=== PATIENT | male | born 1945 | race Caucasian/White ===

== ENCOUNTER 2017-10-10 15:59 | Emergency (ER) | payer SELFPAY ==
--- NOTE | 2017-10-10 19:04 | RAD ---
Indication: Chest injury. CT of the chest performed without IV contrast. Coronal and sagittal reconstructed images were obtained. Inferior thyroid lobes are unremarkable. There are calcified lymph nodes noted in the prevascular space, AP window, left hilum and right hilum as above the subcarinal space. The heart demonstrates no pericardial effusion. The possibility of sarcoid should BE considered. These calcifications were present previously. The lung silva demonstrate density in the left apex. This is likely due to conglomerate mass that is perihilar in location. This has progressed since previous examination. Scattered nodular densities are noted throughout. There is groundglass appearance noted in the right middle lobe. Bilateral axillary lymph nodes are noted. This may represent sarcoid. IMPRESSION: Calcified granulomas a lymph nodes in the mediastinum and hilum bilaterally. Left upper lobe perihilar mass is noted with areas of nodularity along the bronchovascular bundles. Findings are suspicious for sarcoid. Bilateral axillary lymphadenopathy is noted. Findings are consistent with sarcoidosis.
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
[2017-10-10 19:41] VITALS: BP 174/95
== END 2017-10-10 19:41 | disposition home or self-care (01) ==
LOC: ED 15:59
DX: S61.512A Laceration without foreign body of left wrist, initial encounter (principal); S61.511A Laceration without foreign body of right wrist, initial encounter; I10 Essential (primary) hypertension; V47.5XXA Car driver injured in collision with fixed or stationary object in traffic accident, initial encounter; Y92.9 Unspecified place or not applicable; C80.1 Malignant (primary) neoplasm, unspecified
CPT/HCPCS: 71250; 99282

== ENCOUNTER 2018-10-21 19:37 | Inpatient (IN) | payer OTHER ==
[2018-10-21] MEDS ORDERED: NS 0.9% 1000 ML* 1,000 ML IV ONE (20:03)
--- NOTE | 2018-10-21 20:03 | ED ---
Complex/Multi-Sys Presentation - History Of Current Complaint Chief Complaint: EDAltMentalStatus Time Seen by Provider: 10/21/18 19:45 - Allergies/Home Medications Allergies/Adverse Reactions: Allergies Allergy/AdvReac Type Severity Reaction Status Date / Time No Known Allergies Allergy Verified 10/17/18 09:18 PMH/Surg Hx/FS Hx/Imm Hx Endocrine/Hematology History: Reports: Other Endocrine/Hematological Disorders - Sarcoidosis, since resolved, according to Pt Denies: Hx Diabetes, Hx Thyroid Disease - nodes, under care of Rik Cardiovascular History: Reports: Hx Hypertension Denies: Hx Pacemaker/ICD Respiratory History: Reports: Hx Asthma - childhood only, Hx Sleep Apnea - CPAP , Other Respiratory Problems/Disorders - secondary to Sarcoidosis, since improved History: Denies: Hx Renal Disease Musculoskeletal History: Reports: Hx Arthritis, Other Musculoskeletal History - LEFT WRIST FX Denies: Hx Osteoporosis Sensory History: Reports: Hx Contacts or Glasses Denies: Hx Hearing Aid Opthamlomology History: Reports: Hx Contacts or Glasses Neurological History: Reports: Other Neuro Impairments/Disorders - spinal ostemyelitis Psychiatric History: Reports: Hx Anxiety - since ~2 years ago with health problems, mild, Hx Depression - since ~2 years ago with health problems, mild Denies: Hx Panic Disorder - Cancer History Cancer Type, 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 NOSE BLEED HAD TO CAUTERIZE. TONSILS-CATARACTS BILATERAL Hx Anesthesia Reactions: No Infectious Disease History: No Infectious Disease History: Denies: Traveled Outside the [place] in Last 30 Days - Social History Alcohol Use: None Hx Substance Use: Yes Substance Use Type: Reports: None Substance Use Comment - Amount & Last Used: this morning, oil Hx Tobacco Use: No Smoking Status (MU): Never Smoked Tobacco Physical Exam Vital Signs On Initial Exam: Initial Vitals Temp Pulse Resp BP Pulse Ox 99.6 F 100 18 134/83 97 10/21/18 19:44 10/21/18 19:44 18 19:44 10/21/18 19:44 10/21/18 19:44 Diagnostics - Vital Signs Vital Signs Temp Pulse Resp BP Pulse Ox 10/21/18 19:44 99.6 F 100 18 134/83 97 - Laboratory Lab Statement: Any lab studies that have been ordered have been reviewed, and results considered in the medical decision making process. Discharge - Discharge Plan Referrals: Helen Styles MD [Primary Care Provider] - - Attestation Statements Document Initiated by Scribe: Yes Documenting Scribe: Sofia Stout Provider For Whom Scribe is Documenting (Include Credential): Dr. Brandan Robertson MD Scribe Attestation: Sofia Canseco , scribed for Dr. Brandan Robertson MD on 10/21/18 at 2003.
--- NOTE | 2018-10-21 20:06 | ED ---
Altered Mental Status - HPI Summary HPI Summary: The pt is a 73 y/o male accompanied by his daughter c/o increasing confusion and forgetfulness. He did not show up at home at around 16:30 hrs. His then contacted their daughter at 18:00 hrs. The pt was found asleep asleep on the lounge at work for about 6 hours (13:00 hrs -19:00 hrs). His daughter is concerned that the pt did not eat his lunch today. The pt denies weakness, numbness and abd pain. He states that he got a cortisol shot 4 days ago for chronic stenosis.The pt lives with his . Home Medications Medication Instructions Recorded Confirmed Type Acetaminophen [Acetaminophen Extra 1,000 mg PO BID PRN 07/06/16 10/17/18 History Stren] Cholecalciferol (Vitamin D3) 2,000 unit PO DAILY 07/06/16 10/17/18 History [Vitamin D] Ibuprofen [Ibuprofen 200 MG] 400 - 600 mg PO TID WITH MEALS PRN 07/06/16 History MDD 1600 mg Multivitamins/Minerals TAB* 1 tab PO DAILY 07/06/16 10/17/18 History [Theragran/minerals TAB*] Omeprazole CAP* [Prilosec CAP* 20 20 mg PO DAILY 07/06/16 10/17/18 History MG] predniSONE TAB* [Deltasone TAB*] 5 mg PO QPM 07/06/16 10/17/18 History predniSONE TAB* [Deltasone TAB*] 10 mg PO QAM 07/06/16 10/17/18 History Losartan Potassium [Cozaar] 50 mg PO DAILY 10/09/18 10/17/18 History Tamsulosin CAP* [Flomax CAP*] 0.8 mg PO BEDTIME 10/09/18 10/17/18 History Tolnaftate [Antifungal Cream] 14.18 gm TP 10/09/18 History hydroCHLOROthiazide 12.5 mg PO DAILY 10/09/18 10/17/18 History [Hydrochlorothiazide] oxyCODONE TAB* [Roxycodone TAB 5 5 mg PO Q8H PRN MDD 1-1.5 tabs 10/09/18 History mg*] Neomycin/Polymyxin B/Dexametha 1 drop OP TID 10/17/18 10/17/18 History [Maxitrol] - History Of Current Complaint Chief Complaint: EDAltMentalStatus Stated Complaint: GENERAL ILLNESS Time Seen by Provider: 10/21/18 19:45 Hx Obtained From: Patient, Family/Intermediate Manager - Daughter Onset/Duration: Resolved Timing: Lasting Hours Character: Confusion Aggravating Factor(s): Nothing Alleviating Factor(s): Nothing Associated Signs And Symptoms: Negative: Weakness - Allergies/Home Medications Allergies/Adverse Reactions: Allergies Allergy/AdvReac Type Severity Reaction Status Date / Time No Known Allergies Allergy Verified 10/17/18 09:18 PMH/Surg Hx/FS Hx/Imm Hx Previously Healthy: No Endocrine/Hematology History: Reports: Other Endocrine/Hematological Disorders - Sarcoidosis, since resolved, according to Pt Denies: Hx Diabetes, Hx Thyroid Disease - nodes, under care of J[facility] Cardiovascular History: Reports: Hx Hypertension Denies: Hx Pacemaker/ICD Respiratory History: Reports: Hx Asthma - childhood only, Hx Sleep Apnea - CPAP , Other Respiratory Problems/Disorders - secondary to Sarcoidosis, since improved History: Denies: Hx Renal Disease Musculoskeletal History: Reports: Hx Arthritis, Other Musculoskeletal History - LEFT WRIST FX Denies: Hx Osteoporosis Sensory History: Reports: Hx Contacts or Glasses Denies: Hx Hearing Aid Opthamlomology History: Reports: Hx Contacts or Glasses Neurological History: Reports: Other Neuro Impairments/Disorders - spinal ostemyelitis Psychiatric History: Reports: Hx Anxiety - since ~2 years ago with health problems, mild, Hx Depression - since ~2 years ago with health problems, mild Denies: Hx Panic Disorder - Cancer History Cancer Type, 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 Cauterizatin of nose bleed. Tonsillectomy. Bilateral cataract removal Hx Anesthesia Reactions: No Infectious Disease History: No Infectious Disease History: Denies: Traveled Outside the [place] in Last 30 Days - Family History Known Family History: Positive: Cardiac Disease, Hypertension, Other - [place], Alzheimers- mother - Social History Occupation: Employed Full-time Lives: With Family Alcohol Use: None Hx Substance Use: Yes Substance Use Type: Reports: None Substance Use Comment - Amount & Last Used: this morning, oil Hx Tobacco Use: No Smoking Status (MU): Never Smoked Tobacco Review of Systems Constitutional: Other - Confusion, forgetfulness, drowsiness Negative: Abdominal Pain Negative: Weakness, Numbness All Other Systems Reviewed And Are Negative: Yes Physical Exam - Summary Physical Exam Summary: Appearance: Well appearing, no pain distress Skin: warm, dry, reflects adequate perfusion Head/face: normal Eyes: EOMI, CHARITY ENT: normal Neck: supple, non-tender Respiratory: CTA, breath sounds present Cardiovascular: RRR, pulses symmetrical Abdomen: non-tender, soft Musculoskeletal: normal, strength/ROM intact Neuro: normal, sensory motor intact, A&Ox3 GCS:15 , NIH Stroke scale =15 Triage Information Reviewed: Yes Vital Signs On Initial Exam: Initial Vitals Temp Pulse Resp BP Pulse Ox 99.6 F 100 18 134/83 97 10/21/18 19:44 10/21/18 19:44 10/21/18 19:44 10/21/18 19:44 10/21/18 19:44 Vital Signs Reviewed: Yes Diagnostics - Vital Signs Vital Signs Temp Pulse Resp BP Pulse Ox 10/21/18 19:44 99.6 F 100 18 134/83 97 - Laboratory Result Diagrams: 10/22/18 06:40 10/22/18 06:40 Lab Statement: Any lab studies that have been ordered have been reviewed, and results considered in the medical decision making process. - Radiology CXR Radiology Interpretation Completed By: ED Physician - IMPRESSION: No acute disease - CT Brain CT CT Interpretation Completed By: Radiologist Summary of CT Findings: IMPRESSION: No acute intracranial abnormality. The ED physician reviewed this radiology report. - EKG 20:34 Cardiac Rate: Tachycardia - 100 bpm EKG Rhythm: Sinus Tachycardia National Institutes Of Health - NIH Scale Level of Consciousness: Alert/Keenly Responsive Ask Patient the Month and His/Her Age: Both Correct Ask Pt to Open/Close Eyes and Leak Inspector/Release Non-Paretic Hand: Both Correctly Best Gaze (Only Horizontal Eye Movement): Normal Visual Field Testing: No Visual Loss Facial Paresis-Pt to Smile & Close Eyes or Grimace Symmetry: Normal/Symmetrical Motor Function - Right Arm: No Drift-Holds 10 Seconds Motor Function - Left Arm: No Drift-Holds 10 Seconds Motor Function - Right Leg: No Drift-Holds 10 Seconds Motor Function - Left Leg: No Drift-Holds 10 Seconds Limb Ataxia-Must be out of Proportion to Weakness Present: Absent Sensory (Use Pinprick to Test Arms/Legs/Trunk/Face): Normal Best Language (Describe Picture, Name Items): No Aphasia Dysarthria (Read Several Words): Normal Extinction and Inattention: No Abnormality Total Score: 0 Re-Evaluation - Re-Evaluation First Eval Re-Evaluation Time: 21:27 Comment: I discussed the results and discharge plan with the pt and his daughter. Altered Mental Statu Course/Dx - Course Course Of Treatment: A 73 year-old M presents to the ED with a CC of increasing confusion and forgetfulness. He denies weakness, numbness and abd pain. A physical exam is unremarkable. A CXR is unremarkable. An EKG reveals sinus tachycardia. Labs reveal elevated troponin at 0.05. A brain CT is unremarkable. In the ED course, pt was given N.s 0.9% 1000 ml IV which improved the symptoms. I discussed the care of the pt with Dr. Mesa who agreed to admit the pt. Patient will be discharged with a final Dx of TIA/TGA. Pt is agreeable with this plan. Allergies noted. - Diagnoses Differential Diagnosis/HQI/PQRI: CVA, Intracranial Bleed, Metabolic Disorder, Sepsis, TIA Provider Diagnoses: TIA (transient ischemic attack), TGA (transient global amnesia) - Provider Notifications Discussed Care Of Patient With: Kathryn Mesa - Hospitalist Time Discussed With Above Provider: 21:00 Instructed by Provider To: Admit As Inpatient - Critical Care Time Critical Care Time: 30-74 min Discharge - Sign-Out/Discharge Documenting (check all that apply): Patient Departure - Admit - Discharge Plan Condition: Stable Disposition: ADMITTED TO [facility] - Billing Disposition and Condition Condition: STABLE Disposition: Admitted to [facility] - Attestation Statements Document Initiated by Neelaibe: Yes Documenting Scribe: Sofia Stout Provider For Whom Julito is Documenting (Include Credential): Dr. Brandan Robertson MD Scribe Attestation: Sofia Canseco scribed for Dr. Brandan Robertson MD on 10/22/18 at 1152. Scribe Documentation Reviewed: Yes Provider Attestation: The documentation as recorded by the Sofia lópez accurately reflects the service I personally performed and the decisions made by me, Dr. Brandan Robertson MD Status of Scribe Document: Viewed
[2018-10-21 20:27] LABS: Hematocrit 38 % (42-52); Mean Corpuscular HGB Conc 34 g/dl (31-36); Mean Corpuscular Hemoglobin 34 pg (27-31); Mean Corpuscular Volume 100 fL (80-94); Red Cell Distribution Width 17 % (10.5-15); White Blood Count 8.1 10^3/ul (3.5-10.8)
[2018-10-21 20:31] LABS: INR 1.06 (0.77-1.02)
[2018-10-21 20:43] LABS: Albumin 3.5 g/dL (3.2-5.2); Albumin/Globulin Ratio 1.3 (1-3); Calcium 8.8 mg/dL (8.6-10.3); EGFR Non-African American 75.5 (>60); Globulin 2.6 g/dL (2-4); Potassium 3.5 mmol/L (3.5-5.0); Total Bilirubin 1.1 mg/dL (0.2-1.0); Total Protein 6.1 g/dL (6.4-8.9)
[2018-10-21 20:45] LABS: ABS Basophils 0.1 10^3/ul (0-0.2); ABS Eosinophils 0 10^3/ul (0-0.6); ABS Lymphocytes 0.1 10^3/ul (1.0-4.8); ABS Monocytes 0.3 10^3/ul (0-0.8); ABS Neutrophils 7.6 10^3/ul (1.5-7.7); Mean Platelet Volume 6.8 fL (7.4-10.4); Platelet Count 85 10^3/ul (150-450)
[2018-10-21 20:47] LABS: Immature Granulocytes 24 % (0-9); Lymphocytes % 1 %; Metamyelocytes % 1 % (0-2); Monocytes % 1 %; Myelocytes % 2 % (0-1); Neutrophil % 74 %
[2018-10-21 20:48] LABS: ABS Neutrophils 7.94 10^3/ul (1.5-7.7)
[2018-10-21 22:15] LABS: C Reactive Protein 78.92 mg/L (<8.01)
[2018-10-21] MEDS ORDERED: NS 0.9% 1000 ML* 2,000 ML IV ONE (22:38)
[2018-10-21] MEDS ORDERED: NS 0.9% 1000 ML* 1,000 ML IV SCH (22:45)
[2018-10-21 22:52] LABS: Erythrocyte Sed Rate 41 mm/Hr (0-40)
[2018-10-21] MEDS ORDERED: Vancomycin(*) 1,250 MG IV x ONCE IVPB ONE ×2 (23:00)
[2018-10-21] MEDS ORDERED: Vancomycin(*) 1,000 MG in NS 0.9% 250 ML* 250 ML IVPB SCH (23:00)
[2018-10-21] MEDS ORDERED: Vancomycin per Pharmacy* NOTE FOLLOW UP SCH (23:00)
[2018-10-21 23:50] LABS: Urine Appearance Clear; Urine Bacteria Absent (Absent); Urine Bilirubin Negative (Negative); Urine Blood Negative (Negative); Urine Color Yellow; Urine Glucose 3+(>=500 mg/dL) (Negative); Urine Ketones Negative (Negative); Urine Nitrite Negative (Negative); Urine Protein 1+(30 mg/dL) (Negative); Urine Red Blood Cell 2+(6-10/hpf) (Absent); Urine Specific Gravity 1.025 (1.010-1.030); Urine Urobilinogen Negative (Negative); Urine White Blood Cell 1+(6-10/hpf) (Absent)
[2018-10-22] MEDS: Acetaminophen TAB* 325 MG PO PRN ×2 (01:26→11:43)
[2018-10-22] MEDS: Cefepime 2 GM in Dextrose(*) 2 GM/50 ML BAG IV SCH ×2 (02:29→13:15)
[2018-10-22] MEDS ORDERED: Iohexol 300* (CONTRAST) 10 ML SDV IV ONE (04:41)
[2018-10-22] MEDS: Heparin VIAL(*) 5000 UNITS/ML VIAL (FIVE THOUSAND) SUBCUT SCH ×3 (06:01→20:44)
[2018-10-22 06:57] LABS: ABS Basophils 0.1 10^3/ul (0-0.2); ABS Eosinophils 0 10^3/ul (0-0.6); ABS Lymphocytes 0.1 10^3/ul (1.0-4.8); ABS Monocytes 0.3 10^3/ul (0-0.8); ABS Neutrophils 5.9 10^3/ul (1.5-7.7); ABS Nucleated RBC 0 10^3/ul; Eosinophil % 0.5 %; Hematocrit 34 % (42-52); Hemoglobin 11.9 g/dl (14.0-18.0); INR 1.16 (0.77-1.02); Lymphocyte % 1.2 %; Mean Corpuscular HGB Conc 35 g/dl (31-36); Mean Corpuscular Hemoglobin 35 pg (27-31); Mean Corpuscular Volume 100 fL (80-94); Mean Platelet Volume 7.1 fL (7.4-10.4); Nucleated Red Blood Cells % 0.2; Platelet Count 72 10^3/ul (150-450); Red Blood Count 3.45 10^6/ul (4.00-5.40); Red Cell Distribution Width 17 % (10.5-15); White Blood Count 6.3 10^3/ul (3.5-10.8)
--- NOTE | 2018-10-22 07:03 | HP ---
CC: Dr. Austin; Dr. Glaser; Dr. Silverman; Dr. Styles.* HISTORY AND PHYSICAL: DATE OF ADMISSION: 10/21/18 PRIMARY CARE PROVIDER: Dr. Styles. ATTENDING PHYSICIAN WHILE IN THE HOSPITAL: Erin Pierre MD * (report dictated by Cam Moody NP) CHIEF COMPLAINT: Altered mental status. HISTORY OF PRESENT ILLNESS: Mr. Kemp is a 73-year-old male patient who has a history of referred pain from L4-L5 to mostly his bilateral thighs, worse on the right than the left. He has a history of diskitis, history of squamous cell CA, history of kidney stones, AYUSH. He is prediabetic. He has a history of anxiety, depression, sarcoidosis, BPH, and history of hypertension. He is coming in to our ER today. He states that he has been following with Dr. Silverman , Dr. Glaser and Dr. Austin. He has been still having a significant amount of referred pain. The patient was seen by Dr. Silverman on Saturday and underwent an epidural injection for the pain. Dr. Silverman touched base with Dr. Glaser and Dr. Austin according to his notes. He underwent the epidural over the weekend. He saw his primary on Saturday. The patient had his oxycodone increased from 5 mg to 10 mg, which he took last night. He is coming in today because he was at work today and at around lunch time at 1300 he sat and he fell asleep and when he came to, it was dark out and it was 6 o'clock at night and he felt that it was 6 o'clock in the morning and he was very confused. His staff at [employer] and his coworkers were concerned and sent him immediately into the hospital. He is denying any incontinence of urine or stool. No pain in his back. He does state that he is feeling fatigued and weakened. He denies any chest pain. He denied any shortness of breath. He denies having any cough. No rhinorrhea or sore throat. He denied having any vomiting or diarrhea. No abdominal discomfort. He does not know if he has been in and around any any sick contacts recently. When he presented, there was concern for the altered mental status and we were asked to evaluate initially for this, but on evaluation of the labs, I did note that he has bandemia of unclear etiology and also had an elevated troponin as well. Because of these findings, we were asked to evaluate for admission. Apparently, he did have a fever in the EMS, but I do not have the record of this. PAST MEDICAL HISTORY: Significant for: 1. Hypertension. 2. Sarcoidosis. 3. BPH. 4. History of nephrolithiasis. 5. B12 deficiency. 6. Squamous cell CA of the skin. 7. AYUSH. 8. Sciatica. 9. Prediabetes. 10. L4-5 diskitis in the past. 11. Anxiety. 12. Depression. PAST SURGICAL HISTORY: 1. He has had tonsillectomy. 2. He has had cauterization of his nose due to epistaxis. 3. Cataract extraction. MEDICATIONS: Home meds according to his recall, we need to clarify these with the PCP tomorrow include: 1. Cozaar 100 mg p.o. daily. 2. Hydrochlorothiazide 25 mg daily. 3. Antifungal cream 1 application topically daily to his feet. 4. Flomax 0.4 mg p.o. b.i.d. 5. Prilosec 20 mg daily. 6. Neomycin, polymyxin B, and dexamethasone 1 drop ophthalmic t.i.d. 7. Multivitamin 1 tablet daily. 8. Ibuprofen 400 mg t.i.d. with meals as needed. 9. Vitamin D3 2000 units p.o. daily. 10. Tylenol 1000 mg p.o. b.i.d. as needed. 11. Prednisone 5 mg at bedtime, 10 mg in the morning. 12. Oxycodone 10 mg at bedtime as needed. ALLERGIES TO MEDICATIONS: Include no known drug allergies. FAMILY HISTORY: His mother had history of dementia. His father from complications due to a fall. SOCIAL HISTORY: He does not smoke. He does not drink. Surrogate decision maker is his . 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 REVIEW OF SYSTEMS: Again, documented fever in the EMS, but I do not have a record of this, according to the patient. He denied having any significant weight change. There was no double vision. There was no ear discharge. He denied having any rhinorrhea. There was no sore throat. No thyroid enlargement. He denies having any chest pain. There was no orthopnea. There was no nocturnal dyspnea. He denied having any abdominal pain. There was no nausea, no vomiting. There was no dysuria. There was no frequency. No seizure. There was a question of loss of consciousness. No pruritus and no skin ulcerations. Review of 14 systems completed, all others negative. PHYSICAL EXAMINATION GENERAL: At this time, Mr. Kemp is a 73-year-old male patient. He is sitting in the ED stretcher. He does not appear to be in any acute distress. Appears to be older than stated age. VITAL SIGNS: Blood pressure 134/83 with a pulse of 100, respirations 18, O2 sat 97%, temperature 99.6, blood pressure at one point down here was at 170s, it is now 155. HEENT: Head: Atraumatic and normocephalic. Eyes: EOMs are intact. Sclerae were anicteric and not pale. Throat: Oral mucosa appears to be dry. No oropharyngeal erythema. NECK: Supple. LUNGS: He did have some crackles noted on his right base. He had equal diaphragmatic expansion. HEART: Sounds S1, S2. He had a regular rate and rhythm. No murmurs, rubs, or gallops. ABDOMEN: Soft. It was flat. It was nontender. Bowel sounds were present. EXTREMITIES: Pulses are 2+ throughout. He is moving all 4 extremities with 5/ 5 strength. NEUROLOGICAL: He is awake. He is alert. He is oriented x3. Now, his speech is clear. His tongue is midline. Rttnxp-[id number] intact bilaterally. Heel-to- calderon intact bilaterally. He had no gross focal deficits. SKIN: Intact. He does have several lesions to his upper extremities that do appear to be moles. Otherwise, his skin is intact. LABORATORY DATA/DIAGNOSTIC STUDIES: His labs today are revealing a WBC of 8.1 , RBC of 3.80, hemoglobin of 13.0, hematocrit of 38, platelet count of 85, his bands were 21%. INR 1.06. His sodium is 141, potassium is 3.5, chloride of 105 , bicarb 30, BUN 32, creatinine of 0.97, glucose 189. Lactic 1.4. Calcium 8.8. Total bili 1.1, AST 25, ALT 40, alk phos 101. Troponin 0.05. Albumin of 3.5. He did have multiple imaging here in the ED starting out with a brain CT, impression showed no acute intracranial abnormality. He had an EKG obtained today, which I do not have a previous for comparison, but the EKG today shows sinus tachycardia with a rate of 100 with LVH, no ST elevation, he did have flattening T waves in V6 along with II, III, and aVF. I do not have a previous for comparison. He had an echo though recently that showed normal LVF and EF that was preserved at 50% to 55%. He had a chest x-ray obtained today, which when I reviewed it, I do not appreciate any acute infiltrates or pleural effusions. He had an MRI back in July of this year of the lumbar spine, which again noted as a pattern of end- plate erosion and enhancement of the L4- 5 vertebral bodies with persistent epidural and paravertebral enhancement. The enhancement pattern is similar to his 2017, though somewhat improved along the inferior end-plate of L5. The degree of edema on the STIR images has decreased. Please note that the image findings suggestive of osteomyelitis persist after clinical resolution, degenerative disk disease and arthritis. There is moderate narrowing of the central canal at L2-3, L3-4, and L4-5. Old medical records were reviewed. ASSESSMENT AND PLAN: Mr. Kemp is a 73-year-old male patient coming into the ED today with complaints of an episode of confusion. On evaluation, he was found to have a bandemia and elevated troponin of unclear etiology. We were asked to evaluate for admission. He will be admitted under inpatient status for : 1. Altered mental status. Again, etiology is unclear. It could be polypharmacy; however, I am concerned of underlying infection, which may have contributed. I do not have a clear source yet, but the patient is immunocompromised and does have bands of 21,000. He does not have findings of back pain. I palpated his spine, it was not tender. He was able to walk around the corner of his bed, but when he did this, his heart rate went to 150 and he was notably short of breath. I am concerned for may be a respiratory source. I do think we deserve to get a CTA as he may have had a syncopal episode today. PE is on the differential, but it is low. I am worried about possible pneumonia. So, we will get the CT of the chest. We will put him on vanco, cefepime. I have placed a consult in the computer for Dr. Austin. We will need to touch base with him in the morning. His blood pressure is okay now. I am going to give him a 2 L bolus of fluids because of the fact that he did become tachy when he stood up at this point. I will check orthostatic blood pressures. We will panculture him and we will continue to follow. We will send off the cultures and urine as well and we will continue to monitor. 2. Hypertension. In the setting of acute illness, I have held the hydrochlorothiazide and the Cozaar. I have ordered p.r.n. hydralazine. 3. Sarcoidosis. We are getting a CTA of the chest. We will continue his steroids. 4. History of benign prostatic hypertrophy. Continue Flomax. I am going to get a bladder scan and try to get a UA as well. 5. History of squamous cell cancer. Follow with his PCP. 6. Obstructive sleep apnea. I have ordered a CPAP. 7. History of sciatica. Continue his pain meds, but I have reduced the dose to 5 mg at bedtime. We will continue Tylenol as needed. 8. History of L4-5 diskitis. Certainly, this could be a source now with the bandemia; however, I am holding off an MRI unless he starts developing any symptoms and I would like to touch base with Dr. Austin to see if he thinks this is warranted for repeating. He will be on vanco and cefepime. 9. Anxiety and depression. Continue with supportive care and meds as prescribed. 10. DVT prophylaxis: Continue heparin subcu. 11. Code status: He is a full code. 12. Fluids, electrolytes, and nutrition: I have ordered a regular diet. TIME SPENT: On admission was 60 minutes, greater than half the time was spent face- to-face with the patient obtaining my history and physical, other half time was spent going over the plan of care with the patient and implementing plan of care. I did discuss the plan of care with my attending, Dr. Pierre, she is in agreement. CAM MOODY, MARCY [id number]/[facility] #: [id number] [facility] CENTERSunni
[2018-10-22] MEDS: Omeprazole CAP* 20 MG PO SCH (08:06)
[2018-10-22] MEDS: Neomycin/Polymy/Dex OPTH.SUSP* MAXITROL 0.1% 5 ML BOTH EYES SCH ×3 (08:06→20:43)
[2018-10-22] MEDS: predniSONE TAB* 10 MG PO SCH (08:06)
[2018-10-22] MEDS: Tamsulosin CAP* 0.4 MG PO SCH ×2 (08:06→20:43)
[2018-10-22 08:29] LABS: Albumin 3.1 g/dL (3.2-5.2); Calcium 8.2 mg/dL (8.6-10.3); Potassium 3.2 mmol/L (3.5-5.0)
[2018-10-22 08:35] LABS: Albumin/Globulin Ratio 1.3 (1-3); BUN/Creatinine Ratio 34.1 (8-20); C Reactive Protein 139.15 mg/L (<8.01); EGFR Non-African American 91.6 (>60); Globulin 2.3 g/dL (2-4); Total Protein 5.4 g/dL (6.4-8.9)
[2018-10-22 09:10] LABS: Urine Appearance Clear; Urine Bacteria 1+ (Absent); Urine Bilirubin Negative (Negative); Urine Blood 2+ (Negative); Urine Color Yellow; Urine Glucose 1+(50 mg/dL) (Negative); Urine Ketones Negative (Negative); Urine Nitrite Negative (Negative); Urine Protein Negative (Negative); Urine Red Blood Cell 2+(6-10/hpf) (Absent); Urine Specific Gravity 1.041 (1.010-1.030); Urine Urobilinogen Negative (Negative); Urine White Blood Cell Trace(0-5/hpf) (Absent)
[2018-10-22] MEDS ORDERED: Vancomycin(*) 1,250 MG in NS 0.9% 250 ML* 250 ML IVPB SCH (11:00)
--- NOTE | 2018-10-22 11:20 | CONS ---
CONSULTATION REPORT: DATE OF CONSULT: 10/22/18 REQUESTING PHYSICIAN: Dr. Garza. CONSULTING SERVICE: Infectious Disease. REASON FOR CONSULTATION: Encephalopathy. IMPRESSION: 1. Encephalopathy that developed while he was at work yesterday along with fever, acute hypoxemic respiratory failure which is resolved, small left upper lobe infiltrate that spares the apex, no particular respiratory symptoms. He has recently had bilateral conjunctival suffusion for which he has been receiving corticosteroid drops. This could all be part of an allergic reaction versus viral infection including adenovirus causing a conjunctivitis and a pneumonia. He could have a systemic bacterial infection which is as of yet detected as the blood and urine cultures are pending. He has no other focal signs or symptoms. 2. Chronic bilateral sciatica and spine imaging showing osteodiskitis diagnosed in 2016. 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 He did have a long course of treatment for that organism. 3. Chronic thrombocytopenia and chronic lymphocytic leukemia. 4. Sarcoidosis. RECOMMENDATIONS: Continue broad-spectrum antibiotics while we await the blood and urine specimens. He has made considerable improvement today, which makes me wonder if most of his syndrome could be due to something like dehydration in the setting of a systemic process, i.e., viral infection or allergic reaction. Alternatively, it could be postictal, so an evaluation for seizure may be reasonable. HISTORY OF PRESENT ILLNESS: This is a 73-year-old man with recent bilateral conjunctival suffusion being treated with topical corticosteroid and antibiotic by Ophthalmology. He had had an epidural corticosteroid injection last week with some improvement in his chronic sciatica. Yesterday, he was at work doing his usual and then was found by colleagues minimally responsive. They contacted EMS. He was brought here yesterday afternoon. He was tachycardic, hypertensive, saturating mid 90s with supplemental oxygen and he was placed on a higher dose of oxygen overnight, FIO2 of 20%, he was febrile overnight. Today , he is more alert which is an improvement compared to last evening when he was evaluated. Today, he can give the details of his recent medical history and reports symptoms today which include essentially none other than the eye abnormalities. An influenza PCR was negative. White count was normal, procalcitonin was elevated, creatinine normal, troponin slightly elevated. Urinalysis showed protein and white cells. INR was normal. CT of the chest showed some calcified lymph nodes. He has a small infiltrate in the superior aspect of left upper lung on CT, it does spare the apex. He does not know any recent cough or dyspnea. PAST MEDICAL HISTORY: 1. Sarcoidosis. 2. Undefined lumbar spine inflammatory process. The differential at the time of diagnosis in 2016 included sarcoidosis, atypical bacterial infection, and a biopsy done at [place] showed lymphocytic infiltrate consistent with CLL. The culture grew a nontuberculous mycobacteria for which he had years' worth of therapy without any change in his bilateral thigh symptoms. 3. Benign prostatic hypertrophy. 4. Hypertension. 5. Nephrolithiasis. 6. B12 deficiency. 7. Squamous cell cancer of the skin. 8. Obstructive sleep apnea. 9. Anxiety. 10. Depression. 11. Status post tonsillectomy. 12. Epistaxis. 13. Cataract repair. MEDICATIONS: 1. Tylenol. 2. Cefepime 2 g every 12 hours. 3. Heparin subcutaneous injection. 4. Prednisone 5 mg a day and 10 mg at night. 5. Tamsulosin. 6. Vancomycin 1250 mg every 12 hours. ALLERGIES: No known drug allergies. FAMILY HISTORY: No recurrent infections. Mother had dementia. Father from fall. SOCIAL HISTORY: Lives in [place]. 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 No sick contacts. No pets. REVIEW OF SYSTEMS: A 14-point review is all negative except as noted above in the history of present illness. PHYSICAL EXAM: Vital Signs: Temperature 37, heart rate 117, respiratory rate 20, blood pressure 178/96, oxygen saturation 95% on room air. In general, he is awake, not in distress. Neurologic: He is oriented x3. Follows all commands. Answers questions appropriately. Can give a detailed medical history. HEENT: There is bilateral conjunctival suffusion. Oropharynx without lesions. Neck is supple without mass. Lymph nodes: There is no cervical, supraclavicular, inguinal, axillary, or epitrochlear lymphadenopathy. Heart is regular and tachycardic without murmurs. Lungs: Clear to auscultation bilaterally. Abdomen: Soft, nontender, nondistended. There are bowel sounds present. Skin: There is no rash or splinter hemorrhage. Musculoskeletal: There is no spine tenderness to palpation. LABORATORY DATA: White blood cell count 6, hemoglobin 11, platelets 72,000. MCV 100, creatinine is 0.9. Please see impression and recommendations outlined above which I have discussed with Dr. Garza. Thank you for asking me to see Mr. Kemp in consultation. [id number]/[facility] #: [id number] EMILIANO
--- NOTE | 2018-10-22 11:45 | ECHO ---
Patient: KARI STARKS Rec#: [id number] : 1945 Date: 10/22/2018 Age: 73y Height: 173 cm / 68.1 in Weight: 77 kg / 169.7 lbs Sex: M BSA: 1.91 Room#: [facility] Admit Date#: 10/21/2018 Type: Inpatient Referring: Cam Moody NP Reading: Jewell Booth MD Team Member: Marylou Calloway RDCS,RDMS CC: Helen Styles MD Transthoracic Echocardiogram Indication: SOB BP: 178/96 HR: 98 Rhythm: NSR Findings History: HTN, sarcoidosis, AYUSH Technical Comments: The study quality is fair. Left Ventricle: The left ventricular chamber size is normal. Mild to moderate concentric left ventricular hypertrophy is observed. There is normal left ventricular systolic function. The estimated ejection fraction is 60-65%. There is an E to A reversal in the mitral valve flow pattern suggestive of diastolic dysfunction. Left Atrium: The left atrial chamber size is normal. Right Ventricle: The right ventricle wall thickness is mildly increased. The right ventricular global systolic function is mildly reduced. Right Atrium: The right atrium is slightly dilated. Aortic Valve: The aortic valve is trileaflet. The aortic valve leaflets are mildly thickened. There is no evidence of aortic regurgitation. There is no evidence of aortic stenosis. Mitral Valve: There is mitral annular calcification. The mitral valve leaflets are mildly thickened. There is no evidence of mitral regurgitation. There is no evidence of mitral stenosis. Tricuspid Valve: The tricuspid valve leaflets are normal. There is no evidence of tricuspid valve regurgitation. Unable to estimate the right ventricular systolic pressure. Pulmonic Valve: The pulmonic valve appears normal. There is a trace pulmonic regurgitation. Pericardium: There is no significant pericardial effusion. Aorta: The aortic root appears normal. There is no dilatation of the aortic arch. Pulmonary Artery: The main pulmonary artery appears normal. Venous: The inferior vena cava is dilated. There is an approximate 50% respiratory change in the inferior vena cava dimension. Conclusions Mild to moderate concentric left ventricular hypertrophy is observed. There is normal left ventricular systolic function. The estimated ejection fraction is 60-65%. The right ventricle wall thickness is mildly increased. The right ventricular global systolic function is mildly reduced. The aortic valve is trileaflet and the leaflets are mildly thickened. Unable to estimate PA pressure. Compared with prior echo of 09/24/18 RV hypokinesis is new. Measurements Name Value Normal Range RVIDd (AP) 2D 2.9 cm (0.9 - 2.6) RVDdMajor (2D) 3.4 cm (2.2 - 4.4) RAd ISD 4CH 4.3 cm (3.4 - 4.9) RA (A4C)W 5.1 cm (2.9 - 4.6) IVSd (2D) 1.4 cm (0.6 - 1) LVPWd (2D) 1.7 cm (0.6 - 1) LVIDd (2D) 4.2 cm (3.6 - 5.4) LVIDs (2D) 3.5 cm - LV FS (2D) 15 % (25 - 45) Aortic Annulus 2.3 cm (1.4 - 2.6) Ao root diameter (2D) 3.2 cm (2.1 - 3.5) Ascending Ao 3.3 cm (2.1 - 3.4) Aortic arch 2.9 cm (1.8 - 3.4) LA dimension (AP) 2D 3.8 cm (2.3 - 3.8) LAd ISD 4CH 4.5 cm (2.9 - 5.3) LA ISD 4CH W 3.5 cm (2.5 - 4.5) Name Value Normal Range LA ESV BP (A/L) index 23 ml/m2 - Name Value Normal Range MV E-wave Vmax 0.6 m/sec - MV deceleration time 103 msec - MV A-wave Vmax 1.1 m/sec - MV E:A ratio 0.6 ratio - P. vein S-wave Vmax 0.6 m/sec - P. vein D-wave Vmax 0.4 m/sec - P. vein S:D Vmax ratio 1.3 ratio - P. vein A-wave duration 90 msec - LV septal e' Vmax 0.08 m/sec - LV lateral e' Vmax 0.06 m/sec - LV E:e' septal ratio 8 ratio - LV E:e' lateral ratio 10 ratio - Name Value Normal Range AV Vmax 1.2 m/sec - AV VTI 19 cm - AV peak gradient 6 mmHg - AV mean gradient 3 mmHg - LVOT Vmax 1 m/sec - LVOT VTI 16 cm - LVOT peak gradient 4 mmHg - LVOT mean gradient 2 mmHg - ALONDRA Vmax 0.5 m/sec - Name Value Normal Range MV Vmax 1.1 m/sec - MV VTI 21 cm - MV peak gradient 5 mmHg - MV mean gradient 2 mmHg - MV PHT 59 msec - MVA (PHT) 3.7 cm2 - Name Value Normal Range RAP 8 mmHg - IVC diameter 2.2 cm - Name Value Normal Range PV Vmax 0.7 m/sec - PV peak gradient 2 mmHg -
--- NOTE | 2018-10-22 15:03 | PN ---
Subjective Date of Service: 10/22/18 Interval History: HOSPITALIST PROGRESS NOTE Patient seen and examined at bedside. Care reviewed and d/w Rachel Stratton RN. He feels better today. Requesting Acetaminophen for back pain. Tolerating diet well, denies N/V/D. Family History: Unchanged from Admission Social History: Unchanged from Admission Past Medical History: Unchanged from Admission Objective Active Medications: Acetaminophen (Tylenol Tab*) 650 mg PO Q4H PRN PRN Reason: FEVER Last Admin: 10/22/18 11:43 Dose: 650 mg Heparin Sodium (Porcine) (Heparin Vial(*)) 5,000 units SUBCUT Q8HR [facility] Last Admin: 10/22/18 13:15 Dose: 5,000 units Hydralazine HCl (Apresoline Iv*) 5 mg IV SLOW PU Q6H PRN PRN Reason: BLOOD PRESSURE Cefepime HCl (Maxipime 2 Gm In Dextrose Duplex (*)) 2 gm in 50 mls @ 100 mls/ hr IV Q12H [facility] Last Admin: 10/22/18 13:15 Dose: 100 mls/hr Sodium Chloride (Ns 0.9% 1000 Ml*) 1,000 mls @ 100 mls/hr IV PER RATE [facility] Last Admin: 10/22/18 02:29 Dose: 100 mls/hr Vancomycin HCl 1,250 mg/ (Sodium Chloride) 250 mls @ 166.667 mls/hr IVPB Q12H [facility] Last Admin: 10/22/18 11:18 Dose: 166.667 mls/hr Neomycin/Polymyxin/Dexamethasone (Maxitrol Opth Susp 0.1%*) 1 drop BOTH EYES TID [facility] Last Admin: 10/22/18 13:16 Dose: 1 drop Omeprazole (Prilosec Cap*) 20 mg PO DAILY@0730 [facility] Last Admin: 10/22/18 08:06 Dose: 20 mg Oxycodone HCl (Roxycodone Tab*) 5 mg PO BEDTIME PRN PRN Reason: PAIN Pharmacy Consult (Vancomycin Per Pharmacy*) 1 note FOLLOW UP .VANC PER PHARMACY [facility] Pharmacy Profile Note (Vancomycin Trough Check) 1 note FOLLOW UP .ENTER TIME ONE Stop: 10/23/18 10:31 Prednisone (Deltasone Tab*) 5 mg PO QPM [facility] Prednisone (Deltasone Tab*) 10 mg PO QAM [facility] Last Admin: 10/22/18 08:06 Dose: 10 mg Tamsulosin HCl (Flomax Cap*) 0.4 mg PO BID [facility] Last Admin: 10/22/18 08:06 Dose: 0.4 mg Vital Signs - 8 hr 10/22/18 10/22/18 10/22/18 07:13 08:00 11:10 Temperature 99.3 F 98.7 F Pulse Rate 98 98 Respiratory 24 18 24 Rate Blood Pressure 144/61 117/71 (mmHg) O2 Sat by Pulse 98 95 Oximetry Oxygen Devices in Use Now: None Appearance: Pleasant elderly gentleman sitting up in a recliner in [facility]. Eyes: No Scleral Icterus, - - Bilateral chemosis, no erythema or purulent discharge Ears/Nose/Mouth/Throat: Mucous Membranes Moist Neck: Trachea Midline Respiratory: Symmetrical Chest Expansion and Respiratory Effort, Clear to Auscultation Cardiovascular: NL Sounds; No Murmurs; No JVD, RRR Abdominal: NL Sounds; No Tenderness; No Distention - obese Extremities: No Edema Neurological: Alert and Oriented x 3, NL Muscle Strength and Tone Result Diagrams: 10/22/18 06:40 10/22/18 06:40 Microbiology and Other Data: Microbiology 10/21/18 23:03 Aerobic Blood Culture - Preliminary Blood Venous Blood MRSA/MSSA (PCR) - Final Mrsa Negative S.aureus Positive 10/22/18 01:15 Influenza Types A,B Antigen - Final Nasopharyngeal Specimen received for Influenza A/B Molecular testing Assess/Plan/Problems-Billing Assessment: Mr Kemp is a 73yo M with PMH of sarcoidosis, 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 - Patient Problems (1) Sepsis Comment: - Patient met sepsis criteria on admission with fever, tachycardia, tachypnea, bandemia, toxic encephalopathy. - qSOFA was 2 (encephalopathy and RR 24). - Source is unclear at this time. - ID input appreciated - suspected a viral infection considering his chemosis and respiratory symptoms, possible adenovirus, but patient has a h/o an inflammatory process of his lumbar spine in 2016 with differential diagnosis including sarcoidosis vs atypical bacterial infection. Biopsy done at [place] showed lymphocytic infiltrate consistent with CLL. 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 - One blood culture bottle is growing MSSA - d/w ID - recommended d/c Vanco, continue Cefepime, and check echocardiogram. - Flip is immunossupressed with sarcoidosis on steroids and recent epidural steroid injection. Back pain is controlled. - ID does not recommend MRI spine for now, but will continue to monitor and he may need one this admission. (2) Encephalopathy Comment: - Could be toxic encephalopathy in the setting of sepsis, but mental state appears to have returned to baseline. Dr Valdez knows patient from outpatient setting and thinks his encephalopathy is resolved now. - CT brain showed no acute intracranial abnormality. - His episode of altered consciousness could represent post ictal state - check EEG and Neurology consult requested with Dr Johansen. - Could also be secondary to oxycodone use. (3) Pneumonia Comment: - CTA chest showed no evidence of pulmonary embolic disease. Previously noted pulmonary nodule located in the superior segment of the left lower lung has resolved. Complex infiltrate located in the superior aspect of the left upper lung. - This could represent infection - viral vs bacterial - continue Cefepime. - Respiratory status is improved and he's now on RA. - Check Legionella and pneumococcal Ags. (4) Decubitus ulcer Comment: - Present on admission. - Seen by wound care team, found to have Left hip, stage 2 pressure ulcer - Inner open area 0.5 cm x 0.5 cm x 0.1 cm. Outer area of erythema, blanchable - 2 cm x 2.5 cm. Continue pressure relief measures. (5) HTN (hypertension) Comment: - BP low normal - antihypertensives on hold for now. (6) Sarcoidosis Comment: - Continue steroids. (7) BPH (benign prostatic hyperplasia) Comment: - Continue Tamsulosin. (8) DVT prophylaxis Comment: - SQ heparin. (9) Full code status Status and Disposition: Inpatient.
[2018-10-22] MEDS: predniSONE TAB* 5 MG PO SCH (16:36)
--- NOTE | 2018-10-22 17:04 | CONS ---
CC: Dr. Glaser; Dr. Silverman; Dr. Styles * NEUROLOGY CONSULTATION: DATE OF CONSULT: 10/22/18 LOCATION: He is an inpatient in room 450. REFERRING PROVIDER: Cam Moody NP CHIEF COMPLAINT: Episode of lethargy and mental status changes. 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 It was about 1 o'clock and the next thing he knew it was dark and it was about 7 or 6:30 in the evening. He thought it might be 6:30 in the morning. Apparently, there were other people present and they convinced him to present to the emergency room. In the emergency room, he was found to have a fever and abnormal lab tests and was admitted. He reports that he recalls going to the lounge to have some lunch and that he felt asleep and the next thing he knew it was at night. He admits he was confused when he woke up. He feels that his mentation is back to normal today. There is no history of faints or seizures. He has a history of chronic back pain and takes oxycodone typically 5 mg at bedtime. The day prior to admission it was increased to 10 mg at night. I asked if he took any during the day yesterday and he says "I don't know." He has been treated for conjunctivitis with drops apparently for a week or less. He was seen by Dr. Austin who thinks he probably has a viral infection, but currently he is being treated with broad-spectrum antibiotics while cultures are pending. His chest x- ray was normal, but a CT angiogram and CT of the chest did show infiltrates in the left upper lung. He denies headache. He says his biggest problem is bilateral leg pain. He denies feeling short of breath or any chest pain. PAST MEDICAL HISTORY: Notable for prolonged antibiotic treatment for presumptive diskitis. There was only an atypical mycobacterium. In reading Dr. Austin's consultation note, it is felt that it was probably a contaminant. He has a history of pulmonary sarcoidosis, for which he was on prednisone for many years. It is felt to have burnt out. When the prednisone was tapered off, his back pain worsened, so he went back on it. He is not sure if it is helping his back pain at this point, however. He has a history of kidney stones, vitamin B12 deficiency, squamous cell carcinoma of the lung, obstructive sleep apnea. MEDICATIONS: At home consist of: 1. Cozaar 100 mg p.o. daily. 2. Hydrochlorothiazide 25 mg p.o. daily. 3. Flomax 0.4 mg p.o. b.i.d. 4. Antibiotic eye drops. 5. Prednisone 5 mg q.h.s. and 10 mg q.a.m. 6. Oxycodone 10 mg p.o. q.h.s. ALLERGIES: He does not have any drug allergies. 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 Lives with his . REVIEW OF SYSTEMS: He has difficulty getting around because of his leg pain. He has lots of bruising on his skin. He denies any itching. He denies headache or neck pain. No recent falls. No history of stroke or seizures. Other than his eyes being irritated, he denies change in his vision. PHYSICAL EXAM: He is obese and looks chronically ill. Most recent temperature 98.7, it was 99.3 earlier today. Blood pressure 117/70, heart rate in the 90s and regular. Respiratory rate is 24 and oxygen saturation is 95% on supplemental oxygen. Lungs reveal crackles in the right mid lung field. Heart is in a regular rhythm without murmurs. There are no cervical bruits. Neck is supple. He has multiple ecchymoses on his skin. He has multiple seborrheic keratoses on his skin. Neurological Exam: Pupils are small and about 2.5 mm, reacting to light to 2 mm. I had a poor look at his fundus, but I could see a sharp disc on the left. Eye movements are full without nystagmus. Visual sivla are full to confrontation. Facial musculature is symmetric. Facial sensation to light touch is symmetric. Palate reveals some petechiae. Palate rises symmetrically and tongue protrudes in the midline. There is no dysarthria. He is a bit hard of hearing. Motor exam reveals weakness of the right deltoid. He denies pain in that area. He has mild hip flexor weakness bilaterally and grade 4 right ankle dorsiflexor weakness. There is no tremor or asterixis. Sensory exam to light touch is normal in the limbs. He is areflexic. He is lethargic appearing, but able to maintain a conversation. He is able to recall 3/3 items after several minutes, spell the word world backwards, and is fully oriented to person, place, and time. DIAGNOSTIC STUDIES/LAB DATA: Includes a CT scan of the brain interpreted by the radiologist as showing chronic ischemic changes only. I reviewed the images and there is some subcortical hypodensities suggestive of possible chronic ischemic changes, but no other abnormalities noted. Other laboratory data notable for white blood cell count of 8.1 on presentation with 21% bands. Hemoglobin a bit low at 13 and MCV elevated at 100. Platelet count low at 85,000 yesterday, 72,000 today. Sedimentation rate is elevated at 41. Chemistry profile notable for elevated BUN at 32 yesterday, 28 today. Glucose was 189 yesterday, 237 today. Troponin was elevated at 0.05 yesterday, 0.07 this morning. CRP elevated at 139 today. Procalcitonin elevated at 3.1. Urinalysis notable for 3+ glucose, 2+ red blood cells, and 1+ white blood cells. Leukocyte esterase is negative and bacteria absent. IMPRESSION AND PLAN: Impression is that of an episode of hypersomnolence with confusional awakening. He has a history of obstructive sleep apnea and he may have gotten hypoxic during sleep. He cannot tell me for certain whether he took oxycodone yesterday and if he did take 10 mg sometime earlier yesterday that could have certainly caused his hypersomnolence and could have resulted in oxygen desaturation during sleep. Currently, he seems to be mentally back to normal and is just very tired. He has evidence of an infection, which may be pulmonary. Dr. Austin is following him. I looked at his EEG a little while ago and it looks to be a normal sleep and awake EEG. I do not have any further recommendations. I will sign off, but please contact us if further input is desired. [id number]/[facility] #: [id number] EMILIANO
--- NOTE | 2018-10-22 20:10 | EEG ---
ELECTROENCEPHALOGRAPHY: DATE OF STUDY: 10/22/18 - ROOM #450 REFERRING PROVIDER: Dr. Garza. LOCATION: He is an inpatient in room 450. CLINICAL PROBLEM: Episode of prolonged lethargy the day before this recording. The patient presented to the emergency room and was found to have a fever and a left shift as well as a pulmonary infiltrate. MEDICATIONS: Include, oxycodone, Prilosec, vancomycin, prednisone, Maxitrol, Maxipime. REPORT: This 16-channel EEG is remarkable for background rhythms at the onset of the tracing consistent with stage 2 sleep. Specifically, bilateral parasagittal sleep spindles are noted and some central and bitemporal slowing is noted. Activation procedures are not attempted. The patient wakes later in the tracing with a well-formed alpha rhythm in the occipital derivations at about 9 cycles per second. There are no clinical events. There are no focal, lateralized, or epileptiform abnormalities. CLINICAL IMPRESSION: Normal asleep and awake EEG. [id number]/[facility] #: [id number] [facility]
[2018-10-22] MEDS: Potassium Chlor TAB* 20 MEQ TAB.ER PO SCH (20:43)
[2018-10-23] MEDS: Cefepime 2 GM in Dextrose(*) 2 GM/50 ML BAG IV SCH (00:06)
[2018-10-23] MEDS: hydrALAZINE IV* 20 MG/ML VIAL IV SLOW PU PRN (00:15)
[2018-10-23] MEDS: Heparin VIAL(*) 5000 UNITS/ML VIAL (FIVE THOUSAND) SUBCUT SCH ×3 (05:51→21:00)
[2018-10-23 07:05] LABS: Hematocrit 33 % (42-52); Hemoglobin 11.4 g/dl (14.0-18.0); Mean Corpuscular HGB Conc 34 g/dl (31-36); Mean Corpuscular Hemoglobin 34 pg (27-31); Mean Corpuscular Volume 99 fL (80-94); Mean Platelet Volume 7.4 fL (7.4-10.4); Platelet Count 70 10^3/ul (150-450); Red Blood Count 3.34 10^6/ul (4.00-5.40); Red Cell Distribution Width 17 % (10.5-15); White Blood Count 6.4 10^3/ul (3.5-10.8)
[2018-10-23 07:23] LABS: BUN/Creatinine Ratio 33.8 (8-20); C Reactive Protein 148.12 mg/L (<8.01); Calcium 8.7 mg/dL (8.6-10.3); EGFR Non-African American 98.5 (>60)
[2018-10-23 07:33] LABS: Potassium 3.5 mmol/L (3.5-5.0)
[2018-10-23] MEDS: Omeprazole CAP* 20 MG PO SCH (07:43)
[2018-10-23] MEDS: predniSONE TAB* 10 MG PO SCH (07:43)
[2018-10-23] MEDS: Tamsulosin CAP* 0.4 MG PO SCH ×2 (07:43→21:00)
[2018-10-23] MEDS: Multivitamins/Minerals TAB PO SCH (07:43)
[2018-10-23] MEDS: Neomycin/Polymy/Dex OPTH.SUSP* MAXITROL 0.1% 5 ML BOTH EYES SCH ×3 (07:44→21:00)
[2018-10-23] MEDS: Acetaminophen TAB* 325 MG PO PRN (07:44)
[2018-10-23] MEDS: Potassium Chlor TAB* 20 MEQ TAB.ER PO SCH ×2 (07:44→21:00)
[2018-10-23] MEDS: Cholecalciferol TAB* 1000 UNITS PO SCH (07:44)
[2018-10-23 08:04] LABS: Immature Granulocytes 11 % (0-9); Lymphocytes % 4 %; Monocytes % 4 %; Myelocytes % 2 % (0-1); Neutrophil % 77 %; Variant Lymph % 1 % (0-6)
[2018-10-23 08:06] LABS: ABS Neutrophils 5.6 10^3/ul (1.5-7.7)
[2018-10-23 08:07] LABS: ABS Eosinophils 0.19 10^3/ul (0-0.6)
--- NOTE | 2018-10-23 09:18 | PN ---
Progress Note - Progress Note Date of Service: 10/23/18 SOAP: Subjective: CC: encephalopathy HPI: 73 year old man with change in mental status due to infection, improving. No cough or chest pain, no back pain, has usual bilateral upper leg pain. No fever, rash, or diarrhea. No other joints bothering him. Objective: Vital Signs Temp 37.7 C 10/23/18 07:36 Pulse 89 10/23/18 07:36 Resp 20 10/23/18 08:00 BP 158/89 10/23/18 07:36 Pulse Ox 98 10/23/18 07:36 Intake & Output 10/22/18 10/23/18 10/23/18 18:59 06:59 18:59 Intake Total 1187 130 Output Total 290 450 Balance 897 -320 Intake: IV Fluids 135 30 ABX - CEFEPIME 30 NS (0.9%) 135 IVPB 822 100 ABX - CEFEPIME 115 100 ABX - VANCOMYCIN 297 NS (0.9%) 410 Oral 230 0 Output: Urine 290 450 Other: # Bowel Movements 1 2 Estimated Stool Amount Small Small Gen:awake, no distress HEENT: no thrush Heart:RRR no murmur Lungs:CTA BL Abd:+BS NTND soft Skin: left elbow patch of erythema MSK: No spine tenderness or joint synovitis Neuro: alert, Ox3, moves all extremities; strength 5/5 quad/TA/gastroc Laboratory Results - last 24 hr 10/21/18 10/22/18 10/23/18 20:13 15:46 06:26 WBC RBC Hgb Hct MCV MCH MCHC RDW Plt Count MPV Neut % (Auto) Lymph % (Auto) Jay % (Auto) Eos % (Auto) Baso % (Auto) Absolute Neuts (auto) Absolute Lymphs (auto) Absolute Monos (auto) Absolute Eos (auto) Absolute Basos (auto) Absolute Nucleated RBC Immature Gran % Neutrophils % Band Neutrophils % Lymphocytes % Reactive Lymphs % Monocytes % Eosinophils % Basophils % Myelocytes % Nucleated RBC % Abs Neuts (Manual) Abs Lymphs (Manual) Abs Monocytes (Manual) Absolute Eos (Manual) Dohle Bodies Normal RBC Morphology Hem Pathologist Commnt Sodium 144 Potassium 3.5 Chloride 110 Carbon Dioxide 29 Anion Gap 5 BUN 26 H Creatinine 0.77 Est GFR ( Amer) 119.2 Est GFR (Non-Af Amer) 98.5 BUN/Creatinine Ratio 33.8 H Glucose 180 H Calcium 8.7 Troponin I 0.06 H* C-Reactive Protein 148.12 H 10/23/18 06:26 WBC 6.4 RBC 3.34 L Hgb 11.4 L Hct 33 L MCV 99 H MCH 34 H MCHC 34 RDW 17 H Plt Count 70 L MPV 7.4 Neut % (Auto) Not Reportable Lymph % (Auto) Not Reportable Jay % (Auto) Not Reportable Eos % (Auto) Not Reportable Baso % (Auto) Not Reportable Absolute Neuts (auto) Not Reportable Absolute Lymphs (auto) Not Reportable Absolute Monos (auto) Not Reportable Absolute Eos (auto) Not Reportable Absolute Basos (auto) Not Reportable Absolute Nucleated RBC Not Reportable Immature Gran % 11 H Neutrophils % 77 Band Neutrophils % 9 H Lymphocytes % 4 Reactive Lymphs % 1 Monocytes % 4 Eosinophils % 3 Basophils % 0 Myelocytes % 2 H Nucleated RBC % Not Reportable Abs Neuts (Manual) 5.6 Abs Lymphs (Manual) 0.26 L Abs Monocytes (Manual) 0.26 Absolute Eos (Manual) 0.19 Dohle Bodies Present Normal RBC Morphology Not Reportable Hem Pathologist Commnt Sodium Potassium Chloride Carbon Dioxide Anion Gap BUN Creatinine Est GFR ( Amer) Est GFR (Non-Af Amer) BUN/Creatinine Ratio Glucose Calcium Troponin I C-Reactive Protein Microbiology 10/21/18 23:34 Urine Culture - Final Urine No Growth (<1,000 CFU/mL) 10/22/18 06:40 Aerobic Blood Culture - Preliminary Blood Venous Anaerobic Blood Culture - Preliminary Blood MRSA/MSSA (PCR) - Final Mrsa Negative S.aureus Positive 10/21/18 23:03 Aerobic Blood Culture - Preliminary Blood Venous Anaerobic Blood Culture - Preliminary Blood MRSA/MSSA (PCR) - Final Mrsa Negative S.aureus Positive TTE: aortic valve leaflets thickened, no vegetation Assessment: 1. septic encephalopathy, improving 2. MSSA bacteremia; diff dx includes infective endocarditis, less likely spine infection as he has no spine tenderness or back pain 3. chronic sciatica and spinal inflammatory process 4. sarcoidosis on chronic corticosteroids Plan: 1. change abx to ancef 2 gm IV Q8hrs and recheck BC 10/24 (ordered) 2. NINFA. If negative, MRI T/L spine with contrast. I am away for the next week , call with questions.
[2018-10-23 09:29] LABS: Erythrocyte Sed Rate 78 mm/Hr (0-40)
[2018-10-23] MEDS: Losartan TAB* 25 MG PO SCH (09:52)
[2018-10-23] MEDS ORDERED: Vancomycin Trough Check NOTE FOLLOW UP ONE (10:30)
[2018-10-23] MEDS: ceFAZolin 2 GM PREMIX in ORs 2 GM/50 ML BAG IVPB SCH ×2 (10:36→17:13)
--- NOTE | 2018-10-23 16:21 | PN ---
Subjective Date of Service: 10/23/18 Interval History: Pt seen and examined. Meds and labs reviewed. CC: N/A ROS: Denied KERN/dizziness, F/C, N/V, CP, SOB, increased cough, sputum production , abd pain, diarrhea, constipation, dysuria, myalgias, arthralgias, throat pain , and new skin lesions. The rest of the 14 point ROS are unremarkable. PHYSICAL EXAM: GEN APPEARANCE: Awake, not in acute distress HEENT: NC/AT, PERRLA, moist oral mucosa, (-) throat erythema NECK: Soft, supple, (-) cervical LAD, (-)JVD HEART: S1S2 WNL, RRR, No MRG CHEST: CTA, BL, GAE, No W/R/R ABD: Soft, ND/NT, NABS 4x Q EXT: No C/C/(+)BLLE 1+ edema SKIN: Warm to touch PSYCH: No active psychosis, hallucinations, depression, SI/HI Family History: Unchanged from Admission Social History: Unchanged from Admission Past Medical History: Unchanged from Admission Objective Active Medications: Acetaminophen (Tylenol Tab*) 650 mg PO Q4H PRN PRN Reason: FEVER Last Admin: 10/23/18 07:44 Dose: 650 mg Cholecalciferol (Vitamin D Tab*) 2,000 units PO DAILY [facility] Last Admin: 10/23/18 07:44 Dose: 2,000 units Heparin Sodium (Porcine) (Heparin Vial(*)) 5,000 units SUBCUT Q8HR [facility] Last Admin: 10/23/18 14:14 Dose: 5,000 units Hydralazine HCl (Apresoline Iv*) 5 mg IV SLOW PU Q6H PRN PRN Reason: BLOOD PRESSURE Last Admin: 10/23/18 00:15 Dose: 5 mg Cefazolin Sodium/Dextrose (Kefzol 2 Gm Premix In Ors(*)) 2 gm in 50 mls @ 100 mls/hr IVPB Q8H [facility] Last Admin: 10/23/18 10:36 Dose: 100 mls/hr Losartan Potassium (Cozaar Tab*) 100 mg PO DAILY [facility] Last Admin: 10/23/18 09:52 Dose: 100 mg Multivitamins/Minerals (Theragran/Minerals Tab*) 1 tab PO DAILY [facility] Last Admin: 10/23/18 07:43 Dose: 1 tab Neomycin/Polymyxin/Dexamethasone (Maxitrol Opth Susp 0.1%*) 1 drop BOTH EYES TID [facility] Last Admin: 10/23/18 14:14 Dose: 1 drop Omeprazole (Prilosec Cap*) 20 mg PO DAILY@0730 [facility] Last Admin: 10/23/18 07:43 Dose: 20 mg Oxycodone HCl (Roxycodone Tab*) 5 mg PO BEDTIME PRN PRN Reason: PAIN Potassium Chloride (Klor Con Er Tab*) 40 meq PO BID [facility] Last Admin: 10/23/18 07:44 Dose: 40 meq Prednisone (Deltasone Tab*) 5 mg PO QPM [facility] Last Admin: 10/22/18 16:36 Dose: 5 mg Prednisone (Deltasone Tab*) 10 mg PO QAM [facility] Last Admin: 10/23/18 07:43 Dose: 10 mg Tamsulosin HCl (Flomax Cap*) 0.4 mg PO BID [facility] Last Admin: 10/23/18 07:43 Dose: 0.4 mg Vital Signs - 8 hr 10/23/18 10/23/18 11:05 15:21 Temperature 98.1 F 98.2 F Pulse Rate 95 91 Respiratory 16 16 Rate Blood Pressure 152/86 142/77 (mmHg) O2 Sat by Pulse 97 98 Oximetry Oxygen Devices in Use Now: None Result Diagrams: 10/23/18 06:26 10/23/18 06:26 Microbiology and Other Data: Microbiology 10/21/18 23:03 Aerobic Blood Culture - Preliminary Blood Venous Blood MRSA/MSSA (PCR) - Final Mrsa Negative S.aureus Positive 10/22/18 01:15 Influenza Types A,B Antigen - Final Nasopharyngeal Specimen received for Influenza A/B Molecular testing Assess/Plan/Problems-Billing Assessment: Mr Kemp is a 73yo M with PMH of sarcoidosis, 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 - Patient Problems (1) Sepsis Current Visit: Yes Status: Acute Comment: -MSSA bacteremia -Unclear cause/focus but possibly BE given no tenderness nor signs of inflammation of spined/w Dr. Valdez -For NINFA in AM -Continue Cefazolin - Patient met sepsis criteria on admission with fever, tachycardia, tachypnea, bandemia, toxic encephalopathy. - qSOFA was 2 (encephalopathy and RR 24). - Source is unclear at this time. - Flip is immunossupressed with sarcoidosis on steroids and recent epidural steroid injection. Back pain is controlled. - ID does not recommend MRI spine for now, but will continue to monitor and he may need one this admission. (2) Encephalopathy Current Visit: Yes Status: Acute Code(s): G93.40 - ENCEPHALOPATHY, UNSPECIFIED SNOMED Code(s): 45344208 Comment: - Likely due to toxic encephalopathy in the setting of sepsis, but mental state appears to have returned to baseline. Dr Valdez knows patient from outpatient setting and thinks his encephalopathy is resolved now. - CT brain showed no acute intracranial abnormality. - His episode of altered consciousness could represent post ictal state - check EEG and Neurology consult requested with Dr Johansen. - Could also be secondary to oxycodone use. (3) Pneumonia Current Visit: Yes Status: Acute Code(s): J18.9 - PNEUMONIA, UNSPECIFIED ORGANISM SNOMED Code(s): 715720785 Comment: - CTA chest showed no evidence of pulmonary embolic disease. Previously noted pulmonary nodule located in the superior segment of the left lower lung has resolved. Complex infiltrate located in the superior aspect of the left upper lung. - Continue Cefazolin -On review of CTA of chest, I do agree it is very mild PNA at best vs. atelectasis and unlikely source of sepsis, although cannot completely R/O - Respiratory status is improved and he's now on RA. - Legionella and pneumococcal Ags (-) (4) Decubitus ulcer Current Visit: Yes Status: Acute Code(s): L89.90 - PRESSURE ULCER OF UNSPECIFIED SITE, UNSPECIFIED STAGE SNOMED Code(s): 995984189 Comment: - Present on admission. - Seen by wound care team, found to have Left hip, stage 2 pressure ulcer - Inner open area 0.5 cm x 0.5 cm x 0.1 cm. Outer area of erythema, blanchable - 2 cm x 2.5 cm. Continue pressure relief measures. (5) HTN (hypertension) Current Visit: Yes Status: Acute Code(s): I10 - ESSENTIAL (PRIMARY) HYPERTENSION SNOMED Code(s): 18258423 Comment: -Uncontrolled -Re-started Losartan -Continue watchful waiting (6) Sarcoidosis Current Visit: Yes Status: Acute Code(s): D86.9 - SARCOIDOSIS, UNSPECIFIED SNOMED Code(s): 64179533 Comment: - Continue steroids. (7) BPH (benign prostatic hyperplasia) Current Visit: Yes Status: Acute Code(s): N40.0 - BENIGN PROSTATIC HYPERPLASIA WITHOUT LOWER URINRY TRACT SYMP SNOMED Code(s): 170223366 Comment: - Continue Tamsulosin. (8) DVT prophylaxis Current Visit: Yes Status: Acute Code(s): ASZ2748 - SNOMED Code(s): 957723567 Comment: - SQ heparin. Status and Disposition: -As above -For PT eval
[2018-10-23] MEDS: predniSONE TAB* 5 MG PO SCH (17:13)
[2018-10-24] MEDS: hydrALAZINE IV* 20 MG/ML VIAL IV SLOW PU PRN ×2 (00:06→08:15)
[2018-10-24] MEDS: ceFAZolin 2 GM PREMIX in ORs 2 GM/50 ML BAG IVPB SCH ×3 (01:52→18:01)
[2018-10-24] MEDS: Heparin VIAL(*) 5000 UNITS/ML VIAL (FIVE THOUSAND) SUBCUT SCH ×3 (06:08→21:25)
[2018-10-24 06:41] LABS: Hematocrit 34 % (42-52); Hemoglobin 11.7 g/dl (14.0-18.0); Mean Corpuscular HGB Conc 34 g/dl (31-36); Mean Corpuscular Hemoglobin 34 pg (27-31); Mean Corpuscular Volume 100 fL (80-94); Mean Platelet Volume 7.5 fL (7.4-10.4); Platelet Count 78 10^3/ul (150-450); Red Blood Count 3.43 10^6/ul (4.00-5.40); Red Cell Distribution Width 17 % (10.5-15); White Blood Count 6.2 10^3/ul (3.5-10.8)
[2018-10-24 07:25] LABS: ABS Basophils 0 10^3/ul (0-0.2); ABS Eosinophils 0 10^3/ul (0-0.6); ABS Neutrophils 5.3 10^3/ul (1.5-7.7); Immature Granulocytes 5 % (0-9); Lymphocytes % 10 %; Monocytes % 0 %; Myelocytes % 4 % (0-1); Neutrophil % 85 %
[2018-10-24] MEDS: Neomycin/Polymy/Dex OPTH.SUSP* MAXITROL 0.1% 5 ML BOTH EYES SCH ×3 (08:18→21:25)
[2018-10-24] MEDS ORDERED: fentaNYL* 50 MCG/ML 2 ML VIAL (100 MCG VIAL) ONE (09:10)
[2018-10-24] MEDS ORDERED: Naloxone* 0.4 MG/ML 1 ML VIAL ONE (09:10)
[2018-10-24] MEDS ORDERED: Midazolam* 1 MG/ML 10 ML VIAL (10 MG) ONE (09:10)
[2018-10-24] MEDS ORDERED: Lidocaine 2% VISCOUS* 15 ML UDC ONE (09:11)
[2018-10-24] MEDS ORDERED: Flumazenil* 0.1 MG/ML 5 ML MDV ONE (09:12)
[2018-10-24] MEDS ORDERED: Metoprolol Tartrate IV* 1 MG/ML 5 ML VIAL ONE ×2 (09:56→10:03)
[2018-10-24] MEDS: oxyCODONE TAB* 5 MG TAB PO PRN (12:12)
[2018-10-24] MEDS: Losartan TAB* 25 MG PO SCH (12:13)
[2018-10-24] MEDS: Potassium Chlor TAB* 20 MEQ TAB.ER PO SCH ×2 (12:16→21:24)
[2018-10-24] MEDS: Cholecalciferol TAB* 1000 UNITS PO SCH (12:17)
[2018-10-24] MEDS: Multivitamins/Minerals TAB PO SCH (12:18)
[2018-10-24] MEDS: Omeprazole CAP* 20 MG PO SCH (12:18)
[2018-10-24] MEDS: predniSONE TAB* 10 MG PO SCH (12:19)
--- NOTE | 2018-10-24 12:22 | PN ---
Subjective Date of Service: 10/24/18 Interval History: Pt is feeling ok. He feels groggy, he just got back from his NINFA. He denies any pain. No SOB. He is anxious to get home as soon as possible. Objective Active Medications: Acetaminophen (Tylenol Tab*) 650 mg PO Q4H PRN PRN Reason: FEVER Last Admin: 10/23/18 07:44 Dose: 650 mg Cholecalciferol (Vitamin D Tab*) 2,000 units PO DAILY [facility] Last Admin: 10/23/18 07:44 Dose: 2,000 units Heparin Sodium (Porcine) (Heparin Vial(*)) 5,000 units SUBCUT Q8HR [facility] Last Admin: 10/24/18 06:08 Dose: 5,000 units Hydralazine HCl (Apresoline Iv*) 5 mg IV SLOW PU Q6H PRN PRN Reason: BLOOD PRESSURE Last Admin: 10/24/18 08:15 Dose: 5 mg Cefazolin Sodium/Dextrose (Kefzol 2 Gm Premix In Ors(*)) 2 gm in 50 mls @ 100 mls/hr IVPB Q8H [facility] Last Admin: 10/24/18 01:52 Dose: 100 mls/hr Losartan Potassium (Cozaar Tab*) 100 mg PO DAILY [facility] Last Admin: 10/23/18 09:52 Dose: 100 mg Multivitamins/Minerals (Theragran/Minerals Tab*) 1 tab PO DAILY [facility] Last Admin: 10/23/18 07:43 Dose: 1 tab Neomycin/Polymyxin/Dexamethasone (Maxitrol Opth Susp 0.1%*) 1 drop BOTH EYES TID [facility] Last Admin: 10/24/18 08:18 Dose: 1 drop Omeprazole (Prilosec Cap*) 20 mg PO DAILY@0730 [facility] Last Admin: 10/23/18 07:43 Dose: 20 mg Oxycodone HCl (Roxycodone Tab*) 5 mg PO BEDTIME PRN PRN Reason: PAIN Potassium Chloride (Klor Con Er Tab*) 40 meq PO BID [facility] Last Admin: 10/23/18 21:00 Dose: 40 meq Prednisone (Deltasone Tab*) 5 mg PO QPM [facility] Last Admin: 10/23/18 17:13 Dose: 5 mg Prednisone (Deltasone Tab*) 10 mg PO QAM [facility] Last Admin: 10/23/18 07:43 Dose: 10 mg Tamsulosin HCl (Flomax Cap*) 0.4 mg PO BID [facility] Last Admin: 10/23/18 21:00 Dose: 0.4 mg Vital Signs - 8 hr 10/24/18 10/24/18 10/24/18 06:10 07:27 07:45 Temperature 97.2 F Pulse Rate 85 79 Respiratory 20 18 Rate Blood Pressure 179/84 182/95 (mmHg) O2 Sat by Pulse 98 Oximetry 10/24/18 10/24/18 11:24 11:27 Temperature 98.7 F 98.7 F Pulse Rate 82 82 Respiratory 18 18 Rate Blood Pressure 138/84 138/84 (mmHg) O2 Sat by Pulse 97 97 Oximetry Oxygen Devices in Use Now: None Appearance: Elderly male sitting up in bed, NAD Eyes: No Scleral Icterus Ears/Nose/Mouth/Throat: Mucous Membranes Moist Respiratory: Symmetrical Chest Expansion and Respiratory Effort, Clear to Auscultation - diminished throughout Cardiovascular: NL Sounds; No Murmurs; No JVD, RRR, No Edema Abdominal: NL Sounds; No Tenderness; No Distention Extremities: No Clubbing, Cyanosis Skin: No Nodules or Sclerosis, - - slight erythema to R calf Neurological: Alert and Oriented x 3 Result Diagrams: 10/24/18 06:31 10/23/18 06:26 Microbiology and Other Data: Microbiology 10/21/18 23:03 Aerobic Blood Culture - Preliminary Blood Venous Blood MRSA/MSSA (PCR) - Final Mrsa Negative S.aureus Positive 10/22/18 01:15 Influenza Types A,B Antigen - Final Nasopharyngeal Specimen received for Influenza A/B Molecular testing Assess/Plan/Problems-Billing Mr Kemp is a 73yo M with PMHx of sarcoidosis, 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 - Patient Problems (1) MSSA bacteremia Current Visit: Yes Status: Acute Code(s): R78.81 - BACTEREMIA SNOMED Code( s): 639031238 Comment: Pt has so far, 4 of 4 bottles positive for MSSA. Dr. Austin has consulted and recommended NINFA (done but report pending). If NINFA negative will get MRI T/L spine with contrast to r/o osteo/diskitis-unlikely as pt without any back pain. Continue cefazolin for now. Duration of treatment will depend on if deep seeded infection identified. (2) Sepsis Current Visit: Yes Status: Acute Comment: Present on admission secondary to MSSA bacteremia. Sepsis has resolved. (3) Encephalopathy Current Visit: Yes Status: Acute Code(s): G93.40 - ENCEPHALOPATHY, UNSPECIFIED SNOMED Code(s): 73018163 Comment: Likely septic encephalopathy on admission. Pts mental status back to baseline. (4) BPH (benign prostatic hyperplasia) Current Visit: Yes Status: Acute Code(s): N40.0 - BENIGN PROSTATIC HYPERPLASIA WITHOUT LOWER URINRY TRACT SYMP SNOMED Code(s): 953415126 Comment: Continue tamsulosin. (5) Decubitus ulcer Current Visit: Yes Status: Acute Code(s): L89.90 - PRESSURE ULCER OF UNSPECIFIED SITE, UNSPECIFIED STAGE SNOMED Code(s): 392699320 Comment: Present on admission. Continue pressure relieving measures. (6) HTN (hypertension) Current Visit: Yes Status: Acute Code(s): I10 - ESSENTIAL (PRIMARY) HYPERTENSION SNOMED Code(s): 77847514 Comment: BP markedly elevated this AM. Monitor on losartan today. If it remains elevated will need to initiate another antihypertensive medication. (7) Sarcoidosis Current Visit: Yes Status: Acute Code(s): D86.9 - SARCOIDOSIS, UNSPECIFIED SNOMED Code(s): 79791104 Comment: Continue home dose of prednisone. I suspect he may be adrenally insufficent given his prolonged use of prednisone. (8) DVT prophylaxis Current Visit: Yes Status: Acute Code(s): KNE7084 - SNOMED Code(s): 277824838 Comment: SQ heparin. (9) Full code status Current Visit: Yes Status: Acute Code(s): Z78.9 - OTHER SPECIFIED HEALTH STATUS SNOMED Code(s): 123557569 Status and Disposition: .
[2018-10-24] MEDS: Tamsulosin CAP* 0.4 MG PO SCH ×2 (12:25→21:24)
--- NOTE | 2018-10-24 13:08 | TEE ---
Patient: KARI STARKS [facility] Rec#: [id number] : 1945 Date: 10/24/2018 Age: 73y Height: 178 cm / 70.1 in Weight: 95.7 kg / 210.9 lbs Sex: M BSA: 2.14 Room#: [facility] Admit Date#: 10/21/2018 Type: Inpatient Referring: Kelton López Performing: Javier French MD Reading: Javier French MD Design Painter: Octavia Hendrix RDCS Nurse: Jori Sarmiento CC: Helen Styles MD Transesophageal Echocardiogram Indication: Bacteremia BP: 162/100 HR: 99 Rhythm: NSR with PACs Findings History: + Blood cultures for Staph Aureus, HTN, AYUSH, sarcoidosis. Technical Comments: The study quality is good. Left Ventricle: The left ventricular chamber size is normal. There is normal left ventricular systolic function. The estimated ejection fraction is 55-60%. Abnormal left ventricular diastolic function is observed. There is an E to A reversal in the mitral valve flow pattern suggestive of diastolic dysfunction. Left Atrium: The left atrial chamber size is normal. No thrombus is visualized within the left atrium. There is no thrombus visualized in the left atrial appendage. Right Ventricle: The right ventricle wall thickness is mildly increased. The right ventricular cavity size is normal. The right ventricular global systolic function is low normal. Right Atrium: The right atrium is slightly dilated. Interatrial septum appears intact without evidence of shunting. The bubble study is negative. A patent foramen ovale is not demonstrated with color Doppler and agitated contrast. Aortic Valve: The aortic valve is trileaflet. The aortic valve leaflets are mildly thickened. There is a trace of aortic regurgitation. There is no evidence of aortic stenosis. There is no aortic vegetation present. Mitral Valve: The mitral valve leaflets are mildly thickened. There is a trace of mitral regurgitation.multiple trace jets noted. There is no evidence of mitral stenosis. No vegetation is observed on the mitral valve. Tricuspid Valve: The tricuspid valve leaflets are normal. There is mild tricuspid regurgitation. Unable to estimate the right ventricular systolic pressure. There is no tricuspid stenosis. No vegetation is observed on the tricuspid valve. Pulmonic Valve: The pulmonic valve structure is not well visualized. There is a trace pulmonic regurgitation. There is no pulmonic stenosis. Pericardium: There is no significant pericardial effusion. Aorta: There is no dilatation of the ascending aorta. The aortic root is normal in size. There is plaque visualized in the transverse aorta.There is mild non-mobile atherosclerotic plaque in the transverse and descending thoracic aorta. There is plaque visualized in the descending aorta. Pulmonary Artery: The main pulmonary artery appears normal. Venous: The bicaval view was obtained and appears normal. The pulmonary veins appear normal in size. 1 of 4 visualized. The flow pattern of the pulmonary veins appear normal. NINFA Procedures: All standard views were attempted within the limitations of patient tolerance and safety. History and physical as well as labs were reviewed. The patient was in a fasting state. Risks and benefits of the procedure, including alternatives, were discussed and written informed consent was obtained. The patient and/or their health care small business representative expressed understanding of the procedure, risks and benefits. Baseline and continuous monitoring of blood pressure, heart rate, pulse oximetry and heart rhythm was performed throughout the procedure. The appropriate time-out procedure was performed as per [facility] protocol. The patient was placed in the left lateral decubitus position. The patient received IV Midazolam with a total dose of 4 mg. The patient received IV Fentanyl with a total dose of 25 mcg. The patient received IV Metoprolol with a total dose of 5 mg. An oral bite block was inserted for protection of oral dentition. The multiplane transesophageal echocardiogram probe was inserted through the posterior oropharynx and advanced into the esophagus without difficulty. Multiple 2D images were obtained of the heart and its related structures. Color flow Doppler was used for evaluation. Spectral Doppler was also used. The atrial septum was interrogated with color flow Doppler. At the conclusion of the procedure the probe was removed with continuous suction without complications. The patient tolerated the procedure with no apparent complications. Contrast: Normal saline was used as contrast for the bubble study. Image 50. Intravenous contrast was used to help determine presence of intracardiac shunting. Conclusions There is normal left ventricular systolic function. The estimated ejection fraction is 55-60%. Abnormal left ventricular diastolic function is observed. The right ventricular global systolic function is low normal. A patent foramen ovale is not demonstrated with color Doppler and agitated contrast. The aortic valve leaflets are mildly thickened. There is a trace of aortic regurgitation. There is a trace of mitral regurgitation. There is mild tricuspid regurgitation. There is mild plaque visualized in the transverse aorta. There is mild non-mobile atherosclerotic plaque in the transverse and descending thoracic aorta. There is plaque visualized in the descending aorta. No obvious vegetations.
[2018-10-24] MEDS ORDERED: Gadoteridol* (CONTRAST) 279.3 MG/ML 10 ML IV ONE (17:07)
[2018-10-24] MEDS: predniSONE TAB* 5 MG PO SCH (18:00)
[2018-10-25] MEDS: ceFAZolin 2 GM PREMIX in ORs 2 GM/50 ML BAG IVPB SCH ×3 (01:54→17:45)
[2018-10-25] MEDS: hydrALAZINE IV* 20 MG/ML VIAL IV SLOW PU PRN (03:56)
[2018-10-25] MEDS: Heparin VIAL(*) 5000 UNITS/ML VIAL (FIVE THOUSAND) SUBCUT SCH ×3 (05:16→21:19)
[2018-10-25 06:17] LABS: Hematocrit 36 % (42-52); Hemoglobin 11.9 g/dl (14.0-18.0); Mean Corpuscular HGB Conc 33 g/dl (31-36); Mean Corpuscular Hemoglobin 34 pg (27-31); Mean Corpuscular Volume 101 fL (80-94); Red Blood Count 3.52 10^6/ul (4.00-5.40); Red Cell Distribution Width 17 % (10.5-15); White Blood Count 6.3 10^3/ul (3.5-10.8)
[2018-10-25 06:23] LABS: Calcium 8.6 mg/dL (8.6-10.3); Potassium 4.4 mmol/L (3.5-5.0)
[2018-10-25 06:28] LABS: BUN/Creatinine Ratio 36.2 (8-20); C Reactive Protein 19.25 mg/L (<8.01); EGFR Non-African American 111.8 (>60)
[2018-10-25 06:33] LABS: ABS Basophils 0 10^3/ul (0-0.2); ABS Eosinophils 0 10^3/ul (0-0.6); ABS Lymphocytes 0.5 10^3/ul (1.0-4.8); ABS Monocytes 0.4 10^3/ul (0-0.8); ABS Neutrophils 5.4 10^3/ul (1.5-7.7); ABS Nucleated RBC 0 10^3/ul; Eosinophil % 0.5 %; Lymphocyte % 7.5 %; Mean Platelet Volume 8.2 fL (7.4-10.4); Nucleated Red Blood Cells % 0.3; Platelet Count 71 10^3/ul (150-450)
[2018-10-25] MEDS: Neomycin/Polymy/Dex OPTH.SUSP* MAXITROL 0.1% 5 ML BOTH EYES SCH ×3 (10:42→21:19)
[2018-10-25] MEDS: Potassium Chlor TAB* 20 MEQ TAB.ER PO SCH ×2 (10:46→21:18)
[2018-10-25] MEDS: Multivitamins/Minerals TAB PO SCH (10:46)
[2018-10-25] MEDS: Cholecalciferol TAB* 1000 UNITS PO SCH (10:46)
[2018-10-25] MEDS: Losartan TAB* 25 MG PO SCH (10:49)
[2018-10-25] MEDS: Omeprazole CAP* 20 MG PO SCH (10:50)
[2018-10-25] MEDS: predniSONE TAB* 10 MG PO SCH (10:50)
[2018-10-25] MEDS: Tamsulosin CAP* 0.4 MG PO SCH ×2 (10:50→21:19)
--- NOTE | 2018-10-25 14:19 | PN ---
Subjective Date of Service: 10/25/18 Interval History: Pt is feeling well. He is interested in finding out the results of his tests from yesterday. He denies any pain at this time. He has not walked much today. Family History: Unchanged from Admission Social History: Unchanged from Admission Past Medical History: Unchanged from Admission Objective Active Medications: Acetaminophen (Tylenol Tab*) 650 mg PO Q4H PRN PRN Reason: FEVER Last Admin: 10/23/18 07:44 Dose: 650 mg Cholecalciferol (Vitamin D Tab*) 2,000 units PO DAILY [facility] Last Admin: 10/25/18 10:46 Dose: 2,000 units Heparin Sodium (Porcine) (Heparin Vial(*)) 5,000 units SUBCUT Q8HR [facility] Last Admin: 10/25/18 14:10 Dose: 5,000 units Hydralazine HCl (Apresoline Iv*) 5 mg IV SLOW PU Q6H PRN PRN Reason: BLOOD PRESSURE Last Admin: 10/25/18 03:56 Dose: 5 mg Cefazolin Sodium/Dextrose (Kefzol 2 Gm Premix In Ors(*)) 2 gm in 50 mls @ 100 mls/hr IVPB Q8H [facility] [place] Last Admin: 10/25/18 10:42 Dose: 100 mls/hr Losartan Potassium (Cozaar Tab*) 100 mg PO DAILY [facility] Last Admin: 10/25/18 10:49 Dose: 100 mg Multivitamins/Minerals (Theragran/Minerals Tab*) 1 tab PO DAILY [facility] [place] Last Admin: 10/25/18 10:46 Dose: 1 tab Neomycin/Polymyxin/Dexamethasone (Maxitrol Opth Susp 0.1%*) 1 drop BOTH EYES TID [facility] Last Admin: 10/25/18 14:11 Dose: 1 drop Omeprazole (Prilosec Cap*) 20 mg PO DAILY@0730 [facility] Last Admin: 10/25/18 10:50 Dose: 20 mg Oxycodone HCl (Roxycodone Tab*) 5 mg PO BEDTIME PRN PRN Reason: PAIN Last Admin: 10/24/18 12:12 Dose: 5 mg Potassium Chloride (Klor Con Er Tab*) 40 meq PO BID [facility] Last Admin: 10/25/18 10:46 Dose: 40 meq Prednisone (Deltasone Tab*) 5 mg PO QPM [facility] Last Admin: 10/24/18 18:00 Dose: 5 mg Prednisone (Deltasone Tab*) 10 mg PO QAM [facility] Last Admin: 10/25/18 10:50 Dose: 10 mg Tamsulosin HCl (Flomax Cap*) 0.4 mg PO BID [facility] Last Admin: 10/25/18 10:50 Dose: 0.4 mg Vital Signs - 8 hr 10/25/18 10/25/18 10/25/18 08:00 08:50 11:55 Temperature 97.6 F 97.9 F Pulse Rate 71 88 Respiratory 16 24 20 Rate Blood Pressure 163/77 155/82 (mmHg) O2 Sat by Pulse 99 99 Oximetry Oxygen Devices in Use Now: None Appearance: Elderly male sitting in a chair, NAD Eyes: No Scleral Icterus Ears/Nose/Mouth/Throat: Mucous Membranes Moist Respiratory: Symmetrical Chest Expansion and Respiratory Effort, Clear to Auscultation Cardiovascular: NL Sounds; No Murmurs; No JVD, RRR, - - 2-3+ B/L LE Abdominal: NL Sounds; No Tenderness; No Distention Extremities: No Clubbing, Cyanosis Skin: No Nodules or Sclerosis Neurological: Alert and Oriented x 3 Result Diagrams: 10/25/18 05:50 10/25/18 05:50 Microbiology and Other Data: Microbiology 10/21/18 23:03 Aerobic Blood Culture - Preliminary Blood Venous Blood MRSA/MSSA (PCR) - Final Mrsa Negative S.aureus Positive 10/22/18 01:15 Influenza Types A,B Antigen - Final Nasopharyngeal Specimen received for Influenza A/B Molecular testing Assess/Plan/Problems-Billing Mr Kemp is a 73yo M with PMHx of sarcoidosis, 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 - Patient Problems (1) MSSA bacteremia Current Visit: Yes Status: Acute Code(s): R78.81 - BACTEREMIA SNOMED Code( s): 373728091 Comment: Blood cultures from 10/24 are negative so far. Plan IV Abx through the weekend and discuss the ultimate treatment plan with Dr. Austin on 10/27. Likely 2 weeks IV Abx as pt without clear evidence of diskitis despite lumbar spine MRI showing L4/5 destruction (this was present in 07/2018 and if related to MSSA I would have expected the patient to have been sicker sooner). (2) Sepsis Current Visit: Yes Status: Acute Comment: Present on admission secondary to MSSA bacteremia. Sepsis has resolved. (3) Encephalopathy Current Visit: Yes Status: Acute Code(s): G93.40 - ENCEPHALOPATHY, UNSPECIFIED SNOMED Code(s): 21762694 Comment: Likely septic encephalopathy on admission. Pts mental status back to baseline. (4) BPH (benign prostatic hyperplasia) Current Visit: Yes Status: Acute Code(s): N40.0 - BENIGN PROSTATIC HYPERPLASIA WITHOUT LOWER URINRY TRACT SYMP SNOMED Code(s): 809598915 Comment: Continue tamsulosin. (5) Decubitus ulcer Current Visit: Yes Status: Acute Code(s): L89.90 - PRESSURE ULCER OF UNSPECIFIED SITE, UNSPECIFIED STAGE SNOMED Code(s): 983533886 Comment: Present on admission. Continue pressure relieving measures. (6) HTN (hypertension) Current Visit: Yes Status: Acute Code(s): I10 - ESSENTIAL (PRIMARY) HYPERTENSION SNOMED Code(s): 93980668 Comment: BP remains elevated today. Will restart HCTZ. (7) Sarcoidosis Current Visit: Yes Status: Acute Code(s): D86.9 - SARCOIDOSIS, UNSPECIFIED SNOMED Code(s): 74940807 Comment: Continue home dose of prednisone. I suspect he may be adrenally insufficent given his prolonged use of prednisone. (8) DVT prophylaxis Current Visit: Yes Status: Acute Code(s): ZEK1363 - SNOMED Code(s): 000509596 Comment: SQ heparin. (9) Full code status Current Visit: Yes Status: Acute Code(s): Z78.9 - OTHER SPECIFIED HEALTH STATUS SNOMED Code(s): 900593749 Status and Disposition: .
[2018-10-25] MEDS ORDERED: amLODIPine TAB* 5 MG PO SCH (15:00)
[2018-10-25] MEDS: Hydrochlorothiazide TAB* 25 MG PO SCH (15:31)
[2018-10-25] MEDS: predniSONE TAB* 5 MG PO SCH (17:45)
[2018-10-26] MEDS: ceFAZolin 2 GM PREMIX in ORs 2 GM/50 ML BAG IVPB SCH ×3 (01:49→18:01)
[2018-10-26] MEDS: Heparin VIAL(*) 5000 UNITS/ML VIAL (FIVE THOUSAND) SUBCUT SCH ×3 (05:37→20:27)
[2018-10-26] MEDS: Losartan TAB* 25 MG PO SCH ×2 (05:39→08:58)
[2018-10-26] MEDS: Potassium Chlor TAB* 20 MEQ TAB.ER PO SCH ×2 (08:54→20:26)
[2018-10-26] MEDS: Omeprazole CAP* 20 MG PO SCH (08:56)
[2018-10-26] MEDS: Multivitamins/Minerals TAB PO SCH (08:56)
[2018-10-26] MEDS: oxyCODONE TAB* 5 MG TAB PO PRN (08:56)
[2018-10-26] MEDS: predniSONE TAB* 10 MG PO SCH (08:56)
[2018-10-26] MEDS: Cholecalciferol TAB* 1000 UNITS PO SCH (08:57)
[2018-10-26] MEDS: Hydrochlorothiazide TAB* 25 MG PO SCH (08:57)
[2018-10-26] MEDS: Tamsulosin CAP* 0.4 MG PO SCH ×2 (08:57→20:25)
[2018-10-26] MEDS: Neomycin/Polymy/Dex OPTH.SUSP* MAXITROL 0.1% 5 ML BOTH EYES SCH ×3 (09:01→20:23)
--- NOTE | 2018-10-26 10:06 | PN ---
Subjective Date of Service: 10/26/18 Interval History: Pt is feeling ok today but is frustrated that his BP went up again overnight. He has no pain. No SOB or other complaints. He is still anxious to get a plan in place to leave however we discussed that 1 of 4 bottles from 10/24 is now growing MSSA and that he can not leave tomorrow. Family History: Unchanged from Admission Social History: Unchanged from Admission Past Medical History: Unchanged from Admission Objective Active Medications: Acetaminophen (Tylenol Tab*) 650 mg PO Q4H PRN PRN Reason: FEVER Last Admin: 10/23/18 07:44 Dose: 650 mg Cholecalciferol (Vitamin D Tab*) 2,000 units PO DAILY [facility] Last Admin: 10/26/18 08:57 Dose: 2,000 units Heparin Sodium (Porcine) (Heparin Vial(*)) 5,000 units SUBCUT Q8HR [facility] Last Admin: 10/26/18 05:37 Dose: 5,000 units Hydralazine HCl (Apresoline Iv*) 5 mg IV SLOW PU Q6H PRN PRN Reason: BLOOD PRESSURE Last Admin: 10/25/18 03:56 Dose: 5 mg Hydrochlorothiazide (Hydrodiuril Tab*) 25 mg PO DAILY [facility] Last Admin: 10/26/18 08:57 Dose: 25 mg Cefazolin Sodium/Dextrose (Kefzol 2 Gm Premix In Ors(*)) 2 gm in 50 mls @ 100 mls/hr IVPB Q8H [facility] Last Admin: 10/26/18 01:49 Dose: 100 mls/hr Losartan Potassium (Cozaar Tab*) 100 mg PO DAILY [facility] Last Admin: 10/26/18 08:58 Dose: Not Given Multivitamins/Minerals (Theragran/Minerals Tab*) 1 tab PO DAILY [facility] Last Admin: 10/26/18 08:56 Dose: 1 tab Neomycin/Polymyxin/Dexamethasone (Maxitrol Opth Susp 0.1%*) 1 drop BOTH EYES TID [facility] Last Admin: 10/26/18 09:01 Dose: 1 drop Omeprazole (Prilosec Cap*) 20 mg PO DAILY@0730 [facility] Last Admin: 10/26/18 08:56 Dose: 20 mg Oxycodone HCl (Roxycodone Tab*) 5 mg PO BEDTIME PRN PRN Reason: PAIN Last Admin: 10/26/18 08:56 Dose: 5 mg Potassium Chloride (Klor Con Er Tab*) 40 meq PO BID [facility] Last Admin: 10/26/18 08:54 Dose: 40 meq Prednisone (Deltasone Tab*) 5 mg PO QPM [facility] Last Admin: 10/25/18 17:45 Dose: 5 mg Prednisone (Deltasone Tab*) 10 mg PO QAM [facility] Last Admin: 10/26/18 08:56 Dose: 10 mg Tamsulosin HCl (Flomax Cap*) 0.4 mg PO BID [facility] Last Admin: 10/26/18 08:57 Dose: 0.4 mg Vital Signs - 8 hr 10/26/18 10/26/18 10/26/18 02:38 04:56 04:59 Temperature 98.0 F Pulse Rate 71 Respiratory 16 Rate Blood Pressure 182/90 162/111 (mmHg) O2 Sat by Pulse 98 99 Oximetry 10/26/18 10/26/18 10/26/18 06:16 08:00 08:20 Temperature 98.2 F Pulse Rate 75 88 Respiratory 16 20 Rate Blood Pressure 175/87 139/88 (mmHg) O2 Sat by Pulse 98 Oximetry 10/26/18 08:56 Temperature Pulse Rate Respiratory 16 Rate Blood Pressure (mmHg) O2 Sat by Pulse Oximetry Oxygen Devices in Use Now: None, CPAP Appearance: Elderly male lying in bed, NAD Eyes: No Scleral Icterus Ears/Nose/Mouth/Throat: Mucous Membranes Moist Respiratory: Symmetrical Chest Expansion and Respiratory Effort, Clear to Auscultation Cardiovascular: NL Sounds; No Murmurs; No JVD, RRR, - - 2-3+ LE edema Abdominal: NL Sounds; No Tenderness; No Distention Extremities: No Clubbing, Cyanosis Skin: No Nodules or Sclerosis, - - slight erythema noted to the L foot but not warm or tender to touch Neurological: Alert and Oriented x 3 Result Diagrams: 10/25/18 05:50 10/25/18 05:50 Microbiology and Other Data: Microbiology 10/21/18 23:03 Aerobic Blood Culture - Preliminary Blood Venous Blood MRSA/MSSA (PCR) - Final Mrsa Negative S.aureus Positive 10/22/18 01:15 Influenza Types A,B Antigen - Final Nasopharyngeal Specimen received for Influenza A/B Molecular testing Assess/Plan/Problems-Billing Mr Kemp is a 73yo M with PMHx of sarcoidosis, 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 - Patient Problems (1) MSSA bacteremia Current Visit: Yes Status: Acute Code(s): R78.81 - BACTEREMIA SNOMED Code( s): 039170591 Comment: The patient now has a positive culture from 10/24. ? if the findings in the lumbar spine are secondary to active diskitis. Will need to discuss with Dr. Austin tomorrow. He can not leave yet as we need to have a clear set of blood cultures. Continue cefazolin. Follow up blood cultures to be drawn today. (2) Sepsis Current Visit: Yes Status: Acute Comment: Present on admission secondary to MSSA bacteremia. Sepsis has resolved. (3) Encephalopathy Current Visit: Yes Status: Acute Code(s): G93.40 - ENCEPHALOPATHY, UNSPECIFIED SNOMED Code(s): 70329950 Comment: Likely septic encephalopathy on admission. Pts mental status back to baseline. (4) HTN (hypertension) Current Visit: Yes Status: Acute Code(s): I10 - ESSENTIAL (PRIMARY) HYPERTENSION SNOMED Code(s): 40765876 Comment: BP remains quite elevated today despite adding back HCTZ. Will add amlodipine at bedtime as the patient's BP does tend to increase overnight. Will need to monitor for worsened LE edema. (5) BPH (benign prostatic hyperplasia) Current Visit: Yes Status: Acute Code(s): N40.0 - BENIGN PROSTATIC HYPERPLASIA WITHOUT LOWER URINRY TRACT SYMP SNOMED Code(s): 989756568 Comment: Continue tamsulosin. (6) Decubitus ulcer Current Visit: Yes Status: Acute Code(s): L89.90 - PRESSURE ULCER OF UNSPECIFIED SITE, UNSPECIFIED STAGE SNOMED Code(s): 616869456 Comment: Present on admission. Continue pressure relieving measures. (7) Sarcoidosis Current Visit: Yes Status: Acute Code(s): D86.9 - SARCOIDOSIS, UNSPECIFIED SNOMED Code(s): 60271471 Comment: Continue home dose of prednisone. I suspect he may be adrenally insufficent given his prolonged use of prednisone. He will need a very slow taper off prednisone attempted as an outpatient. (8) DVT prophylaxis Current Visit: Yes Status: Acute Code(s): CPJ0609 - SNOMED Code(s): 401055520 Comment: SQ heparin. (9) Full code status Current Visit: Yes Status: Acute Code(s): Z78.9 - OTHER SPECIFIED HEALTH STATUS SNOMED Code(s): 849214795 Status and Disposition: .
[2018-10-26] MEDS: predniSONE TAB* 5 MG PO SCH (17:58)
[2018-10-26] MEDS: amLODIPine TAB* 5 MG PO SCH (20:24)
[2018-10-27] MEDS: ceFAZolin 2 GM PREMIX in ORs 2 GM/50 ML BAG IVPB SCH ×3 (01:38→17:31)
[2018-10-27] MEDS: Heparin VIAL(*) 5000 UNITS/ML VIAL (FIVE THOUSAND) SUBCUT SCH ×3 (05:17→21:11)
[2018-10-27] MEDS: Neomycin/Polymy/Dex OPTH.SUSP* MAXITROL 0.1% 5 ML BOTH EYES SCH ×3 (08:28→21:13)
[2018-10-27] MEDS: Cholecalciferol TAB* 1000 UNITS PO SCH (08:29)
[2018-10-27] MEDS: predniSONE TAB* 10 MG PO SCH (08:29)
[2018-10-27] MEDS: Multivitamins/Minerals TAB PO SCH (08:29)
[2018-10-27] MEDS: Tamsulosin CAP* 0.4 MG PO SCH ×2 (08:29→21:12)
[2018-10-27] MEDS: Losartan TAB* 25 MG PO SCH (08:29)
[2018-10-27] MEDS: Omeprazole CAP* 20 MG PO SCH (08:29)
[2018-10-27] MEDS: Potassium Chlor TAB* 20 MEQ TAB.ER PO SCH ×2 (08:29→21:11)
[2018-10-27] MEDS: Hydrochlorothiazide TAB* 25 MG PO SCH (08:30)
[2018-10-27] MEDS: oxyCODONE TAB* 5 MG TAB PO PRN ×2 (09:31→19:33)
--- NOTE | 2018-10-27 14:18 | PN ---
Subjective Date of Service: 10/27/18 Interval History: Pt is feeling ok. He denies any pain. No SOB. He is anxious to be able to go home as soon as possible. Family History: Unchanged from Admission Social History: Unchanged from Admission Past Medical History: Unchanged from Admission Objective Active Medications: Acetaminophen (Tylenol Tab*) 650 mg PO Q4H PRN PRN Reason: FEVER Last Admin: 10/23/18 07:44 Dose: 650 mg Amlodipine Besylate (Norvasc Tab*) 5 mg PO BEDTIME [facility]IJA Last Admin: 10/26/18 20:24 Dose: 5 mg Cholecalciferol (Vitamin D Tab*) 2,000 units PO DAILY [facility] Last Admin: 10/27/18 08:29 Dose: 2,000 units Heparin Sodium (Porcine) (Heparin Vial(*)) 5,000 units SUBCUT Q8HR DAIJA Last Admin: 10/27/18 13:58 Dose: 5,000 units Hydralazine HCl (Apresoline Iv*) 5 mg IV SLOW PU Q6H PRN PRN Reason: BLOOD PRESSURE Last Admin: 10/25/18 03:56 Dose: 5 mg Hydrochlorothiazide (Hydrodiuril Tab*) 25 mg PO DAILY [facility] Last Admin: 10/27/18 08:30 Dose: 25 mg Cefazolin Sodium/Dextrose (Kefzol 2 Gm Premix In Ors(*)) 2 gm in 50 mls @ 100 mls/hr IVPB Q8H [facility] Last Admin: 10/27/18 09:32 Dose: 100 mls/hr Losartan Potassium (Cozaar Tab*) 100 mg PO DAILY [facility] Last Admin: 10/27/18 08:29 Dose: 100 mg Multivitamins/Minerals (Theragran/Minerals Tab*) 1 tab PO DAILY [facility] Last Admin: 10/27/18 08:29 Dose: 1 tab Neomycin/Polymyxin/Dexamethasone (Maxitrol Opth Susp 0.1%*) 1 drop BOTH EYES TID [facility] Last Admin: 10/27/18 13:58 Dose: 1 drop Omeprazole (Prilosec Cap*) 20 mg PO DAILY@0730 [facility] Last Admin: 10/27/18 08:29 Dose: 20 mg Oxycodone HCl (Roxycodone Tab*) 5 mg PO BEDTIME PRN PRN Reason: PAIN Last Admin: 10/27/18 09:31 Dose: 5 mg Potassium Chloride (Klor Con Er Tab*) 40 meq PO BID [facility] Last Admin: 10/27/18 08:29 Dose: 40 meq Prednisone (Deltasone Tab*) 5 mg PO QPM [facility] Last Admin: 10/26/18 17:58 Dose: 5 mg Prednisone (Deltasone Tab*) 10 mg PO QAM [facility] Last Admin: 10/27/18 08:29 Dose: 10 mg Tamsulosin HCl (Flomax Cap*) 0.4 mg PO BID [facility] Last Admin: 10/27/18 08:29 Dose: 0.4 mg Vital Signs - 8 hr 10/27/18 10/27/18 10/27/18 07:45 07:50 08:00 Temperature 97.7 F Pulse Rate 79 Respiratory 16 18 Rate Blood Pressure 181/93 168/82 (mmHg) O2 Sat by Pulse 97 Oximetry 10/27/18 10/27/18 10/27/18 09:31 11:13 11:59 Temperature 97.9 F Pulse Rate 92 Respiratory 18 18 16 Rate Blood Pressure 137/77 (mmHg) O2 Sat by Pulse 97 Oximetry Oxygen Devices in Use Now: None Appearance: Elderly male sitting up in a chair, reading, NAD Eyes: No Scleral Icterus Ears/Nose/Mouth/Throat: Mucous Membranes Moist Respiratory: Symmetrical Chest Expansion and Respiratory Effort, Clear to Auscultation Cardiovascular: NL Sounds; No Murmurs; No JVD, RRR, - - 2+LE edema Abdominal: NL Sounds; No Tenderness; No Distention Extremities: No Clubbing, Cyanosis Skin: No Nodules or Sclerosis Neurological: Alert and Oriented x 3 Result Diagrams: 10/25/18 05:50 10/25/18 05:50 Microbiology and Other Data: Microbiology 10/21/18 23:03 Aerobic Blood Culture - Preliminary Blood Venous Blood MRSA/MSSA (PCR) - Final Mrsa Negative S.aureus Positive 10/22/18 01:15 Influenza Types A,B Antigen - Final Nasopharyngeal Specimen received for Influenza A/B Molecular testing Assess/Plan/Problems-Billing Mr Kemp is a 73yo M with PMHx of sarcoidosis, 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 - Patient Problems (1) MSSA bacteremia Current Visit: Yes Status: Acute Code(s): R78.81 - BACTEREMIA SNOMED Code( s): 434060456 Comment: The patient now has a positive culture from 10/24. ? if the findings in the lumbar spine are secondary to active diskitis. Blood culture from 10/26 [facility]. Continue cefazolin. Ultimate question is how long he will need to be treated for (2weeks vs 6-8weeks). (2) Sepsis Current Visit: Yes Status: Acute Comment: Present on admission secondary to MSSA bacteremia. Sepsis has resolved. (3) Encephalopathy Current Visit: Yes Status: Acute Code(s): G93.40 - ENCEPHALOPATHY, UNSPECIFIED SNOMED Code(s): 21178123 Comment: Likely septic encephalopathy on admission. Pts mental status back to baseline. (4) HTN (hypertension) Current Visit: Yes Status: Acute Code(s): I10 - ESSENTIAL (PRIMARY) HYPERTENSION SNOMED Code(s): 77379495 Comment: BP is generally better with addition of amlodipine 5mg at bedtime. Continue to monitor. (5) BPH (benign prostatic hyperplasia) Current Visit: Yes Status: Acute Code(s): N40.0 - BENIGN PROSTATIC HYPERPLASIA WITHOUT LOWER URINRY TRACT SYMP SNOMED Code(s): 824326003 Comment: Continue tamsulosin. (6) Decubitus ulcer Current Visit: Yes Status: Acute Code(s): L89.90 - PRESSURE ULCER OF UNSPECIFIED SITE, UNSPECIFIED STAGE SNOMED Code(s): 164493659 Comment: Present on admission. Continue pressure relieving measures. (7) Sarcoidosis Current Visit: Yes Status: Acute Code(s): D86.9 - SARCOIDOSIS, UNSPECIFIED SNOMED Code(s): 58349485 Comment: Continue home dose of prednisone. I suspect he may be adrenally insufficent given his prolonged use of prednisone. He will need a very slow taper off prednisone attempted as an outpatient. (8) DVT prophylaxis Current Visit: Yes Status: Acute Code(s): QLH5614 - SNOMED Code(s): 399960625 Comment: SQ heparin. (9) Full code status Current Visit: Yes Status: Acute Code(s): Z78.9 - OTHER SPECIFIED HEALTH STATUS SNOMED Code(s): 675855377 Status and Disposition: .
[2018-10-27] MEDS: predniSONE TAB* 5 MG PO SCH (17:31)
[2018-10-27] MEDS: amLODIPine TAB* 5 MG PO SCH (21:12)
[2018-10-28] MEDS: ceFAZolin 2 GM PREMIX in ORs 2 GM/50 ML BAG IVPB SCH ×3 (02:01→18:05)
[2018-10-28] MEDS: Heparin VIAL(*) 5000 UNITS/ML VIAL (FIVE THOUSAND) SUBCUT SCH ×3 (05:16→21:44)
[2018-10-28] MEDS: Tamsulosin CAP* 0.4 MG PO SCH ×2 (08:02→20:20)
[2018-10-28] MEDS: Cholecalciferol TAB* 1000 UNITS PO SCH (08:02)
[2018-10-28] MEDS: Neomycin/Polymy/Dex OPTH.SUSP* MAXITROL 0.1% 5 ML BOTH EYES SCH (08:02)
[2018-10-28] MEDS: predniSONE TAB* 10 MG PO SCH (08:02)
[2018-10-28] MEDS: Potassium Chlor TAB* 20 MEQ TAB.ER PO SCH (08:03)
[2018-10-28] MEDS: Losartan TAB* 25 MG PO SCH (08:03)
[2018-10-28] MEDS: Hydrochlorothiazide TAB* 25 MG PO SCH (08:03)
[2018-10-28] MEDS: Omeprazole CAP* 20 MG PO SCH (08:04)
[2018-10-28] MEDS: Multivitamins/Minerals TAB PO SCH (08:04)
[2018-10-28] MEDS: hydrALAZINE IV* 20 MG/ML VIAL IV SLOW PU PRN (11:45)
--- NOTE | 2018-10-28 12:00 | PN ---
Subjective Date of Service: 10/28/18 Interval History: BG elevated to 300, note of prediabetes in 2016 Bcx from 10/26 (1 set) is no growth for 48 hours. was taking 8 Extra strength Ibuprofen a day to help manage the pain. 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 Denies ever having lower back pain. 3/10 pain in thighs at rest now. wants to go home tomorrow. Started on HCTZ a few weeks he says to address lower extremity edema. Family History: Unchanged from Admission Social History: Unchanged from Admission Past Medical History: Unchanged from Admission Objective Active Medications: Acetaminophen (Tylenol Tab*) 650 mg PO Q4H PRN PRN Reason: FEVER Last Admin: 10/23/18 07:44 Dose: 650 mg Amlodipine Besylate (Norvasc Tab*) 5 mg PO BEDTIME [facility] Last Admin: 10/27/18 21:12 Dose: 5 mg Cholecalciferol (Vitamin D Tab*) 2,000 units PO DAILY [facility] Last Admin: 10/28/18 08:02 Dose: 2,000 units Heparin Sodium (Porcine) (Heparin Vial(*)) 5,000 units SUBCUT Q8HR [facility] Last Admin: 10/28/18 05:16 Dose: 5,000 units Hydralazine HCl (Apresoline Iv*) 5 mg IV SLOW PU Q6H PRN PRN Reason: BLOOD PRESSURE Last Admin: 10/25/18 03:56 Dose: 5 mg Hydrochlorothiazide (Hydrodiuril Tab*) 25 mg PO DAILY [facility] Last Admin: 10/28/18 08:03 Dose: 25 mg Cefazolin Sodium/Dextrose (Kefzol 2 Gm Premix In Ors(*)) 2 gm in 50 mls @ 100 mls/hr IVPB Q8H [facility] Last Admin: 10/28/18 09:44 Dose: 100 mls/hr Losartan Potassium (Cozaar Tab*) 100 mg PO DAILY [facility] Last Admin: 10/28/18 08:03 Dose: 100 mg Multivitamins/Minerals (Theragran/Minerals Tab*) 1 tab PO DAILY [facility] Last Admin: 10/28/18 08:04 Dose: 1 tab Omeprazole (Prilosec Cap*) 20 mg PO DAILY@0730 [facility] Last Admin: 10/28/18 08:04 Dose: 20 mg Oxycodone HCl (Roxycodone Tab*) 5 mg PO BEDTIME PRN PRN Reason: PAIN Potassium Chloride (Klor Con Er Tab*) 40 meq PO BID [facility] Last Admin: 10/28/18 08:03 Dose: 40 meq Prednisone (Deltasone Tab*) 5 mg PO QPM [facility] Last Admin: 10/27/18 17:31 Dose: 5 mg Prednisone (Deltasone Tab*) 10 mg PO QAM [facility] Last Admin: 10/28/18 08:02 Dose: 10 mg Tamsulosin HCl (Flomax Cap*) 0.4 mg PO BID [facility] Last Admin: 10/28/18 08:02 Dose: 0.4 mg Vital Signs - 8 hr 10/28/18 10/28/18 10/28/18 06:47 07:50 11:38 Temperature 97.9 F 97.9 F Pulse Rate 77 87 Respiratory 16 18 18 Rate Blood Pressure 166/77 183/98 (mmHg) O2 Sat by Pulse 97 100 Oximetry Oxygen Devices in Use Now: None Appearance: NAD Eyes: No Scleral Icterus Ears/Nose/Mouth/Throat: Clear Oropharnyx Neck: NL Appearance and Movements; NL JVP Respiratory: - - decreased BS at b/l bases. No rhonchi or wheezing. Cardiovascular: NL Sounds; No Murmurs; No JVD Abdominal: NL Sounds; No Tenderness; No Distention, No Hepatosplenomegaly Extremities: - - 2+ edema in b/l lower extremities (calf, ankle, feet) Skin: - - stuck on lesions looking like seborrheic keratosis on right confucianism and near right ear. Neurological: Alert and Oriented x 3, NL Sensation, NL Muscle Strength and Tone Nutrition: Taking PO's Result Diagrams: 10/25/18 05:50 10/25/18 05:50 Additional Lab and Data: Laboratory Results - last 24 hr 10/25/18 10/28/18 10/28/18 05:50 07:34 11:03 POC Glucose (mg/dL) 306 H 258 H Hemoglobin A1c 7.2 H Microbiology and Other Data: Microbiology 10/26/18 11:01 Blood Venous Aerobic Blood Culture - Preliminary No Growth Day 2 10/26/18 11:01 Blood Venous Anaerobic Blood Culture - Preliminary No Growth Day 2 10/24/18 06:31 Blood Venous Aerobic Blood Culture - Preliminary No Growth Day 4 10/24/18 06:31 Blood Venous Anaerobic Blood Culture - Preliminary No Growth Day 4 10/24/18 06:31 Blood Venous Aerobic Blood Culture - Final Staphylococcus Aureus 10/24/18 06:31 Blood Venous Anaerobic Blood Culture - Preliminary No Growth Day 4 10/24/18 06:31 Blood Venous Blood MRSA/MSSA (PCR) - Final Mrsa Negative S.aureus Positive 10/22/18 06:40 Blood Venous Aerobic Blood Culture - Final Staphylococcus Aureus 10/22/18 06:40 Blood Venous Anaerobic Blood Culture - Final Staphylococcus Aureus 10/22/18 06:40 Blood Venous Blood MRSA/MSSA (PCR) - Final Mrsa Negative S.aureus Positive 10/21/18 23:03 Blood Venous Aerobic Blood Culture - Final Staphylococcus Aureus 10/21/18 23:03 Blood Venous Anaerobic Blood Culture - Final Staphylococcus Aureus 10/21/18 23:03 Blood Venous Blood MRSA/MSSA (PCR) - Final Mrsa Negative S.aureus Positive 10/23/18 10:55 Urine Legionella Urinary Antigen - Final Negative S. pneumo Antigen 10/23/18 10:55 Urine Streptococcus pneumoniae Ag Screen - Final Negative Legionella Antigen 10/21/18 23:34 Urine Urine Culture - Final No Growth (<1,000 CFU/mL) 10/22/18 01:15 Nasopharyngeal Influenza Types A,B Antigen - Final Specimen received for Influenza A/B Molecular testing Assess/Plan/Problems-Billing Mr Kemp is a 73yo M with PMHx of presumtive sarcoidosis(some mild mediastinal lymphadenopathy, never biopsed, many years on methotrexate and prednisone), lumbar spine inflammatory process first noticed Jul 2016 (s/p FNA w/ "mold" and reportedlyy atypical mycobacteria) s/p tx with , BPH, HTN, nephrolithiasis, B12 deficiency, CLL, skin squamous cell carcinoma, AYUSH, anxiety and depression, who presented to ED with altered mental status, (later spiked fever here) and was ultimately found to be septic secondary to MSSA bacteremia. NINFA no vegetations. - Patient Problems (1) MSSA bacteremia Current Visit: Yes Status: Acute Code(s): R78.81 - BACTEREMIA SNOMED Code( s): 123477791 Comment: The patient now has a positive culture from 10/24. ? if the findings in the lumbar spine are secondary to active diskitis. Blood culture from 10/26 NG x 2day. Continue cefazolin. Ultimate question is how long he will need to be treated for (2weeks vs 6-8weeks). I communicated with Dr. Austin and he suggested 6weeks with continuous infusion. This is Day 6 of cefazolin and Day 8 of antibiotics. (2) Hyperglycemia Current Visit: Yes Status: Acute Code(s): R73.9 - HYPERGLYCEMIA, UNSPECIFIED SNOMED Code(s): 40321012 Comment: BG 300 today. Note of prediabetes history in 2016 H&P. No A1C in our system. Will add on. add POC glucose finger sticks qachs. Add lispro SSI. change to carbohydrate consistent diet. long standing prednisone use. (3) BPH (benign prostatic hyperplasia) Current Visit: Yes Status: Acute Code(s): N40.0 - BENIGN PROSTATIC HYPERPLASIA WITHOUT LOWER URINRY TRACT SYMP SNOMED Code(s): 506461967 Comment: Continue tamsulosin. (4) DVT prophylaxis Current Visit: Yes Status: Acute Code(s): EUC5723 - SNOMED Code(s): 213032718 Comment: SQ heparin. (5) Decubitus ulcer Current Visit: Yes Status: Acute Code(s): L89.90 - PRESSURE ULCER OF UNSPECIFIED SITE, UNSPECIFIED STAGE SNOMED Code(s): 189204551 Comment: Present on admission. Continue pressure relieving measures. (6) Encephalopathy Current Visit: Yes Status: Acute Code(s): G93.40 - ENCEPHALOPATHY, UNSPECIFIED SNOMED Code(s): 93876838 Comment: Likely septic encephalopathy on admission. Pts mental status back to baseline. (7) Full code status Current Visit: Yes Status: Acute Code(s): Z78.9 - OTHER SPECIFIED HEALTH STATUS SNOMED Code(s): 192451438 (8) HTN (hypertension) Current Visit: Yes Status: Acute Code(s): I10 - ESSENTIAL (PRIMARY) HYPERTENSION SNOMED Code(s): 79701072 Comment: BP not controlled 180s. Increasing amlodipine from 5mg to 10mg and adding lasix 20mg once for suspected volume overload. Continue to monitor. (9) Pneumonia Current Visit: Yes Status: Acute Code(s): J18.9 - PNEUMONIA, UNSPECIFIED ORGANISM SNOMED Code(s): 148915604 Comment: - CTA chest showed no evidence of pulmonary embolic disease. Previously noted pulmonary nodule located in the superior segment of the left lower lung has resolved. Complex infiltrate located in the superior aspect of the left upper lung. - s/p Cefazolin - Respiratory status is improved and he's now on RA. - Legionella and pneumococcal Ags (-) (10) Sarcoidosis Current Visit: Yes Status: Acute Code(s): D86.9 - SARCOIDOSIS, UNSPECIFIED SNOMED Code(s): 16130742 Comment: Continue home dose of prednisone. I suspect he may be adrenally insufficent given his prolonged use of prednisone. He will need a very slow taper off prednisone attempted as an outpatient. (11) Sepsis Current Visit: Yes Status: Acute Comment: Present on admission secondary to MSSA bacteremia. Sepsis has resolved. (12) Diastolic CHF Current Visit: Yes Status: Acute Code(s): I50.30 - UNSPECIFIED DIASTOLIC ( CONGESTIVE) HEART FAILURE SNOMED Code(s): 157039723 Comment: add BNP add daily weights strict io lasix 20mg once continue HCTZ 25mg Status and Disposition: medicine inpatient.
[2018-10-28] MEDS ORDERED: Furosemide TAB* 20 MG PO ONE (12:58)
[2018-10-28] MEDS ORDERED: Dextrose 50% Syringe 50 ML* 25 GM/50 ML SYRINGE IV PUSH PRN (16:50)
[2018-10-28] MEDS: Insulin LISPRO* 1 UNITS UNIT SUBCUT SCH ×2 (17:32→20:19)
[2018-10-28] MEDS: metFORMIN* 500 MG TAB PO SCH (17:32)
[2018-10-28] MEDS: predniSONE TAB* 5 MG PO SCH (18:04)
[2018-10-28] MEDS ORDERED: oxyCODONE TAB* 5 MG TAB PO PRN (19:00)
[2018-10-28] MEDS ORDERED: amLODIPine TAB* 5 MG PO SCH (21:00)
[2018-10-29] MEDS: hydrALAZINE IV* 20 MG/ML VIAL IV SLOW PU PRN (00:23)
[2018-10-29] MEDS: ceFAZolin 2 GM PREMIX in ORs 2 GM/50 ML BAG IVPB SCH ×3 (01:56→16:53)
[2018-10-29] MEDS: Heparin VIAL(*) 5000 UNITS/ML VIAL (FIVE THOUSAND) SUBCUT SCH ×2 (06:40→13:24)
[2018-10-29 06:59] LABS: Hematocrit 35 % (42-52); Hemoglobin 11.7 g/dl (14.0-18.0); Mean Corpuscular HGB Conc 34 g/dl (31-36); Mean Corpuscular Hemoglobin 34 pg (27-31); Mean Corpuscular Volume 99 fL (80-94); Mean Platelet Volume 7.5 fL (7.4-10.4); Platelet Count 130 10^3/ul (150-450); Red Cell Distribution Width 17 % (10.5-15); White Blood Count 8.9 10^3/ul (3.5-10.8)
[2018-10-29 07:18] LABS: BUN/Creatinine Ratio 41.1 (8-20); CRP High Sensitivity 2.24 mg/L (<2.00); Calcium 9.8 mg/dL (8.6-10.3); EGFR Non-African American 82.3 (>60); Potassium 4.4 mmol/L (3.5-5.0)
[2018-10-29 07:31] LABS: Immature Granulocytes 14 % (0-9); Lymphocytes % 7 %; Metamyelocytes % 2 % (0-2); Monocytes % 3 %; Myelocytes % 8 % (0-1); Neutrophil % 76 %
[2018-10-29] MEDS: Multivitamins/Minerals TAB PO SCH (08:25)
[2018-10-29] MEDS: Losartan TAB* 25 MG PO SCH (08:25)
[2018-10-29] MEDS: Hydrochlorothiazide TAB* 25 MG PO SCH (08:26)
[2018-10-29] MEDS: Insulin LISPRO* 1 UNITS UNIT SUBCUT SCH ×3 (08:26→16:53)
[2018-10-29] MEDS: predniSONE TAB* 10 MG PO SCH (08:26)
[2018-10-29] MEDS: metFORMIN* 500 MG TAB PO SCH ×2 (08:26→16:53)
[2018-10-29] MEDS: Tamsulosin CAP* 0.4 MG PO SCH (08:26)
[2018-10-29] MEDS: Cholecalciferol TAB* 1000 UNITS PO SCH (08:26)
[2018-10-29] MEDS: Omeprazole CAP* 20 MG PO SCH (08:26)
[2018-10-29 15:52] VITALS: BP 141/83
[2018-10-29] MEDS: predniSONE TAB* 5 MG PO SCH (16:53)
--- NOTE | 2018-10-30 05:47 | DS ---
DISCHARGE SUMMARY: DATE OF ADMISSION: 10/21/18 DISCHARGE OF DISCHARGE: 10/29/18 ADMITTING PROVIDER: Cam Moody NP PRIMARY CARE PROVIDER: Dr. Helen Styles. OUTPATIENT INFECTIOUS DISEASE DOCTOR: Dr. Alejandro Austin. OUTPATIENT BRIM FLEXER: Dr. Silverman. OUTPATIENT NEUROSURGEON: Dr. Glaser. ATTENDING PHYSICIAN ON DAY OF DISCHARGE: Kavin Esteban MD CHIEF COMPLAINT: Altered mental status. PRINCIPAL DIAGNOSES: 1. Methicillin susceptible Staphylococcus aureus bacteremia, thought likely secondary to L4-L5 diskitis. 2. Sepsis. 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 He had, the week prior to admission, got an epidural steroid injection from Dr. Silverman for his lower extremity pain syndrome (anterior thigh pain, worse at night, that referred from the L4-L5 region). Please see H and P of Cam Moody for full details. On day of admission, he fell asleep around lunchtime, woke up 5 hours later with confusion , and was referred for further medical attention by his co-workers at [employer]. He attested to weakness and fatigue with an initial bandemia and fever with EMS , which again was documented later in the night of hospital day #1 in-house. He was then referred to hospitalist service for admission and treated for sepsis of unknown origin, initially with broad-spectrum antibiotics which included vancomycin and cefepime. His blood cultures ultimately grew 4/4 bottles of MSSA on both 10/21/18 and 10/22/18 and 1/4 bottles on 10/24/18. He was seen in consultation with Dr. Alejandro Austin of Infectious Disease and he was transitioned to cefazolin 2 g q.8. He had a transesophageal echocardiogram which did not show evidence of vegetation and his lumbar spine MRI was repeated on 10/24/18 which demonstrated impression of: 1. Similar to the previous MRI of the lumbar spine dated 09/15/18, there is a destruction of L4-L5 intravertebral disk space with enhancement on the post- contrast images. There was enhancement of the paravertebral soft tissue extending around the lower margin of L4-L5 vertebra. Overall, the distribution of enhancement has increased slightly since 07/16/18 raising suspicion for active diskitis, although as mentioned on the previous MRI report, imaging appearance of osteomyelitis/diskitis can persist after clinical resolution. 2. Degenerative disk disease. As described above, similar in appearance to the most recent MRI of the lumbar spine. He was noted to be hypertensive and additional blood pressure medications were added throughout the course of his hospital stay, mainly amlodipine 10 mg p.o. at bedtime. He has been on 15 mg of prednisone chronically and likely has level of adrenal insufficiency. His blood sugars were found to be quite elevated in the 300s and hemoglobin A1c was checked, returned as 7.2. He was started on metformin 500 mg twice a day with a plan to increase as an outpatient and close followup with Dr. Styles. His initial CRP was 78, had peaked at 148 on 10/23/18, and had fallen to 19.2 on 10/25/18. The high- sensitivity CRP was 2.2 on 10/29/18. He had repeat blood cultures on 10/26/18, there have been no growth for 72 hours so far. So, a PICC line was placed and final antibiotic recommendations from Dr. Alejandro Austin was 6 weeks total of continuous 6 g per 24 hours of cefazolin. He should follow up with Dr. Alejandro Austin within the next 2 weeks. He defervesced and was considered stable for discharge. DISCHARGE MEDICATIONS: Include: 1. Tylenol 1000 mg p.o. b.i.d. 2. Amlodipine 10 mg p.o. at bedtime (new). 3. Cholecalciferol 2000 units p.o. daily. 4. Hydrochlorothiazide 25 mg p.o. daily. 5. Ibuprofen 200 mg p.o. q.6 hours p.r.n. (reduced dose from admission level). 6. Losartan 100 mg p.o. daily. 7. Metformin 500 mg p.o. b.i.d. (new). 8. Multivitamin tab 1 tab p.o. daily. 9. Omeprazole 20 mg p.o. daily. 10. Oxycodone 10 mg p.o. bedtime p.r.n. 11. Prednisone 10 mg p.o. q.a.m. and 5 mg p.o. q.p.m. 12. Tamsulosin 0.4 mg p.o. b.i.d. 13. Tolnaftate antifungal cream daily. FOLLOWUP: Please follow up with Dr. Alejandro Austin within 2 weeks, Dr. Helen Styles within 7 days, and continued outpatient followup with Dr. Glaser. He has scheduled followup with Dr. Silverman, although I would be doubtful about additional epidural injection would be pursued in the near term. 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 DISCHARGE DIET: Carbohydrate consistent, heart healthy. TIME SPENT ON DISCHARGE: 40 minutes. [id number]/CPS #: [id number] MTDD
== END 2018-10-29 17:45 | disposition home or self-care (01) | DRG 871 ==
LOC: ED 19:37 → MEDTELE 22:35
PROVIDERS: ADMIT Pediatrics; ATTEND Internal Medicine
PROC: 5A09457 Assistance with Respiratory Ventilation, 24-96 Consecutive Hours, Continuous Positive Airway Pressure (ICD-10-PCS; 2018-10-21)
PROC: B24BZZ4 Ultrasonography of Heart with Aorta, Transesophageal (ICD-10-PCS; principal; 2018-10-24 08:45)
PROC: 02HV33Z Insertion of Infusion Device into Superior Vena Cava, Percutaneous Approach (ICD-10-PCS; 2018-10-29)
DX: A41.01 Sepsis due to Methicillin susceptible Staphylococcus aureus (principal); G93.41 Metabolic encephalopathy; J96.01 Acute respiratory failure with hypoxia; C91.10 Chronic lymphocytic leukemia of B-cell type not having achieved remission; I50.30 Unspecified diastolic (congestive) heart failure; I24.8 Other forms of acute ischemic heart disease; L89.222 Pressure ulcer of left hip, stage 2; I11.0 Hypertensive heart disease with heart failure; D69.6 Thrombocytopenia, unspecified; M46.46 Discitis, unspecified, lumbar region; G47.33 Obstructive sleep apnea (adult) (pediatric); F41.9 Anxiety disorder, unspecified; F32.9 Major depressive disorder, single episode, unspecified; D86.0 Sarcoidosis of lung; N40.0 Benign prostatic hyperplasia without lower urinary tract symptoms; E53.8 Deficiency of other specified B group vitamins; R74.8 Abnormal levels of other serum enzymes; Z79.1 Long term (current) use of non-steroidal anti-inflammatories (NSAID); Z79.891 Long term (current) use of opiate analgesic; Z79.52 Long term (current) use of systemic steroids; Z79.899 Other long term (current) drug therapy; Z85.828 Personal history of other malignant neoplasm of skin; Z87.442 Personal history of urinary calculi
CPT/HCPCS: 36415; 70450; 71045; 71275; 72157; 72158; 80048; 80053; 81003; 81015; 82550; 83036; 83605; 83880; 84145; 84484; 85025; 85060; 85610; 85652; 86140; 86141; 87040; 87077; 87086; 87150; 87186; 87205; 87899; 93005; 93306; 93312; 93325; 94660; 95819; 99156; 99284; A9270-GY; A9579; C1751; G8978-GP-CI; G8979-GP-CI; G8980-GP-CI; J0360; J0690; J0692; J1644; J2250; J2310; J3010; J3370; J3490; J7512; Q9967

== ENCOUNTER 2018-10-30 11:49 | Observation (INO) | payer OTHER ==
--- NOTE | 2018-10-30 12:02 | ED ---
Neurological HPI - History of Current Complaint Chief Complaint: EDWeakness Stated Complaint: FEELS WEAK Time Seen by Provider: 10/30/18 11:53 Pain Intensity: 0 - Additional Pertinent History Primary Care Physician: CALEB - Allergy/Home Medications Allergies/Adverse Reactions: Allergies Allergy/AdvReac Type Severity Reaction Status Date / Time No Known Allergies Allergy Verified 10/30/18 11:54 PMH/Surg Hx/FS Hx/Imm Hx Endocrine/Hematology History: Reports: Other Endocrine/Hematological Disorders - Sarcoidosis, since resolved, according to Pt Denies: Hx Diabetes, Hx Thyroid Disease - nodes, under care of [facility] Cardiovascular History: Reports: Hx Hypertension Denies: Hx Pacemaker/ICD Respiratory History: Reports: Hx Asthma - childhood only, Hx Sleep Apnea - CPAP , Other Respiratory Problems/Disorders - secondary to Sarcoidosis, since improved History: Denies: Hx Renal Disease Musculoskeletal History: Reports: Hx Arthritis, Other Musculoskeletal History - LEFT WRIST FX Denies: Hx Osteoporosis Sensory History: Reports: Hx Contacts or Glasses Denies: Hx Cataracts, Hx Hearing Aid Opthamlomology History: Reports: Hx Contacts or Glasses Denies: Hx Cataracts Neurological History: Reports: Other Neuro Impairments/Disorders - spinal ostemyelitis Psychiatric History: Reports: Hx Anxiety - since ~2 years ago with health problems, mild, Hx Depression - since ~2 years ago with health problems, mild Denies: Hx Panic Disorder - Cancer History Cancer Type, 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 Cauterizatin of nose bleed. Tonsillectomy. Bilateral cataract removal Hx Anesthesia Reactions: No Infectious Disease History: No Infectious Disease History: Denies: Traveled Outside the [place] in Last 30 Days - Family History Known Family History: Positive: Cardiac Disease, Hypertension, Other - [place], Alzheimers- mother - Social History Alcohol Use: None Hx Substance Use: Yes Substance Use Type: Reports: None Substance Use Comment - Amount & Last Used: this morning, oil Hx Tobacco Use: No Smoking Status (MU): Never Smoked Tobacco Physical Exam Vital Signs On Initial Exam: Initial Vitals Temp Pulse Resp BP Pulse Ox 98 F 104 18 163/108 99 10/30/18 11:51 10/30/18 11:51 10/30/18 11:51 10/30/18 11:51 10/30/18 11:51 Diagnostics - Vital Signs Vital Signs Temp Pulse Resp BP Pulse Ox 10/30/18 11:51 98 F 104 18 163/108 99 - Laboratory Lab Statement: Any lab studies that have been ordered have been reviewed, and results considered in the medical decision making process. Discharge - Discharge Plan Referrals: Helen Styles MD [Primary Care Provider] - - Attestation Statements Document Initiated by Scribe: Yes
[2018-10-30] MEDS ORDERED: ceFAZolin 2 GM in NS PREMIX(*) 2 GM/100 ML BAG IVPB ONE (12:17)
[2018-10-30] MEDS: NS 0.9% 1000 ML*IV.FLUID IV ONE ×3 (12:27→14:01)
--- NOTE | 2018-10-30 12:29 | ED ---
Lower Extremity - History of Current Complaint Chief Complaint: EDWeakness Stated Complaint: FEELS WEAK Time Seen by Provider: 10/30/18 11:53 Pain Intensity: 0 - Allergies/Home Medications Allergies/Adverse Reactions: Allergies Allergy/AdvReac Type Severity Reaction Status Date / Time No Known Allergies Allergy Verified 10/30/18 11:54 PMH/Surg Hx/FS Hx/Imm Hx Endocrine/Hematology History: Reports: Other Endocrine/Hematological Disorders - Sarcoidosis, since resolved, according to Pt Denies: Hx Diabetes, Hx Thyroid Disease - nodes, under care of [facility] Cardiovascular History: Reports: Hx Hypertension Denies: Hx Pacemaker/ICD Respiratory History: Reports: Hx Asthma - childhood only, Hx Sleep Apnea - CPAP , Other Respiratory Problems/Disorders - secondary to Sarcoidosis, since improved History: Denies: Hx Renal Disease Musculoskeletal History: Reports: Hx Arthritis, Other Musculoskeletal History - LEFT WRIST FX Denies: Hx Osteoporosis Sensory History: Reports: Hx Contacts or Glasses Denies: Hx Cataracts, Hx Hearing Aid Opthamlomology History: Reports: Hx Contacts or Glasses Denies: Hx Cataracts Neurological History: Reports: Other Neuro Impairments/Disorders - spinal ostemyelitis Psychiatric History: Reports: Hx Anxiety - since ~2 years ago with health problems, mild, Hx Depression - since ~2 years ago with health problems, mild Denies: Hx Panic Disorder - Cancer History Cancer Type, 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 Cauterizatin of nose bleed. Tonsillectomy. Bilateral cataract removal Hx Anesthesia Reactions: No Infectious Disease History: No Infectious Disease History: Denies: Traveled Outside the [place] in Last 30 Days - Family History Known Family History: Positive: Cardiac Disease, Hypertension, Other - [place], Alzheimers- mother - Social History Alcohol Use: None Hx Substance Use: Yes Substance Use Type: Reports: None Substance Use Comment - Amount & Last Used: this morning, oil Hx Tobacco Use: No Smoking Status (MU): Never Smoked Tobacco Physical Exam Vital Signs On Initial Exam: Initial Vitals Temp Pulse Resp BP Pulse Ox 98 F 104 18 163/108 99 10/30/18 11:51 10/30/18 11:51 10/30/18 11:51 10/30/18 11:51 10/30/18 11:51 Diagnostics - Vital Signs Vital Signs Temp Pulse Resp BP Pulse Ox 10/30/18 11:51 98 F 104 18 163/108 99 - Laboratory Result Diagrams: 10/30/18 12:10 Lab Statement: Any lab studies that have been ordered have been reviewed, and results considered in the medical decision making process. Discharge - Discharge Plan Referrals: Helen Styles MD [Primary Care Provider] - - Attestation Statements Document Initiated by Scribe: Yes
[2018-10-30 12:30] LABS: Hematocrit 32 % (42-52); Mean Corpuscular HGB Conc 34 g/dl (31-36); Mean Corpuscular Hemoglobin 34 pg (27-31); Mean Corpuscular Volume 99 fL (80-94); Mean Platelet Volume 7.5 fL (7.4-10.4); Platelet Count 124 10^3/ul (150-450); Red Blood Count 3.25 10^6/ul (4.00-5.40); Red Cell Distribution Width 16 % (10.5-15); White Blood Count 10.3 10^3/ul (3.5-10.8)
[2018-10-30] MEDS ORDERED: Losartan TAB* 25 MG PO ONE (12:31)
[2018-10-30] MEDS ORDERED: Hydrochlorothiazide TAB* 25 MG PO ONE (12:31)
[2018-10-30] MEDS ORDERED: predniSONE TAB* 10 MG PO ONE (12:32)
--- NOTE | 2018-10-30 12:36 | ED ---
Neurological HPI - HPI Summary HPI Summary: A 73 y/o male brought in by ambulance presents to the ED c/o inability to ambulate due to increased pain between knees and hip. Additionally c/o increased weakness. In the ED room, the patient has a pulse of 97 BPM, O2 saturation of 97%, and blood pressure of 163/108. According to the patient, he was released yesterday (10/29/2018) at 1700 so he could get to [facility] before they closed to obtain his medications. He stated that he expected to gradually feel better, but he didn't which was alarming to him. He stated that yesterday (10/29/2018), he went to bed around 2130 and usually gets up to go to the bathroom a few times during the night. He stated that he could not walk to the bathroom last night so instead, he slide on his buttock to make his way to the bathroom and used his arms to propel himself up to the toilet. These symptoms were not present at the hospital yesterday. He usually has pain walking at night, but he can ambulate with the pain, but last night he realized it was different as he couldn't ambulate. So, his became alarmed about the patient's symptoms so she called the ambulance earlier. He noted that he was able to walk with his walker this morning and usually uses a walker to ambulate. He didn't have a walker at night. He stated that the pain is located between both knees and his hip. He came back to [facility] today because of his worsening and increased pain between both knees and hip as the pain made it impossible to walk around the house. He was in so much pain last night that he couldn't walk (didn't have walker). Patient denies any head trauma, fall, LOC, neck pain, back pain, fever, trouble/slurred speech, trouble finding words, chest pain, SOB, headache, dizziness, abdominal pain, nausea, and vomiting, but does have a sore throat. He also has chronic edema. He stated that he did have his flu-shot. 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 Patient is still on antibiotics at home. Patient did not have his morning medications yet. He stated that he has opens wounds "all over the place" because he has been taking so much Prednisone for his spine infection. Patient had his first spinal injections 2 weeks ago (2017) by Dr. Johnny Sivlerman. Patient's daughter is coming, not sure about . No known allergies. By review of [facility] from [place] summary pt is supposed to be on continuous cefazolin. Pt states that he has not had this today. Pt denies urinary and bowel incontinence. Home Medications Medication Instructions Recorded Confirmed Type Acetaminophen [Acetaminophen Extra 1,000 mg PO BID PRN 07/06/16 10/30/18 History Stren] Cholecalciferol (Vitamin D3) 2,000 unit PO DAILY 07/06/16 10/30/18 History [Vitamin D3] Multivitamins/Minerals TAB* 1 tab PO DAILY 07/06/16 10/30/18 History [Theragran/minerals TAB*] Omeprazole CAP* [Prilosec CAP* 20 20 mg PO DAILY 07/06/16 10/30/18 History MG] predniSONE TAB* [Deltasone 10 MG 10 mg PO QAM 07/06/16 10/30/18 History TAB*] predniSONE TAB* [Deltasone TAB*] 5 mg PO QPM 07/06/16 10/30/18 History Losartan Potassium [Cozaar] 100 mg PO DAILY 10/09/18 10/30/18 History Tamsulosin CAP* [Flomax CAP*] 0.4 mg PO BID 10/09/18 10/30/18 History Tolnaftate [Antifungal Cream] 14.18 gm TP DAILY 10/09/18 10/30/18 History hydroCHLOROthiazide 25 mg PO DAILY 10/09/18 10/30/18 History [Hydrochlorothiazide] oxyCODONE TAB* [Roxycodone TAB 5 10 mg PO BEDTIME PRN MDD 1-1.5 tabs 10/09/18 History mg*] Heparin FLUSH PICC/ML/CVC(*) 1 - 3 ml FLUSH 0600,1800 #10 10/29/18 10/30/18 Rx syringe Ibuprofen 200 mg PO Q6H PRN #30 capsule 10/29/18 10/30/18 Rx amLODIPine TAB* [Norvasc 5 mg TAB*] 10 mg PO BEDTIME #30 tab 10/29/18 10/30/18 Rx metFORMIN* [Glucophage 500 MG TAB 500 mg PO 0800,1700 #60 tab 10/29/18 10/30/18 Rx *] - History of Current Complaint Chief Complaint: EDWeakness Stated Complaint: FEELS WEAK Time Seen by Provider: 10/30/18 11:53 Hx Obtained From: Patient, Medical Records - [facility] summary from 10/19/18 Onset/Duration: Sudden Onset, Started hours ago, Still Present Timing: Constant Onset Severity: Severe Current Severity: Moderate Number of Seizures: 0 Neurological Deficit Location: RLE - weakness, LLE - weakness Pain Intensity: 0 Pain Scale Used: 0-10 Numeric Character: Weak, Motor Weakness - bilateral legs Syncope Timin Number of Episodes: 0 Aggravating: Nothing Alleviating: Nothing Associated Signs and Symptoms: Positive: Weakness, Pain - PAIN BETWEEN KNEES TO HIP. Negative: Headache, Loss of Consciousness, Dizziness, Nausea/Vomiting, Fever, Chest Pain, Shortness of Breath TPA Considered: No Related Hx: Recent Illness - MSSA sepsis - Additional Pertinent History Primary Care Physician: CALEB - Allergy/Home Medications Allergies/Adverse Reactions: Allergies Allergy/AdvReac Type Severity Reaction Status Date / Time No Known Allergies Allergy Verified 10/30/18 11:54 PMH/Surg Hx/FS Hx/Imm Hx Previously Healthy: No Endocrine/Hematology History: Reports: Hx Thyroid Disease - nodes Denies: Hx Diabetes Cardiovascular History: Reports: Hx Hypertension Denies: Hx Pacemaker/ICD Respiratory History: Reports: Hx Asthma - childhood only, Hx Sleep Apnea - CPAP , Other Respiratory Problems/Disorders - Sarcoidosis History: Reports: Hx Benign Prostatic Hyperplasia Denies: Hx Renal Disease Musculoskeletal History: Reports: Hx Arthritis, Hx Back Problems - 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, s/p 3 drug treatment;sepsis 10/21/18,, Other Musculoskeletal History - LEFT WRIST FX;concern for osteomyelitis/diskitis 10/21 - w/MSSA sepsis Denies: Hx Osteoporosis Sensory History: Reports: Hx Contacts or Glasses Denies: Hx Cataracts, Hx Hearing Aid Opthamlomology History: Reports: Hx Contacts or Glasses Denies: Hx Cataracts Neurological History: Reports: Other Neuro Impairments/Disorders - L4/L5 ostemyelitis/diskitis Psychiatric History: Reports: Hx Anxiety, Hx Depression Denies: Hx Panic Disorder - Cancer History Cancer Type, 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 Cauterization of nose bleed. Tonsillectomy. Bilateral cataract removal Hx Anesthesia Reactions: No - Immunization History Date of Influenza Vaccine: PER PATIENT, HE HAS HAD HIS FLU-SHOT RECENTLY. 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 Negative: Fever Positive: Sore Throat Negative: Chest Pain Negative: Shortness Of Breath Negative: Abdominal Pain, Vomiting, Nausea Positive: see HPI, other - nocturia Positive: Edema - POSITIVE: CHRONIC EDEMA, Other - POSITIVE: PAIN BETWEEN KNEES AND HIPS; NEGATIVE: NECK PAIN, BACK PAIN Positive: Bruising, Other - multiple open lesions including right heel, abrasions Neurological: Other - NEGATIVE: LOC, TROUBLE FINDING WORDS, DIZZINESS Positive: Weakness - bilateral . Negative: Headache, Slurred Speech Psychological: Normal All Other Systems Reviewed And Are Negative: Yes Physical Exam - Summary Physical Exam Summary: Appearance: chronically ill-appearing, obese, moderate pain distress bilateral legs Skin: multiple moles, open wound on right heel, redness and edema of bilateral extremities, multiple bruises of different ages, multiple superficial abrasions. Head: Normal Head/Face inspection, atraumatic Eyes: Conjunctiva clear, right chemosis, PERRL, EOMI, no nystagmus ENT: Normal inspection Neck: Supple, no nodes, no JVD Respiratory: Lungs clear, normal breath sounds, no respiratory distress Cardio: RRR, No murmur, pulses normal, brisk capillary refill Abdomen: Soft, nontender Bowel sounds: Present Musculoskeletal: 4/5 Strength bilateral legs/ROM intact, no calf tenderness, 2+ bilateral edema, no spinal tenderness or redness at site of injection apparent on low lumbar, no swelling lumbar area, PICC line right upper arm with no bleeding or drainage or surrounding redness, PICC line used for one set of blood cultures and labs Psychological: Normal Neuro: A&O x3, CN II-XII intact, motor function 4/5,bilateral legs, otherwise intact, sensation intact, normal finger to nose, speech fluent, facial symmetry Triage Information Reviewed: Yes Vital Signs On Initial Exam: Initial Vitals Temp Pulse Resp BP Pulse Ox 98 F 104 18 163/108 99 10/30/18 11:51 10/30/18 11:51 10/30/18 11:51 10/30/18 11:51 10/30/18 11:51 Vital Signs Reviewed: Yes Diagnostics - Vital Signs Vital Signs Temp Pulse Resp BP Pulse Ox 10/30/18 12:25 100 10/30/18 11:51 98 F 104 18 163/108 99 - Laboratory Lab Results: Lab Results 10/30/18 Range/Units 12:10 WBC 10.3 (3.5-10.8) 10^3/ul RBC 3.25 L (4.00-5.40) 10^6/ul Hgb 11.0 L (14.0-18.0) g/dl Hct 32 L (42-52) % MCV 99 H (80-94) fL MCH 34 H (27-31) pg MCHC 34 (31-36) g/dl RDW 16 H (10.5-15) % Plt Count 124 L (150-450) 10^3/ul MPV 7.5 (7.4-10.4) fL Neut % (Auto) Pending Lymph % (Auto) Pending [place] % (Auto) Pending Eos % (Auto) Pending Baso % (Auto) Pending Absolute Neuts (auto) Pending Absolute Lymphs (auto) Pending Absolute Monos (auto) Pending Absolute Eos (auto) Pending Absolute Basos (auto) Pending Absolute Nucleated RBC Pending Nucleated RBC % Pending ESR Pending Result Diagrams: 10/30/18 12:10 10/30/18 12:10 Lab Statement: Any lab studies that have been ordered have been reviewed, and results considered in the medical decision making process. - Radiology CXR Radiology Interpretation Completed By: Radiologist Summary of Radiographic Findings: LOW LUNG VOLUMES, NO EVIDENCE FOR ACUTE FINDING. ED PHYSICIAN REVIEWED THIS RADIOLOGY REPORT. - EKG 1211 Cardiac Rate: NL - 91 BPM EKG Rhythm: Sinus Rhythm - [address] Segment: Non-Specific Ectopy: PVCs - 1 PVC UNIFOCAL EKG Comparison: No Significant Change - COMPARED WITH 10/21/2018, NO CHANGE Summary of EKG Findings: nl SRUTHI CT, nl QTc, nl axis, no acute changes - Additional Comments Diagnostic Additional Comments: LUMBAR MRI: 1. Motion artifact is problematic on several of the sequences. 2. L4-L5 changes remain consistent with discitis and osteomyelitis. There has not been appreciable progression. Unchanged enhancement surrounding the thecal sac at this level and surrounding the right posterior facets. This remains suspicious for extension of infection. No new abscess is seen. 3. Associated retroperitoneal lymphadenopathy again noted with enlarged lymph node or mass again present in the right lower quadrant measuring 4 x 3.6 cm. An underlying malignancy is not excluded here. 4. Subacute mild compression fracture superior endplate of L2 redemonstrated. No new fracture. 5. No appreciable change in severe multilevel degenerative change with no new disc herniation. ED PHYSICIAN REVIEWED THIS RADIOLOGY REPORT. NIH Scale - NIH Scale Level of Consciousness: Alert/Keenly Responsive Ask Patient the Month and His/Her Age: Both Correct Ask Pt to Open/Close Eyes and Slot Tag Inserter/Release Non-Paretic Hand: Both Correctly Best Gaze (Only Horizontal Eye Movement): Normal Visual Field Testing: No Visual Loss Facial Paresis-Pt to Smile & Close Eyes or Grimace Symmetry: Normal/Symmetrical Motor Function - Right Arm: No Drift-Holds 10 Seconds Motor Function - Left Arm: No Drift-Holds 10 Seconds Motor Function - Right Leg: Drifts LT 10 seconds Motor Function - Left Leg: Drifts LT 10 seconds Limb Ataxia-Must be out of Proportion to Weakness Present: Absent Sensory (Use Pinprick to Test Arms/Legs/Trunk/Face): Normal Best Language (Describe Picture, Name Items): No Aphasia Dysarthria (Read Several Words): Normal Extinction and Inattention: No Abnormality Total Score: 2 Re-Evaluation - Re-Evaluation First Eval Re-Evaluation Time: 13:03 Change: Unchanged Comment: Aware of lactate 2.2 and trop 0.05, MRI ordered. Agrees to admission Course/Dx - Course Course Of Treatment: A 73 y/o male brought in by ambulance presents to the ED c/ o inability to ambulate due to increased pain between knees and hip. Additionally c/o increased weakness. In the ED room, the patient has a pulse of 97 BPM, O2 saturation of 97%, and blood pressure of 163/108. He stated that he could not walk to the bathroom last night so instead, he slide on his buttock to make his way to the bathroom and used his arms to propel himself up to the toilet. He stated that the pain is located between both knees and his hip. He came back to [facility] today because of his worsening and increased pain between both knees and hip as the pain made it impossible to walk around the house. He was in so much pain last night that he couldn't walk (didn't have walker). Patient denies any head trauma, fall, LOC, neck pain, back pain, fever, trouble/ slurred speech, trouble finding words, chest pain, SOB, headache, dizziness, abdominal pain, nausea, and vomiting, but does have a sore throat. He also has chronic edema. Pt medications reviewed this visit. Physical examination findings significant for patient is chronically ill-appearing, obese, in pain distress, multiple moles and abrasions, open wound on right heel, redness and edema of bilateral extremities, multiple bruises of different ages, multiple superficial abrasions. Eyes are conjunctiva clear, right chemosis, PERRL, EOMI, no nystagmus. Additionally, no spinal tenderness or redness, site of injection apparent on low lumbar, no swelling. A CXR revealed low lung volumes, no evidence for acute finding. An EKG revealed NSR of 91 BPM, non-specific ST, 1 PVC unifocal, nl SRUTHI CT, nl QTc, nl axis, no acute changes. No significant change compared with the EKG done on 10/21/2018. A Lumbar MRI revealed 1. Motion artifact is problematic on several of the sequences. 2. L4-L5 changes remain consistent with discitis and osteomyelitis. There has not been appreciable progression. Unchanged enhancement surrounding the thecal sac at this level and surrounding the right posterior facets. This remains suspicious for extension of infection. No new abscess is seen. 3. Associated retroperitoneal lymphadenopathy again noted with enlarged lymph node or mass again present in the right lower quadrant measuring 4 x 3.6 cm. An underlying malignancy is not excluded here. 4. Subacute mild compression fracture superior endplate of L2 redemonstrated. No new fracture. 5. No appreciable change in severe multilevel degenerative change with no new disc herniation. Hematology, Coagulation, Chemistry, urinalysis, and Serology screens were done. No significant laboratory abnormalities were found except for a Troponin of 0.05. In the ED course, the patient received sepsis fluids initially and cefazolin 2gm IV and his losartan and HCTZ as his am meds for HTN were not taken at home. Patient care was discussed with hospitalist, Dr. Kavin Esteban, who accepts patient for admission. Patient will be admitted with a diagnosis of history of sepsis and inability to ambulate. Patient is agreeable with this plan. - Differential Dx Differential Diagnoses Neuro: Positive: Cerebrovascular Accident, Contusion, Medication Reaction, Metabolic Abnormality, Other - sepsis, epidural abscess, osteomyelitis/diskitis - Diagnoses Provider Diagnoses: Unable to ambulate, Hx of sepsis, Hypertension, poor control, Hx of discitis, Retroperitoneal lymphadenopathy - Physician Notifications Discussed Care Of Patient With: Kavin Esteban Time Discussed With Above Provider: 12:35 Instructed by Provider To: Other - ACCEPTS PATIENT FOR ADMISSION. - Critical Care Time Critical Care Time: 30-74 min - 30 mins Discharge - Sign-Out/Discharge Documenting (check all that apply): Patient Departure - ADMIT, Sign-Out Patient - ESTEBAN Signing out patient TO: Kavin Esteban Receiving patient FROM: Shawna Ramirez - Discharge Plan Condition: Stable Disposition: ADMITTED TO [facility] - Billing Disposition and Condition Condition: STABLE Disposition: Admitted to [facility] - Attestation Statements Document Initiated by Julito: Yes Documenting Scribe: Fortunato Waite Provider For Whom Julito is Documenting (Include Credential): Shawna Ramirez MD Scribe Attestation: Fortunato Canseco scribed for Shawna Ramirez MD on 10/31/18 at 0423. Scribe Documentation Reviewed: Yes Provider Attestation: The documentation as recorded by the Fortunato lópez accurately reflects the service I personally performed and the decisions made by me, Shawna Ramirez MD Status of Scribe Document: Viewed
[2018-10-30 12:38] LABS: Activated Partial Thrombo Time 38.6 seconds (26.0-36.3); INR 0.91 (0.77-1.02)
[2018-10-30 12:49] LABS: Albumin 3.1 g/dL (3.2-5.2); Albumin/Globulin Ratio 1.2 (1-3); BUN/Creatinine Ratio 49.4 (8-20); C Reactive Protein 3.78 mg/L (<8.01); Calcium 9.3 mg/dL (8.6-10.3); EGFR Non-African American 92.9 (>60); Globulin 2.5 g/dL (2-4); Potassium 3.9 mmol/L (3.5-5.0); Total Bilirubin 0.6 mg/dL (0.2-1.0); Total Protein 5.6 g/dL (6.4-8.9)
[2018-10-30] MEDS ORDERED: ceFAZolin 2 GM PREMIX in ORs 2 GM/50 ML BAG IVPB ONE (13:00)
[2018-10-30 13:11] LABS: Urine Appearance Cloudy; Urine Bacteria Absent (Absent); Urine Bilirubin Negative (Negative); Urine Blood 3+ (Negative); Urine Color Yellow; Urine Glucose 1+(50 mg/dL) (Negative); Urine Ketones Negative (Negative); Urine Nitrite Negative (Negative); Urine Protein 2+(100 mg/dL) (Negative); Urine Red Blood Cell 2+(6-10/hpf) (Absent); Urine Specific Gravity 1.019 (1.010-1.030); Urine Urobilinogen Negative (Negative); Urine White Blood Cell Trace(0-5/hpf) (Absent)
[2018-10-30 13:15] LABS: ABS Basophils 0 10^3/ul (0-0.2); ABS Eosinophils 0 10^3/ul (0-0.6); ABS Lymphocytes 0.4 10^3/ul (1.0-4.8); ABS Monocytes 0.5 10^3/ul (0-0.8); ABS Neutrophils 9.3 10^3/ul (1.5-7.7); ABS Nucleated RBC 0 10^3/ul; Eosinophil % 0.3 %; Nucleated Red Blood Cells % 0.1
[2018-10-30 13:21] LABS: Erythrocyte Sed Rate 67 mm/Hr (0-40)
[2018-10-30] MEDS ORDERED: Furosemide IV* 10 MG/ML VIAL (40 MG) IV ONE (13:52)
[2018-10-30] MEDS ORDERED: Dextrose 50% Syringe 50 ML* 25 GM/50 ML SYRINGE IV PUSH PRN (14:08)
--- NOTE | 2018-10-30 16:25 | HP ---
HISTORY AND PHYSICAL: DATE OF ADMISSION: 10/30/18 ADMITTING PROVIDER: Kavin Esteban MD PRIMARY CARE PROVIDER: Helen Styles MD OUTPATIENT INFECTIOUS DISEASE DOCTOR: Dr. Alejandro Austin. NEUROSURGEON: Dr. Glaser. METHODOLOGIST: Dr. Silverman. CHIEF COMPLAINT: Generalized weakness with inability to ambulate and uncontrolled acute on chronic lower extremity pain in the setting of recent MSSA bacteremia admission and suspected L4-L5 diskitis and sepsis. 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 He was just discharged yesterday after a stay between 10/21/18 and 10/29/18 for sepsis secondary to MSSA bacteremia, presumed source L4-L5 diskitis, had been scheduled to get continuous cefazolin 2 g every 24- hour infusions. He left the setup the evening of discharge. It sounds like they did not show up and instead showed up the next day in the morning. He, per daughter Yoli at bedside, seemed fairly weak upon discharge and left the hospital around 5:30 p.m. after swinging by pharmacy to get outpatient medications which included new metformin and amlodipine. He attested that he had difficulty getting out of bed and had to use the restroom multiple times over the night. Eventually, he slid out of the bed and walked to the bathroom and managed to pull himself up to the toilet and then walked back to the bed, but eventually after multiple times, he is frankly a somewhat unclear historian about this matter, his found him on the floor, unable to get up without assistance. Eventually, transfusion services would arrive the next day. They were concerned that there was some blood underneath the bandage of the PICC line and given his story, they referred him to the emergency room for further evaluation. He states he is very fatigued. Denies any chest pain or fever. He does attest to some chills and baseline tremors. Workup is otherwise significant for downtrending troponins of 0.05 and 0.06 on last test, lactic acidosis of 2.2, some borderline tachycardia, afebrile, no leukocytosis, and resolved CRP 3.78, down from 19 and peak of 148 last admission. BNP was 74. He was referred for inability to ambulate and likely need for higher level of care. Dr. Ramirez has ordered an MRI of his lumbar spine to rule out any worsening of diskitis or any potential epidural abscess. PAST MEDICAL HISTORY: 1. Hypertension. 2. Presumed sarcoidosis (never biopsied, but with many years of steroids and now likely adrenal insufficiency, and also methotrexate). 3. BPH. 4. Nephrolithiasis. 5. B12 deficiency. 6. Squamous cell carcinoma. 7. AYUSH. 8. Recent-onset diabetes. 9. Sciatica. 10. L4-L5 diskitis 2011, culture positive for Mycobacterium xenopi, status post 9 months of rifampin, clarithromycin, and ethambutol. 11. Anxiety. 12. Depression. PAST SURGICAL HISTORY: Tonsillectomy, cauterization of nose due to epistaxis, cataract extraction. MEDICATIONS: Include: 1. Tylenol 1000 mg p.o. b.i.d. 2. Amlodipine 10 mg p.o. at bedtime. 3. Cholecalciferol 2000 units p.o. daily. 4. Hydrochlorothiazide 25 mg p.o. daily. 5. Ibuprofen 200 mg q.6 hours p.r.n., reduced from prior 400 mg t.i.d. 6. Losartan 100 mg daily. 7. Metformin 500 mg p.o. b.i.d. 8. Multivitamin 1 tab p.o. daily. 9. Omeprazole 20 mg p.o. daily. 10. Oxycodone 10 mg p.o. at bedtime. 11. Prednisone 10 mg p.o. q.a.m. and 5 mg p.o. q.p.m. 12. Tamsulosin 0.4 mg p.o. b.i.d. 13. Tolnaftate antifungal cream daily. ALLERGIES: No known drug allergies. 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 Does not smoke or drink. Medical surrogate is his , June Kemp. REVIEW OF SYSTEMS: A complete 14-point review of systems is negative except as per HPI. He denies any chest pain, shortness of breath, wheezing, cough, headaches, burning with urination, flank pain, lower back pain. PHYSICAL EXAMINATION GENERAL APPEARANCE: No acute distress. The patient is tired appearing, however. VITAL SIGNS: Temperature 98, pulse rate 104, respiratory rate 18, sat 99% on room air, blood pressure 163/108. HEENT: Normocephalic, atraumatic. Pupils are equal, round, and reactive to light. Extraocular motions intact. Stuck-on skin lesions on his right hinduism and anterior to ear. NECK: No cervical lymphadenopathy. LUNGS: Clear to auscultation bilaterally with no wheezing, rales, or rhonchi. CARDIOVASCULAR: Regular rate and rhythm. No murmurs, rubs, or gallops. ABDOMEN: Soft, nontender, slightly distended. No rebound. No guarding. No Casillas sign. EXTREMITIES: Warm, well perfused. 2+ edema bilaterally in feet and shins. NEURO: Moving all extremities. Has a hard time sitting up in bed, but is able to have his feet at least 2+/5 bilaterally. Cranial nerves grossly intact. DIAGNOSTIC STUDIES/LAB DATA: White count 10.3, hemoglobin 11.0, hematocrit 32 , platelets 124. INR 0.91. Sodium 140, potassium 3.9, chloride 107, carbon dioxide 27, BUN 40, creatinine 0.81, glucose 179, lactic acid 2.2. Total bili 0.68, AST 58, ALT 31, alk phos 107. Total creatine kinase 702. Troponin 0.05, down from 0.06 a few days ago. CRP 3.78, also down. BNP 74. Albumin 3.1. Urinalysis: 2+ protein, 3+ blood, 2+ rbc's, 1+ glucose. Influenza A and B negative. Imaging: Chest x-ray demonstrates low lung volumes. No evidence for acute finding. EKG demonstrates normal sinus rhythm, [address] elevations or depressions or T- wave inversions. ASSESSMENT AND PLAN: Milton Kemp is a 73-year-old male with complex history, medical patient with suspected recent methicillin-sensitive Staphylococcus aureus bacteremia secondary to L4-L5 sepsis. During the last admission, we did get a NINFA showing no vegetations. CRP, but comes in with inability to ambulate after trying to get up multiple times overnight to use the restroom, was unable to get up off the floor. He did work with Physical Therapy prior to discharge, I believe on 10/24/18 if memory serves, who recommended that he was at baseline with no acute skilled needs. This may have changed over the intervening days and will need to be reevaluated. With this level of debility, he will need [facility] facility placement and rehabilitation, but we will see what they say. We will continue the cefazolin 2 g q.8 hours for his methicillin-sensitive Staphylococcus aureus bacteremia and diskitis. I think his mobility is also likely hampered by his lower extremity edema, which is chronic. He had negative BNP both here and last admission, currently 74. He had some diastolic dysfunction on his echo. He has got a sepsis level bolus in the ED 2.7 L. I am going to try to reverse some of that with 40 of IV Lasix now and 40 p.o. daily. I am going to hold his amlodipine if that worsened his edema. He has only gotten a few doses of that. Switch him to Coreg 3.125 mg p.o. b.i.d. Hold his hydrochlorothiazide for now in the setting of loop diuretic. We will follow up his blood cultures. Feed him with carbohydrate consistent diet. Hold his metformin for now in case that is causing some weakness. Cover him with sliding scale insulin. Continue his losartan 100 daily. Continue his ibuprofen 200 mg p.o. q.6 hours p.r.n. and oxycodone 10 mg p.o. at bedtime for pain, his tamsulosin 0.4 mg p.o. b.i.d. for benign prostatic hyperplasia. His medical surrogate is his June Kemp. He is a full code. [id number]/[facility] #: [id number] [facility]
[2018-10-30] MEDS ORDERED: Gadoteridol* (CONTRAST) 279.3 MG/ML 10 ML IV ONE (17:12)
[2018-10-30] MEDS: predniSONE TAB* 5 MG PO SCH (18:25)
[2018-10-30] MEDS: Insulin LISPRO* 1 UNITS UNIT SUBCUT SCH ×2 (18:25→21:34)
[2018-10-30] MEDS: Tamsulosin CAP* 0.4 MG PO SCH (21:33)
[2018-10-30] MEDS: oxyCODONE TAB* 5 MG TAB PO PRN (21:33)
[2018-10-30] MEDS: Carvedilol TAB* 3.125 MG PO SCH (21:33)
[2018-10-31] MEDS: ceFAZolin 2 GM PREMIX in ORs 2 GM/50 ML BAG IVPB SCH ×4 (00:49→23:49)
[2018-10-31 05:41] LABS: Hematocrit 31 % (42-52); Hemoglobin 10.6 g/dl (14.0-18.0); Mean Corpuscular HGB Conc 35 g/dl (31-36); Mean Corpuscular Hemoglobin 34 pg (27-31); Mean Corpuscular Volume 99 fL (80-94); Mean Platelet Volume 6.9 fL (7.4-10.4); Platelet Count 128 10^3/ul (150-450); Red Cell Distribution Width 17 % (10.5-15); White Blood Count 8.4 10^3/ul (3.5-10.8)
[2018-10-31 06:02] LABS: BUN/Creatinine Ratio 40.7 (8-20); Calcium 8.7 mg/dL (8.6-10.3); EGFR Non-African American 81.2 (>60); Magnesium 1.9 mg/dL (1.9-2.7)
[2018-10-31 06:22] LABS: Immature Granulocytes 5 % (0-9); Lymphocytes % 3 %; Metamyelocytes % 1 % (0-2); Monocytes % 3 %; Myelocytes % 3 % (0-1); Neutrophil % 89 %
[2018-10-31 06:24] LABS: ABS Neutrophils 7.9 10^3/ul (1.5-7.7)
[2018-10-31] MEDS: Insulin LISPRO* 1 UNITS UNIT SUBCUT SCH ×4 (07:36→20:15)
[2018-10-31] MEDS: Tolnaftate 1% CREAM* 15 GM TOPICAL SCH (08:26)
[2018-10-31] MEDS: Tamsulosin CAP* 0.4 MG PO SCH ×2 (08:26→20:14)
[2018-10-31] MEDS: Multivitamins/Minerals TAB PO SCH (08:26)
[2018-10-31] MEDS: predniSONE TAB* 10 MG PO SCH (08:26)
[2018-10-31] MEDS: Carvedilol TAB* 3.125 MG PO SCH ×2 (08:26→20:14)
[2018-10-31] MEDS: Furosemide TAB* 40 MG PO SCH (08:26)
[2018-10-31] MEDS: Losartan TAB* 25 MG PO SCH (08:26)
[2018-10-31] MEDS ORDERED: HYDROCHLOROTHIAZIDE 25 MG PO SCH (09:00)
--- NOTE | 2018-10-31 11:51 | PN ---
Subjective Date of Service: 10/31/18 Interval History: Feeling better, stronger & better rested. Pain controlled. was able to walk MRI lumbar spine unchanged. consistent with diskitis. BCx with 1/4 gram positive cocci, not MRSA, not Staph Aureus. Objective Active Medications: Carvedilol (Coreg Tab*) 3.125 mg PO BID [facility] Last Admin: 10/31/18 08:26 Dose: 3.125 mg Dextrose (D50w Syringe 50 Ml*) 12.5 gm IV PUSH .FOR FS < 60 - SS PRN PRN Reason: FS < 60 Furosemide (Lasix Tab*) 40 mg PO DAILY [facility] Last Admin: 10/31/18 08:26 Dose: 40 mg Cefazolin Sodium/Dextrose (Kefzol 2 Gm Premix In Ors(*)) 2 gm in 50 mls @ 100 mls/hr IVPB Q8H [facility] Last Admin: 10/31/18 08:14 Dose: 100 mls/hr Ibuprofen (Advil Tab*) 200 mg PO Q6H PRN PRN Reason: PAIN Insulin Human Lispro (Humalog*) 0 units SUBCUT ACHS [facility]; Protocol Last Admin: 10/31/18 07:36 Dose: Not Given Losartan Potassium (Cozaar Tab*) 100 mg PO DAILY [facility] Last Admin: 10/31/18 08:26 Dose: 100 mg Multivitamins/Minerals (Theragran/Minerals Tab*) 1 tab PO DAILY [facility] Last Admin: 10/31/18 08:26 Dose: 1 tab Oxycodone HCl (Roxycodone Tab*) 10 mg PO BEDTIME PRN PRN Reason: PAIN Last Admin: 10/30/18 21:33 Dose: 10 mg Prednisone (Deltasone Tab*) 10 mg PO QAM [facility] Last Admin: 10/31/18 08:26 Dose: 10 mg Prednisone (Deltasone Tab*) 5 mg PO QPM [facility] Last Admin: 10/30/18 18:25 Dose: 5 mg Tamsulosin HCl (Flomax Cap*) 0.4 mg PO BID [facility] Last Admin: 10/31/18 08:26 Dose: 0.4 mg Tolnaftate (Tinactin 1% Cream*) 1 applic TOPICAL DAILY [facility] Last Admin: 10/31/18 08:26 Dose: 1 applic Vital Signs - 8 hr 10/31/18 10/31/18 07:14 08:00 Temperature 97.3 F Pulse Rate 83 Respiratory 16 18 Rate Blood Pressure 159/97 (mmHg) O2 Sat by Pulse 98 98 Oximetry Oxygen Devices in Use Now: None Appearance: NAD, sitting in chair. Eyes: No Scleral Icterus Ears/Nose/Mouth/Throat: NL Teeth, Lips, Gums Neck: NL Appearance and Movements; NL JVP, Trachea Midline Respiratory: Symmetrical Chest Expansion and Respiratory Effort, Clear to Palpation - reduces left base, no rhonchi, no rales. Cardiovascular: NL Sounds; No Murmurs; No JVD, RRR Abdominal: NL Sounds; No Tenderness; No Distention, No Hepatosplenomegaly Extremities: - - 2+ pitting edema b/l ankles and shins. Skin: - - stuck on hypertrophic lesions right mu-ism/ear. Neurological: Alert and Oriented x 3, NL Sensation Result Diagrams: 10/31/18 05:30 10/31/18 05:30 Additional Lab and Data: Lab Results 10/30/18 Range/Units 12:10 WBC 10.3 (3.5-10.8) 10^3/ul RBC 3.25 L (4.00-5.40) 10^6/ul Hgb 11.0 L (14.0-18.0) g/dl Hct 32 L (42-52) % MCV 99 H (80-94) fL MCH 34 H (27-31) pg MCHC 34 (31-36) g/dl RDW 16 H (10.5-15) % Plt Count 124 L (150-450) 10^3/ul MPV 7.5 (7.4-10.4) fL Neut % (Auto) Pending Lymph % (Auto) Pending [place] % (Auto) Pending Eos % (Auto) Pending Baso % (Auto) Pending Absolute Neuts (auto) Pending Absolute Lymphs (auto) Pending Absolute Monos (auto) Pending Absolute Eos (auto) Pending Absolute Basos (auto) Pending Absolute Nucleated RBC Pending Nucleated RBC % Pending ESR Pending Microbiology and Other Data: Microbiology 10/30/18 12:10 Aerobic Blood Culture - Preliminary Blood Venous Blood MRSA/MSSA (PCR) - Final Mrsa Negative S.aureus Negative 10/30/18 12:20 Influenza Types A,B Antigen - Final Nasal Specimen received for Influenza A/B Molecular testing Assess/Plan/Problems-Billing Assessment: 73 yo male PMH sarcoidosis (never biopsied, on prednisone chronically and likely adrenally insufficient without, methotrexate hx), NIDDM(new dx), recent MSSA sepsis/bacteremia likely 2/2 L4/L5 diskitis (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 #diskitis & MSSA bacteremia - cefazolin 2g q8 #Weakness - PT, trying to get to [place] today #NIDDM - SSI, POCT qachs - holding new metformin #HTN - coreg, losartan #diastolic CHF w/ chronic lower extremity swelling lasix daily, holding home HCTZ diet: carb consistent DVT PPx: lovenox CODE: FULL
[2018-10-31] MEDS: Enoxaparin(*) 40 MG/0.4 ML SYR SUBCUT SCH (12:24)
[2018-10-31] MEDS: predniSONE TAB* 5 MG PO SCH (17:21)
[2018-10-31] MEDS: oxyCODONE TAB* 5 MG TAB PO PRN (20:15)
[2018-11-01 06:21] LABS: Hematocrit 29 % (42-52); Hemoglobin 9.9 g/dl (14.0-18.0); Mean Corpuscular HGB Conc 34 g/dl (31-36); Mean Corpuscular Hemoglobin 34 pg (27-31); Mean Corpuscular Volume 100 fL (80-94); Mean Platelet Volume 7.5 fL (7.4-10.4); Platelet Count 113 10^3/ul (150-450); Red Blood Count 2.92 10^6/ul (4.00-5.40); Red Cell Distribution Width 17 % (10.5-15)
[2018-11-01 06:37] LABS: BUN/Creatinine Ratio 47.7 (8-20); Calcium 8.6 mg/dL (8.6-10.3); EGFR Non-African American 84.4 (>60); Magnesium 1.9 mg/dL (1.9-2.7); Potassium 3.7 mmol/L (3.5-5.0)
[2018-11-01 06:49] LABS: ABS Basophils 0 10^3/ul (0-0.2); ABS Eosinophils 0 10^3/ul (0-0.6); ABS Lymphocytes 0.4 10^3/ul (1.0-4.8); ABS Monocytes 0.3 10^3/ul (0-0.8); ABS Neutrophils 6.3 10^3/ul (1.5-7.7); ABS Nucleated RBC 0 10^3/ul
[2018-11-01 06:53] LABS: Immature Granulocytes 4 % (0-9); Lymphocytes % 4 %; Monocytes % 4 %; Neutrophil % 87 %; Promyelocytes % 2 %
[2018-11-01 06:54] LABS: ABS Neutrophils 6.4 10^3/ul (1.5-7.7)
[2018-11-01 06:55] LABS: ABS Eosinophils 0.1 10^3/ul (0-0.6)
[2018-11-01] MEDS: ceFAZolin 2 GM PREMIX in ORs 2 GM/50 ML BAG IVPB SCH ×3 (07:57→23:37)
[2018-11-01] MEDS: Losartan TAB* 25 MG PO SCH (08:53)
[2018-11-01] MEDS: Tamsulosin CAP* 0.4 MG PO SCH ×2 (08:53→23:37)
[2018-11-01] MEDS: Ibuprofen TAB* 200 MG PO PRN (08:53)
[2018-11-01] MEDS: Multivitamins/Minerals TAB PO SCH (08:53)
[2018-11-01] MEDS: Carvedilol TAB* 3.125 MG PO SCH ×2 (08:54→23:37)
[2018-11-01] MEDS: predniSONE TAB* 10 MG PO SCH (08:54)
[2018-11-01] MEDS: Insulin LISPRO* 1 UNITS UNIT SUBCUT SCH ×4 (08:54→23:37)
[2018-11-01] MEDS: Furosemide TAB* 40 MG PO SCH (08:54)
[2018-11-01] MEDS: Tolnaftate 1% CREAM* 15 GM TOPICAL SCH (08:55)
--- NOTE | 2018-11-01 10:02 | PN ---
Subjective Date of Service: 11/01/18 Interval History: Pt is feeling ok today. He states he does not feel weak any longer. He denies any pain. No diarrhea. He is frustrated with being back in the hospital. Objective Active Medications: Carvedilol (Coreg Tab*) 3.125 mg PO BID [facility] Last Admin: 11/01/18 08:54 Dose: 3.125 mg Dextrose (D50w Syringe 50 Ml*) 12.5 gm IV PUSH .FOR FS < 60 - SS PRN PRN Reason: FS < 60 Enoxaparin Sodium (Lovenox(*)) 40 mg SUBCUT Q24H [facility] Last Admin: 10/31/18 12:24 Dose: 40 mg Furosemide (Lasix Tab*) 40 mg PO DAILY [facility] Last Admin: 11/01/18 08:54 Dose: 40 mg Cefazolin Sodium/Dextrose (Kefzol 2 Gm Premix In Ors(*)) 2 gm in 50 mls @ 100 mls/hr IVPB Q8H [facility] Last Admin: 11/01/18 07:57 Dose: 100 mls/hr Ibuprofen (Advil Tab*) 200 mg PO Q6H PRN PRN Reason: PAIN Last Admin: 11/01/18 08:53 Dose: 200 mg Insulin Human Lispro (Humalog*) 0 units SUBCUT ACHS [facility]; Protocol Last Admin: 11/01/18 08:54 Dose: 1 units Losartan Potassium (Cozaar Tab*) 100 mg PO DAILY [facility] Last Admin: 11/01/18 08:53 Dose: 100 mg Multivitamins/Minerals (Theragran/Minerals Tab*) 1 tab PO DAILY [facility] Last Admin: 11/01/18 08:53 Dose: 1 tab Oxycodone HCl (Roxycodone Tab*) 10 mg PO BEDTIME PRN PRN Reason: PAIN Last Admin: 10/31/18 20:15 Dose: 10 mg Prednisone (Deltasone Tab*) 10 mg PO QAM [facility] Last Admin: 11/01/18 08:54 Dose: 10 mg Prednisone (Deltasone Tab*) 5 mg PO QPM [facility] Last Admin: 10/31/18 17:21 Dose: 5 mg Tamsulosin HCl (Flomax Cap*) 0.4 mg PO BID [facility] Last Admin: 11/01/18 08:53 Dose: 0.4 mg Tolnaftate (Tinactin 1% Cream*) 1 applic TOPICAL DAILY [facility] Last Admin: 11/01/18 08:55 Dose: 1 applic Vital Signs - 8 hr 11/01/18 11/01/18 11/01/18 03:21 07:13 08:04 Temperature 97.4 F 98.1 F Pulse Rate 70 68 Respiratory 14 17 17 Rate Blood Pressure 161/71 141/84 (mmHg) O2 Sat by Pulse 97 98 98 Oximetry Oxygen Devices in Use Now: None Appearance: Elderly male sitting up in a chair, NAD Eyes: No Scleral Icterus Ears/Nose/Mouth/Throat: Mucous Membranes Moist Respiratory: Symmetrical Chest Expansion and Respiratory Effort, Clear to Auscultation Cardiovascular: NL Sounds; No Murmurs; No JVD, RRR, - - 2-3+ LE edema Abdominal: NL Sounds; No Tenderness; No Distention Extremities: No Clubbing, Cyanosis Skin: No Nodules or Sclerosis Neurological: Alert and Oriented x 3 Result Diagrams: 11/01/18 05:30 11/01/18 05:30 Additional Lab and Data: Lab Results 10/30/18 Range/Units 12:10 WBC 10.3 (3.5-10.8) 10^3/ul RBC 3.25 L (4.00-5.40) 10^6/ul Hgb 11.0 L (14.0-18.0) g/dl Hct 32 L (42-52) % MCV 99 H (80-94) fL MCH 34 H (27-31) pg MCHC 34 (31-36) g/dl RDW 16 H (10.5-15) % Plt Count 124 L (150-450) 10^3/ul MPV 7.5 (7.4-10.4) fL Neut % (Auto) Pending Lymph % (Auto) Pending [place] % (Auto) Pending Eos % (Auto) Pending Baso % (Auto) Pending Absolute Neuts (auto) Pending Absolute Lymphs (auto) Pending Absolute Monos (auto) Pending Absolute Eos (auto) Pending Absolute Basos (auto) Pending Absolute Nucleated RBC Pending Nucleated RBC % Pending ESR Pending Microbiology and Other Data: Microbiology 10/30/18 12:10 Aerobic Blood Culture - Preliminary Blood Venous Blood MRSA/MSSA (PCR) - Final Mrsa Negative S.aureus Negative 10/30/18 12:20 Influenza Types A,B Antigen - Final Nasal Specimen received for Influenza A/B Molecular testing Assess/Plan/Problems-Billing Mr Kemp is a 73 yo male with a PMHx of sarcoidosis (never biopsied, on prednisone chronically and likely adrenally insufficient without, methotrexate hx), NIDDM(new dx), recent MSSA sepsis/bacteremia likely 2/2 L4/L5 diskitis ( 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 - Patient Problems (1) Weakness Current Visit: Yes Status: Acute Code(s): R53.1 - WEAKNESS SNOMED Code(s) : 80232893 Comment: Unclear cause. Today H/H has dropped but I do not think that is what lead to his falls/weakness at home. He has 2 of 4 blood culture bottles positive for staph capitis and staph epidermidis. I suspect these are contaminants and also no likely the cause of his weakness. Amlodipine was added last admission and perhaps he became hypotensive but I doubt this to be the case as his BP had been good with the addition of the amlodipine. (2) Anemia Current Visit: Yes Status: Acute Code(s): D64.9 - ANEMIA, UNSPECIFIED SNOMED Code(s): 048982483 Comment: The patient is chronically anemic (baseline Hb around 12-13) and thrombocytopenic. Hb was relatively stable on this admission but now Hb down to 9.9. Check stool guaiac, iron studies. Follow up CBC tomorrow. (3) MSSA bacteremia Current Visit: Yes Status: Acute Code(s): R78.81 - BACTEREMIA SNOMED Code( s): 729453330 Comment: Plan is for 6 weeks of cefazolin as of 10/26/18 as that is when his cultures cleared (Today is D#7). Likely pt with L4/5 diskitis. Follow up with Dr. Austin as an outpatient. (4) Diastolic CHF Current Visit: No Status: Acute Code(s): I50.30 - UNSPECIFIED DIASTOLIC ( CONGESTIVE) HEART FAILURE SNOMED Code(s): 352790434 Comment: Pt with chronic LE edema that has been essentially unchanged for years per the patient. He has received lasix daily this admission without any significant change in his edema. On d/c resume HCTZ. (5) HTN (hypertension) Current Visit: Yes Status: Acute Code(s): I10 - ESSENTIAL (PRIMARY) HYPERTENSION SNOMED Code(s): 71860658 Comment: BP moderately elevated on coreg, losartan and lasix. On d/c resume HCTZ. (6) BPH (benign prostatic hyperplasia) Current Visit: Yes Status: Acute Code(s): N40.0 - BENIGN PROSTATIC HYPERPLASIA WITHOUT LOWER URINRY TRACT SYMP SNOMED Code(s): 937099616 Comment: Continue tamsulosin. (7) DVT prophylaxis Current Visit: Yes Status: Acute Code(s): ORY9146 - SNOMED Code(s): 479571268 Comment: lovenox (8) Full code status Current Visit: Yes Status: Acute Code(s): Z78.9 - OTHER SPECIFIED HEALTH STATUS SNOMED Code(s): 787548695
[2018-11-01] MEDS: Enoxaparin(*) 40 MG/0.4 ML SYR SUBCUT SCH (12:44)
[2018-11-01 13:58] LABS: Ferritin 249.9 ng/mL (24-336)
[2018-11-01] MEDS: predniSONE TAB* 5 MG PO SCH (17:38)
[2018-11-01] MEDS: oxyCODONE TAB* 5 MG TAB PO PRN (22:39)
[2018-11-02 05:58] LABS: Hematocrit 31 % (42-52); Hemoglobin 10.8 g/dl (14.0-18.0); Mean Corpuscular HGB Conc 35 g/dl (31-36); Mean Corpuscular Hemoglobin 35 pg (27-31); Mean Corpuscular Volume 100 fL (80-94); Mean Platelet Volume 7.2 fL (7.4-10.4); Platelet Count 119 10^3/ul (150-450); Red Blood Count 3.12 10^6/ul (4.00-5.40); Red Cell Distribution Width 17 % (10.5-15); White Blood Count 6.8 10^3/ul (3.5-10.8)
[2018-11-02 06:19] LABS: BUN/Creatinine Ratio 45.5 (8-20); Calcium 8.8 mg/dL (8.6-10.3); EGFR Non-African American 98.5 (>60); Magnesium 1.9 mg/dL (1.9-2.7); Potassium 3.8 mmol/L (3.5-5.0)
[2018-11-02 06:35] LABS: ABS Basophils 0 10^3/ul (0-0.2); ABS Eosinophils 0 10^3/ul (0-0.6); ABS Lymphocytes 0.3 10^3/ul (1.0-4.8); ABS Monocytes 0.3 10^3/ul (0-0.8); ABS Neutrophils 6.1 10^3/ul (1.5-7.7); ABS Nucleated RBC 0 10^3/ul; Eosinophil % 0.6 %; Lymphocyte % 4.7 %; Nucleated Red Blood Cells % 0
[2018-11-02] MEDS: ceFAZolin 2 GM PREMIX in ORs 2 GM/50 ML BAG IVPB SCH ×2 (07:41→15:34)
[2018-11-02] MEDS: Tamsulosin CAP* 0.4 MG PO SCH ×2 (08:37→21:22)
[2018-11-02] MEDS: Carvedilol TAB* 3.125 MG PO SCH ×2 (08:37→21:22)
[2018-11-02] MEDS: Furosemide TAB* 40 MG PO SCH (08:37)
[2018-11-02] MEDS: Losartan TAB* 25 MG PO SCH (08:37)
[2018-11-02] MEDS: Insulin LISPRO* 1 UNITS UNIT SUBCUT SCH ×4 (08:37→21:23)
[2018-11-02] MEDS: predniSONE TAB* 10 MG PO SCH (08:37)
[2018-11-02] MEDS: Multivitamins/Minerals TAB PO SCH (08:37)
[2018-11-02] MEDS: Tolnaftate 1% CREAM* 15 GM TOPICAL SCH (08:41)
[2018-11-02] MEDS: Enoxaparin(*) 40 MG/0.4 ML SYR SUBCUT SCH (12:13)
[2018-11-02] MEDS: Ibuprofen TAB* 200 MG PO PRN (12:13)
--- NOTE | 2018-11-02 14:27 | PN ---
Subjective Date of Service: 11/02/18 Interval History: HOSPITALIST PROGRESS NOTE Patient seen and examined at bedside. Care reviewed and d/w Tatianna Munoz RN. He offers no new complaints today. Back/leg pain is unchanged. Tolerating diet well. Family History: Unchanged from Admission Social History: Unchanged from Admission Past Medical History: Unchanged from Admission Objective Active Medications: Carvedilol (Coreg Tab*) 3.125 mg PO BID [facility] Last Admin: 11/02/18 08:37 Dose: 3.125 mg Dextrose (D50w Syringe 50 Ml*) 12.5 gm IV PUSH .FOR FS < 60 - SS PRN PRN Reason: FS < 60 Enoxaparin Sodium (Lovenox(*)) 40 mg SUBCUT Q24H [facility] Last Admin: 11/02/18 12:13 Dose: 40 mg Furosemide (Lasix Tab*) 40 mg PO DAILY [facility] Last Admin: 11/02/18 08:37 Dose: 40 mg Heparin Sodium (Porcine) (Heparin Flush Picc/Ml/Cvc(*)) 1 ml FLUSH 0600,1800 [facility]; Protocol Last Admin: 11/02/18 05:32 Dose: 1 ml Cefazolin Sodium/Dextrose (Kefzol 2 Gm Premix In Ors(*)) 2 gm in 50 mls @ 100 mls/hr IVPB Q8H [facility] Last Admin: 11/02/18 07:41 Dose: 100 mls/hr Ibuprofen (Advil Tab*) 200 mg PO Q6H PRN PRN Reason: PAIN Last Admin: 11/02/18 12:13 Dose: 200 mg Insulin Human Lispro (Humalog*) 0 units SUBCUT ACHS [facility]; Protocol Last Admin: 11/02/18 12:27 Dose: 4 units Losartan Potassium (Cozaar Tab*) 100 mg PO DAILY [facility] Last Admin: 11/02/18 08:37 Dose: 100 mg Multivitamins/Minerals (Theragran/Minerals Tab*) 1 tab PO DAILY [facility] Last Admin: 11/02/18 08:37 Dose: 1 tab Oxycodone HCl (Roxycodone Tab*) 10 mg PO BEDTIME PRN PRN Reason: PAIN Last Admin: 11/01/18 22:39 Dose: 10 mg Prednisone (Deltasone Tab*) 10 mg PO QAM [facility] Last Admin: 11/02/18 08:37 Dose: 10 mg Prednisone (Deltasone Tab*) 5 mg PO QPM [facility] Last Admin: 11/01/18 17:38 Dose: 5 mg Tamsulosin HCl (Flomax Cap*) 0.4 mg PO BID [facility] Last Admin: 11/02/18 08:37 Dose: 0.4 mg Tolnaftate (Tinactin 1% Cream*) 1 applic TOPICAL DAILY [facility] Last Admin: 11/02/18 08:41 Dose: 1 applic Vital Signs - 8 hr 11/02/18 11/02/18 11/02/18 08:48 08:50 11:12 Temperature 97.7 F 98.1 F Pulse Rate 72 64 Respiratory 18 16 Rate Blood Pressure 150/79 146/77 (mmHg) O2 Sat by Pulse 100 100 99 Oximetry Oxygen Devices in Use Now: None Appearance: Pleasant elderly gentleman sitting up in a chair in NAD. Eyes: No Scleral Icterus Ears/Nose/Mouth/Throat: Mucous Membranes Moist Neck: Trachea Midline Respiratory: Symmetrical Chest Expansion and Respiratory Effort, Clear to Auscultation Cardiovascular: RRR - Normal S1 and S2 Neurological: Alert and Oriented x 3, NL Muscle Strength and Tone Result Diagrams: 11/02/18 05:45 11/02/18 05:45 Microbiology and Other Data: Microbiology 10/30/18 12:10 Aerobic Blood Culture - Preliminary Blood Venous Blood MRSA/MSSA (PCR) - Final Mrsa Negative S.aureus Negative 10/30/18 12:20 Influenza Types A,B Antigen - Final Nasal Specimen received for Influenza A/B Molecular testing Assess/Plan/Problems-Billing Mr Kemp is a 73 yo male with a PMHx of sarcoidosis (never biopsied, on prednisone chronically and likely adrenally insufficient without, methotrexate hx), NIDDM(new dx), recent MSSA sepsis/bacteremia likely 2/2 L4/L5 diskitis ( 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 - Patient Problems (1) Weakness Comment: - Probably secondary to deconditioning. - He has 2 of 4 blood culture bottles positive for staph capitis and staph epidermidis, likely contaminants and not contributing weakness. - Awaiting STR bed. (2) Anemia Comment: - H/H stable. (3) MSSA bacteremia Comment: - Plan is for 6 weeks of cefazolin as of 10/26/18 as that is when his cultures cleared (Today is D#). Likely pt with L4/5 diskitis. Follow up with Dr. Austin as an outpatient. (4) Diastolic CHF Comment: - Pt with chronic LE edema that has been essentially unchanged for years per the patient. - Continue Coreg and Furosemide. (5) HTN (hypertension) Comment: - Controlled. - Continue coreg, losartan and lasix. On d/c resume HCTZ. (6) BPH (benign prostatic hyperplasia) Comment: - Continue tamsulosin. (7) Diabetes Comment: - Hb A1c 7.4. - Continue Lispro SS. - May start Metformin on discharge. (8) DVT prophylaxis Comment: - Lovenox. (9) Full code status Status and Disposition: Awaiting STR.
[2018-11-02] MEDS: predniSONE TAB* 5 MG PO SCH (17:19)
[2018-11-02] MEDS: oxyCODONE TAB* 5 MG TAB PO PRN (21:21)
[2018-11-03] MEDS: ceFAZolin 2 GM PREMIX in ORs 2 GM/50 ML BAG IVPB SCH ×4 (00:30→14:48)
[2018-11-03 04:55] LABS: ABS Basophils 0 10^3/ul (0-0.2); ABS Eosinophils 0 10^3/ul (0-0.6); ABS Lymphocytes 0.3 10^3/ul (1.0-4.8); ABS Monocytes 0.3 10^3/ul (0-0.8); ABS Neutrophils 5.2 10^3/ul (1.5-7.7); ABS Nucleated RBC 0 10^3/ul; Eosinophil % 0.6 %; Hematocrit 30 % (42-52); Hemoglobin 10.4 g/dl (14.0-18.0); Mean Corpuscular HGB Conc 34 g/dl (31-36); Mean Corpuscular Hemoglobin 34 pg (27-31); Mean Corpuscular Volume 99 fL (80-94); Mean Platelet Volume 7.1 fL (7.4-10.4); Nucleated Red Blood Cells % 0; Platelet Count 111 10^3/ul (150-450); Red Blood Count 3.07 10^6/ul (4.00-5.40); Red Cell Distribution Width 17 % (10.5-15); White Blood Count 5.8 10^3/ul (3.5-10.8)
[2018-11-03 05:10] LABS: BUN/Creatinine Ratio 41.8 (8-20); Calcium 8.8 mg/dL (8.6-10.3); EGFR Non-African American 115.6 (>60); Magnesium 1.8 mg/dL (1.9-2.7); Potassium 3.8 mmol/L (3.5-5.0)
[2018-11-03] MEDS ORDERED: Insulin GLARGINE(*) 1 UNITS UNIT SUBCUT SCH (08:00)
[2018-11-03] MEDS: Ibuprofen TAB* 200 MG PO PRN ×2 (08:39→15:27)
[2018-11-03] MEDS: predniSONE TAB* 10 MG PO SCH (08:39)
[2018-11-03] MEDS: Furosemide TAB* 40 MG PO SCH (08:39)
[2018-11-03] MEDS: Carvedilol TAB* 3.125 MG PO SCH (08:39)
[2018-11-03] MEDS: Tamsulosin CAP* 0.4 MG PO SCH (08:39)
[2018-11-03] MEDS: Losartan TAB* 25 MG PO SCH (08:39)
[2018-11-03] MEDS: Multivitamins/Minerals TAB PO SCH (08:39)
[2018-11-03] MEDS: Insulin LISPRO* 1 UNITS UNIT SUBCUT SCH ×2 (08:40→12:46)
[2018-11-03] MEDS: Tolnaftate 1% CREAM* 15 GM TOPICAL SCH (08:41)
[2018-11-03 11:32] VITALS: BP 160/91
[2018-11-03] MEDS ORDERED: amLODIPine TAB* 5 MG PO ONE (11:42)
[2018-11-03] MEDS: Enoxaparin(*) 40 MG/0.4 ML SYR SUBCUT SCH (12:36)
--- NOTE | 2018-11-03 12:54 | DS ---
CC: Dr. Helen Styles; Dr. Austin; Dr. Glaser; Dr. Silverman DATE OF ADMISSION: 10/30/2018. DATE OF DISCHARGE: 11/03/2018. DISCHARGE DIAGNOSES: 1. Deconditioning. 2. MSSA septicemia with suspected L4-5 diskitis. SECONDARY DIAGNOSES: 1. Hypertension. 2. Recently diagnosed type 2 diabetes. 3. Presumed sarcoidosis. 4. BPH. 5. Nephrolithiasis. 6. B12 deficiency. 7. Squamous cell carcinoma. 8. Obstructive sleep apnea. 9. 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 10. Anxiety. 11. Depression. 12. Diastolic CHF. PAST SURGICAL HISTORY: 1. Tonsillectomy. 2. Status post cataract extraction. MEDICATIONS: 1. Acetaminophen 1,000 mg p.o. b.i.d. as needed for pain. 2. Amlodipine 5 mg p.o. at bedtime. 3. Carvedilol 3.125 mg p.o. b.i.d. 4. Cefazolin 2 gm IV q.8 hours for 34 more days. 5. Cholecalciferol 2,000 units p.o. daily. 6. Heparin flush for PICC line b.i.d. 7. Hydrochlorothiazide 25 mg p.o. daily. 8. Ibuprofen 200 mg p.o. q.6 hours prn pain. 9. Lantus 8 units subcutaneously daily. 10. Lispro sliding scale as follows: Fingersticks 131 to 150 one unit; 151 to 200 two units; 201 to 250 four units; 251 to 300 six units; 301 to 350 eight units; 351 to 400 ten units; greater than 400 call MD. 11. Losartan 100 mg p.o. daily. 12. Magnesium Oxide 400 mg p.o. daily. 13. Metformin 500 mg p.o. b.i.d. 14. Multivitamin one tablet p.o. daily. 15. Omeprazole 20 mg p.o. daily. 16. Oxycodone 10 mg p.o. at bedtime as needed for pain. 17. Prednisone 10 mg p.o. in the morning, 5 mg p.o. in the evening. 18. Tamsulosin 0.4 mg p.o. b.i.d. 19. Tolnaftate cream topical daily to affected nails. HOSPITAL COURSE: Mr. Kemp is a 73-year-old gentleman who was admitted to [facility] initially from [facility] to October 29. He had presented to the emergency room with weakness and confusion, an d was initially treated for sepsis of unknown origin. Later on his work-up was compatible with MSSA septicemia and the impression was that the source could be L4-5 osteomyelitis/diskitis. During that admission, the patient was also found to be hypertensive and had his medications increased and was al so diagnosed with diabetes with random glucose greater than 300 and a hemoglobin A1c of 7.2. Metform in was added on discharge. He was discharged home on October 29 with the plan to complete six wee ks of Cefazolin 2 gm IV three times a day and it is noted that on discharge the patient was mobilizin g well, but on October 30 he returned to the emergency room due to generalized weakness and inabil ity to ambulate. It is reported that the patient went to the toilet and was unable to get up without assistance. For more details about his presentation, I refer you to his history and physical. The patient was afebrile with stable vital signs. No significant change to his leukocytosis and his CRP has trended nicely back to normal. The impression was that the patient did not have a new or wor sening infection at this point and he was just deconditioned. He had a repeat lumbar spine MRI that did not show new changes, only the prior changes in L4-5 consis tent with diskitis and osteomyelitis. The plan at that point was for the patient to go to subacute rehab to continue his rehabilitation pro cess. Blood cultures grew staphylococcus capitis and epidermidis. This was discussed with ID and the impre ssion is that they represent contaminants. Regarding the patient's blood pressure, it was still elevated while in the hospital, so Coreg was add ed. Amlodipine is being reintroduced to his regimen, but he will need monitoring as an outpatient. Regarding his diabetes, he will be continued on Metformin, but at this point he is requiring insulin. As an outpatient, further agents can be added so the insulin could be discontinued in the near futu re. The patient is medically stable for discharge today to complete 34 more days of Cefazolin with weakly CBC, CMP, and CRP results to be sent to Dr. Austin. PHYSICAL EXAMINATION: General: The patient is a pleasant, elderly gentleman, lying in bed in no acu te distress. Vital Signs: Temperature 97.9, heart rate 67, respiratory rate 17, oxygen saturation 98 percent on room air, blood pressure 160/91. CVS: Normal S1, S2, regular rate and rhythm. Chest: Breath sounds present bilaterally with no added sounds. Neuro: He is alert and oriented times thr ee, able to move all four extremities. DIET: Heart-healthy, consistent carb diet. ACTIVITY: Continue physical therapy and occupational therapy as tolerated. DISPOSITION: To [facility]. STATUS WHILE IN THE HOSPITAL: Observation. Please keep in mind this is a summarized version of this patient's hospital stay. If you need more in formation, please feel free to call me at or please obtain the full medical records. TIME SPENT: Approximately 45 minutes were spent to complete this discharge. [id number]/CPS #: [id number]
== END 2018-11-03 15:45 ==
LOC: ED 11:49 → MED 13:05
PROVIDERS: ADMIT Internal Medicine; ATTEND Internal Medicine
DX: A41.01 Sepsis due to Methicillin susceptible Staphylococcus aureus (principal); I10 Essential (primary) hypertension; M62.81 Muscle weakness (generalized); E11.9 Type 2 diabetes mellitus without complications; N40.0 Benign prostatic hyperplasia without lower urinary tract symptoms; N20.0 Calculus of kidney; D51.9 Vitamin B12 deficiency anemia, unspecified; C80.1 Malignant (primary) neoplasm, unspecified; G47.33 Obstructive sleep apnea (adult) (pediatric); F41.9 Anxiety disorder, unspecified; F32.9 Major depressive disorder, single episode, unspecified; I50.30 Unspecified diastolic (congestive) heart failure
CPT/HCPCS: 36415; 71045; 72158; 80048; 80053; 81003; 81015; 82272; 82550; 82728; 83540; 83550; 83605; 83735; 83880; 84484; 85025; 85610; 85652; 85730; 86140; 87040; 87077; 87086; 87150; 87205; 93005; 94660; 96365; 96375; 99284; A9270-GY; A9579; G0378; G8978-GP-CJ; G8979-GP-CH; J0690; J1650; J1940; J7512

== ENCOUNTER 2019-05-28 15:20 | Inpatient (IN) | payer OTHER ==
--- NOTE | 2019-05-28 15:43 | ED ---
Abdominal Pain/Male - HPI Summary HPI Summary: The patient is a 73 y/o M presenting to [facility] arriving by ambulance from [facility] accompanied by daughter and son with a chief complaint of sudden onset fever and N/V/D this morning. Per family, the patient recently had back surgery for BLE pain and possible back infection 10 days ago at [facility] by Dr. Morfin in [place]. He had two surgeries at this time, each with about four hours of anesthesia, which concerns the family because he is more confused since then. Prior to the surgeries, he was taking a lot of Oxycodone that wasn't relieving his pain well. After the surgeries, he was discharged to [facility] last night. This morning, he had nausea, one episode of vomiting, and diarrhea, which persisted all day. He is now complaining of diffuse abd pain. There is concern for Oxycodone withdrawal, but the patient had some administered last night. The pain is currently rated 7/10 in severity. He denies CP, cough, and edema in the lower extremities. 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 Nonsmoker, no EtOH , no substance use. - History of Current Complaint Chief Complaint: EDGeneral Stated Complaint: GENERAL ILLNESS PER EMS Time Seen by Provider: 05/28/19 15:29 Hx Obtained From: Patient, Family/Res Counselor - son and daughter Onset/Duration: Sudden Onset, Still Present Timing: Lasting Hours - this morning Severity Initially: Moderate Severity Currently: Moderate Pain Intensity: 7 Pain Scale Used: 0-10 Numeric Location: Diffuse Radiates: No Character: Dull Aggravating Factor(s): Nothing Alleviating Factor(s): Nothing Associated Signs And Symptoms: Positive: Fever, Nausea, Vomiting - one episode, Diarrhea, Other - NEGATIVE: edema in lower extremities. Negative: Cough, Chest Pain - Allergies/Home Medications Allergies/Adverse Reactions: Allergies Allergy/AdvReac Type Severity Reaction Status Date / Time No Known Allergies Allergy Verified 12/11/18 09:34 Home Medications: Home Medications Acetaminophen [Acetaminophen Extra Strength] 1,000 mg PO BID 05/28/19 [History Confirmed 05/28/19] Budesonide Flexhaler 90 (NF) [Pulmicort Flexhaler 90 mcg/act (NF)] 2 puff INH BID 05/28/19 [History Confirmed 05/28/19] Ferrous Fum/Vit C/B12-If/Folic [Tricon] 1 cap PO QAM 05/28/19 [History Confirmed 05/28/19] Furosemide TAB* [Lasix TAB*] 20 mg PO DAILY 05/28/19 [History Confirmed 05/28/19 ] Gabapentin CAP(*) [Neurontin 100 mg CAP(*)] 100 mg PO BEDTIME 05/28/19 [History Confirmed 05/28/19] Hydrochlorothiazide TAB* [Hydrodiuril TAB*] 25 mg PO DAILY 05/28/19 [History Confirmed 05/28/19] Loperamide CAP* [Imodium CAP*] 2 mg PO Q4H PRN 05/28/19 [History Confirmed 05/28] Magnesium Oxide TAB* [MagOx 400 TAB*] 400 mg PO DAILY 05/28/19 [History Confirmed 05/28/19] Potassium Chlor TAB* [Klor Con ER TAB*] 10 meq PO DAILY 05/28/19 [History Confirmed 05/28/19] Sennosides 17.2 mg PO DAILY 05/28/19 [History Confirmed 05/28/19] Tolnaftate 1% CREAM* [Tinactin 1% CREAM*] 1 applic TOPICAL BEDTIME 05/28/19 [ History Confirmed 05/28/19] metFORMIN* [Glucophage 500 MG TAB *] 1,000 mg PO BID 05/28/19 [History Confirmed 05/28/19] oxyCODONE TAB* [Roxycodone TAB 5 mg*] 5 mg PO Q8H PRN 05/28/19 [History Confirmed 05/28/19] PMH/Surg Hx/FS Hx/Imm Hx Endocrine/Hematology History: Reports: Hx Thyroid Disease - nodes, Other Endocrine/Hematological Disorders - Sarcoidosis, since resolved, according to Pt Denies: Hx Diabetes Cardiovascular History: Reports: Hx Hypertension Denies: Hx Pacemaker/ICD Respiratory History: Reports: Hx Asthma - childhood only, Hx Sleep Apnea - CPAP , Other Respiratory Problems/Disorders - Sarcoidosis History: Reports: Hx Benign Prostatic Hyperplasia Denies: Hx Renal Disease Musculoskeletal History: Reports: Hx Arthritis, Hx Back Problems - 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, s/p 3 drug treatment;sepsis 10/21/18,, Other Musculoskeletal History - LEFT WRIST FX;concern for osteomyelitis/diskitis 10/21 - w/MSSA sepsis Denies: Hx Osteoporosis Sensory History: Reports: Hx Contacts or Glasses Denies: Hx Cataracts, Hx Hearing Aid, Hx Hearing Problem Opthamlomology History: Reports: Hx Contacts or Glasses Denies: Hx Cataracts Neurological History: Reports: Other Neuro Impairments/Disorders - L4/L5 ostemyelitis/diskitis Psychiatric History: Reports: Hx Anxiety, Hx Depression Denies: Hx Panic Disorder - Cancer History Cancer Type, 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 Bilateral cataract removal Hx Anesthesia Reactions: No - Immunization History Date of Influenza Vaccine: PER PATIENT, HE HAS HAD HIS FLU-SHOT RECENTLY. Infectious Disease History: No Infectious Disease History: Reports: Hx Tuberculosis - diskitis 2011 with atypical Mycobacterium, s/p 3 drug RX for months , History Other Infectious Disease - S AUREUS 10/2108 Denies: Hx of Known/Suspected MRSA, Traveled Outside the [place] in Last 30 Days - Family History Known Family History: Positive: Cardiac Disease, Hypertension, Other - CA, Alzheimers- mother - Social History Alcohol Use: None Hx Substance Use: Yes Substance Use Type: Reports: None Substance Use Comment - Amount & Last Used: this morning, oil Hx Tobacco Use: No Smoking Status (MU): Never Smoked Tobacco Review of Systems Positive: Fever - low-grade Negative: Chest Pain Negative: Cough Positive: Abdominal Pain - diffuse, constant aching, Vomiting, Diarrhea, Nausea Negative: Edema All Other Systems Reviewed And Are Negative: Yes Physical Exam - Summary Physical Exam Summary: Appearance: Frail, elderly appearing male, lying in bed comfortably Skin: Warm, dry, no obvious rash Eyes: sclera anicteric, no conjunctival pallor ENT: mucous membranes moist, pharynx appears normal Neck: Supple, nontender Respiratory: Clear to auscultation, no signs of respiratory distress Cardiovascular: Normal S1, S2. No murmurs. Normal distal pulses in tibial and radial bilaterally. Abdomen: Soft, nontender, normal active bowel sounds present Musculoskeletal: Mild lower extremity pitting edema, Strength/ROM Intact Neurological: A&Ox3, awake and alert, mentation is normal, speech is fluent and appropriate Psychiatric: affect is normal, does not appear anxious or depressed Triage Information Reviewed: Yes Vital Signs On Initial Exam: Initial Vitals Temp Pulse Resp BP Pulse Ox 98.5 F 93 16 144/87 93 05/28/19 15:21 05/28/19 15:21 05/28/19 15:21 05/28/19 15:21 05/28/19 15:21 Vital Signs Reviewed: Yes Diagnostics - Vital Signs Vital Signs Temp Pulse Resp BP Pulse Ox 05/28/19 15:21 98.5 F 93 16 144/87 93 - Laboratory Result Diagrams: 05/29/19 06:15 05/29/19 06:15 Lab Statement: Any lab studies that have been ordered have been reviewed, and results considered in the medical decision making process. - CT Abd/Pel CT CT Interpretation Completed By: Radiologist Summary of CT Findings: Impression: 1. No CT findings to correlate with patient' s symptomatology. 2. Bosniak type II renal cyst. No followup indicated. ED physician has reviewed this radiology report Re-Evaluation - Re-Evaluation First Eval Re-Evaluation Time: 19:45 Comment: I spoke with the patient concerning admission. Abdominal Pain Male Course/Dx - Course Course Of Treatment: The patient is a 73 y/o M presenting to [facility] arriving by ambulance from [facility] accompanied by daughter and son with a chief complaint of sudden onset fever and N/V/D this morning and now has diffuse abd pain. Recently had back surgery 10 days ago. Denies CP, cough, and edema in the lower extremities. 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 Upon physical exam, the patient appears to be frail and elderly appearing with mild lower extremity pitting edema. Blood work reveals RBCs of 2.73, hgb of 9.5, hct of 28, MCV of 102, MCH of 35, RDW of 20, MPV of 6.9, abs lymphs of 0.3, potassium of 3.4, BUN/Creatinine ratio of 23.1, glucose of 161, lactic acid of 2.2, and total protein of 5.9. UA reveals specific gravity of 1.005 and trace leukocyte esterase. Microbiology is negative for C. diff, positive for lactoferrin, and stool occult is negative. In the ED course, the patient was administered Ns and Visipaque for CT. CT Abd/Pel Impression: 1. No CT findings to correlate with patient's symptomatology. 2. Bosniak type II renal cyst. No followup indicated. I spoke with Dr. Mesa, hospitalist, at 1948, and she accepts the patient for admission. He agrees with this plan. He is diagnosed with colitis. - Diagnoses Provider Diagnoses: Colitis - Provider Notifications Discussed Care Of Patient With: Kathryn Mesa - hospitalist Time Discussed With Above Provider: 19:38 Instructed by Provider To: Admit As Inpatient - I discussed the patient's case with Dr. Mesa, and she accepts the patient for admission. Discharge - Sign-Out/Discharge Documenting (check all that apply): Patient Departure - Patient is accepted for admission by Dr. Mesa. Patient Received Moderate/Deep Sedation with Procedure: No - Discharge Plan Condition: Guarded Disposition: ADMITTED TO [facility] - Billing Disposition and Condition Condition: GUARDED Disposition: Admitted to [facility] - Attestation Statements Document Initiated by Julito: Yes Documenting Scribe: Johanny Alexander Provider For Whom Julito is Documenting (Include Credential): Dr. Stefan Kaplan MD Scribe Attestation: IJohanny scribed for Dr. Stefan Kaplan MD on 05/29/19 at 1230. Scribe Documentation Reviewed: Yes Provider Attestation: The documentation as recorded by the Johanny lópez accurately reflects the service I personally performed and the decisions made by me, Dr. Stefan Kaplan MD Status of Scribe Document: Viewed
[2019-05-28 16:16] LABS: Hematocrit 28 % (42-52); Hemoglobin 9.5 g/dL (14.0-18.0); Mean Corpuscular HGB Conc 34 g/dL (31-36); Mean Corpuscular Hemoglobin 35 pg (27-31); Mean Corpuscular Volume 102 fL (80-94); Mean Platelet Volume 6.9 fL (7.4-10.4); Platelet Count 157 10^3/uL (150-450); Red Blood Count 2.73 10^6 /uL (4.18-5.48); Red Cell Distribution Width 20 % (10-15); White Blood Count 5.9 10^3/uL (3.5-10.8)
[2019-05-28 16:17] LABS: Urine Appearance Clear; Urine Bacteria Absent (Absent); Urine Bilirubin Negative (Negative); Urine Blood Negative (Negative); Urine Color Colorless; Urine Glucose Negative (Negative); Urine Ketones Negative (Negative); Urine Nitrite Negative (Negative); Urine Protein Negative (Negative); Urine Red Blood Cell Absent (Absent); Urine Specific Gravity 1.005 (1.010-1.030); Urine Urobilinogen Negative (Negative); Urine White Blood Cell Trace(0-5/hpf) (Absent)
[2019-05-28 16:37] LABS: Albumin 3.4 g/dL (3.2-5.2); Albumin/Globulin Ratio 1.4 (1-3); BUN/Creatinine Ratio 23.1 (8-20); C Reactive Protein 5.32 mg/L (<8.01); Calcium 9.6 mg/dL (8.6-10.3); EGFR African American 98.3 (>60); EGFR Non-African American 81.2 (>60); Globulin 2.5 g/dL (2-4); Potassium 3.4 mmol/L (3.5-5.0); Total Bilirubin 0.7 mg/dL (0.2-1.0); Total Protein 5.9 g/dL (6.4-8.9)
[2019-05-28 16:47] LABS: ABS Lymphocytes 0.3 10^3/ul (1.0-4.8); ABS Monocytes 0.3 10^3/ul (0-0.8); ABS Neutrophils 5.2 10^3/ul (1.5-7.7); Eosinophil % 0.8 %; Lymphocyte % 5.5 %; Nucleated Red Blood Cells % 0.3; Polychromasia 2+
[2019-05-28] MEDS ORDERED: NS 0.9% 1000 ML** 2,000 ML IV ONE (18:31)
[2019-05-28] MEDS ORDERED: Iodixanol* (CONTRAST) 320 MG/ML 100 ML SDV IV ONE (18:41)
[2019-05-28] MEDS ORDERED: Ondansetron INJ* 2 MG/ML VIAL IV PRN (21:38)
[2019-05-28] MEDS ORDERED: Dextrose 50% VIAL 50 ml IV PUSH PRN (21:42)
[2019-05-28] MEDS: oxyCODONE TAB* 5 MG TAB PO PRN (23:09)
[2019-05-28] MEDS: KCL 20 MEQ/100 ML IVPREMIX* 20 MEQ/100 ML BAG IV SCH (23:34)
[2019-05-28] MEDS: Heparin VIAL(*) 5000 UNITS/ML VIAL (FIVE THOUSAND) SUBCUT SCH (23:37)
--- NOTE | 2019-05-29 00:20 | HP ---
CC: Primary Care Provider from [facility]; Dr. Helen Styles; Dr. Waldo Morfin * HISTORY AND PHYSICAL: DATE OF ADMISSION: 05/28/19 PRIMARY CARE PROVIDER: Provider from [facility]. CHIEF COMPLAINT: Generalized weakness and profuse diarrhea. 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 He was treated with IV antibiotics. Ever since then, he had generalized weakness and chronic lower back pain. In October, the patient was discharged to [facility], then he went to [place], then he eventually was able to get home, but he still continued to have generalized weakness and bout of lower extremity weakness and a lumbar back pain. Approximately, 10 days ago, he had a lumbar spine surgery and as per the patient's daughter, he had a lumbar spine fusion. Couple of days later, he had to have a repeat surgery. Since then he has had generalized weakness and he was just discharged from [facility] in [place], [place] back to [facility] for further course of rehabilitation yesterday, which was 05/27/19. At [facility] today in the morning, he vomited once and then he started having profuse diarrhea and mild abdominal discomfort. The diarrhea was so bad that the nurse in the emergency department needed to place a rectal tube to somewhat control the situation. So far no gross abnormalities were noted on his lab work apart from anemia, that likely is postoperative. His CT of abdomen and pelvis was unremarkable. He is going to be placed on overnight observation with diagnoses of dehydration and diarrhea. PAST MEDICAL HISTORY: 1. History of lumbar spine diskitis that was MSSA positive, status post treatment with IV antibiotics in October 2018 with resultant lower back pain, bilateral lower extremity weakness, status post L-spine fusion performed at [facility] at [place], [place] 10 days ago. 2. History of hypertension. 3. History of sarcoidosis, on chronic steroids. 4. History of BPH. 5. Nephrolithiasis. 6. B12 deficiency. 7. History of squamous cell carcinoma of the skin. 8. Obstructive sleep apnea. 9. Diabetes type 2. 10. Sciatica. 11. Anxiety. 12. Depression. 13. History of tonsillectomy. 14. Cataract surgery bilaterally. MEDICATIONS: Medications from home include: 1. Loperamide 2 mg every 4 hours p.r.n. 2. Senna 17.2 mg daily p.r.n. 3. Potassium chloride 10 mEq daily. 4. Omeprazole 20 mg daily. 5. Acetaminophen 1000 mg b.i.d. 6. Pulmicort inhaler 2 puffs inhalation b.i.d. 7. Amlodipine 5 mg at bedtime. 8. Tinactin 1% cream 1 application at bedtime. 9. Flomax 0.4 mg b.i.d. 10. Furosemide 20 mg daily. 11. Ferrous fumarate-vitamin C 1 capsule daily. 12. Vitamin D3 2000 units daily. 13. Metformin 1000 mg b.i.d. 14. Coreg 3.125 mg b.i.d. 15. Mag-Ox 400 mg daily. 16. Hydrochlorothiazide 25 mg daily. 17. Gabapentin 100 mg at bedtime. 18. Prednisone 5 mg at bedtime, 10 mg in a.m. 19. Oxycodone 5 mg every 8 hours p.r.n. ALLERGIES: No known drug allergies. SOCIAL HISTORY: The patient is right now transferred after his surgery from [place] to [facility] for rehabilitation. 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 Denies any alcohol or drug use. His surrogate is his , June. He is a full code. REVIEW OF SYSTEMS: Please see history of present illness. In addition to above mentioned, the patient currently complains of no abdominal pain. His back is hurting postoperatively. As per discussion with the patient's daughter , who is at bedside, he had been fairly immobile postoperative and he is very weak, but he was able to ambulate with a 2-person assist yesterday with a walker. All the remaining 12 systems were reviewed with the patient and were otherwise negative. PHYSICAL EXAMINATION GENERAL: The patient is a very pleasant 73-year-old male who is in no acute distress. The patient is rather poor historian, but he is alert and oriented x3. VITAL SIGNS: Blood pressure of 144/87, heart rate of 93 and regular, respiratory rate 16, oxygen saturation 93% on room air, temperature 98.5. HEENT: Head: Atraumatic, normocephalic. Eyes: Pupils equal and reactive to light and accommodation. Oropharynx was clear. Oral mucosa was dry. NECK: Supple. No JVD. No bruits bilaterally. RESPIRATORY: Clear to auscultation bilaterally. CARDIOVASCULAR: Regular rate and rhythm. No murmur. ABDOMEN: Protuberant, soft, nontender. Bowel sounds present in all 4 quadrants. EXTREMITIES: There is +1 pitting pedal edema bilaterally. There is no clubbing , no cyanosis. Pulses are +2 bilaterally. NEURO EVALUATION: Speech clear. Cranial nerves II through XII are grossly intact. Motor strength is 5/5 bilaterally. SKIN: The patient's postoperative incision is sutured. It is approximately 15 cm in length overlying the lumbar back. There is some reactive erythema noted at david- incision site, that is approximately within 2 cm of the patient's wound with no streaking. There is no wound dehiscence and no drainage noted. He has a small area of decubitus that appears to have been a blister that ruptured around approximately 3 cm in diameter distally to the incision overlying the sacrum in the location. There is no evidence of skin infection. DIAGNOSTIC STUDIES/LAB DATA: Laboratory data showed sodium of 140, potassium 3.4, chloride 101, carbon dioxide 32, BUN 21, creatinine 0.91. Liver function tests unremarkable. Lactic acid of 2.2, lipase of 26. White blood cell count of 5.9, hemoglobin of 9.5, hematocrit 28, MCV of 102, and platelets of 157. Urinalysis was unremarkable apart from trace esterase. CT of abdomen and pelvis, impression: "No CT findings to correlate with the patient's symptomatology. Bosniak type 2 renal cysts. No followup indicated." The patient's stool sample showed positive for stool lactoferrin and negative for C. diff. The remaining cultures are still pending. Guaiac was negative. ASSESSMENT AND PLAN: 1. Nausea and profuse diarrhea. It may be related to viral gastroenteritis. There is no CT evidence of further intestinal infection that would suggest the need of antibiotic treatment at this point. I suspect the patient's elevated lactic acid is due to dehydration as well as metformin use. The patient at this point is nontoxic appearing, but he is dehydrated and very weak and he is going to be placed on overnight observation for supportive treatment with IV fluids. 2. For his bilateral lower extremity edema, I will continue the patient's Lasix in the morning. 3. For his diabetes, metformin is going to be held and the patient is going to be placed on insulin sliding scale. 4. For his blood pressure control, Coreg is going to be continued. I will hold the patient's hydrochlorothiazide and continue amlodipine. 5. For DVT prophylaxis, the patient is going to be placed on heparin subcutaneously. 6. For his history of sarcoidosis, with chronic steroid use, his prednisone is going to be continued at a home dose. 7. His code status is full. His surrogate is his . TIME SPENT: Approximately 62 minutes was spent on the admission of this patient , more than half the time was spent [id number] with the patient during the interview and physical exam. [id number]/CPS #: [id number] EMILIANO
[2019-05-29] MEDS: KCL 20 MEQ/100 ML IVPREMIX* 20 MEQ/100 ML BAG IV SCH (01:49)
[2019-05-29] MEDS: NS 0.9% 1000 ML** 1,000 ML IV SCH ×2 (04:03→16:48)
[2019-05-29] MEDS: Heparin VIAL(*) 5000 UNITS/ML VIAL (FIVE THOUSAND) SUBCUT SCH ×3 (05:28→21:03)
[2019-05-29 06:24] LABS: Hematocrit 26 % (42-52); Hemoglobin 9.1 g/dL (14.0-18.0); Mean Corpuscular HGB Conc 35 g/dL (31-36); Mean Corpuscular Hemoglobin 35 pg (27-31); Mean Corpuscular Volume 102 fL (80-94); Mean Platelet Volume 6.6 fL (7.4-10.4); Platelet Count 149 10^3/uL (150-450); Red Blood Count 2.59 10^6 /uL (4.18-5.48); Red Cell Distribution Width 21 % (10-15); White Blood Count 5.4 10^3/uL (3.5-10.8)
[2019-05-29 06:59] LABS: BUN/Creatinine Ratio 17.1 (8-20); Calcium 8.9 mg/dL (8.6-10.3); EGFR African American 110.8 (>60); EGFR Non-African American 91.6 (>60); Potassium 3.6 mmol/L (3.5-5.0)
[2019-05-29 07:22] LABS: ABS Eosinophils 0.1 10^3/ul (0-0.6); ABS Lymphocytes 0.3 10^3/ul (1.0-4.8); ABS Monocytes 0.3 10^3/ul (0-0.8); ABS Neutrophils 4.8 10^3/ul (1.5-7.7); Eosinophil % 0.9 %; Lymphocyte % 5.3 %; Nucleated Red Blood Cells % 0.3
[2019-05-29] MEDS: Insulin LISPRO* 1 UNITS UNIT SUBCUT SCH ×4 (09:00→21:15)
--- NOTE | 2019-05-29 09:05 | PN ---
Subjective Date of Service: 05/29/19 Interval History: Continues to have diarrhea, reports no abdominal pain right now. Feels tired/fatigue. No nausea, no vomiting Family History: Unchanged from Admission Social History: Unchanged from Admission Past Medical History: Unchanged from Admission Objective Active Medications: Acetaminophen (Tylenol Tab*) 975 mg PO BID [facility] Dextrose (Dextrose 50% Vial 50 Ml*) 25 ml IV PUSH .FOR FS < 60 - SS PRN PRN Reason: FS < 60 Furosemide (Lasix Tab*) 20 mg PO DAILY [facility] Gabapentin (Neurontin Cap(*)) 100 mg PO BEDTIME [facility] Heparin Sodium (Porcine) (Heparin Vial(*)) 5,000 units SUBCUT Q8HR [facility] Last Admin: 05/29/19 05:28 Dose: 5,000 units Sodium Chloride (Ns 0.9% 1000 Ml) 1,000 mls @ 75 mls/hr IV PER RATE [facility] Last Admin: 05/29/19 04:03 Dose: 75 mls/hr Insulin Human Lispro (Humalog*) 0 units SUBCUT ACHS [facility]; Protocol Last Admin: 05/29/19 09:00 Dose: Not Given Ondansetron HCl (Zofran Inj*) 4 mg IV Q4H PRN PRN Reason: NAUSEA/VOMITING Oxycodone HCl (Roxycodone Tab*) 5 mg PO Q8H PRN PRN Reason: PAIN Last Admin: 05/28/19 23:09 Dose: 5 mg Pantoprazole Sodium (Protonix Tab*) 40 mg PO DAILY [facility] Prednisone (Deltasone Tab*) 5 mg PO BEDTIME [facility] Prednisone (Deltasone Tab*) 10 mg PO QAM [facility] Tamsulosin HCl (Flomax Cap*) 0.4 mg PO BID [facility] Tolnaftate (Tinactin 1% Cream*) 1 applic TOPICAL BEDTIME [facility] Vital Signs - 8 hr 05/29/19 05/29/19 05/29/19 01:25 03:15 07:15 Temperature 98.8 F 98.3 F Pulse Rate 95 97 Respiratory 16 18 16 Rate Blood Pressure 143/43 138/82 (mmHg) O2 Sat by Pulse 95 97 Oximetry Oxygen Devices in Use Now: None Appearance: Elderly male lying in bed, not in distress Ears/Nose/Mouth/Throat: Clear Oropharnyx Respiratory: Symmetrical Chest Expansion and Respiratory Effort, Clear to Auscultation Cardiovascular: NL Sounds; No Murmurs; No JVD, RRR, - - 1+ edema bilateral lower extremities Abdominal: - - No abodominal tenderness, normoactive bowel sounds, soft, Skin: No Rash or Ulcers Neurological: Alert and Oriented x 3 Result Diagrams: 05/29/19 06:15 05/29/19 06:15 Microbiology and Other Data: Microbiology 05/28/19 18:30 Stool Gross Appearance - Final Stool C. difficile DNA Amplification - Final 027 Presumptive NEGATIVE Toxigenic C.diff NEGATIVE Stool Lactoferrin - Final 05/28/19 18:30 Stool Occult Blood ([facility]) - Final Stool Assess/Plan/Problems-Billing Assessment: - Patient Problems (1) Diarrhea Current Visit: Yes Status: Acute Code(s): R19.7 - DIARRHEA, UNSPECIFIED SNOMED Code(s): 96134455 Comment: C diff negative other cultures pending supportive care IV fluids CT abdomen negative (2) Fusion of lumbar spine Current Visit: Yes Status: Acute Code(s): M43.26 - FUSION OF SPINE, LUMBAR REGION SNOMED Code(s): 185144347 (3) DVT prophylaxis Current Visit: No Status: Acute Code(s): DKB6768 - SNOMED Code(s): 554420643 Comment: heparin subQ (4) Diabetes Current Visit: No Status: Acute Code(s): E11.9 - TYPE 2 DIABETES MELLITUS WITHOUT COMPLICATIONS SNOMED Code(s): 82919836 Comment: continue sliding scale (5) HTN (hypertension) Current Visit: No Status: Acute Code(s): I10 - ESSENTIAL (PRIMARY) HYPERTENSION SNOMED Code(s): 93551899 Comment: - Controlled. (6) Sarcoidosis Current Visit: No Status: Acute Code(s): D86.9 - SARCOIDOSIS, UNSPECIFIED SNOMED Code(s): 23587529 Comment: chronic steroids (7) Weakness Current Visit: No Status: Acute Code(s): R53.1 - WEAKNESS SNOMED Code(s): 49323104 Comment: deconditioning and now w/ diarrhea, dehydration
[2019-05-29] MEDS: Acetaminophen TAB* 325 MG PO SCH ×2 (10:06→21:03)
[2019-05-29] MEDS: Tamsulosin CAP* 0.4 MG PO SCH ×2 (10:07→21:04)
[2019-05-29] MEDS: Furosemide TAB* 20 MG PO SCH (10:07)
[2019-05-29] MEDS: Pantoprazole TAB * 40 MG TAB PO SCH (10:07)
[2019-05-29] MEDS: predniSONE TAB* 10 MG PO SCH (10:07)
[2019-05-29] MEDS: oxyCODONE TAB* 5 MG TAB PO PRN ×2 (13:25→21:03)
[2019-05-29] MEDS ORDERED: oxyCODONE TAB* 5 MG TAB PO PRN (18:43)
[2019-05-29] MEDS ORDERED: Morphine INJ* 2 MG/ML 1 ML SYRINGE (TWO MG - NEW SYRINGE VERSION) IV PRN (18:44)
[2019-05-29] MEDS: Morphine INJ* 2 MG/ML 1 ML SYRINGE (TWO MG - NEW SYRINGE VERSION) IV PRN (20:16)
[2019-05-29] MEDS: predniSONE TAB* 5 MG PO SCH (21:03)
[2019-05-29] MEDS: Gabapentin CAP(*) 100 MG PO SCH (21:04)
[2019-05-29] MEDS: Tolnaftate 1% CREAM* 15 GM TOPICAL SCH (22:35)
[2019-05-30] MEDS: Heparin VIAL(*) 5000 UNITS/ML VIAL (FIVE THOUSAND) SUBCUT SCH ×3 (05:43→21:57)
[2019-05-30 06:13] LABS: Hematocrit 26 % (42-52); Hemoglobin 8.8 g/dL (14.0-18.0); Mean Corpuscular HGB Conc 34 g/dL (31-36); Mean Corpuscular Hemoglobin 35 pg (27-31); Mean Corpuscular Volume 102 fL (80-94); Mean Platelet Volume 7.1 fL (7.4-10.4); Platelet Count 153 10^3/uL (150-450); Red Blood Count 2.55 10^6 /uL (4.18-5.48); Red Cell Distribution Width 20 % (10-15); White Blood Count 4.8 10^3/uL (3.5-10.8)
[2019-05-30 06:30] LABS: BUN/Creatinine Ratio 12.5 (8-20); Calcium 8.6 mg/dL (8.6-10.3); EGFR African American 92.4 (>60); EGFR Non-African American 76.4 (>60); Potassium 3.6 mmol/L (3.5-5.0)
[2019-05-30 06:54] LABS: ABS Lymphocytes 0.2 10^3/ul (1.0-4.8); ABS Monocytes 0.3 10^3/ul (0-0.8); ABS Neutrophils 4.3 10^3/ul (1.5-7.7); Eosinophil % 0.2 %; Lymphocyte % 3.9 %; Nucleated Red Blood Cells % 0.2
[2019-05-30] MEDS: Insulin LISPRO* 1 UNITS UNIT SUBCUT SCH ×4 (08:29→21:57)
[2019-05-30] MEDS: NS 0.9% 1000 ML** 1,000 ML IV SCH (08:35)
[2019-05-30] MEDS: Acetaminophen TAB* 325 MG PO SCH ×2 (08:36→19:46)
[2019-05-30] MEDS: predniSONE TAB* 10 MG PO SCH (08:36)
[2019-05-30] MEDS: Furosemide TAB* 20 MG PO SCH (08:36)
[2019-05-30] MEDS: Tamsulosin CAP* 0.4 MG PO SCH ×2 (08:36→19:42)
[2019-05-30] MEDS: Pantoprazole TAB * 40 MG TAB PO SCH (08:36)
--- NOTE | 2019-05-30 12:17 | PN ---
Subjective Date of Service: 05/30/19 Interval History: Continues to have diarrhea. Reports feeling "lousy". having bladder pain, and burning with urination Family History: Unchanged from Admission Social History: Unchanged from Admission Past Medical History: Unchanged from Admission Objective Active Medications: Acetaminophen (Tylenol Tab*) 975 mg PO BID [facility] Last Admin: 05/30/19 08:36 Dose: 975 mg Cefuroxime Axetil (Ceftin Tab(*)) 250 mg PO BID [facility] Dextrose (Dextrose 50% Vial 50 Ml*) 25 ml IV PUSH .FOR FS < 60 - SS PRN PRN Reason: FS < 60 Furosemide (Lasix Tab*) 20 mg PO DAILY [facility] Last Admin: 05/30/19 08:36 Dose: 20 mg Gabapentin (Neurontin Cap(*)) 100 mg PO BEDTIME [facility] Last Admin: 05/29/19 21:04 Dose: 100 mg Heparin Sodium (Porcine) (Heparin Vial(*)) 5,000 units SUBCUT Q8HR [facility] Last Admin: 05/30/19 05:43 Dose: 5,000 units Sodium Chloride (Ns 0.9% 1000 Ml) 1,000 mls @ 75 mls/hr IV PER RATE [facility] Last Admin: 05/30/19 08:35 Dose: 75 mls/hr Insulin Human Lispro (Humalog*) 0 units SUBCUT ACHS [facility]; Protocol Last Admin: 05/30/19 08:29 Dose: Not Given Lactobacillus Rhamnosus (Lactobacillus Acidophilus*) 1 tab PO BID [facility] Morphine Sulfate (Morphine Inj (Syringe))*) 2 mg IV Q6H PRN PRN Reason: PAIN - SEVERE Last Admin: 05/29/19 20:16 Dose: 2 mg Ondansetron HCl (Zofran Inj*) 4 mg IV Q4H PRN PRN Reason: NAUSEA/VOMITING Last Admin: 05/29/19 18:19 Dose: 4 mg Oxycodone HCl (Roxycodone Tab*) 5 mg PO Q6H PRN PRN Reason: PAIN - MODERATE Last Admin: 05/29/19 21:03 Dose: 5 mg Pantoprazole Sodium (Protonix Tab*) 40 mg PO DAILY [facility] Last Admin: 05/30/19 08:36 Dose: 40 mg Prednisone (Deltasone Tab*) 5 mg PO BEDTIME [facility] Last Admin: 05/29/19 21:03 Dose: 5 mg Prednisone (Deltasone Tab*) 10 mg PO QAM [facility] Last Admin: 05/30/19 08:36 Dose: 10 mg Tamsulosin HCl (Flomax Cap*) 0.4 mg PO BID [facility] Last Admin: 05/30/19 08:36 Dose: 0.4 mg Tolnaftate (Tinactin 1% Cream*) 1 applic TOPICAL BEDTIME [facility] Last Admin: 05/29/19 22:35 Dose: 1 applic Vital Signs - 8 hr 05/30/19 05/30/19 07:29 11:23 Temperature 98.7 F 98.4 F Pulse Rate 98 100 Respiratory 20 18 Rate Blood Pressure 129/73 134/79 (mmHg) O2 Sat by Pulse 98 100 Oximetry Oxygen Devices in Use Now: None Appearance: He is lying in bed, not in distress Eyes: PERRLA Ears/Nose/Mouth/Throat: Mucous Membranes Moist Respiratory: Symmetrical Chest Expansion and Respiratory Effort, Clear to Auscultation Cardiovascular: NL Sounds; No Murmurs; No JVD, RRR Abdominal: No Hepatosplenomegaly, - - normoactive bowel sounds, soft, mild suprapubic tenderness, Neurological: Alert and Oriented x 3 Result Diagrams: 05/30/19 05:36 05/30/19 05:36 Microbiology and Other Data: Microbiology 05/28/19 15:55 Urine Culture - Final Urine Klebsiella Oxytoca 05/28/19 16:01 Aerobic Blood Culture - Preliminary Blood Venous No Growth Day 1 Anaerobic Blood Culture - Preliminary No Growth Day 1 05/28/19 15:55 Aerobic Blood Culture - Preliminary Blood Venous No Growth Day 1 Anaerobic Blood Culture - Preliminary No Growth Day 1 05/28/19 18:30 Stool Gross Appearance - Final Stool Shiga Toxin I & II - Final Negative Shiga Toxin 1 & 2 C. difficile DNA Amplification - Final 027 Presumptive NEGATIVE Toxigenic C.diff NEGATIVE Stool Lactoferrin - Final 05/28/19 18:30 Stool Occult Blood ([facility]) - Final Stool Assess/Plan/Problems-Billing Assessment: - Patient Problems (1) Diarrhea Current Visit: Yes Status: Acute Code(s): R19.7 - DIARRHEA, UNSPECIFIED SNOMED Code(s): 65321518 Comment: C diff negative. Was having constipation at outside facility- where they gave him several doses of stool softners, laxatives, and perhaps enema - per the daughter. This likley is the reason for the diarrhea. supportive care IV fluids CT abdomen negative (2) Fusion of lumbar spine Current Visit: Yes Status: Acute Code(s): M43.26 - FUSION OF SPINE, LUMBAR REGION SNOMED Code(s): 865129929 (3) DVT prophylaxis Current Visit: No Status: Acute Code(s): AAG8039 - SNOMED Code(s): 329065958 Comment: heparin subQ (4) Diabetes Current Visit: No Status: Acute Code(s): E11.9 - TYPE 2 DIABETES MELLITUS WITHOUT COMPLICATIONS SNOMED Code(s): 54623167 Comment: continue sliding scale (5) HTN (hypertension) Current Visit: No Status: Acute Code(s): I10 - ESSENTIAL (PRIMARY) HYPERTENSION SNOMED Code(s): 60945435 Comment: - Controlled. (6) Sarcoidosis Current Visit: No Status: Acute Code(s): D86.9 - SARCOIDOSIS, UNSPECIFIED SNOMED Code(s): 67308976 Comment: chronic steroids (7) Weakness Current Visit: No Status: Acute Code(s): R53.1 - WEAKNESS SNOMED Code(s): 85997148 Comment: deconditioning and now w/ diarrhea, dehydration (8) UTI due to Klebsiella species Current Visit: Yes Status: Acute Code(s): N39.0 - URINARY TRACT INFECTION, SITE NOT SPECIFIED; B96.1 - KLEBSIELLA PNEUMONIAE THE CAUSE OF DISEASES CLASSD [facility] SNOMED Code(s): 844787482892085 Comment: start cefuroxime. Status and Disposition: continue inpatient care.
[2019-05-30] MEDS: Morphine INJ* 2 MG/ML 1 ML SYRINGE (TWO MG - NEW SYRINGE VERSION) IV PRN ×3 (12:32→23:48)
[2019-05-30] MEDS: ceFUROXime TAB(*) 250 MG PO SCH ×2 (12:38→19:45)
[2019-05-30] MEDS: oxyCODONE TAB* 5 MG TAB PO PRN (19:42)
[2019-05-30] MEDS: Gabapentin CAP(*) 100 MG PO SCH (19:43)
[2019-05-30] MEDS: Lactobacillus Acidophilus* 1 TAB PO SCH (19:45)
[2019-05-30] MEDS: predniSONE TAB* 5 MG PO SCH (19:46)
[2019-05-30] MEDS: Tolnaftate 1% CREAM* 15 GM TOPICAL SCH (22:27)
[2019-05-31] MEDS: oxyCODONE TAB* 5 MG TAB PO PRN ×3 (03:45→17:48)
[2019-05-31] MEDS: NS 0.9% 1000 ML** 1,000 ML IV SCH (04:10)
[2019-05-31] MEDS: Heparin VIAL(*) 5000 UNITS/ML VIAL (FIVE THOUSAND) SUBCUT SCH ×3 (06:05→20:38)
[2019-05-31] MEDS: predniSONE TAB* 10 MG PO SCH (09:02)
[2019-05-31] MEDS: Lactobacillus Acidophilus* 1 TAB PO SCH ×2 (09:03→20:37)
[2019-05-31] MEDS: ceFUROXime TAB(*) 250 MG PO SCH ×2 (09:04→20:35)
[2019-05-31] MEDS: Furosemide TAB* 20 MG PO SCH (09:04)
[2019-05-31] MEDS: Tamsulosin CAP* 0.4 MG PO SCH ×2 (09:04→20:36)
[2019-05-31] MEDS: Pantoprazole TAB * 40 MG TAB PO SCH (09:04)
[2019-05-31] MEDS: Acetaminophen TAB* 325 MG PO SCH ×2 (09:05→20:34)
[2019-05-31] MEDS: Insulin LISPRO* 1 UNITS UNIT SUBCUT SCH ×4 (09:06→20:37)
--- NOTE | 2019-05-31 09:22 | PN ---
Subjective Date of Service: 05/31/19 Interval History: Liquid BM has decreased in quantity Continues to have back pain, reports feeling miserable. No fever, no chills, Family History: Unchanged from Admission Social History: Unchanged from Admission Past Medical History: Unchanged from Admission Objective Active Medications: Acetaminophen (Tylenol Tab*) 975 mg PO BID [facility] Last Admin: 05/31/19 09:05 Dose: 975 mg Cefuroxime Axetil (Ceftin Tab(*)) 250 mg PO BID [facility] Last Admin: 05/31/19 09:04 Dose: 250 mg Dextrose (Dextrose 50% Vial 50 Ml*) 25 ml IV PUSH .FOR FS < 60 - SS PRN PRN Reason: FS < 60 Fentanyl (Duragesic Patch 12 Mcg/Hr *) 12 mcg TRANSDERM Q72H [facility] Furosemide (Lasix Tab*) 20 mg PO DAILY [facility] Last Admin: 05/31/19 09:04 Dose: 20 mg Gabapentin (Neurontin Cap(*)) 100 mg PO BEDTIME [facility] Last Admin: 05/30/19 19:43 Dose: 100 mg Heparin Sodium (Porcine) (Heparin Vial(*)) 5,000 units SUBCUT Q8HR [facility] Last Admin: 05/31/19 06:05 Dose: 5,000 units Insulin Human Lispro (Humalog*) 0 units SUBCUT ACHS [facility]; Protocol Last Admin: 05/31/19 09:06 Dose: 1 units Lactobacillus Rhamnosus (Lactobacillus Acidophilus*) 1 tab PO BID [facility] Last Admin: 05/31/19 09:03 Dose: 1 tab Morphine Sulfate (Morphine Inj (Syringe))*) 2 mg IV Q6H PRN PRN Reason: PAIN - SEVERE Last Admin: 05/30/19 23:48 Dose: 2 mg Ondansetron HCl (Zofran Inj*) 4 mg IV Q4H PRN PRN Reason: NAUSEA/VOMITING Last Admin: 05/29/19 18:19 Dose: 4 mg Oxycodone HCl (Roxycodone Tab*) 5 mg PO Q6H PRN PRN Reason: PAIN - MODERATE Last Admin: 05/31/19 03:45 Dose: 5 mg Pantoprazole Sodium (Protonix Tab*) 40 mg PO DAILY [facility] Last Admin: 05/31/19 09:04 Dose: 40 mg Pharmacy Profile Note (Fentanyl Patch Check Q Shift) 1 note N/A 0700,1900 [facility] Prednisone (Deltasone Tab*) 5 mg PO BEDTIME [facility] Last Admin: 05/30/19 19:46 Dose: 5 mg Prednisone (Deltasone Tab*) 10 mg PO QAM [facility] Last Admin: 05/31/19 09:02 Dose: 10 mg Tamsulosin HCl (Flomax Cap*) 0.4 mg PO BID [facility] Last Admin: 05/31/19 09:04 Dose: 0.4 mg Tolnaftate (Tinactin 1% Cream*) 1 applic TOPICAL BEDTIME [facility] Last Admin: 05/30/19 22:27 Dose: 1 applic Vital Signs - 8 hr 05/31/19 05/31/19 05/31/19 01:31 02:49 03:45 Temperature 98.6 F Pulse Rate 87 Respiratory 18 18 20 Rate Blood Pressure 132/70 (mmHg) O2 Sat by Pulse 99 Oximetry 05/31/19 05/31/19 06:11 07:20 Temperature 98.1 F Pulse Rate 85 Respiratory 16 18 Rate Blood Pressure 148/82 (mmHg) O2 Sat by Pulse 100 Oximetry Oxygen Devices in Use Now: None Appearance: elderly male, lying in bed, not in distress Eyes: PERRLA Ears/Nose/Mouth/Throat: Mucous Membranes Moist Respiratory: Symmetrical Chest Expansion and Respiratory Effort, Clear to Auscultation Cardiovascular: NL Sounds; No Murmurs; No JVD, RRR Abdominal: No Hepatosplenomegaly, - - mildly distended abdomen, with no tenderness, bowel sounds normoactive., Skin: - - at the back: surgical scar noted, pink, healing. with no erythema, draiange. Neurological: Alert and Oriented x 3 Result Diagrams: 05/30/19 05:36 05/30/19 05:36 Microbiology and Other Data: Microbiology 05/28/19 15:55 Urine Culture - Final Urine Klebsiella Oxytoca 05/28/19 16:01 Aerobic Blood Culture - Preliminary Blood Venous No Growth Day 1 Anaerobic Blood Culture - Preliminary No Growth Day 1 05/28/19 15:55 Aerobic Blood Culture - Preliminary Blood Venous No Growth Day 1 Anaerobic Blood Culture - Preliminary No Growth Day 1 05/28/19 18:30 Stool Gross Appearance - Final Stool Shiga Toxin I & II - Final Negative Shiga Toxin 1 & 2 C. difficile DNA Amplification - Final 027 Presumptive NEGATIVE Toxigenic C.diff NEGATIVE Stool Lactoferrin - Final 05/28/19 18:30 Stool Occult Blood ([facility]) - Final Stool Assess/Plan/Problems-Billing Assessment: - Patient Problems (1) Diarrhea Current Visit: Yes Status: Acute Code(s): R19.7 - DIARRHEA, UNSPECIFIED SNOMED Code(s): 02300278 Comment: C diff negative. Was having constipation at outside facility- where they gave him several doses of stool softners, laxatives, and perhaps enema - per the daughter. This likley is the reason for the diarrhea. supportive care IV fluids CT abdomen negative (2) Fusion of lumbar spine Current Visit: Yes Status: Acute Code(s): M43.26 - FUSION OF SPINE, LUMBAR REGION SNOMED Code(s): 451408533 Comment: surgical scar noted, healing. pain control with PRN morphine and oxycodone combination- per patient pain is not being controlled. will add fentanyl patch 12mcg. and use the PRN medicaitons as breakthrough pain. (3) DVT prophylaxis Current Visit: No Status: Acute Code(s): CUD3175 - SNOMED Code(s): 879261704 Comment: heparin subQ (4) Diabetes Current Visit: No Status: Acute Code(s): E11.9 - TYPE 2 DIABETES MELLITUS WITHOUT COMPLICATIONS SNOMED Code(s): 81019063 Comment: continue sliding scale (5) HTN (hypertension) Current Visit: No Status: Acute Code(s): I10 - ESSENTIAL (PRIMARY) HYPERTENSION SNOMED Code(s): 16707968 Comment: - Controlled. (6) Sarcoidosis Current Visit: No Status: Acute Code(s): D86.9 - SARCOIDOSIS, UNSPECIFIED SNOMED Code(s): 56564216 Comment: chronic steroids (7) Weakness Current Visit: No Status: Acute Code(s): R53.1 - WEAKNESS SNOMED Code(s): 67142541 Comment: deconditioning and now w/ diarrhea, dehydration (8) UTI due to Klebsiella species Current Visit: Yes Status: Acute Code(s): N39.0 - URINARY TRACT INFECTION, SITE NOT SPECIFIED; B96.1 - KLEBSIELLA PNEUMONIAE THE CAUSE OF DISEASES CLASSD [facility] SNOMED Code(s): 087126177683016 Comment: Cefuroxime started 05/30. Status and Disposition: continue inpatient care.
[2019-05-31] MEDS ORDERED: fentaNYL PATCH 12 MCG/HR TRANSDERM SCH (10:00)
[2019-05-31] MEDS: Morphine INJ* 2 MG/ML 1 ML SYRINGE (TWO MG - NEW SYRINGE VERSION) IV PRN ×2 (16:11→21:51)
[2019-05-31] MEDS: fentaNYL Patch Check Q Shift 1 NOTE SCH (18:35)
[2019-05-31] MEDS: predniSONE TAB* 5 MG PO SCH (20:36)
[2019-05-31] MEDS: Gabapentin CAP(*) 100 MG PO SCH (20:36)
[2019-05-31] MEDS: Tolnaftate 1% CREAM* 15 GM TOPICAL SCH (20:37)
[2019-05-31] MEDS ORDERED: Morphine INJ* 2 MG/ML 1 ML SYRINGE (TWO MG - NEW SYRINGE VERSION) IV PRN (22:37)
[2019-06-01] MEDS: Heparin VIAL(*) 5000 UNITS/ML VIAL (FIVE THOUSAND) SUBCUT SCH ×3 (05:22→20:55)
[2019-06-01] MEDS: fentaNYL Patch Check Q Shift 1 NOTE SCH ×2 (07:20→19:23)
[2019-06-01] MEDS: Acetaminophen TAB* 325 MG PO SCH ×2 (08:35→20:55)
[2019-06-01] MEDS: oxyCODONE TAB* 5 MG TAB PO PRN ×2 (08:35→18:16)
[2019-06-01] MEDS: Pantoprazole TAB * 40 MG TAB PO SCH (08:35)
[2019-06-01] MEDS: Tamsulosin CAP* 0.4 MG PO SCH ×2 (08:35→20:55)
[2019-06-01] MEDS: Furosemide TAB* 20 MG PO SCH (08:35)
[2019-06-01] MEDS: Lactobacillus Acidophilus* 1 TAB PO SCH ×2 (08:35→20:55)
[2019-06-01] MEDS: Insulin LISPRO* 1 UNITS UNIT SUBCUT SCH ×4 (08:36→20:55)
[2019-06-01] MEDS: predniSONE TAB* 10 MG PO SCH (08:36)
[2019-06-01] MEDS: ceFUROXime TAB(*) 250 MG PO SCH ×2 (08:36→20:55)
--- NOTE | 2019-06-01 08:57 | PN ---
Subjective Date of Service: 06/01/19 Interval History: Patient is in better mood today. States pain is improved. Nurse reported decrease output at the rectal tube- patient has no abdominal pain, no nausea, no vomiting. Family History: Unchanged from Admission Social History: Unchanged from Admission Past Medical History: Unchanged from Admission Objective Active Medications: Acetaminophen (Tylenol Tab*) 975 mg PO BID [facility] Last Admin: 06/01/19 08:35 Dose: 975 mg Cefuroxime Axetil (Ceftin Tab(*)) 250 mg PO BID [facility] Last Admin: 06/01/19 08:36 Dose: 250 mg Dextrose (Dextrose 50% Vial 50 Ml*) 25 ml IV PUSH .FOR FS < 60 - SS PRN PRN Reason: FS < 60 Fentanyl (Duragesic Patch 12 Mcg/Hr *) 12 mcg TRANSDERM Q72H [facility] Last Admin: 05/31/19 09:43 Dose: 12 mcg Furosemide (Lasix Tab*) 20 mg PO DAILY [facility] Last Admin: 06/01/19 08:35 Dose: 20 mg Gabapentin (Neurontin Cap(*)) 100 mg PO BEDTIME [facility] Last Admin: 05/31/19 20:36 Dose: 100 mg Heparin Sodium (Porcine) (Heparin Vial(*)) 5,000 units SUBCUT Q8HR [facility] Last Admin: 06/01/19 05:22 Dose: 5,000 units Insulin Human Lispro (Humalog*) 0 units SUBCUT ACHS [facility]; Protocol Last Admin: 06/01/19 08:36 Dose: 1 units Lactobacillus Rhamnosus (Lactobacillus Acidophilus*) 1 tab PO BID [facility] Last Admin: 06/01/19 08:35 Dose: 1 tab Morphine Sulfate (Morphine Inj (Syringe))*) 2 mg IV Q4H PRN PRN Reason: PAIN - SEVERE Last Admin: 05/31/19 22:51 Dose: 2 mg Ondansetron HCl (Zofran Inj*) 4 mg IV Q4H PRN PRN Reason: NAUSEA/VOMITING Last Admin: 05/29/19 18:19 Dose: 4 mg Oxycodone HCl (Roxycodone Tab*) 5 mg PO Q6H PRN PRN Reason: PAIN - MODERATE Last Admin: 06/01/19 08:35 Dose: 5 mg Pantoprazole Sodium (Protonix Tab*) 40 mg PO DAILY [facility] Last Admin: 06/01/19 08:35 Dose: 40 mg Pharmacy Profile Note (Fentanyl Patch Check Q Shift) 1 note N/A 0700,1900 [facility] Last Admin: 06/01/19 07:20 Dose: 1 note Prednisone (Deltasone Tab*) 5 mg PO BEDTIME [facility] Last Admin: 05/31/19 20:36 Dose: 5 mg Prednisone (Deltasone Tab*) 10 mg PO QAM [facility] Last Admin: 06/01/19 08:36 Dose: 10 mg Tamsulosin HCl (Flomax Cap*) 0.4 mg PO BID [facility] Last Admin: 06/01/19 08:35 Dose: 0.4 mg Tolnaftate (Tinactin 1% Cream*) 1 applic TOPICAL BEDTIME [facility] Last Admin: 05/31/19 20:37 Dose: Not Given Vital Signs - 8 hr 06/01/19 06/01/19 03:39 08:35 Temperature 97.5 F Pulse Rate 88 Respiratory 18 18 Rate Blood Pressure 150/77 (mmHg) O2 Sat by Pulse 100 Oximetry Oxygen Devices in Use Now: None Appearance: Sitting in bed, eating breatkfast Ears/Nose/Mouth/Throat: Mucous Membranes Moist Respiratory: Symmetrical Chest Expansion and Respiratory Effort, Clear to Auscultation Cardiovascular: NL Sounds; No Murmurs; No JVD, RRR Extremities: - - 2+ pitting edema bilateral lower extremity Neurological: Alert and Oriented x 3 Result Diagrams: 05/30/19 05:36 05/30/19 05:36 Microbiology and Other Data: Microbiology 05/28/19 15:55 Urine Culture - Final Urine Klebsiella Oxytoca 05/28/19 16:01 Aerobic Blood Culture - Preliminary Blood Venous No Growth Day 1 Anaerobic Blood Culture - Preliminary No Growth Day 1 05/28/19 15:55 Aerobic Blood Culture - Preliminary Blood Venous No Growth Day 1 Anaerobic Blood Culture - Preliminary No Growth Day 1 05/28/19 18:30 Stool Gross Appearance - Final Stool Shiga Toxin I & II - Final Negative Shiga Toxin 1 & 2 C. difficile DNA Amplification - Final 027 Presumptive NEGATIVE Toxigenic C.diff NEGATIVE Stool Lactoferrin - Final 05/28/19 18:30 Stool Occult Blood ([facility]) - Final Stool Assess/Plan/Problems-Billing Assessment: - Patient Problems (1) Diarrhea Current Visit: Yes Status: Acute Code(s): R19.7 - DIARRHEA, UNSPECIFIED SNOMED Code(s): 46741769 Comment: C diff negative. Was having constipation at outside facility- where they gave him several doses of stool softners, laxatives, and perhaps enema - per the daughter. This likely is the reason for the diarrhea. diarrhea has improved. will remove rectal tube today. supportive care IV fluids CT abdomen negative (2) Fusion of lumbar spine Current Visit: Yes Status: Acute Code(s): M43.26 - FUSION OF SPINE, LUMBAR REGION SNOMED Code(s): 161432825 Comment: surgical scar noted, healing. pain control with PRN morphine and oxycodone combination- per patient pain is not being controlled. added fentanyl patch 12mcg on 06/01 and use the PRN medicaitons as breakthrough pain. (3) DVT prophylaxis Current Visit: No Status: Acute Code(s): OCA5014 - SNOMED Code(s): 462893182 Comment: heparin subQ (4) Diabetes Current Visit: No Status: Acute Code(s): E11.9 - TYPE 2 DIABETES MELLITUS WITHOUT COMPLICATIONS SNOMED Code(s): 87384942 Comment: continue sliding scale (5) HTN (hypertension) Current Visit: No Status: Acute Code(s): I10 - ESSENTIAL (PRIMARY) HYPERTENSION SNOMED Code(s): 24566779 Comment: - Controlled. (6) Sarcoidosis Current Visit: No Status: Acute Code(s): D86.9 - SARCOIDOSIS, UNSPECIFIED SNOMED Code(s): 70359131 Comment: chronic steroids (7) Weakness Current Visit: No Status: Acute Code(s): R53.1 - WEAKNESS SNOMED Code(s): 53715266 Comment: deconditioning and now w/ diarrhea, dehydration (8) UTI due to Klebsiella species Current Visit: Yes Status: Acute Code(s): N39.0 - URINARY TRACT INFECTION, SITE NOT SPECIFIED; B96.1 - KLEBSIELLA PNEUMONIAE THE CAUSE OF DISEASES CLASSD [facility] SNOMED Code(s): 407124024826254 Comment: Cefuroxime started 05/30. Status and Disposition: PT eval, Patient likely will go to [facility] again for rehab.
[2019-06-01] MEDS: Gabapentin CAP(*) 100 MG PO SCH (20:54)
[2019-06-01] MEDS: predniSONE TAB* 5 MG PO SCH (20:55)
[2019-06-01] MEDS: Tolnaftate 1% CREAM* 15 GM TOPICAL SCH (20:56)
[2019-06-02] MEDS: Heparin VIAL(*) 5000 UNITS/ML VIAL (FIVE THOUSAND) SUBCUT SCH ×2 (05:39→15:25)
[2019-06-02 06:22] LABS: Hematocrit 26 % (42-52); Hemoglobin 8.9 g/dL (14.0-18.0); Mean Corpuscular HGB Conc 34 g/dL (31-36); Mean Corpuscular Hemoglobin 35 pg (27-31); Mean Corpuscular Volume 102 fL (80-94); Mean Platelet Volume 6.8 fL (7.4-10.4); Platelet Count 169 10^3/uL (150-450); Red Blood Count 2.55 10^6 /uL (4.18-5.48); Red Cell Distribution Width 20 % (10-15); White Blood Count 3.9 10^3/uL (3.5-10.8)
[2019-06-02 06:32] LABS: ABS Lymphocytes 0.3 10^3/ul (1.0-4.8); ABS Monocytes 0.3 10^3/ul (0-0.8); ABS Neutrophils 3.3 10^3/ul (1.5-7.7); Eosinophil % 0.7 %; Lymphocyte % 6.9 %; Nucleated Red Blood Cells % 0.3
[2019-06-02 06:42] LABS: BUN/Creatinine Ratio 18.9 (8-20); Calcium 8.8 mg/dL (8.6-10.3); EGFR African American 124.8 (>60); EGFR Non-African American 103.1 (>60); Potassium 3.8 mmol/L (3.5-5.0)
[2019-06-02] MEDS: fentaNYL Patch Check Q Shift 1 NOTE SCH (06:46)
[2019-06-02] MEDS: Pantoprazole TAB * 40 MG TAB PO SCH (08:38)
[2019-06-02] MEDS: Lactobacillus Acidophilus* 1 TAB PO SCH (08:39)
[2019-06-02] MEDS: Furosemide TAB* 20 MG PO SCH (08:39)
[2019-06-02] MEDS: Acetaminophen TAB* 325 MG PO SCH (08:39)
[2019-06-02] MEDS: predniSONE TAB* 10 MG PO SCH (08:39)
[2019-06-02] MEDS: Tamsulosin CAP* 0.4 MG PO SCH (08:39)
[2019-06-02] MEDS: oxyCODONE TAB* 5 MG TAB PO PRN (08:39)
[2019-06-02] MEDS: ceFUROXime TAB(*) 250 MG PO SCH (08:39)
[2019-06-02] MEDS: Insulin LISPRO* 1 UNITS UNIT SUBCUT SCH ×2 (08:40→12:42)
--- NOTE | 2019-06-02 11:37 | PN ---
Subjective Date of Service: 06/02/19 Interval History: Patient seen today in the room with daughter at bedside. She and the patient expressed improvement of his diarrhea. I spoke to his aid and confirmed that he had solid bowel movement today. otherwise no acute events. his pain improved with the fentanyl patch. His daughter is concerned about resuming metformin as it may re-exacerbate his diarrhea. Past Medical History: Unchanged from Admission Objective Active Medications: Acetaminophen (Tylenol Tab*) 975 mg PO BID [facility] Last Admin: 06/02/19 08:39 Dose: 975 mg Cefuroxime Axetil (Ceftin Tab(*)) 250 mg PO BID [facility] Last Admin: 06/02/19 08:39 Dose: 250 mg Dextrose (Dextrose 50% Vial 50 Ml*) 25 ml IV PUSH .FOR FS < 60 - SS PRN PRN Reason: FS < 60 Fentanyl (Duragesic Patch 12 Mcg/Hr *) 12 mcg TRANSDERM Q72H [facility] Last Admin: 05/31/19 09:43 Dose: 12 mcg Furosemide (Lasix Tab*) 20 mg PO DAILY [facility] Last Admin: 06/02/19 08:39 Dose: 20 mg Gabapentin (Neurontin Cap(*)) 100 mg PO BEDTIME [facility] Last Admin: 06/01/19 20:54 Dose: 100 mg Heparin Sodium (Porcine) (Heparin Vial(*)) 5,000 units SUBCUT Q8HR [facility] Last Admin: 06/02/19 05:39 Dose: 5,000 units Insulin Human Lispro (Humalog*) 0 units SUBCUT ACHS [facility]; Protocol Last Admin: 06/02/19 08:40 Dose: 2 units Lactobacillus Rhamnosus (Lactobacillus Acidophilus*) 1 tab PO BID [facility] Last Admin: 06/02/19 08:39 Dose: 1 tab Morphine Sulfate (Morphine Inj (Syringe))*) 2 mg IV Q4H PRN PRN Reason: PAIN - SEVERE Last Admin: 05/31/19 22:51 Dose: 2 mg Ondansetron HCl (Zofran Inj*) 4 mg IV Q4H PRN PRN Reason: NAUSEA/VOMITING Last Admin: 05/29/19 18:19 Dose: 4 mg Oxycodone HCl (Roxycodone Tab*) 5 mg PO Q6H PRN PRN Reason: PAIN - MODERATE Last Admin: 06/02/19 08:39 Dose: 5 mg Pantoprazole Sodium (Protonix Tab*) 40 mg PO DAILY [facility] Last Admin: 06/02/19 08:38 Dose: 40 mg Pharmacy Profile Note (Fentanyl Patch Check Q Shift) 1 note N/A 0700,1900 [facility] Last Admin: 06/02/19 06:46 Dose: 1 note Prednisone (Deltasone Tab*) 5 mg PO BEDTIME [facility] Last Admin: 06/01/19 20:55 Dose: 5 mg Prednisone (Deltasone Tab*) 10 mg PO QAM [facility] Last Admin: 06/02/19 08:39 Dose: 10 mg Tamsulosin HCl (Flomax Cap*) 0.4 mg PO BID [facility] Last Admin: 06/02/19 08:39 Dose: 0.4 mg Tolnaftate (Tinactin 1% Cream*) 1 applic TOPICAL BEDTIME [facility] Last Admin: 06/01/19 20:56 Dose: Not Given Vital Signs - 8 hr 06/02/19 06/02/19 06/02/19 03:52 08:39 10:36 Temperature 96.3 F Pulse Rate 87 Respiratory 18 17 18 Rate Blood Pressure 158/78 (mmHg) O2 Sat by Pulse 98 Oximetry Oxygen Devices in Use Now: None Appearance: Awake, alert. no distress Eyes: No Scleral Icterus, - Ears/Nose/Mouth/Throat: NL Teeth, Lips, Gums, Mucous Membranes Moist Neck: NL Appearance and Movements; NL JVP, Trachea Midline Respiratory: Symmetrical Chest Expansion and Respiratory Effort, Clear to Auscultation Cardiovascular: NL Sounds; No Murmurs; No JVD Abdominal: NL Sounds; No Tenderness; No Distention Extremities: No Edema, - - + 1 edema Neurological: Alert and Oriented x 3 Result Diagrams: 06/02/19 06:14 06/02/19 06:14 Microbiology and Other Data: Microbiology 05/28/19 15:55 Urine Culture - Final Urine Klebsiella Oxytoca 05/28/19 16:01 Aerobic Blood Culture - Preliminary Blood Venous No Growth Day 1 Anaerobic Blood Culture - Preliminary No Growth Day 1 05/28/19 15:55 Aerobic Blood Culture - Preliminary Blood Venous No Growth Day 1 Anaerobic Blood Culture - Preliminary No Growth Day 1 05/28/19 18:30 Stool Gross Appearance - Final Stool Shiga Toxin I & II - Final Negative Shiga Toxin 1 & 2 C. difficile DNA Amplification - Final 027 Presumptive NEGATIVE Toxigenic C.diff NEGATIVE Stool Lactoferrin - Final 05/28/19 18:30 Stool Occult Blood ([facility]) - Final Stool Assess/Plan/Problems-Billing Assessment: - Patient Problems (1) Diarrhea Current Visit: Yes Status: Acute Code(s): R19.7 - DIARRHEA, UNSPECIFIED SNOMED Code(s): 00138835 Comment: - C diff negative, CT abdomen negative - Was having constipation at outside facility- ("where they gave him several doses of stool softners, laxatives, and perhaps enema - per the daughter"). - Diarrhea has improved. rectal tube removed (2) Fusion of lumbar spine Current Visit: Yes Status: Acute Code(s): M43.26 - FUSION OF SPINE, LUMBAR REGION SNOMED Code(s): 841011722 Comment: - surgical scar noted, healing. - pain control with PRN morphine and oxycodone combination- "per patient pain is not being controlled". - fentanyl patch 12mcg added on 06/01 and he report his pain has siginificantly improved. Will prescribe for him on discharge. (3) UTI due to Klebsiella species Current Visit: Yes Status: Acute Code(s): N39.0 - URINARY TRACT INFECTION, SITE NOT SPECIFIED; B96.1 - KLEBSIELLA PNEUMONIAE THE CAUSE OF DISEASES CLASSD [facility] SNOMED Code(s): 269317926889818 Comment: - Cefuroxime started 05/30 - still on today. Will continue to completed 7 days course of a male with BPH. (4) Anemia Current Visit: No Status: Acute Code(s): D64.9 - ANEMIA, UNSPECIFIED SNOMED Code(s): 623552797 Comment: - H/H stable. (5) BPH (benign prostatic hyperplasia) Current Visit: No Status: Acute Code(s): N40.0 - BENIGN PROSTATIC HYPERPLASIA WITHOUT LOWER URINRY TRACT SYMP SNOMED Code(s): 864515332 Comment: - Continue tamsulosin. (6) Diabetes Current Visit: No Status: Acute Code(s): E11.9 - TYPE 2 DIABETES MELLITUS WITHOUT COMPLICATIONS SNOMED Code(s): 47039891 Comment: - continue sliding scale - keep him off metformin and to reassess once stable at the long term if wishe to resume. daughter is concerned that it may be causing or exacerbating his diarrhea (7) Sarcoidosis Current Visit: No Status: Acute Code(s): D86.9 - SARCOIDOSIS, UNSPECIFIED SNOMED Code(s): 49297896 Comment: chronic steroids (8) DVT prophylaxis Current Visit: No Status: Acute Code(s): BBD3162 - SNOMED Code(s): 515086911 Comment: heparin subQ Status and Disposition: PT eval, Patient likely will go to [facility] again for rehab.
--- NOTE | 2019-06-02 13:44 | DS ---
CC: Dr. Helen Styles * DISCHARGE SUMMARY: DATE OF ADMISSION: 05/29/19 DATE OF DISCHARGE: 06/02/19 PRIMARY CARE PROVIDER: Dr. Helen Styles. FINAL DISCHARGE DIAGNOSES: 1. Diarrhea, etiology most likely iatrogenic due to several laxative postoperatively. 2. Back pain secondary to postoperative effusion in lumbar spine. 3. Urinary tract infection secondary to Klebsiella. 4. Anemia, chronic. 5. Benign prostatic hyperplasia. 6. Diabetes mellitus. 7. History of sarcoidosis. HOSPITAL COURSE: The patient presented to [facility] on 05/29/19 from [facility] for generalized weakness and profuse diarrhea. He was admitted to [facility] from [facility] after undergoing lumbar spine surgery at [facility]. Shortly after arrival, he developed diarrhea and one episode of vomiting. He had profuse diarrhea, at one point a rectal tube was placed in the emergency room giving the extent of his diarrhea. He underwent CT scan of the abdomen and pelvis, which was unremarkable, no acute pathology. He was started on IV fluid and was treated for viral gastroenteritis and supportive care and metformin was held in light of his diarrhea and weakness. During the hospital course, he had several CBCs which were fairly significant for anemia 28, hematocrit 26, and electrolytes, several of them including potassium of 3.4 on admission and BUN elevated at 21 with a creatinine up to 0.91 and GFR of 81. The patient was maintained on IV fluid. His laxative was discontinued and over the course of the following 2 to 3 days, his diarrhea resolved, rectal tube was removed on 06/01/19 and this morning he had a solid bowel movement confirmed by his aide. He is able to transfer with minimal assist. I spoke with the patient and family, daughter at bedside, and reviewed his course of plan. His daughter did express concern regarding his metformin and whether or not it exacerbated his symptoms, which I do concur. At the same time, it is very hard to tell whether the diarrhea was simply due to metformin or a combination of laxative as well the metformin on board. Therefore, I do see it very reasonable to keep the metformin on hold and to reassess in about a week or 2 to see if the patient will benefit from reabsorption of metformin. Meanwhile, we will place him only with insulin sliding scale. Also, during the hospital course, his blood pressure medication were all placed on hold due to soft blood pressure on admission. Currently, his blood pressure is on the higher end of 158 systolic and fluctuate between 109 and then goes back to 148; therefore, I will resume his amlodipine and carvedilol, but I am going to keep his hydrochlorothiazide and potassium on hold until reassess again in a week or 2 pending his outcome to avoid further depletion intravascularly and dehydration. Therefore, I deemed the patient stable to return to [facility] for rehab in stable condition today. PHYSICAL EXAM: Vital Signs: Temperature 96.3, pulse 87, respiratory rate 18, blood pressure 158/78. Generally, he is awake, alert, pleasant. Head and Neck : Normocephalic, atraumatic, supple. Lungs: Clear to auscultation. Tympanic nontender. Abdomen: Positive bowel sounds. No rebound. No guarding. Extremities: +1 edema. [employer]: Moving upper and lower extremity, very alert, awake, and in no distress. DISCHARGE MEDICATION: The patient will be discharged on; 1. Tylenol 1000 mg b.i.d. 2. Budesonide flex inhaler 1 puff twice a day. 3. Vitamin D 2000 unit daily. 4. Iron with vitamin B12 one tab daily. 5. Lasix 20 mg p.o. daily. 6. Gabapentin 100 mg at bedtime. 7. Imodium p.r.n. for diarrhea. 8. Magnesium oxide 400 mg daily. 9. Omeprazole 20 daily. 10. Oxycodone 5 mg every 8 hours as needed. 11. Prednisone 10 mg in the morning 5 mg at night. 12. Flomax 0.4 mg b.i.d. 13. Tinactin application topically. 14. Amlodipine 5 mg at bedtime. 15. Coreg 3.125 b.i.d. New medication changes on discharge: Ceftin 250 mg b.i.d. for 4 more days to complete the course for his UTI or for klebsiella New Medication: 1. Fentanyl patch 12 mcg every 72 hours. 2. Lispro sliding scale 3. Lactobacillus. Discontinuation of his medication on discharge: 1. Hydrochlorothiazide. 2. Potassium. 3. Discontinued his metformin 4. Discontinued his senna. INPATIENT DIAGNOSTIC STUDY: CBC, chemistry multiple was profound for slight hypokalemia, which resolved with potassium supplement and discontinuation of hydrochlorothiazide. His CBC significant for his chronic anemia. Microbiology: His stool was negative for Shiga toxin, negative for C. diff, blood culture negative. Urine culture was positive for Klebsiella oxytoca. Imaging: CT scan of the abdomen and pelvis, which was done on 05/28/19 shows no acute pathology. DISCHARGE RECOMMENDATION: 1. Physical Therapy to help with the gait and improvement. 2. Continue the fentanyl patch, which is a new prescription started and with good outcome result and p.r.n. oxycodone only. 3. Reassess the patient's blood pressure to see if he qualify to resuming his hydrochlorothiazide as well as his potassium. 4. Reassess whether or not the patient will benefit from resumption of metformin depending his diarrhea. 5. His senna is on hold with watch for constipation now that fentanyl is on board. 6. Follow up with primary care and the surgery, as previously scheduled for his post lumbar fusion. 7. Sacral wound care as per nursing protocol for decubitus ulcer care. [id number]/CPS #: [id number] MTDD
[2019-06-02 19:17] VITALS: BP 130/71
== END 2019-06-02 15:30 | DRG 394 ==
LOC: ED 15:20 → MED 21:38 → OBSVTOIN 05-29 11:00
PROVIDERS: ADMIT Internal Medicine; ATTEND Internal Medicine
DX: K52.1 Toxic gastroenteritis and colitis (principal); N39.0 Urinary tract infection, site not specified; T47.4X5A Adverse effect of other laxatives, initial encounter; G89.29 Other chronic pain; M25.48 Effusion, other site; E86.0 Dehydration; D64.9 Anemia, unspecified; I10 Essential (primary) hypertension; D86.9 Sarcoidosis, unspecified; N40.0 Benign prostatic hyperplasia without lower urinary tract symptoms; G47.33 Obstructive sleep apnea (adult) (pediatric); E11.9 Type 2 diabetes mellitus without complications; L89.159 Pressure ulcer of sacral region, unspecified stage; Y92.9 Unspecified place or not applicable
CPT/HCPCS: 36415; 74177; 80048; 80053; 81003; 81015; 82272; 83605; 83630; 83690; 85025; 86140; 87040; 87045; 87046; 87077; 87086; 87186; 87493; 87641; 87899; 99285; A9270-GY; G8978-GP-CK; G8979-GP-CI; J1644; J2270; J2405; J3480; J7512; Q9967

== ENCOUNTER 2019-08-06 07:59 | Inpatient (IN) | payer OTHER, MEDICARE ==
[2019-08-06 08:35] LABS: ABS Eosinophils 0.1 10^3/ul (0-0.6); ABS Lymphocytes 0.1 10^3/ul (1.0-4.8); ABS Monocytes 0.2 10^3/ul (0-0.8); ABS Neutrophils 8.8 10^3/ul (1.5-7.7); Eosinophil % 0.6 %; Hematocrit 34 % (42-52); Hemoglobin 11.7 g/dL (14.0-18.0); Lymphocyte % 1.2 %; Mean Corpuscular HGB Conc 35 g/dL (31-36); Mean Corpuscular Hemoglobin 34 pg (27-31); Mean Corpuscular Volume 96 fL (80-94); Mean Platelet Volume 6.7 fL (7.4-10.4); Nucleated Red Blood Cells % 0.1; Platelet Count 129 10^3/uL (150-450); Red Blood Count 3.49 10^6 /uL (4.18-5.48); Red Cell Distribution Width 17 % (10-15); White Blood Count 9.2 10^3/uL (3.5-10.8)
[2019-08-06 08:42] LABS: Activated Partial Thrombo Time 30.3 seconds (26.0-38.0); INR 1.04 (0.82-1.09)
[2019-08-06 08:48] LABS: Albumin 3.4 g/dL (3.2-5.2); Albumin/Globulin Ratio 1.6 (1-3); BUN/Creatinine Ratio 13.7 (8-20); Calcium 8.9 mg/dL (8.6-10.3); EGFR African American 86.2 (>60); EGFR Non-African American 71.2 (>60); Globulin 2.1 g/dL (2-4); Total Bilirubin 0.9 mg/dL (0.2-1.0); Total Protein 5.5 g/dL (6.4-8.9)
[2019-08-06 08:50] LABS: Troponin I 0.05 ng/mL (<0.04)
[2019-08-06] MEDS ORDERED: Potassium Chlor TAB* 20 MEQ TAB.ER PO ONE (08:52)
[2019-08-06] MEDS ORDERED: NS 0.9% IV ONE (08:52)
[2019-08-06] MEDS ORDERED: cefTRIAXone(*) 1 GM in NS 0.9% 50 ML* 50 ML IVPB ONE (08:57)
--- NOTE | 2019-08-06 09:17 | ED ---
Complex/Multi-Sys Presentation - HPI Summary HPI Summary: Pt is a 73 y/o M presenting to the ED after a fall. Pt was able to go to the bathroom with a walker and fell. Pt was found by alf staff on the floor. Pt is present with his daughter. Pt currently lives in [facility]. Pts daughter states pt fell from fatigue. Pts daughter states he has some wounds on the bilateral arms, but is unsure if they are new. Pt admits sleep disturbance, drowsiness, fatigue, back pain and occasional vomiting. Pt has had edema in the bilateral upper and lower extremities that pt has had in the past and is not new. Pt denies any fever, chills, erythema of eyes, sore throat, CP, chest pressure, SOB, cough, abdominal pain, nausea, dysuria, hematuria, rash, or dizziness. Pt denies using oxygen at home. Pt had back surgery in May in [place] and Dr. Morfin was his spinal surgeon. Pt recently had a doctors appointment and had a dose adjustment for a Fentanyl patch that was reduced to half the original dose. Pt has taken Prednisone for sarcoidosis for approximately 15 years ago. When pt temporarily stopped taking Prednisone, pt worsened so he continued to take Prednisone. Pt also takes oxycodone. Pt was previous at [facility] in October for a back infection for which he took a course of antibiotics for 2 months, and most recently was seen in May for a UTI. Pt has a PMHx of sleep apnea. - History Of Current Complaint Chief Complaint: EDGeneral Time Seen by Provider: 08/06/19 08:07 Hx Obtained From: Patient, Family/Facility Designer - Daughter Onset/Duration: Sudden Onset, Still Present Severity Currently: Moderate Severity Initially: Moderate Associated Signs And Symptoms: Positive: Edema - Bilateral UE and bilateral LE, Nausea, Back Pain. Negative: SOB, Chest Pain, Vomiting, Abdominal Pain, Dysuria , Fever - Allergies/Home Medications Allergies/Adverse Reactions: Allergies Allergy/AdvReac Type Severity Reaction Status Date / Time No Known Allergies Allergy Verified 12/11/18 09:34 Home Medications: Home Medications Bumetanide TAB* [Bumex 1 MG TAB*] 1 mg PO BID 08/06/19 [History Confirmed ] Ferrous Fum/Vit C/B12-If/Folic [Tricon Capsule] 1 each PO DAILY 08/06/19 [ History Confirmed 08/06/19] PMH/Surg Hx/FS Hx/Imm Hx Previously Healthy: Yes Endocrine/Hematology History: Reports: Hx Thyroid Disease - nodes, Other Endocrine/Hematological Disorders - Sarcoidosis, since resolved, according to Pt Denies: Hx Diabetes Cardiovascular History: Reports: Hx Hypertension Denies: Hx Pacemaker/ICD Respiratory History: Reports: Hx Asthma - childhood only, Hx Sleep Apnea - CPAP , Other Respiratory Problems/Disorders - Sarcoidosis History: Reports: Hx Benign Prostatic Hyperplasia Denies: Hx Renal Disease Musculoskeletal History: Reports: Hx Arthritis, Hx Back Problems - 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, s/p 3 drug treatment;sepsis 10/21/18,, Other Musculoskeletal History - LEFT WRIST FX;concern for osteomyelitis/diskitis 10/21 - w/MSSA sepsis Denies: Hx Osteoporosis Sensory History: Reports: Hx Contacts or Glasses Denies: Hx Cataracts, Hx Hearing Aid, Hx Hearing Problem Opthamlomology History: Reports: Hx Contacts or Glasses Denies: Hx Cataracts Neurological History: Reports: Other Neuro Impairments/Disorders - L4/L5 ostemyelitis/diskitis; sarcoidosis Psychiatric History: Reports: Hx Anxiety, Hx Depression Denies: Hx Panic Disorder - Cancer History Cancer Type, 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 Bilateral cataract removal Hx Anesthesia Reactions: No - Immunization History Date of Influenza Vaccine: PER PATIENT, HE HAS HAD HIS FLU-SHOT RECENTLY. 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 Negative: Fever, Chills Negative: Erythema Negative: Sore Throat Positive: Other - Negative chest pressure. Negative: Chest Pain Negative: Shortness Of Breath, Cough Positive: Vomiting - Occasional. Negative: Abdominal Pain, Nausea Negative: dysuria, hematuria Positive: Myalgia - Back, Edema - Bialteral UE and bilateral LE Negative: Rash Neurological: Other - Negative dizziness All Other Systems Reviewed And Are Negative: Yes Physical Exam - Summary Physical Exam Summary: Constitutional: Well-developed, Well-nourished, (-) Distressed; somnolent, but rousable Skin: Warm, Dry HENT: Normocephalic; Atraumatic Eyes: Conjunctiva normal Neck: Musculoskeletal ROM normal neck. (-) JVD, (-) Stridor, (-) Tracheal deviation Cardio: Rhythm regular, rate normal, Heart sounds normal; Intact distal pulses; The pedal pulses are 2+ and symmetric. Radial pulses are 2+ and symmetric. (-) Murmur Pulmonary/Chest wall: Effort normal. (-) Respiratory distress, (-) Wheezes, (-) Rales. Bilateral base crackles. Abd: Soft, (-) Distension, (-) Guarding, (-) Rebound, Suprapubic tenderness Musculoskeletal: (-) Edema Lymph: (-) Cervical adenopathy Neuro: Alert, Oriented x3 Psych: Mood and affect Normal Triage Information Reviewed: Yes Vital Signs On Initial Exam: Initial Vitals Pulse BP Pulse Ox 102 111/72 93 08/06/19 08:05 08/06/19 08:05 08/06/19 08:05 Vital Signs Reviewed: Yes - Davonte Coma Scale Best Eye Response: 4 - Spontaneous Best Motor Response: 6 - Obeys Commands Best Verbal Response: 5 - Oriented Coma Scale Total: 15 Procedures - Sedation Patient Received Moderate/Deep Sedation with Procedure: No Diagnostics - Vital Signs Vital Signs Temp Pulse Resp BP Pulse Ox 08/06/19 08:30 102 24 103/64 97 08/06/19 08:29 103 17 97 08/06/19 08:23 100 91 08/06/19 08:15 91 08/06/19 08:12 99 F 103 20 111/72 94 08/06/19 08:05 102 111/72 93 - Laboratory Lab Results: Lab Results 08/06/19 08/06/19 08/06/19 Range/Units 08:18 08:18 08:18 WBC 9.2 (3.5-10.8) 10^3/uL RBC 3.49 L (4.18-5.48) 10^6 /uL Hgb 11.7 L (14.0-18.0) g/dL Hct 34 L (42-52) % MCV 96 H (80-94) fL MCH 34 H (27-31) pg MCHC 35 (31-36) g/dL RDW 17 H (10-15) % Plt Count 129 L (150-450) 10^3/uL MPV 6.7 L (7.4-10.4) fL Neut % (Auto) 95.2 % Lymph % (Auto) 1.2 % Arthur % (Auto) 2.5 % Eos % (Auto) 0.6 % Baso % (Auto) 0.5 % Absolute Neuts (auto) 8.8 H (1.5-7.7) 10^3/ul Absolute Lymphs (auto) 0.1 L (1.0-4.8) 10^3/ul Absolute Monos (auto) 0.2 (0-0.8) 10^3/ul Absolute Eos (auto) 0.1 (0-0.6) 10^3/ul Absolute Basos (auto) 0.0 (0-0.2) 10^3/ul Absolute Nucleated RBC 0.0 10^3/ul Nucleated RBC % 0.1 INR (Anticoag Therapy) 1.04 (0.82-1.09) APTT 30.3 (26.0-38.0) seconds Sodium 143 (135-145) mmol/L Potassium 3.0 L (3.5-5.0) mmol/L Chloride 103 (101-111) mmol/L Carbon Dioxide 32 (22-32) mmol/L Anion Gap 8 (2-11) mmol/L BUN 14 (6-24) mg/dL Creatinine 1.02 (0.67-1.17) mg/dL Est GFR ( Amer) 86.2 (>60) Est GFR (Non-Af Amer) 71.2 (>60) BUN/Creatinine Ratio 13.7 (8-20) Glucose 187 H (70-100) mg/dL Lactic Acid (0.5-2.0) mmol/L Calcium 8.9 (8.6-10.3) mg/dL Total Bilirubin 0.90 (0.2-1.0) mg/dL AST 24 (13-39) U/L ALT 15 (7-52) U/L Alkaline Phosphatase 66 (34-104) U/L Total Creatine Kinase Pending Troponin I 0.05 H* (<0.04) ng/mL Total Protein 5.5 L (6.4-8.9) g/dL Albumin 3.4 (3.2-5.2) g/dL Globulin 2.1 (2-4) g/dL Albumin/Globulin Ratio 1.6 (1-3) 08/06/19 Range/Units 08:18 WBC (3.5-10.8) 10^3/uL RBC (4.18-5.48) 10^6 /uL Hgb (14.0-18.0) g/dL Hct (42-52) % MCV (80-94) fL MCH (27-31) pg MCHC (31-36) g/dL RDW (10-15) % Plt Count (150-450) 10^3/uL MPV (7.4-10.4) fL Neut % (Auto) % Lymph % (Auto) % Arthur % (Auto) % Eos % (Auto) % Baso % (Auto) % Absolute Neuts (auto) (1.5-7.7) 10^3/ul Absolute Lymphs (auto) (1.0-4.8) 10^3/ul Absolute Monos (auto) (0-0.8) 10^3/ul Absolute Eos (auto) (0-0.6) 10^3/ul Absolute Basos (auto) (0-0.2) 10^3/ul Absolute Nucleated RBC 10^3/ul Nucleated RBC % INR (Anticoag Therapy) (0.82-1.09) APTT (26.0-38.0) seconds Sodium (135-145) mmol/L Potassium (3.5-5.0) mmol/L Chloride (101-111) mmol/L Carbon Dioxide (22-32) mmol/L Anion Gap (2-11) mmol/L BUN (6-24) mg/dL Creatinine (0.67-1.17) mg/dL Est GFR ( Amer) (>60) Est GFR (Non-Af Amer) (>60) BUN/Creatinine Ratio (8-20) Glucose (70-100) mg/dL Lactic Acid 3.4 H* (0.5-2.0) mmol/L Calcium (8.6-10.3) mg/dL Total Bilirubin (0.2-1.0) mg/dL AST (13-39) U/L ALT (7-52) U/L Alkaline Phosphatase (34-104) U/L Total Creatine Kinase Troponin I (<0.04) ng/mL Total Protein (6.4-8.9) g/dL Albumin (3.2-5.2) g/dL Globulin (2-4) g/dL Albumin/Globulin Ratio (1-3) Result Diagrams: 08/10/19 06:07 08/10/19 06:07 Lab Statement: Any lab studies that have been ordered have been reviewed, and results considered in the medical decision making process. - Radiology Chest X-ray Radiology Interpretation Completed By: Radiologist Summary of Radiographic Findings: Chest X-ray IMPRESSION: NO EVIDENCE FOR ACTIVE CARDIOPULMONARY DISEASE. Reviewed by ED physician. - CT Brain CT CT Interpretation Completed By: Radiologist Summary of CT Findings: Brain CT IMPRESSION: NO ACUTE INTRACRANIAL PATHOLOGY. CHRONIC SMALL VESSEL ISCHEMIC CHANGE. Reviewed by ED physician. - EKG 08:30 Cardiac Rate: NL - 99 BPM EKG Rhythm: Sinus Rhythm ST Segment: Normal Ectopy: None - EKG at 08:30 shows 99 BPM with normal sinus rhythm, no STEMI. Summary of EKG Findings: EKG at 08:30 shows 99 BPM with normal sinus rhythm, no STEMI. Reviewed and interpreted by ED physician. Complex Multi-Symp Course/Dx Assessment/Plan: Pt is a 73 y/o M presenting to the ED after a fall. Pt was able to go to the bathroom with a walker and fell. Pt was found by alf staff on the floor. Pt is present with his daughter. Pt currently lives in [facility]. Pts daughter states pt fell from fatigue. Pts daughter states he has some wounds on the bilateral arms, but is unsure if they are new. Pt admits sleep disturbance, drowsiness, fatigue, back pain and occasional vomiting. Pt has had edema in the bilateral upper and lower extremities that pt has had in the past and is not new. Pt denies any fever, chills, erythema of eyes, sore throat, CP, chest pressure, SOB, cough, abdominal pain, nausea, dysuria, hematuria, rash, or dizziness. Pt denies using oxygen at home. Pt had back surgery in May in [place] and Dr. Morfin was his spinal surgeon. Pt recently had a doctors appointment and had a dose adjustment for a Fentanyl patch that was reduced to half the original dose. Pt has taken Prednisone for sarcoidosis for approximately 15 years ago. When pt temporarily stopped taking Prednisone, pt worsened so he continued to take Prednisone. Pt also takes oxycodone. Pt was previous at [facility] in October for a back infection for which he took a course of antibiotics for 2 months, and most recently was seen in May for a UTI. Pt has a PMHx of sleep apnea. On exam, pt is somnolent, but rousable, has suprapubic tenderness, and bilateral base crackles. EKG at 08:30 shows 99 BPM with normal sinus rhythm, no STEMI. Laboratory abnormal findings: RBC 3.49, Hbg 11.7, Hct 34, MCV 96, MCH 34, RDW 17, Plt Count 129, MPV 6.7, Absolute neuts 8.8, absolute lymphs 0.1, potassium 3.0, glucose 187, lactic acid 3.4, troponin I 0.05, total protein 5.5. Pt has no apparent injuries from the fall. Pt does have Hx of spinal infection however he does not report back pain today. Previous spinal infection followed cortisone injection and back surgery. Due to no suprapubic pain and no referred pain, I believe the source to be urinary. In the ED course, pt was given acetaminophen 650 mg PO, ceftriaxone 50 mls IVPB , and fluids. Chest X-ray IMPRESSION: NO EVIDENCE FOR ACTIVE CARDIOPULMONARY DISEASE. Brain CT IMPRESSION: NO ACUTE INTRACRANIAL PATHOLOGY. CHRONIC SMALL VESSEL ISCHEMIC CHANGE. At 10:40, I spoke with Dr. Rock about the pts case and who agrees to accept the pt at [facility] with a Dx of UTI, sepsis, and fall. - Diagnoses Provider Diagnoses: Fall, Sepsis, UTI (urinary tract infection) Discharge ED - Sign-Out/Discharge Documenting (check all that apply): Patient Departure - Admit - Discharge Plan Condition: Good Disposition: ADMITTED TO [facility] - Attestation Statements Document Initiated by Scribe: Yes Documenting Scribe: Marylou Caba Provider For Whom Scribe is Documenting (Include Credential): Chato Dang MD. Scribe Attestation: I, Marylou Caba, scribed for Chato Dang MD. on 08/24/19 at 1025. Status of Scribe Document: Ready Consult Consult: At 10:40, I spoke with Dr. Rock about the pts case and who agrees to accept the pt at [facility] with a Dx of UTI, sepsis, and fall.
[2019-08-06 10:22] LABS: Urine Appearance Cloudy; Urine Bacteria 1+ (Absent); Urine Bilirubin Negative (Negative); Urine Blood 3+ (Negative); Urine Color Yellow; Urine Glucose Negative (Negative); Urine Ketones Negative (Negative); Urine Nitrite Positive (Negative); Urine Protein Negative (Negative); Urine Red Blood Cell 3+(>10/hpf) (Absent); Urine Specific Gravity 1.012 (1.010-1.030); Urine Urobilinogen Negative (Negative); Urine White Blood Cell 3+(>20/hpf) (Absent)
[2019-08-06] MEDS ORDERED: Acetaminophen TAB* 325 MG PO PRN ×2 (11:14→11:20)
[2019-08-06] MEDS ORDERED: Loperamide CAP* 2 MG PO PRN (11:16)
[2019-08-06] MEDS ORDERED: oxyCODONE TAB* 5 MG TAB PO PRN (11:16)
[2019-08-06] MEDS: NS 0.9% 1000 ML** 1,000 ML IV SCH (16:22)
[2019-08-06] MEDS: Mometasone 220 MCG MDI INH SCH (19:17)
[2019-08-06] MEDS: Lactobacillus Acidophilus* 1 TAB PO SCH (20:53)
[2019-08-06] MEDS: Gabapentin CAP(*) 100 MG PO SCH (20:53)
[2019-08-06] MEDS: Acetaminophen TAB* 325 MG PO SCH (20:54)
[2019-08-06] MEDS: Carvedilol TAB* 3.125 MG PO SCH (20:55)
[2019-08-06] MEDS: Tamsulosin CAP* 0.4 MG PO SCH (20:55)
[2019-08-06] MEDS: amLODIPine TAB* 5 MG PO SCH (20:55)
[2019-08-07] MEDS: NS 0.9% 1000 ML** 1,000 ML IV SCH (02:18)
[2019-08-07 06:46] LABS: ABS Eosinophils 0.1 10^3/ul (0-0.6); ABS Lymphocytes 0.3 10^3/ul (1.0-4.8); ABS Monocytes 0.3 10^3/ul (0-0.8); ABS Neutrophils 4.2 10^3/ul (1.5-7.7); Hematocrit 32 % (42-52); Hemoglobin 10.8 g/dL (14.0-18.0); Mean Corpuscular HGB Conc 34 g/dL (31-36); Mean Corpuscular Hemoglobin 33 pg (27-31); Mean Corpuscular Volume 97 fL (80-94); Mean Platelet Volume 7.1 fL (7.4-10.4); Platelet Count 98 10^3/uL (150-450); Red Blood Count 3.27 10^6 /uL (4.18-5.48); Red Cell Distribution Width 17 % (10-15); White Blood Count 4.8 10^3/uL (3.5-10.8)
[2019-08-07 06:56] LABS: BUN/Creatinine Ratio 15.6 (8-20); Calcium 8.3 mg/dL (8.6-10.3); EGFR African American 119.2 (>60); EGFR Non-African American 98.5 (>60)
[2019-08-07 07:09] LABS: Eosinophil % 2.1 %; Lymphocyte % 5.3 %
[2019-08-07] MEDS ORDERED: Potassium Chloride* LIQUID 20 MEQ/15 ML UDC PO ONE (07:10)
[2019-08-07] MEDS: KCL 20 MEQ/100 ML IVPREMIX* 20 MEQ/100 ML BAG IV SCH ×2 (07:57→10:39)
[2019-08-07] MEDS: Carvedilol TAB* 3.125 MG PO SCH ×2 (08:04→21:42)
[2019-08-07] MEDS: Lactobacillus Acidophilus* 1 TAB PO SCH ×2 (08:05→21:41)
[2019-08-07] MEDS: predniSONE TAB* 10 MG PO SCH (08:05)
[2019-08-07] MEDS: Magnesium Oxide TAB* 400 MG PO SCH (08:05)
[2019-08-07] MEDS: Cholecalciferol TAB* 1000 UNITS PO SCH (08:05)
[2019-08-07] MEDS: Pantoprazole TAB * 40 MG TAB PO SCH (08:05)
[2019-08-07] MEDS: Tamsulosin CAP* 0.4 MG PO SCH ×2 (08:05→21:42)
[2019-08-07] MEDS: Acetaminophen TAB* 325 MG PO SCH ×2 (08:06→21:43)
[2019-08-07] MEDS ORDERED: Influenza VAC *QUAD* 2019-20* 0.5 ML SYRINGE IM ONE (09:00)
[2019-08-07] MEDS: cefTRIAXone(*) 1 GM in NS 0.9% 50 ML* 50 ML IVPB SCH (13:06)
--- NOTE | 2019-08-07 15:01 | PN ---
Subjective Date of Service: 08/07/19 Interval History: Patient is feeling poorly. Patient has very low exercise tolerance. Patient has some subjective fevers. Patient denies dizziness, CP, SOB, diarrhea, N/V, or other pain. Family History: Unchanged from Admission Social History: Unchanged from Admission Past Medical History: Unchanged from Admission Objective Active Medications: Acetaminophen (Tylenol Tab*) 487.5 mg PO BID [facility] Last Admin: 08/07/19 08:06 Dose: 487.5 mg Acetaminophen (Tylenol Tab*) 650 mg PO Q4H PRN PRN Reason: PAIN - MILD Amlodipine Besylate (Norvasc Tab*) 5 mg PO BEDTIME [facility] Last Admin: 08/06/19 20:55 Dose: 5 mg Carvedilol (Coreg Tab*) 3.125 mg PO BID [facility] Last Admin: 08/07/19 08:04 Dose: 3.125 mg Cholecalciferol (Vitamin D Tab*) 2,000 units PO DAILY [facility] Last Admin: 08/07/19 08:05 Dose: 2,000 units Gabapentin (Neurontin Cap(*)) 100 mg PO BEDTIME [facility] Last Admin: 08/06/19 20:53 Dose: 100 mg Sodium Chloride (Ns 0.9% 1000 Ml) 1,000 mls @ 100 mls/hr IV PER RATE [facility] Stop: 08/07/19 21:14 Last Admin: 08/07/19 02:18 Dose: 100 mls/hr Ceftriaxone Sodium 1 gm/ (Sodium Chloride) 50 mls @ 100 mls/hr IVPB Q24H [facility] Last Admin: 08/07/19 13:06 Dose: 100 mls/hr Lactobacillus Rhamnosus (Lactobacillus Acidophilus*) 1 tab PO BID [facility] Last Admin: 08/07/19 08:05 Dose: 1 tab Loperamide HCl (Imodium Cap*) 2 mg PO Q4H PRN PRN Reason: DIARRHEA Magnesium Oxide (Magox 400 Tab*) 400 mg PO DAILY [facility] Last Admin: 08/07/19 08:05 Dose: 400 mg Mometasone Furoate (Asmanex 220 Mcg Mdi *) 1 puff INH QPM [facility] Last Admin: 08/06/19 19:17 Dose: Not Given Oxycodone HCl (Roxycodone Tab*) 5 mg PO BEDTIME PRN PRN Reason: Moderate pain Pantoprazole Sodium (Protonix Tab*) 40 mg PO DAILY [facility] Last Admin: 08/07/19 08:05 Dose: 40 mg Prednisone (Deltasone Tab*) 10 mg PO QAM [facility] Last Admin: 08/07/19 08:05 Dose: 10 mg Tamsulosin HCl (Flomax Cap*) 0.4 mg PO BID [facility] Last Admin: 08/07/19 08:05 Dose: 0.4 mg Vital Signs - 8 hr 08/07/19 08/07/19 08/07/19 07:00 08:00 11:00 Temperature 98.5 F 98.3 F Pulse Rate 99 94 Respiratory 14 18 18 Rate Blood Pressure 147/78 125/76 (mmHg) O2 Sat by Pulse 97 96 96 Oximetry Oxygen Devices in Use Now: None Appearance: Patient is a 73yo male who appears stated age and is sitting in the bed in [facility]. Eyes: No Scleral Icterus, PERRLA Ears/Nose/Mouth/Throat: NL Teeth, Lips, Gums, Clear Oropharnyx, Mucous Membranes Moist Neck: NL Appearance and Movements; NL JVP, Trachea Midline Respiratory: Symmetrical Chest Expansion and Respiratory Effort, Clear to Auscultation Cardiovascular: NL Sounds; No Murmurs; No JVD, RRR, No Edema Abdominal: NL Sounds; No Tenderness; No Distention, No Hepatosplenomegaly Lymphatic: No Cervical Adenopathy Extremities: No Edema, No Clubbing, Cyanosis Skin: No Nodules or Sclerosis, - - Large burden of Keratosis Neurological: Alert and Oriented x 3, NL Sensation, NL Muscle Strength and Tone , - - CN II-XII intact. Result Diagrams: 08/07/19 05:37 08/07/19 05:37 Additional Lab and Data: Lab Results Microbiology and Other Data: Microbiology 08/06/19 10:13 Urine Culture - Preliminary Urine Klebsiella Oxytoca 08/06/19 08:20 Aerobic Blood Culture - Preliminary Blood Venous No Growth Day 1 Anaerobic Blood Culture - Preliminary No Growth Day 1 08/06/19 08:18 Aerobic Blood Culture - Preliminary Blood Venous No Growth Day 1 Anaerobic Blood Culture - Preliminary No Growth Day 1 08/06/19 10:40 Nasal Screen MRSA (PCR) - Final Nasal Mrsa Not Detected Assess/Plan/Problems-Billing Assessment: Patient is a 73yo male with a PMH for Lumbar Spine Discitis, S/P treatment, Sarcoidosis, DM II, AYUSH, here with sepsis associated with UTI who is improving with antibiotics. - Patient Problems (1) Sepsis Current Visit: No Status: Acute Comment: - Due to UTI. - Met with Lactic acidosis, Fever, Tachycardia - No intial Hypotension, got fluid bolus - Resolved. (2) UTI due to Klebsiella species Current Visit: No Status: Acute Code(s): N39.0 - URINARY TRACT INFECTION, SITE NOT SPECIFIED; B96.1 - KLEBSIELLA PNEUMONIAE THE CAUSE OF DISEASES CLASSD [facility] SNOMED Code(s): 896918219784677 Comment: - On Ceftriaxone, isolate from 05/2019 susceptible. (3) Diabetes Current Visit: No Status: Acute Code(s): E11.9 - TYPE 2 DIABETES MELLITUS WITHOUT COMPLICATIONS SNOMED Code(s): 94376612 Comment: - A1c 5.4% 1 month ago - On no Meds, SSI in the hospital. (4) BPH (benign prostatic hyperplasia) Current Visit: No Status: Acute Code(s): N40.0 - BENIGN PROSTATIC HYPERPLASIA WITHOUT LOWER URINRY TRACT SYMP SNOMED Code(s): 400675350 Comment: - Continue tamsulosin. (5) Diastolic CHF Current Visit: No Status: Acute Code(s): I50.30 - UNSPECIFIED DIASTOLIC ( CONGESTIVE) HEART FAILURE SNOMED Code(s): 123910471 Comment: - Pt with chronic LE edema that has been essentially unchanged for years per the patient. - Continue Coreg, hold bumex at this time - Strict I/O and daily weight. - Judicous fluids (6) HTN (hypertension) Current Visit: No Status: Acute Code(s): I10 - ESSENTIAL (PRIMARY) HYPERTENSION SNOMED Code(s): 94867492 Comment: - Controlled. - Continue Coreg, Hold Bumex (7) Sarcoidosis Current Visit: No Status: Acute Code(s): D86.9 - SARCOIDOSIS, UNSPECIFIED SNOMED Code(s): 40491258 Comment: - On chronic Steroids, Continue 10mg Daily - No signs of hypotension due to relative adrenal insufficiency in the setting of infection. (8) Weakness Current Visit: No Status: Acute Code(s): R53.1 - WEAKNESS SNOMED Code(s): 51032254 Comment: - Due to UTI, PT/OT (9) DVT prophylaxis Current Visit: No Status: Acute Code(s): SOA2203 - SNOMED Code(s): 433002951 Comment: - Lovenox SubQ Status and Disposition: Inpatient for UTI, Pending improvement and urine culture.
[2019-08-07] MEDS ORDERED: Dextrose 50% VIAL 50 ml IV PUSH PRN (15:10)
[2019-08-07] MEDS: Insulin LISPRO* 1 UNITS UNIT SUBCUT SCH ×2 (18:11→21:45)
[2019-08-07] MEDS: Enoxaparin(*) 40 MG/0.4 ML SYR SUBCUT SCH (18:12)
--- NOTE | 2019-08-07 20:48 | HP ---
CC: Dr. Styles * HISTORY AND PHYSICAL: DATE OF ADMISSION: 08/06/19 PRIMARY CARE PROVIDER: Dr. Styles. CHIEF COMPLAINT: Weakness. HISTORY OF PRESENT ILLNESS: Mr. Kemp is a 73-year-old male who presented to the emergency room with complaints of generalized weakness, who was unable to ambulate which he is typically able to do. The patient has been residing at [facility] for care following lumbar fusion in May 2019. The patient's history consists of MSSA, lumbar diskitis, sarcoidosis, and type 2 diabetes. The patient himself is unable to provide much in the way of history. When I ask what has been going on, he starts dating back to 10 years ago; however, when I ask him to tell me what has been going on over the last couple of weeks, he does not do so. PAST MEDICAL/SURGICAL HISTORY: 1. MSSA lumbar diskitis, October 2018. 2. L-spine fusion, May 2019. 3. Hypertension. 4. Sarcoidosis. 5. BPH. 6. Nephrolithiasis. 7. B12 deficiency. 8. History of squamous cell carcinoma of the skin. 9. AYUSH. 10. Type 2 diabetes. 11. Sciatica. 12. Anxiety and depression. 13. Tonsillectomy. 14. Bilateral cataract extractions. MEDICATIONS: 1. Imodium 2 mg p.o. q.4 hours p.r.n. diarrhea. 2. Budesonide Flexhaler 2 puffs inhaled b.i.d. 3. Tylenol Extra Strength 1000 mg p.o. b.i.d. 4. Amlodipine 5 mg p.o. q.h.s. 5. Flomax 0.4 mg p.o. b.i.d. 6. Omeprazole 40 mg p.o. daily. 7. Lactobacillus 1 tab p.o. b.i.d. 8. Vitamin D3 2000 units p.o. daily. 9. Coreg 3.125 mg p.o. b.i.d. 10. Prednisone 10 mg p.o. daily. 11. Tinactin apply topically at bedtime. 12. Tricon 1 cap p.o. daily. 13. Oxycodone 5 mg p.o. q.h.s. p.r.n. pain. 14. Magnesium oxide 400 mg p.o. daily. 15. Fentanyl patch 12 mcg topically q.72 hours. 16. Gabapentin 100 mg p.o. q.h.s. 17. Bumex 1 mg p.o. b.i.d. ALLERGIES: No known drug allergies. FAMILY HISTORY: Dad had hypertension. Mom had Alzheimer's with early onset at the age of 64. 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 Currently, he is residing at [facility]. He is . He is a lifelong nonsmoker. Drinks alcohol very rarely. REVIEW OF SYSTEMS: Attempted; however, the patient is too lethargic to answer. PHYSICAL EXAMINATION GENERAL: The patient is a well-developed elderly male seen lying in the stretcher sleeping, awakening easily to voice but promptly falling back asleep and in no acute distress. VITAL SIGNS: Blood pressure 128/81, pulse 89, respirations 22, temp 99, O2 sat 99% on 2 L. HEENT: Pupils are equal. Extraocular muscles are intact. Oropharynx is clear. Oral mucosa is somewhat dry. There is no submandibular, cervical, or supraclavicular adenopathy. PULMONARY: Lungs are clear to auscultation anteriorly. CARDIAC: Normal S1, S2. Regular rate and rhythm. There is no lower extremity edema. ABDOMEN: Bowel sounds are present. Abdomen is soft, nontender, and nondistended. MUSCULOSKELETAL: There is no cyanosis or clubbing of the digits. There is full active range of motion of all 4 extremities. SKIN: Warm and dry. There are no rashes. NEUROLOGIC: Exam is deferred as the patient is too sleepy to participate. PSYCH: The patient is lethargic. Again, he does not answer my questions readily. DIAGNOSTIC STUDIES/LAB DATA: WBC 9.2, hemoglobin 11.7, hematocrit 34, platelets 129,000. INR 1.04. Sodium 143, potassium 3.0, chloride 103, CO2 of 32, BUN 14, creatinine 1.02, glucose 187, lactic acid 3.4, calcium 8.9, bilirubin 0.9. AST 24, ALT 15, alk phos 66. CPK 38. Troponin 0.05. BNP 127. Albumin 3.4. Urinalysis reveals cloudy urine with a specific gravity of 1.012 , positive nitrites, 1+ leukocyte esterase, 3+ wbc's, 1+ bacteria. ABG 7.45/47/131. Chest x-ray: No evidence for active cardiopulmonary disease. CT brain: No acute intracranial pathology. EKG reveals normal sinus rhythm with no acute ST-T wave abnormalities. ASSESSMENT AND PLAN: Mr. Kemp is a 73-year-old male with a complicated medical history including methicillin-sensitive Staphylococcus aureus lumbar diskitis in October 2018, sarcoidosis on chronic prednisone, hypertension, benign prostatic hypertrophy, type 2 diabetes, and obstructive sleep apnea, who presents to the emergency room with complaints of weakness and lethargy and is found to have likely severe sepsis secondary to urinary tract infection. 1. Severe sepsis secondary to urinary tract infection. At this point, urinary source appears to be most likely as his urinalysis is markedly abnormal. By definition, he is severely septic as his lactic acid is greater than 2. Clinically; however, he does not look hemodynamically unstable. He will be admitted and placed on IV ceftriaxone and await the urine culture. He received almost 3 L of fluid in the emergency room and will continue on normal saline at 100 mL per hour x2 more liters. Labs will be followed up tomorrow. His lactic acid will be followed up until it normalizes. 2. Elevated troponin. The patient's troponin is mildly elevated at 0.05. His baseline troponin is elevated in the 0.4 to 0.7 range. 3. Hypertension. Blood pressure is under acceptable control. He will continue on amlodipine and Coreg at home doses. 4. Sarcoidosis. Continue prednisone 10 mg p.o. daily. 5. Benign prostatic hypertrophy. Continue Flomax. 6. Chronic pain. The patient had 2 fentanyl patches on, this may have contributed to some of his lethargy. These were removed in the emergency room. He will continue with standing Tylenol twice daily and oxycodone p.r.n. at bedtime. If the patient's mental status improves, the fentanyl patch will be added back. 7. DVT prophylaxis. According to the Adult Thrombosis Prophylaxis Risk Factor Assessment Guide, the patient has a total risk factor score of 5 making him the highest risk. Heparin 5000 units subcutaneous q.8 hours will be utilized as DVT prophylaxis. 8. Code status is full. TIME SPENT: Fifty minutes were spent admitting this patient. [id number]/[facility] #: [id number] EMILIANO
[2019-08-07] MEDS: amLODIPine TAB* 5 MG PO SCH (21:43)
[2019-08-07] MEDS: Gabapentin CAP(*) 100 MG PO SCH (21:44)
[2019-08-07] MEDS: Mometasone 220 MCG MDI INH SCH (21:49)
[2019-08-08 07:12] LABS: ABS Eosinophils 0.1 10^3/ul (0-0.6); ABS Lymphocytes 0.4 10^3/ul (1.0-4.8); ABS Monocytes 0.3 10^3/ul (0-0.8); ABS Neutrophils 3.4 10^3/ul (1.5-7.7); Eosinophil % 2.1 %; Hematocrit 30 % (42-52); Hemoglobin 10.4 g/dL (14.0-18.0); Lymphocyte % 9.1 %; Mean Corpuscular HGB Conc 35 g/dL (31-36); Mean Corpuscular Hemoglobin 33 pg (27-31); Mean Corpuscular Volume 95 fL (80-94); Mean Platelet Volume 7.1 fL (7.4-10.4); Nucleated Red Blood Cells % 0.1; Platelet Count 98 10^3/uL (150-450); Red Blood Count 3.15 10^6 /uL (4.18-5.48); Red Cell Distribution Width 17 % (10-15); White Blood Count 4.2 10^3/uL (3.5-10.8)
[2019-08-08 07:20] LABS: BUN/Creatinine Ratio 14.3 (8-20); Calcium 8.9 mg/dL (8.6-10.3); EGFR Non-African American 109.9 (>60); Magnesium 1.7 mg/dL (1.9-2.7)
[2019-08-08] MEDS: Insulin LISPRO* 1 UNITS UNIT SUBCUT SCH ×4 (09:02→21:36)
[2019-08-08] MEDS: cefTRIAXone(*) 1 GM in NS 0.9% 50 ML* 50 ML IVPB SCH (09:03)
[2019-08-08] MEDS: Acetaminophen TAB* 325 MG PO SCH ×2 (09:08→21:23)
[2019-08-08] MEDS: Magnesium Oxide TAB* 400 MG PO SCH (09:09)
[2019-08-08] MEDS: Tamsulosin CAP* 0.4 MG PO SCH ×2 (09:09→21:22)
[2019-08-08] MEDS: Lactobacillus Acidophilus* 1 TAB PO SCH ×2 (09:09→21:22)
[2019-08-08] MEDS: Carvedilol TAB* 3.125 MG PO SCH ×2 (09:10→21:23)
[2019-08-08] MEDS: Pantoprazole TAB * 40 MG TAB PO SCH (09:10)
[2019-08-08] MEDS: Cholecalciferol TAB* 1000 UNITS PO SCH (09:11)
[2019-08-08] MEDS: predniSONE TAB* 10 MG PO SCH (09:11)
--- NOTE | 2019-08-08 12:15 | PN ---
Subjective Date of Service: 08/08/19 Interval History: Patient is still feeling weak. Patient does not feel as if this or his general feeling of being unwell has improved from yesterday. Patient complains of bothersome frequency of urination. Patient denies F/C, CP, SOB, dizziness, or other pain Family History: Unchanged from Admission Social History: Unchanged from Admission Past Medical History: Unchanged from Admission Objective Active Medications: Acetaminophen (Tylenol Tab*) 487.5 mg PO BID [facility] Last Admin: 08/08/19 09:08 Dose: 487.5 mg Acetaminophen (Tylenol Tab*) 650 mg PO Q4H PRN PRN Reason: PAIN - MILD Amlodipine Besylate (Norvasc Tab*) 5 mg PO BEDTIME [facility] Last Admin: 08/07/19 21:43 Dose: 5 mg Carvedilol (Coreg Tab*) 3.125 mg PO BID [facility] Last Admin: 08/08/19 09:10 Dose: 3.125 mg Cholecalciferol (Vitamin D Tab*) 2,000 units PO DAILY [facility] Last Admin: 08/08/19 09:11 Dose: 2,000 units Dextrose (Dextrose 50% Vial 50 Ml*) 25 ml IV PUSH .FOR FS < 60 - SS PRN PRN Reason: FS < 60 Enoxaparin Sodium (Lovenox(*)) 40 mg SUBCUT Q24H [facility] Last Admin: 08/07/19 18:12 Dose: 40 mg Gabapentin (Neurontin Cap(*)) 100 mg PO BEDTIME [facility] Last Admin: 08/07/19 21:44 Dose: 100 mg Ceftriaxone Sodium 1 gm/ (Sodium Chloride) 50 mls @ 100 mls/hr IVPB Q24H [facility] Last Admin: 08/08/19 09:03 Dose: 100 mls/hr Insulin Human Lispro (Humalog*) 0 units SUBCUT ACHS [facility]; Protocol Last Admin: 08/08/19 09:02 Dose: 2 units Lactobacillus Rhamnosus (Lactobacillus Acidophilus*) 1 tab PO BID [facility] Last Admin: 08/08/19 09:09 Dose: 1 tab Loperamide HCl (Imodium Cap*) 2 mg PO Q4H PRN PRN Reason: DIARRHEA Magnesium Oxide (Magox 400 Tab*) 400 mg PO DAILY [facility] Last Admin: 08/08/19 09:09 Dose: 400 mg Mometasone Furoate (Asmanex 220 Mcg Mdi *) 1 puff INH QPM [facility] Last Admin: 08/07/19 21:49 Dose: Not Given Oxycodone HCl (Roxycodone Tab*) 5 mg PO BEDTIME PRN PRN Reason: Moderate pain Pantoprazole Sodium (Protonix Tab*) 40 mg PO DAILY [facility] Last Admin: 08/08/19 09:10 Dose: 40 mg Prednisone (Deltasone Tab*) 10 mg PO QAM [facility] Last Admin: 08/08/19 09:11 Dose: 10 mg Tamsulosin HCl (Flomax Cap*) 0.4 mg PO BID [facility] Last Admin: 08/08/19 09:09 Dose: 0.4 mg Vital Signs - 8 hr 08/08/19 08/08/19 08/08/19 07:00 08:00 11:00 Temperature 98.2 F 97.6 F Pulse Rate 91 94 Respiratory 17 17 Rate Blood Pressure 147/79 108/66 (mmHg) O2 Sat by Pulse 100 100 97 Oximetry Oxygen Devices in Use Now: None Appearance: Patient is a 73yo male who appears stated age and is sitting in the bed in [facility]. Eyes: No Scleral Icterus, PERRLA Ears/Nose/Mouth/Throat: NL Teeth, Lips, Gums, Clear Oropharnyx, Mucous Membranes Moist Neck: NL Appearance and Movements; NL JVP, Trachea Midline Respiratory: Symmetrical Chest Expansion and Respiratory Effort, Clear to Auscultation Cardiovascular: NL Sounds; No Murmurs; No JVD, RRR, No Edema Abdominal: NL Sounds; No Tenderness; No Distention, No Hepatosplenomegaly Lymphatic: No Cervical Adenopathy Extremities: No Edema, No Clubbing, Cyanosis Skin: No Rash or Ulcers, No Nodules or Sclerosis, - - Large [place] of Keratoses. Neurological: Alert and Oriented x 3, NL Sensation, NL Gait, NL Muscle Strength and Tone, - - CN II-XII intact. Result Diagrams: 08/08/19 06:29 08/08/19 06:29 Additional Lab and Data: Lab Results Microbiology and Other Data: Microbiology 08/06/19 10:13 Urine Culture - Preliminary Urine Klebsiella Oxytoca 08/06/19 08:20 Aerobic Blood Culture - Preliminary Blood Venous No Growth Day 1 Anaerobic Blood Culture - Preliminary No Growth Day 1 08/06/19 08:18 Aerobic Blood Culture - Preliminary Blood Venous No Growth Day 1 Anaerobic Blood Culture - Preliminary No Growth Day 1 08/06/19 10:40 Nasal Screen MRSA (PCR) - Final Nasal Mrsa Not Detected Assess/Plan/Problems-Billing Assessment: Patient is a 73yo male with a PMH for Lumbar Spine Discitis, S/P treatment, Sarcoidosis, DM II, AYUSH, here with sepsis associated with UTI who is improving with antibiotics. - Patient Problems (1) Sepsis Current Visit: No Status: Acute Comment: - Due to UTI. - Met with Lactic acidosis, Fever, Tachycardia - No intial Hypotension, got fluid bolus - Resolved. (2) UTI due to Klebsiella species Current Visit: No Status: Acute Code(s): N39.0 - URINARY TRACT INFECTION, SITE NOT SPECIFIED; B96.1 - KLEBSIELLA PNEUMONIAE THE CAUSE OF DISEASES CLASSD [facility] SNOMED Code(s): 544354974271248 Comment: - On Ceftriaxone - Due to Klebsiella Oxytoca - Sensitive to Ceftriaxone - No stones or abscess in urinary tract. (3) Diabetes Current Visit: No Status: Acute Code(s): E11.9 - TYPE 2 DIABETES MELLITUS WITHOUT COMPLICATIONS SNOMED Code(s): 63941658 Comment: - A1c 5.4% 1 month ago - On no Meds, SSI in the hospital. (4) BPH (benign prostatic hyperplasia) Current Visit: No Status: Acute Code(s): N40.0 - BENIGN PROSTATIC HYPERPLASIA WITHOUT LOWER URINRY TRACT SYMP SNOMED Code(s): 044900155 Comment: - Continue tamsulosin. - Worse than normal frequency of urination likely due to irritation from UTI. (5) Diastolic CHF Current Visit: No Status: Acute Code(s): I50.30 - UNSPECIFIED DIASTOLIC ( CONGESTIVE) HEART FAILURE SNOMED Code(s): 318286173 Comment: - Pt with chronic LE edema that has been essentially unchanged for years per the patient. - Continue Coreg, hold bumex at this time - Strict I/O and daily weight. - Judicous fluids (6) HTN (hypertension) Current Visit: No Status: Acute Code(s): I10 - ESSENTIAL (PRIMARY) HYPERTENSION SNOMED Code(s): 45826327 Comment: - Controlled. - Continue Amlodipine, Coreg - Hold Bumex and resume tomorrow (7) Sarcoidosis Current Visit: No Status: Acute Code(s): D86.9 - SARCOIDOSIS, UNSPECIFIED SNOMED Code(s): 04565646 Comment: - On chronic Steroids, Continue 10mg Daily - No signs of hypotension due to relative adrenal insufficiency in the setting of infection. (8) Weakness Current Visit: No Status: Acute Code(s): R53.1 - WEAKNESS SNOMED Code(s): 98005297 Comment: - Due to UTI, PT/OT (9) DVT prophylaxis Current Visit: No Status: Acute Code(s): GDL4362 - SNOMED Code(s): 278222098 Comment: - Lovenox SubQ Status and Disposition: Inpatient for UTI, Pending improvement possible discharge tomorrow versus Saturday.
[2019-08-08] MEDS ORDERED: Magnesium Sulfate 2 GM IV* 2 GM/50 ML BAG IVPB ONE (17:04)
[2019-08-08] MEDS ORDERED: Potassium Chloride* LIQUID 20 MEQ/15 ML UDC PO ONE (17:04)
[2019-08-08] MEDS: Enoxaparin(*) 40 MG/0.4 ML SYR SUBCUT SCH (17:26)
[2019-08-08] MEDS: Mometasone 220 MCG MDI INH SCH (18:44)
[2019-08-08] MEDS: Gabapentin CAP(*) 100 MG PO SCH (21:21)
[2019-08-08] MEDS: amLODIPine TAB* 5 MG PO SCH (21:23)
[2019-08-09] MEDS: Insulin LISPRO* 1 UNITS UNIT SUBCUT SCH ×4 (07:42→21:47)
[2019-08-09 08:57] LABS: BUN/Creatinine Ratio 11.6 (8-20); Calcium 8.7 mg/dL (8.6-10.3); EGFR African American 135.3 (>60); EGFR Non-African American 111.8 (>60); Magnesium 1.9 mg/dL (1.9-2.7); Potassium 3.2 mmol/L (3.5-5.0)
[2019-08-09] MEDS: Cholecalciferol TAB* 1000 UNITS PO SCH (08:59)
[2019-08-09] MEDS: Carvedilol TAB* 3.125 MG PO SCH ×2 (09:00→21:36)
[2019-08-09] MEDS: Bumetanide TAB* 1 MG PO SCH ×2 (09:00→21:37)
[2019-08-09] MEDS: Magnesium Oxide TAB* 400 MG PO SCH (09:00)
[2019-08-09] MEDS: Acetaminophen TAB* 325 MG PO SCH ×2 (09:00→21:37)
[2019-08-09] MEDS: Pantoprazole TAB * 40 MG TAB PO SCH (09:00)
[2019-08-09] MEDS: Tamsulosin CAP* 0.4 MG PO SCH ×2 (09:00→21:40)
[2019-08-09] MEDS: predniSONE TAB* 10 MG PO SCH (09:00)
[2019-08-09] MEDS: Lactobacillus Acidophilus* 1 TAB PO SCH ×2 (09:00→21:37)
[2019-08-09] MEDS: cefTRIAXone(*) 1 GM in NS 0.9% 50 ML* 50 ML IVPB SCH (10:18)
[2019-08-09] MEDS: Potassium Chlor TAB* 20 MEQ TAB.ER PO SCH ×2 (10:18→12:50)
--- NOTE | 2019-08-09 14:52 | PN ---
Subjective Date of Service: 08/09/19 Interval History: Mr. Kemp states he is feeling "pretty good." He is ambulating well with a walker, as he does at home. He states he is urinating often, especially at night, although he states this is chronic. He is having 2-3 loose stools per day for the last approximately 2 weeks. He has chronic LE edema, which he states is unchanged. He has no other complaints today. Family History: Unchanged from Admission Social History: Unchanged from Admission Past Medical History: Unchanged from Admission Objective Active Medications: Acetaminophen (Tylenol Tab*) 487.5 mg PO BID [facility] Acetaminophen (Tylenol Tab*) 650 mg PO Q4H PRN Amlodipine Besylate (Norvasc Tab*) 5 mg PO BEDTIME [facility] Bumetanide (Bumex Tab*) 1 mg PO BID [facility] Carvedilol (Coreg Tab*) 3.125 mg PO BID [facility] Cholecalciferol (Vitamin D Tab*) 2,000 units PO DAILY [facility] Dextrose (Dextrose 50% Vial 50 Ml*) 25 ml IV PUSH .FOR FS < 60 - SS PRN Enoxaparin Sodium (Lovenox(*)) 40 mg SUBCUT Q24H [facility] Gabapentin (Neurontin Cap(*)) 100 mg PO BEDTIME [facility] Ceftriaxone Sodium 1 gm/ (Sodium Chloride) 50 mls @ 100 mls/hr IVPB Q24H [facility] Insulin Human Lispro (Humalog*) 0 units SUBCUT ACHS [facility]; Protocol Lactobacillus Rhamnosus (Lactobacillus Acidophilus*) 1 tab PO BID [facility] Loperamide HCl (Imodium Cap*) 2 mg PO Q4H PRN Magnesium Oxide (Magox 400 Tab*) 400 mg PO DAILY [facility] Mometasone Furoate (Asmanex 220 Mcg Mdi *) 1 puff INH QPM [facility] Oxycodone HCl (Roxycodone Tab*) 5 mg PO BEDTIME PRN Pantoprazole Sodium (Protonix Tab*) 40 mg PO DAILY [facility] Prednisone (Deltasone Tab*) 10 mg PO QAM [facility] Tamsulosin HCl (Flomax Cap*) 0.4 mg PO BID [facility] Vital Signs: Temp Pulse Resp BP Pulse Ox 99 F 100 20 133/54 99 08/09/19 11:00 08/09/19 11:00 08/09/19 11:00 08/09/19 11:00 08/09/19 11:00 Oxygen Devices in Use Now: None Appearance: Pt is sitting in chair with LE at floor. He is in no acute distress , appears well. Eyes: No Scleral Icterus, PERRLA Ears/Nose/Mouth/Throat: NL Teeth, Lips, Gums, Clear Oropharnyx, Mucous Membranes Moist Neck: NL Appearance and Movements; NL JVP, Trachea Midline Respiratory: Symmetrical Chest Expansion and Respiratory Effort, Clear to Auscultation Cardiovascular: NL Sounds; No Murmurs; No JVD, RRR Abdominal: NL Sounds; No Tenderness; No Distention, No Hepatosplenomegaly, - - CVA nontender to palpation Extremities: No Clubbing, Cyanosis, - - 1-2+ pitting edema to b/l LE Neurological: Alert and Oriented x 3 Result Diagrams: 08/08/19 06:29 08/09/19 08:30 Additional Lab and Data: Lab Results Microbiology and Other Data: Microbiology 08/06/19 10:13 Urine Culture - Preliminary Urine Klebsiella Oxytoca 08/06/19 08:20 Aerobic Blood Culture - Preliminary Blood Venous No Growth Day 1 Anaerobic Blood Culture - Preliminary No Growth Day 1 08/06/19 08:18 Aerobic Blood Culture - Preliminary Blood Venous No Growth Day 1 Anaerobic Blood Culture - Preliminary No Growth Day 1 08/06/19 10:40 Nasal Screen MRSA (PCR) - Final Nasal Mrsa Not Detected Assess/Plan/Problems-Billing Assessment: Patient is a 73yo male with a PMH for Lumbar Spine Discitis, S/P treatment, Sarcoidosis, DM II, AYUSH, here with sepsis associated with UTI who is improving with antibiotics. - Patient Problems (1) UTI due to Klebsiella species Comment: - Due to Klebsiella Oxytoca, sensitive to ceftriaxone - Continue ceftriaxone - No stones or abscess in urinary tract (2) Weakness Comment: - Due to UTI - Improving; pt ambulating with walker without difficulty - PT/OT (3) HTN (hypertension) Status: Acute Comment: - Controlled. - Continue Amlodipine, Coreg - Resume Bumex (4) Diastolic CHF Comment: - Pt with chronic LE edema that has been essentially unchanged for years per the patient. - Continue Coreg, hold bumex at this time - Strict I/O and daily weight. - Judicous fluids (5) BPH (benign prostatic hyperplasia) Comment: - Continue tamsulosin. - Worse than normal frequency of urination likely due to irritation from UTI (6) Sarcoidosis Comment: - On chronic Steroids, Continue 10mg Daily - No signs of hypotension due to relative adrenal insufficiency in the setting of infection (7) Diabetes Comment: - A1c 5.4% 1 month ago - No home medications - SSI in the hospital (8) DVT prophylaxis Comment: - Lovenox SubQ (9) Full code status Status and Disposition: Inpatient for UTI. Pending improvement possible discharge Saturday.
[2019-08-09] MEDS: Enoxaparin(*) 40 MG/0.4 ML SYR SUBCUT SCH (17:42)
[2019-08-09] MEDS: Mometasone 220 MCG MDI INH SCH (19:46)
[2019-08-09] MEDS: Gabapentin CAP(*) 100 MG PO SCH (21:39)
[2019-08-09] MEDS: amLODIPine TAB* 5 MG PO SCH (21:40)
[2019-08-10 07:02] LABS: Hematocrit 31 % (42-52); Hemoglobin 10.5 g/dL (14.0-18.0); Mean Corpuscular HGB Conc 34 g/dL (31-36); Mean Corpuscular Hemoglobin 32 pg (27-31); Mean Corpuscular Volume 96 fL (80-94); Mean Platelet Volume 7.5 fL (7.4-10.4); Platelet Count 114 10^3/uL (150-450); Red Blood Count 3.23 10^6 /uL (4.18-5.48); Red Cell Distribution Width 17 % (10-15); White Blood Count 5.4 10^3/uL (3.5-10.8)
[2019-08-10 07:23] LABS: BUN/Creatinine Ratio 15.8 (8-20); Calcium 8.8 mg/dL (8.6-10.3); Potassium 3.4 mmol/L (3.5-5.0)
[2019-08-10] MEDS: Insulin LISPRO* 1 UNITS UNIT SUBCUT SCH (07:45)
[2019-08-10 07:47] LABS: ABS Eosinophils 0.1 10^3/ul (0-0.6); ABS Lymphocytes 0.5 10^3/ul (1.0-4.8); ABS Monocytes 0.4 10^3/ul (0-0.8); ABS Neutrophils 4.3 10^3/ul (1.5-7.7); Lymphocyte % 9.7 %; Nucleated Red Blood Cells % 0.2
[2019-08-10 08:13] VITALS: BP 135/78
[2019-08-10] MEDS: Lactobacillus Acidophilus* 1 TAB PO SCH (08:25)
[2019-08-10] MEDS: Tamsulosin CAP* 0.4 MG PO SCH (08:25)
[2019-08-10] MEDS: predniSONE TAB* 10 MG PO SCH (08:25)
[2019-08-10] MEDS: Cholecalciferol TAB* 1000 UNITS PO SCH (08:25)
[2019-08-10] MEDS: Pantoprazole TAB * 40 MG TAB PO SCH (08:25)
[2019-08-10] MEDS: Carvedilol TAB* 3.125 MG PO SCH (08:25)
[2019-08-10] MEDS: Bumetanide TAB* 1 MG PO SCH (08:25)
[2019-08-10] MEDS: Magnesium Oxide TAB* 400 MG PO SCH (08:26)
[2019-08-10] MEDS: Acetaminophen TAB* 325 MG PO SCH (08:26)
[2019-08-10] MEDS ORDERED: Potassium Chlor TAB* 20 MEQ TAB.ER PO ONE ×2 (08:28→11:00)
[2019-08-10] MEDS ORDERED: Amoxicillin/Clavulanate TAB* 500 MG PO SCH (09:00)
--- NOTE | 2019-08-10 11:55 | DS ---
CC: Dr. Styles * DATE OF ADMISSION: 08/06/2019. DATE OF DISCHARGE: 08/10/2019. PRIMARY CARE PHYSICIAN: Dr. Styles. ATTENDING PHYSICIAN: Dr. Kavin Esteban * (dictated by DINA Espinosa). PRIMARY DIAGNOSES: 1. Urinary tract infection due to klebsiella. 2. Sepsis. SECONDARY DIAGNOSES: 1. Diabetes mellitus type 2. 2. Hypertension. 3. Sarcoidosis. 4. BPH. 5. AYUSH. 6. Sciatica. 7. Anxiety, depression. 8. History of MSSA lumbar diskitis October 2018. 9. Lumbar spine fusion May 2019. 10. B12 deficiency. 11. History of squamous cell carcinoma of skin. STUDIES WHILE IN THE HOSPITAL: 1. Brain CT: Impression: No acute intracranial pathology. Chronic small vessel ischemic change. 2. Ultrasound renal and bladder: Impression: Small right parapelvic cyst is unchanged. No hydronephrosis. DISCHARGE MEDICATIONS: Home medications: 1. Acetaminophen 1,000 mg p.o. b.i.d. 2. Amlodipine 5 mg p.o. at bedtime. 3. Amoxicillin/Clavulanate 500 mg p.o. b.i.d. times 4 days. 4. Budesonide Flexhaler 90 two puff inhalation b.i.d. 5. Bumetanide 1 mg p.o. b.i.d. 6. Carvedilol 3.125 mg p.o. b.i.d. 7. Cholecalciferol 2,000 units p.o. daily. 8. Fentanyl patch 12 mcg transdermally q.72 hours. 9. Tricon capsule one cap p.o. daily. 10. Gabapentin 100 mg p.o. at bedtime. 11. Lactobacillus Acidophilus one tab p.o. b.i.d. 12. Loperamide 2 mg p.o. q.4 hours prn diarrhea. 13. Magnesium Oxide 400 mg p.o. daily. 14. Omeprazole 40 mg p.o. daily. 15. Oxycodone 5 mg p.o. at bedtime prn pain. 16. Prednisone 10 mg p.o. daily. 17. Tamsulosin 0.4 mg p.o. b.i.d. 18. Tinactin 1% cream one application topically at bedtime. New home medications: 1. Potassium Chloride 20 mEq p.o. daily due to hypokalemia, repeat BMP in 3 to 5 days. 2. Amoxicillin/Clavulanate 500 mg p.o. b.i.d. times 4 days for treatment of klebsiella pneumonia. HISTORY OF PRESENT ILLNESS/HOSPITAL COURSE: Mr. Kemp is a 73-year-old male with a past medical history of MSSA lumbar diskitis October 2018, hypertension, nephrolithiasis, and diabetes mellitus type 2 who presented to the ER on August 06 with complaints of generalized weakness and inability to ambulate. For full and complete details, please see the history and physical dictated by Agatha Rock. In the ER, the patient was noted to have severe sepsis secondary to a urinary tract infection. He was hemodynamically stable. He was started on IV Ceftriaxone. He received approximately 3 liters IV fluid bolus. His lactic acid normalized to 1.4 after fluid boluses. He was noted to be lethargic at the beginning of his stay. He was found to have two Fentanyl patches in place and again was noted to have an abnormal urinalysis, all of which likely contributed to his lethargy, weakness, and inability to ambulate. Urine culture was sent and revealed klebsiella oxytoca susceptible to both Ceftriaxone and Augmentin. The patient was continued on IV Ceftriaxone through- out his stay. Blood cultures were obtained and revealed no growth to date. At discharge, the patient was transitioned to oral Augmentin. The patient worked with Physical Therapy throughout his stay. He had difficulty with ambulation in the beginning of his stay, but by discharge he was feeling back to his baseline. He is able to ambulate the halls with his walker, as he does at [facility], without difficulty. The patient was noted to be mildly anemic during his stay. He received a large fluid bolus, so likely this is partially due to hemodilution. His hemoglobin and hematocrit are trending up at discharge. Recommendations are to repeat CBC in three to five days and follow-up with primary care provider. The patient was also noted to be hypokalemic throughout his stay. His potassium was repleted daily. He will be discharged on potassium chloride 20 mEq p.o. daily with recommendations to repeat BMP in three to five days and follow-up with primary care provider regarding further use of potassium supplementation. At the time of discharge, the patient is complaining of left lateral rib pain. He notes that the pain is not worsened with deep breathing or coughing, but is tender to palpation. He again has been up with his walker. He has been urinating frequently which is likely due partially to BPH as well as urinary tract infection. He had a bowel movement today. He is eating and drinking well. He continues to have bilateral lower extremity edema which is chronic and has not changed recently. The patient denies dizziness, lightheadedness, vision changes, headache, chest pain, shortness of breath, cough, fevers, chills , abdominal pain, nausea, vomiting, diarrhea, constipation, new myalgias, arthralgias or muscle weakness. He is eager for discharge to home. REVIEW OF SYSTEMS: A 14 point review of systems has been performed and all the pertinent positives and negatives are in the HPI. PHYSICAL EXAMINATION: General: Mr. Kemp is a well-developed, well- nourished, obese, older white male who is sitting in his chair with his lower extremities at the floor. The appears comfortable. He is in no acute distress. Vital Signs: Temperature 98.2 oral, heart rate 51, respiratory rate 16, oxygen saturation 95 percent on room air, blood pressure 135/78. HEENT: PERRL, EOMI, nonicteric sclerae. Hearing grossly intact. Oral mucous membranes are moist. There are no lesions. Pharynx is clear. Palate elevates symmetrically. Tongue is at midline. Cardiovascular: Regular rate and rhythm with S1, S2 present without murmurs, rubs, clicks, or gallops. There is no JVD. There is bilateral lower extremity pretibial edema, approximately 2+ pitting, nontender. Pulmonary: Symmetrical chest expansion without use of accessory muscles. Lungs: Clear to auscultation bilaterally without rhonchi, wheezes, or rubs. There is no digital clubbing or cyanosis. Right lateral chest wall tender to palpation. Abdomen: Obese. Bowel sounds noted in all quadrants. Soft, nontender to palpation. Musculoskeletal: Full range of motion without pain or deformities. Neuro: The patient is awake. He is alert and oriented times three with cranial nerves grossly intact. Muscle strength is 5/5 bilaterally in upper and lower extremities, equal. Riprap Worker strength equal bilaterally. DISCHARGE PLAN: Mr. Kemp will be discharged to [facility]. MEDICATIONS: 1. Continue potassium 20 mEq p.o. daily and follow-up with primary care provider regarding further use of potassium supplementation. 2. Continue Augmentin b.i.d. times four days. EDUCATION: 1. Repeat labs, CBC, BMP in approximately three days and follow-up with primary care provider. 2. Follow-up with primary care provider in four to seven days. Discuss recent hospitalization and blood work, referral to Urology services. 3. Follow-up with Urology regarding frequent UTI's. 4. Return to the ER or the nearest hospital if you experience any worsening of symptoms, chest pain or discomfort, shortness of breath, dizziness, lightheadedness, loss of consciousness, high fevers, chills, night sweats or any other worrisome signs or symptoms. CONDITION ON DISCHARGE: Good. DIET: 1. Heart healthy. 2. ADA. ACTIVITY: As tolerated. This is a summarized report of a complex medical history and hospital stay. For further details, please see the entire medical record. TIME SPENT: Approximately 30 minutes were spent on this discharge, greater than half of that time was spent [id number] with the patient discussing discharge plans and instructions. DINA HOYT [id number]/[facility] #: [id number] EMILIANO
== END 2019-08-10 11:15 | DRG 872 ==
LOC: ED 07:59 → MED 11:14 → OBSVTOIN 08-08 12:00
PROVIDERS: ADMIT Hospitalist; ATTEND Internal Medicine
DX: A41.59 Other Gram-negative sepsis (principal); N39.0 Urinary tract infection, site not specified; I50.32 Chronic diastolic (congestive) heart failure; E11.9 Type 2 diabetes mellitus without complications; D86.9 Sarcoidosis, unspecified; G47.33 Obstructive sleep apnea (adult) (pediatric); M54.30 Sciatica, unspecified side; F41.9 Anxiety disorder, unspecified; F32.9 Major depressive disorder, single episode, unspecified; E53.8 Deficiency of other specified B group vitamins; R65.20 Severe sepsis without septic shock; D64.9 Anemia, unspecified; E87.6 Hypokalemia; R07.81 Pleurodynia; N40.1 Benign prostatic hyperplasia with lower urinary tract symptoms; R79.89 Other specified abnormal findings of blood chemistry; G89.29 Other chronic pain; J45.909 Unspecified asthma, uncomplicated; M19.90 Unspecified osteoarthritis, unspecified site; I11.0 Hypertensive heart disease with heart failure; R35.0 Frequency of micturition; Z98.41 Cataract extraction status, right eye; Z98.1 Arthrodesis status; Z85.828 Personal history of other malignant neoplasm of skin; Z79.52 Long term (current) use of systemic steroids; Z87.442 Personal history of urinary calculi; Z98.42 Cataract extraction status, left eye; Z82.0 Family history of epilepsy and other diseases of the nervous system
CPT/HCPCS: 36415; 70450; 71045; 76770; 80048; 80053; 81003; 81015; 82550; 82803; 83605; 83735; 83880; 84484; 85025; 85610; 85730; 87040; 87077; 87086; 87186; 87641; 93005; 96361; 96372; 96374; 96375; 99284; A9270-GY; G0378; G8978-GP-CK; G8979-GP-CI; J0696; J1650; J3475; J3480; J7512

== ENCOUNTER 2019-11-18 19:26 | Observation (INO) | payer MEDICARE, OTHER ==
--- NOTE | 2019-11-18 20:01 | ED ---
HPI Diabetic - HPI Summary HPI Summary: 74 year old male presents to the ED with a chief complaint of feeling weak for the last week. Patient's blood glucose this morning was in the 700s, and as a result he was sent to [facility]. Patient reports frequency voiding over the past three weeks and urinary incontinence. He denies dysuria. PMHx of DM, high urine sugars, arthritis, and UTI. PSHx of spine surgery last May. Patient is not taking medications for DM. - History Of Current Complaint Chief Complaint: EDDiabeticProb Time Seen by Provider: 11/18/19 19:37 Hx Obtained From: Patient Onset/Duration: Gradual Onset, Lasting Days, Still Present Timing: Constant Severity Initially: Moderate Severity Currently: Moderate Character: Other - Weak - Allergies/Home Medications Allergies/Adverse Reactions: Allergies Allergy/AdvReac Type Severity Reaction Status Date / Time loratadine [From Claritin] Allergy Unknown Verified 11/18/19 19:34 Reaction Details silver Allergy Unknown Verified 11/18/19 19:34 [From Tegaderm AG Mesh] Reaction Details Home Medications: Home Medications Bumetanide TAB* [Bumex 2 MG TAB*] 2 mg PO QAM 11/18/19 [History Confirmed ] Potassium Chlor TAB* [Potassium Chlor TAB 20 MEQ*] 40 meq PO DAILY 11/18/19 [ History Confirmed 11/18/19] PMH/Surg Hx/FS Hx/Imm Hx Endocrine/Hematology History: Reports: Hx Diabetes, Hx Thyroid Disease - nodes, Other Endocrine/Hematological Disorders - Sarcoidosis, since resolved, according to Pt Cardiovascular History: Reports: Hx Hypertension Denies: Hx Pacemaker/ICD Respiratory History: Reports: Hx Asthma - childhood only, Hx Sleep Apnea - CPAP , Other Respiratory Problems/Disorders - Sarcoidosis History: Reports: Hx Benign Prostatic Hyperplasia Denies: Hx Renal Disease Musculoskeletal History: Reports: Hx Arthritis, Hx Back Problems - 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, s/p 3 drug treatment;sepsis 10/21/18,, Other Musculoskeletal History - LEFT WRIST FX;concern for osteomyelitis/diskitis 10/21 - w/MSSA sepsis Denies: Hx Osteoporosis Sensory History: Reports: Hx Contacts or Glasses Denies: Hx Cataracts, Hx Hearing Aid, Hx Hearing Problem Opthamlomology History: Reports: Hx Contacts or Glasses Denies: Hx Cataracts Neurological History: Reports: Other Neuro Impairments/Disorders - L4/L5 ostemyelitis/diskitis; sarcoidosis Psychiatric History: Reports: Hx Anxiety, Hx Depression Denies: Hx Panic Disorder - Cancer History Cancer Type, 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 Negative: Fever, Chills Positive: frequency, incontinence - urinary, urgency. Negative: dysuria Positive: Weakness All Other Systems Reviewed And Are Negative: Yes Physical Exam - Summary Physical Exam Summary: Constitutional: Well-developed, Well-nourished, Alert. (-) Distressed Skin: Warm, Dry. HENT: Normocephalic; Atraumatic Eyes: Conjunctiva normal Neck: Musculoskeletal ROM normal neck. (-) JVD, (-) Stridor, (-) Tracheal deviation Cardio: Rhythm regular, rate tachycardic, Heart sounds normal; Intact distal pulses; The pedal pulses are 2+ and symmetric. Radial pulses are 2+ and symmetric. Pulmonary/Chest wall: Effort normal. (-) Respiratory distress, (-) Wheezes, (-) Rales Abd: Soft, (-) Distension, (-) Guarding, (-) Rebound. Suprapubic tenderness. Musculoskeletal: Midline scar from lower to upper lumbar healed completely. No midline tenderness. Skin around incision fully intact. Chronic lower extremity edema. Neuro: Alert, Oriented x3 Psych: Mood and affect Normal Genital: Normal external male. Malodorous. Triage Information Reviewed: Yes Vital Signs On Initial Exam: Initial Vitals Temp Pulse Resp BP Pulse Ox 99.5 F 88 14 143/83 97 11/18/19 19:31 11/18/19 19:31 11/18/19 19:31 11/18/19 19:31 11/18/19 19:31 Vital Signs Reviewed: Yes Diagnostics - Vital Signs Vital Signs Temp Pulse Resp BP Pulse Ox 11/18/19 19:31 99.5 F 88 14 143/83 97 - Laboratory Result Diagrams: 11/19/19 06:18 11/18/19 22:06 Lab Statement: Any lab studies that have been ordered have been reviewed, and results considered in the medical decision making process. - Radiology CXR Radiology Interpretation Completed By: ED Physician Summary of Radiographic Findings: Chest XR shows the following impressions: No focal consolidation. No integral changes compared to August 2019 scan. Cardiac silhouette and medium unchanged since August. Image is slightly rotated. Pending official read. An ED physician has reviewed this scan. - EKG 2037 Cardiac Rate: NL - 89 bpm EKG Rhythm: Sinus Rhythm ST Segment: Normal Ectopy: None Summary of EKG Findings: EKG at 2037 shows sinus rhythm at 89 bpm. No STEMI. PAC 's. Nonspecific T wave abnormality. An ED physician has reviewed and interpreted this EKG. Diabetic Course/Dx - Course Course Of Treatment: 74 year old male presents to the ED complaining of gross weakness for a weak. Patient's blood sugar was in the 700s this morning. He reports urinary incontinence and frequency. Upon physical exam, genital area was malodorous. Operative scar on lumbar spine healed completely. Patient has chronic lower extremity edema. Lab results reveal GLUCOSE 622, LACTIC ACID 4.8 , BNP 49, urine glucose 3+, sodium 131, Potassium 3.3, chloride 91, and total protein 5.5. Chest XR shows the following impressions: No focal consolidation. No integral changes compared to August 2019 scan. Cardiac silhouette and medium unchanged since August. Image is slightly rotated. EKG at 2037 shows sinus rhythm at 89 bpm. No STEMI. PAC's. Nonspecific T wave abnormality. During ED course patient was given lactated ringers, potassium, and fluids. Diagnosis is Hyperglycemic hyperosmotic nonketotic DM and hypokalemia. I discussed this patient's condition with Dr. Rodriguez, hospitalist, who agreed to accept patient for admission. Patient understands and agrees with this plan. - Diagnoses Provider Diagnoses: Type 2 diabetes mellitus with hyperosmolar nonketotic hyperglycemia - Physician Notifications Discussed Care Of Patient With: Bladimir Rodriguez - hospitalist Time Discussed With Above Provider: 21:29 Instructed by Provider To: Admit As Inpatient - I spoke to Dr. Rodriguez about the patient's condition and she accepts him for admission. Admit/Transition Orders Completed By ED Provider: Yes Discharge ED - Sign-Out/Discharge Documenting (check all that apply): Patient Departure - admit - Discharge Plan Condition: Stable Disposition: ADMITTED TO [facility] - Billing Disposition and Condition Condition: STABLE Disposition: Admitted to [facility] - Attestation Statements Document Initiated by Julito: Yes Documenting Scribe: Vlad Hicks Provider For Whom Julito is Documenting (Include Credential): Geo Rose MD Scribe Attestation: Vlad Canseco, scribed for Geo Rose MD on 11/19/19 at 0633. Scribe Documentation Reviewed: Yes Provider Attestation: The documentation as recorded by the jeremiahibVlad tong accurately reflects the service I personally performed and the decisions made by me, Geo Rose MD Status of Scribe Document: Viewed
[2019-11-18] MEDS ORDERED: Lactated Ringers 1000 ML Bag* 1,000 ML IV ONE ×2 (20:05→20:38)
[2019-11-18 20:15] LABS: ABS Lymphocytes 0.3 10^3/ul (1.0-4.8); ABS Monocytes 0.5 10^3/ul (0-0.8); ABS Neutrophils 8.1 10^3/ul (1.5-7.7); Eosinophil % 0.3 %; Hematocrit 34 % (42-52); Hemoglobin 12.1 g/dL (14.0-18.0); Lymphocyte % 3.7 %; Mean Corpuscular HGB Conc 36 g/dL (31-36); Mean Corpuscular Hemoglobin 35 pg (27-31); Mean Corpuscular Volume 99 fL (80-94); Mean Platelet Volume 7.9 fL (7.4-10.4); Nucleated Red Blood Cells % 0.1; Platelet Count 157 10^3/uL (150-450); Red Blood Count 3.43 10^6 /uL (4.18-5.48); Red Cell Distribution Width 17 % (10-15); White Blood Count 8.9 10^3/uL (3.5-10.8)
[2019-11-18 20:37] LABS: Troponin I 0.01 ng/mL (<0.03)
[2019-11-18 20:39] LABS: Albumin 3.3 g/dL (3.2-5.2); Albumin/Globulin Ratio 1.5 (1-3); BUN/Creatinine Ratio 14.4 (8-20); Calcium 8.7 mg/dL (8.6-10.3); EGFR African American 63.8 (>60); EGFR Non-African American 52.7 (>60); Globulin 2.2 g/dL (2-4); Indirect Bilirubin 0.7 mg/dL (0.3-1.0); Magnesium 1.9 mg/dL (1.9-2.7); Potassium 3.3 mmol/L (3.5-5.0); Total Bilirubin 0.8 mg/dL (0.2-1.0); Total Protein 5.5 g/dL (6.4-8.9)
[2019-11-18 21:08] LABS: Activated Partial Thrombo Time 31.8 seconds (26.0-38.0)
[2019-11-18 21:14] LABS: TSH (Thyroid Stimulating Horm) 1.03 mcIU/mL (0.34-5.60)
[2019-11-18 21:15] LABS: Urine Appearance Clear; Urine Bilirubin Negative (Negative); Urine Blood Negative (Negative); Urine Color Straw; Urine Glucose 3+(>=500 mg/dL) (Negative); Urine Ketones Negative (Negative); Urine Nitrite Negative (Negative); Urine Protein Negative (Negative); Urine Specific Gravity 1.022 (1.010-1.030); Urine Urobilinogen Negative (Negative)
[2019-11-18 21:15] LABS: Free T4 0.74 ng/dL (0.61-1.12)
[2019-11-18] MEDS ORDERED: Potassium Chlor TAB* 20 MEQ TAB.ER PO ONE (21:18)
[2019-11-18] MEDS: KCL 10 MEQ/50 ML IVPREMIX* 10 MEQ/50 ML BAG IV SCH ×3 (21:32→23:37)
[2019-11-18] MEDS ORDERED: Loperamide CAP* 2 MG PO PRN (21:42)
[2019-11-18] MEDS ORDERED: oxyCODONE TAB* 5 MG TAB PO PRN (21:42)
[2019-11-18] MEDS ORDERED: Ondansetron INJ* 2 MG/ML VIAL IV PRN (21:57)
[2019-11-18] MEDS ORDERED: Acetaminophen TAB* 325 MG PO PRN (21:57)
[2019-11-18] MEDS ORDERED: NS 0.9% 1000 ML** 1,000 ML IV SCH (22:00)
[2019-11-18] MEDS ORDERED: Insulin REGULAR(*) 1 UNITS UNIT IV PUSH ONE (22:09)
[2019-11-18] MEDS ORDERED: Dextrose 50% VIAL 50 ml IV PUSH PRN (22:12)
[2019-11-18 22:31] LABS: BUN/Creatinine Ratio 15.4 (8-20); Blood Urea Nitrogen 18 mg/dL (6-24); CO2 Carbon Dioxide 29 mmol/L (22-32); Calcium 8.7 mg/dL (8.6-10.3); Chloride 93 mmol/L (101-111); EGFR African American 73.3 (>60); EGFR Non-African American 60.6 (>60); Glucose 482 mg/dL (70-100); Glucose Confirmatory 482 mg/dL (70-100); Sodium 133 mmol/L (135-145)
[2019-11-18] MEDS ORDERED: Insulin GLARGINE(*) 1 UNITS UNIT SUBCUT SCH (23:00)
[2019-11-18 23:16] LABS: Anion Gap 11 mmol/L (2-11)
--- NOTE | 2019-11-19 00:48 | HP ---
CC: Dr. Helen Styles * HISTORY AND PHYSICAL: DATE OF ADMISSION: 11/18/19 PRIMARY CARE PHYSICIAN: Dr. Helen Styles. CHIEF COMPLAINT: Elevated blood sugar. HISTORY OF PRESENT ILLNESS: Mr. Milton Kemp is a 74-year-old male with history of diabetes in the past, however, currently not on any medication, hemoglobin A1c in June 2019 was in acceptable range, who now presents to the emergency room because of elevated blood sugar. For the past several days, the patient has been having fatigue and generalized malaise and this was discussed with the primary care provider who checked his blood work and was found to have elevated blood sugar. Subsequently, the patient was advised to come to the emergency room. The patient does not have any fevers, no chills. The patient has been drinking lots of juice recently with sugar in it. He has not been taking any medication for diabetes for quite sometime now. The patient reports that he used to take insulin for mealtime coverage in the past, but has not been doing recently. In the emergency room, the patient was seen and evaluated. Initially, the blood sugar was found to be 622, repeat blood sugar has been 444. In the emergency room, the patient was seen and evaluated, blood work was done. Subsequently, the hospitalist service was called. In the emergency room, the patient did receive lactated Ringers and potassium supplementation. PAST MEDICAL HISTORY: 1. Type 2 diabetes. 2. MSSA lumbar diskitis in October 2018. 3. Lumbar spine fusion, May of 2019. 4. Hypertension. 5. Sarcoidosis. 6. BPH. 7. Nephrolithiasis. 8. B12 deficiency. 9. History of squamous cell cancer of the skin. 10. Obstructive sleep apnea. 11. Type 2 diabetes. 12. Sciatica. 13. Anxiety and depression. 14. Tonsillectomy. 15. Bilateral cataract extraction. MEDICATIONS: Home medications include: 1. Bumex 2 mg in the morning. 2. Prednisone 10 mg daily. 3. Potassium (Klor-Con) 40 mEq daily. 4. Imodium 2 tablets every 4 hours as needed for diarrhea. 5. Budesonide Flexhaler 2 puffs inhaled b.i.d. 6. Amlodipine 5 mg at bedtime. 7. Flomax 0.4 mg b.i.d. 8. Omeprazole 40 mg daily. 9. Acetaminophen 1000 mg b.i.d. 10. Prednisone 9 mg daily. 11. Lactobacillus 1 tab twice a day. 12. Cholecalciferol 2000 units daily. 13. Coreg 3.125 mg b.i.d. 14. Topinate 1 application topical at bedtime. 15. Oxycodone 5 mg at bedtime as needed. 16. Magnesium oxide 400 mg daily. 17. Tricon capsule 1 each daily. 18. Gabapentin 100 mg at bedtime. 19. Bumex 1 mg at bedtime. ALLERGIES: No known drug allergies. FAMILY HISTORY: Father: Hypertension. Mother: Alzheimer's at an early age. 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 He is a lifelong nonsmoker, occasionally will drink alcohol. REVIEW OF SYSTEMS: The patient does not have any fevers, no chills. He is having generalized fatigue and malaise. No muscle aches, no sore throat, no chest pain, no shortness of breath, no palpitations. He had diarrhea several days ago, however, nothing recently. Last bowel movement was this morning, it was soft. No abdominal pain, no nausea, no vomiting. Occasional joint aches and back aches. Otherwise, a full review of system was done and is negative. PHYSICAL EXAMINATION GENERAL: This is a well-developed, well-nourished obese male, lying in bed, in no acute distress. VITAL SIGNS: Blood pressure 143/83, heart rate of 88, respiratory rate of 14, saturation 97% on room air, temperature of 99.5. HEENT: Pupils are equal, round, reactive to light. Extraocular muscles are intact. Oral mucosa is dry. NECK: There is no cervical lymphadenopathy. PULMONARY: Lungs are clear without any wheezing, rales, or rhonchi. No tachypnea. No use of accessory muscles. CARDIAC: Normal S1, S2. Regular rate and rhythm. No lower extremity edema. ABDOMEN: Bowel sounds are normoactive in all 4 quadrants. Abdomen is soft, nontender, nondistended. MUSCULOSKELETAL: There is no cyanosis, clubbing, or edema. Dorsalis pedis 2+ bilaterally. NEUROLOGIC: The patient is awake, alert, and oriented x3 with no focal neurological deficit. The patient is calm and appropriate. SKIN: Warm and dry. No rashes. DIAGNOSTIC STUDIES/LAB DATA: White count of 8.9, hemoglobin 12.1, hematocrit 34, RDW of 17, platelets of 157. INR of 1.00. VBG; pH of 7.43, pCO2 of 51. Sodium 131, potassium 3.3, chloride 91, BUN 19, creatinine 1.32, carbon dioxide 29, glucose of 622, lactic acid 4.9, magnesium 1.9. Total protein 5.5. Alkaline phosphatase 93, AST 15, ALT 14, total bilirubin is 0.8. TSH of 1.03. Urine ketone is negative. Urine glucose of 3+. The patient had an EKG done which reveals normal sinus rhythm with some PACs. IMPRESSION AND PLAN: 1. Hyperglycemia. This could be secondary to uncontrolled type 2 diabetes. We will check a hemoglobin A1c. The blood sugar has come down to 444 after getting IV infusion. At this point, I will hold off on starting an insulin drip. Started the patient on 1 dose of 8 units regular insulin IV followed by starting him on Lantus 5 units every 24 hours, start him on a sliding scale insulin. Check a hemoglobin A1c. 2. Hypokalemia: In the setting of hyperglycemia: Potassium infusion has been ordered. 3. Hyponatremia with low chloride, due to dehydration. Gentle IV hydration. 4. Acute kidney injury: Secondary to dehydration caused by hyperglycemia. Hold home dose Bumex, start IV fluids with normal saline. 5. History of sarcoidosis: Continue prednisone 10 mg daily. 6. History of chronic pain: Continue his home pain regimen. 7. DVT prophylaxis: Started him on heparin subcu. 8. History of hypertension: Continue his amlodipine and Coreg. 9. Code status: The patient is a do not resuscitate. [id number]/[facility] #: [id number] [facility]
[2019-11-19] MEDS: KCL 10 MEQ/50 ML IVPREMIX* 10 MEQ/50 ML BAG IV SCH (02:27)
[2019-11-19] MEDS: Insulin LISPRO* 1 UNITS UNIT SUBCUT SCH ×7 (02:30→20:48)
[2019-11-19 06:24] LABS: Hematocrit 33 % (42-52); Hemoglobin 11.5 g/dL (14.0-18.0); Mean Corpuscular HGB Conc 35 g/dL (31-36); Mean Corpuscular Hemoglobin 35 pg (27-31); Mean Corpuscular Volume 99 fL (80-94); Mean Platelet Volume 7.3 fL (7.4-10.4); Platelet Count 147 10^3/uL (150-450); Red Blood Count 3.31 10^6 /uL (4.18-5.48); Red Cell Distribution Width 17 % (10-15); White Blood Count 8.4 10^3/uL (3.5-10.8)
[2019-11-19 06:43] LABS: BUN/Creatinine Ratio 14.1 (8-20); Calcium 8.3 mg/dL (8.6-10.3); EGFR African American 96.8 (>60); Magnesium 1.8 mg/dL (1.9-2.7); Phosphorus 2.3 mg/dL (2.5-5.0)
[2019-11-19 06:57] LABS: ABS Basophils 0.1 10^3/ul (0-0.2); ABS Eosinophils 0.1 10^3/ul (0-0.6); ABS Lymphocytes 0.5 10^3/ul (1.0-4.8); ABS Monocytes 0.6 10^3/ul (0-0.8); ABS Neutrophils 7.2 10^3/ul (1.5-7.7); Eosinophil % 1.5 %; Lymphocyte % 5.6 %; Nucleated Red Blood Cells % 0.1
[2019-11-19 07:54] LABS: Influenza A Molecular NEGATIVE (Negative); Influenza B Molecular NEGATIVE (Negative)
[2019-11-19] MEDS ORDERED: Potassium Chlor TAB* 20 MEQ TAB.ER PO ONE (08:12)
[2019-11-19] MEDS ORDERED: Al Hydrox/Mg Hydrox/Simet LIQ* 30 ML UDC PO PRN (08:14)
[2019-11-19] MEDS ORDERED: Senna TAB 8.6 mg* TAB PO PRN (08:14)
[2019-11-19] MEDS ORDERED: Lactated Ringers 1000 ML Bag* 1,000 ML IV SCH ×3 (09:00→13:28)
[2019-11-19] MEDS ORDERED: Heparin VIAL(*) 5000 UNITS/ML VIAL (FIVE THOUSAND) SUBCUT SCH (09:00)
[2019-11-19] MEDS: Pantoprazole TAB * 40 MG TAB PO SCH (09:35)
[2019-11-19] MEDS: Magnesium Oxide TAB* 400 MG PO SCH (09:35)
[2019-11-19] MEDS: Cholecalciferol TAB* 1000 UNITS PO SCH (09:35)
[2019-11-19] MEDS: Tamsulosin CAP* 0.4 MG PO SCH ×2 (09:35→20:42)
[2019-11-19] MEDS: Carvedilol TAB* 3.125 MG PO SCH ×2 (09:35→20:41)
[2019-11-19] MEDS: Lactobacillus Acidophilus* 1 TAB PO SCH ×2 (09:35→20:43)
[2019-11-19] MEDS: FERROUS FUMARATE PO SCH (09:40)
[2019-11-19] MEDS: INTRINSIC FACTOR PO SCH (09:40)
[2019-11-19] MEDS: CYANOCOBALAMIN PO SCH (09:40)
[2019-11-19] MEDS: ASCORBIC ACID PO SCH (09:40)
[2019-11-19] MEDS: FOLIC ACID PO SCH (09:40)
[2019-11-19] MEDS: Potassium Chlor TAB* 20 MEQ TAB.ER PO SCH (09:46)
[2019-11-19] MEDS: KCL 20 MEQ/100 ML IVPREMIX* 20 MEQ/100 ML BAG IV SCH ×2 (11:39→15:21)
--- NOTE | 2019-11-19 16:24 | PN ---
Subjective Date of Service: 11/19/19 Interval History: Patient mentions he has been feeling intermittently nauseous but not today. He feels tired today but does overall feel better than when he came to the hospital. He tells me he has felt somewhat dizzy today including when seated. He denies sensation of room spinning. He denies fever/chills, chest pain, difficulty breathing, abd pain, vomiting. Patient tells me he has chronic lower extremity edema and does not believe it is worse today. Objective Active Medications: Acetaminophen (Tylenol Tab*) 650 mg PO Q6H PRN PRN Reason: PAIN - MODERATE Al Hydrox/Mg Hydrox/Simethicone (Maalox Plus*) 30 ml PO Q6H PRN PRN Reason: INDIGESTION Amlodipine Besylate (Norvasc Tab*) 5 mg PO BEDTIME [facility] Carvedilol (Coreg Tab*) 3.125 mg PO BID [facility] Last Admin: 11/19/19 09:35 Dose: 3.125 mg Cholecalciferol (Vitamin D Tab*) 2,000 units PO DAILY [facility] Last Admin: 11/19/19 09:35 Dose: 2,000 units Dextrose (Dextrose 50% Vial 50 Ml*) 25 ml IV PUSH .FOR FS < 60 - SS PRN PRN Reason: FS < 60 Gabapentin (Neurontin Cap(*)) 100 mg PO BEDTIME [facility] Heparin Sodium (Porcine) (Heparin Vial(*)) 5,000 units SUBCUT Q12HR [facility] Last Admin: 11/19/19 09:36 Dose: 5,000 units Lactated Ringer's (Lactated Ringers 1000 Ml Bag*) 1,000 mls @ 50 mls/hr IV PER RATE [facility] Last Admin: 11/19/19 13:52 Dose: 50 mls/hr Insulin Glargine (Lantus(*)) 5 units SUBCUT BEDTIME [facility] Insulin Human Lispro (Humalog*) 0 units SUBCUT ACHS [facility]; Protocol Last Admin: 11/19/19 12:57 Dose: 9 unit Lactobacillus Rhamnosus (Lactobacillus Acidophilus*) 1 tab PO BID [facility] Last Admin: 11/19/19 09:35 Dose: 1 tab Loperamide HCl (Imodium Cap*) 2 mg PO Q4H PRN PRN Reason: DIARRHEA Magnesium Oxide (Magox 400 Tab*) 400 mg PO DAILY [facility] Last Admin: 11/19/19 09:35 Dose: 400 mg Mometasone Furoate (Asmanex 220 Mcg Mdi *) 1 puff INH QPM [facility] Nft: Ferrous Fum/Vit C/B12-If/Folic [ Tricon Capsule] 1 Each) 1 each PO DAILY [facility] Last Admin: 11/19/19 09:40 Dose: Not Given Ondansetron HCl (Zofran Inj*) 4 mg IV Q6H PRN PRN Reason: NAUSEA Oxycodone HCl (Roxycodone Tab*) 5 mg PO BEDTIME PRN PRN Reason: PAIN Pantoprazole Sodium (Protonix Tab*) 40 mg PO DAILY [facility] Last Admin: 11/19/19 09:35 Dose: 40 mg Potassium Chloride (Klor Con Er Tab*) 40 meq PO DAILY [facility] Last Admin: 11/19/19 09:46 Dose: 40 meq Prednisone (Deltasone 10 Mg Tab) 10 mg PO QAM [facility] Last Admin: 11/19/19 09:35 Dose: 10 mg Senna (Senokot 8.6 Mg Tab*) 1 tab PO BID PRN PRN Reason: CONSTIPATION Tamsulosin HCl (Flomax Cap*) 0.4 mg PO BID [facility] Last Admin: 11/19/19 09:35 Dose: 0.4 mg Tolnaftate (Tinactin 1% Cream*) 1 applic TOPICAL BEDTIME [facility] Vital Signs - 8 hr 11/19/19 11:10 Temperature 98.0 F Pulse Rate 91 Respiratory 20 Rate Blood Pressure 122/68 (mmHg) O2 Sat by Pulse 99 Oximetry Oxygen Devices in Use Now: None Appearance: Elderly white male, sitting in chair, appearing comfortable and in NAD Eyes: No Scleral Icterus, - - PERRL Ears/Nose/Mouth/Throat: Mucous Membranes Moist Neck: Trachea Midline Respiratory: Symmetrical Chest Expansion and Respiratory Effort, Clear to Auscultation Cardiovascular: NL Sounds; No Murmurs; No JVD, RRR Abdominal: - - abd soft, nontender, nondistended Extremities: No Clubbing, Cyanosis, - - trace pitting edema to bilateral LEs up to approx 6cm above ankles Skin: - - approx 2cm length x1cm widthx 2cm height yellow crusting lesion to right side of forehead Neurological: Alert and Oriented x 3 Result Diagrams: 11/19/19 06:18 11/19/19 16:06 Microbiology and Other Data: Microbiology 11/19/19 13:00 Nasal Screen MRSA (PCR) - Final Nasal Mrsa Not Detected Assess/Plan/Problems-Billing Assessment: 74 yo white male with PMHx DMT2, HTN, sarcoidosis, squamous CA of skin, B12 deficiency, AYUSH, anxiety/depression, and BPH presents with fatigue and malaise, found to have hyperglycemia. - Patient Problems (1) Hyperglycemia Current Visit: No Status: Acute Code(s): R73.9 - HYPERGLYCEMIA, UNSPECIFIED SNOMED Code(s): 94783182 Comment: -presented with malaise and fatigue and found to have BG in 600s -now in 200s today -does not meet criteria for HHS -has stopped insulin in the last year but per documentation I can see he was, at the earliest, last taking insulin glargine 8 U daily in February 2019. Further mgmt below (2) Diabetes mellitus type 2 in nonobese Current Visit: Yes Status: Acute Code(s): E11.9 - TYPE 2 DIABETES MELLITUS WITHOUT COMPLICATIONS SNOMED Code(s): 054690193 Comment: -HA1c 9.7% -has been taken off insulin and other therapies for DM outpatient -continue insulin glargine 5U daily and lispro -[facility] diabetic nurse educator involved (3) Elevated lactic acid level Current Visit: Yes Status: Acute Code(s): R79.89 - OTHER SPECIFIED ABNORMAL FINDINGS OF BLOOD CHEMISTRY SNOMED Code(s): 2687154 Comment: -initially 4.9 at admission, has since improved with fluids but worsening again in afternoon -VBG with normal pH at admission and bicarb wnl -likely 2/2 dehyration as patient did also present with TEO -will continue IVF, giving an additional bolus and increasing LR frequency -not on metformin; not related to sepsis as not meeting SIRS criteria and I have no suspicion for infection, CXR and UA without evidence of infection (4) TEO (acute kidney injury) Current Visit: Yes Status: Acute Code(s): N17.9 - ACUTE KIDNEY FAILURE, UNSPECIFIED SNOMED Code(s): 58882042 Comment: -likely prerenal in setting of dehydration -resolved with IVF (5) BPH (benign prostatic hyperplasia) Current Visit: No Status: Acute Code(s): N40.0 - BENIGN PROSTATIC HYPERPLASIA WITHOUT LOWER URINRY TRACT SYMP SNOMED Code(s): 239359852 Comment: - Continue tamsulosin (6) Diastolic CHF Current Visit: No Status: Acute Code(s): I50.30 - UNSPECIFIED DIASTOLIC ( CONGESTIVE) HEART FAILURE SNOMED Code(s): 882160145 Comment: - Currently with LE edema which is chronic - Holidng bumex due to likely dehydration (7) HTN (hypertension) Current Visit: No Status: Acute Code(s): I10 - ESSENTIAL (PRIMARY) HYPERTENSION SNOMED Code(s): 29661131 Comment: - Normotensive - Continue carvedilol and amlodipine (8) Sarcoidosis Current Visit: No Status: Acute Code(s): D86.9 - SARCOIDOSIS, UNSPECIFIED SNOMED Code(s): 66953260 Comment: - On chronic Steroids, Continue 10mg Daily - Unclear why patient is on steroid inhaler at home (9) Hypokalemia Current Visit: Yes Status: Acute Code(s): E87.6 - HYPOKALEMIA SNOMED Code( s): 01525533 Comment: -likely initially related to dehydration -resolved with replacement (10) Chronic pain Current Visit: Yes Status: Acute Code(s): G89.29 - OTHER CHRONIC PAIN SNOMED Code(s): 29361662 Comment: -continue home gabapentin and prn oxycodone (11) AYUSH (obstructive sleep apnea) Current Visit: Yes Status: Acute Code(s): G47.33 - OBSTRUCTIVE SLEEP APNEA ( ADULT) (PEDIATRIC) SNOMED Code(s): 55020836 Comment: -hospital CPAP (12) DVT prophylaxis Current Visit: No Status: Acute Code(s): RMT7716 - SNOMED Code(s): 414468428 Comment: - lovenox (13) Full code status Current Visit: No Status: Acute Code(s): Z78.9 - OTHER SPECIFIED HEALTH STATUS SNOMED Code(s): 790829594 Status and Disposition: anticipate d/c to home unless issues with patient administering insulin
[2019-11-19 16:32] LABS: BUN/Creatinine Ratio 13.2 (8-20); Calcium 8.5 mg/dL (8.6-10.3); Potassium 4.4 mmol/L (3.5-5.0)
[2019-11-19] MEDS: Mometasone 220 MCG MDI INH SCH (16:59)
[2019-11-19] MEDS: Enoxaparin(*) 40 MG/0.4 ML SYR SUBCUT SCH (17:26)
[2019-11-19] MEDS ORDERED: Lactated Ringers 1000 ML Bag* 1,000 ML IV ONE (18:00)
[2019-11-19] MEDS: Lactated Ringers 1000 ML Bag* 1,000 ML IV SCH (20:22)
[2019-11-19] MEDS: amLODIPine TAB* 5 MG PO SCH (20:42)
[2019-11-19] MEDS: Gabapentin CAP(*) 100 MG PO SCH (20:43)
[2019-11-19] MEDS: Tolnaftate 1% CREAM* 15 GM TOPICAL SCH (20:53)
[2019-11-19] MEDS ORDERED: Insulin GLARGINE(*) 1 UNITS UNIT SUBCUT SCH (21:00)
[2019-11-20] MEDS: Lactated Ringers 1000 ML Bag* 1,000 ML IV SCH ×2 (02:52→10:26)
[2019-11-20] MEDS: Cholecalciferol TAB* 1000 UNITS PO SCH (08:38)
[2019-11-20] MEDS: Lactobacillus Acidophilus* 1 TAB PO SCH ×2 (08:39→20:21)
[2019-11-20] MEDS: Magnesium Oxide TAB* 400 MG PO SCH (08:39)
[2019-11-20] MEDS: Pantoprazole TAB * 40 MG TAB PO SCH (08:39)
[2019-11-20] MEDS: Tamsulosin CAP* 0.4 MG PO SCH ×2 (08:39→20:22)
[2019-11-20] MEDS: Carvedilol TAB* 3.125 MG PO SCH ×2 (08:39→20:22)
[2019-11-20] MEDS: FERROUS FUMARATE PO SCH (08:40)
[2019-11-20] MEDS: FOLIC ACID PO SCH (08:40)
[2019-11-20] MEDS: INTRINSIC FACTOR PO SCH (08:40)
[2019-11-20] MEDS: ASCORBIC ACID PO SCH (08:40)
[2019-11-20] MEDS: CYANOCOBALAMIN PO SCH (08:40)
[2019-11-20] MEDS: Potassium Chlor TAB* 20 MEQ TAB.ER PO SCH (08:41)
[2019-11-20] MEDS: Insulin LISPRO* 1 UNITS UNIT SUBCUT SCH ×4 (08:41→20:25)
[2019-11-20 10:08] LABS: Hematocrit 34 % (42-52); Hemoglobin 11.5 g/dL (14.0-18.0)
[2019-11-20] MEDS ORDERED: Lactated Ringers 1000 ML Bag* 1,000 ML IV ONE (11:00)
[2019-11-20] MEDS ORDERED: Dextrose 50% Syringe 50 ML* 25 GM/50 ML SYRINGE IV PUSH PRN (12:43)
[2019-11-20 15:40] LABS: Hematocrit 35 % (42-52); Hemoglobin 12.1 g/dL (14.0-18.0); Mean Corpuscular HGB Conc 34 g/dL (31-36); Mean Corpuscular Hemoglobin 34 pg (27-31); Mean Corpuscular Volume 100 fL (80-94); Mean Platelet Volume 7.4 fL (7.4-10.4); Platelet Count 153 10^3/uL (150-450); Red Blood Count 3.53 10^6 /uL (4.18-5.48); Red Cell Distribution Width 17 % (10-15); White Blood Count 9.1 10^3/uL (3.5-10.8)
[2019-11-20 15:58] LABS: Albumin/Globulin Ratio 1.4 (1-3); BUN/Creatinine Ratio 11.1 (8-20); Calcium 8.6 mg/dL (8.6-10.3); EGFR African American 112.1 (>60); EGFR Non-African American 92.6 (>60); Globulin 2.1 g/dL (2-4); Potassium 4.2 mmol/L (3.5-5.0); Total Bilirubin 0.7 mg/dL (0.2-1.0); Total Protein 5.1 g/dL (6.4-8.9)
[2019-11-20 16:59] LABS: ABS Lymphocytes 0.3 10^3/ul (1.0-4.8); ABS Monocytes 0.5 10^3/ul (0-0.8); ABS Neutrophils 8.2 10^3/ul (1.5-7.7); Eosinophil % 0.3 %; Lymphocyte % 3.8 %
[2019-11-20] MEDS: Enoxaparin(*) 40 MG/0.4 ML SYR SUBCUT SCH (18:04)
[2019-11-20] MEDS: Mometasone 220 MCG MDI INH SCH (19:11)
--- NOTE | 2019-11-20 19:35 | PN ---
Subjective Date of Service: 11/20/19 Interval History: Patient feeling well today. Has no complaints. Hopeful to go home. Tells me he feels comfortable with performing finger sticks at home and daughter tells me she confirmed with lead nurse at [facility] that the staff there can help with insulin administration if needed. Denies abd pain, nausea, dizziness/ lightheadedness, chest pain, difficulty breathing, fever/chills. Nursing reports trace blood in stool today. H&H stable. Objective Active Medications: Acetaminophen (Tylenol Tab*) 650 mg PO Q6H PRN PRN Reason: PAIN - MODERATE Al Hydrox/Mg Hydrox/Simethicone (Maalox Plus*) 30 ml PO Q6H PRN PRN Reason: INDIGESTION Amlodipine Besylate (Norvasc Tab*) 5 mg PO BEDTIME [facility] Last Admin: 11/19/19 20:42 Dose: 5 mg Carvedilol (Coreg Tab*) 3.125 mg PO BID [facility] Last Admin: 11/20/19 08:39 Dose: 3.125 mg Cholecalciferol (Vitamin D Tab*) 2,000 units PO DAILY [facility] Last Admin: 11/20/19 08:38 Dose: 2,000 units Dextrose (D50w Syringe 50 Ml*) 12.5 gm IV PUSH .FOR FS < 60 - SS PRN PRN Reason: FS < 60 Enoxaparin Sodium (Lovenox(*)) 40 mg SUBCUT Q24H [facility] Last Admin: 11/20/19 18:04 Dose: 40 mg Gabapentin (Neurontin Cap(*)) 100 mg PO BEDTIME [facility] Last Admin: 11/19/19 20:43 Dose: 100 mg Insulin Glargine (Lantus(*)) 5 units SUBCUT BEDTIME [facility] Last Admin: 11/19/19 20:44 Dose: 5 units Insulin Human Lispro (Humalog*) 0 units SUBCUT ACHS [facility]; Protocol Last Admin: 11/20/19 18:02 Dose: 9 unit Lactobacillus Rhamnosus (Lactobacillus Acidophilus*) 1 tab PO BID [facility] Last Admin: 11/20/19 08:39 Dose: 1 tab Loperamide HCl (Imodium Cap*) 2 mg PO Q4H PRN PRN Reason: DIARRHEA Magnesium Oxide (Magox 400 Tab*) 400 mg PO DAILY [facility] Last Admin: 11/20/19 08:39 Dose: 400 mg Mometasone Furoate (Asmanex 220 Mcg Mdi *) 1 puff INH QPM [facility] Last Admin: 11/20/19 19:11 Dose: 1 puff Nft: Ferrous Fum/Vit C/B12-If/Folic [ Tricon Capsule] 1 Each) 1 each PO DAILY [facility] Last Admin: 11/20/19 08:40 Dose: Not Given Ondansetron HCl (Zofran Inj*) 4 mg IV Q6H PRN PRN Reason: NAUSEA Oxycodone HCl (Roxycodone Tab*) 5 mg PO BEDTIME PRN PRN Reason: PAIN Pantoprazole Sodium (Protonix Tab*) 40 mg PO DAILY [facility] Last Admin: 11/20/19 08:39 Dose: 40 mg Potassium Chloride (Klor Con Er Tab*) 40 meq PO DAILY [facility] Last Admin: 11/20/19 08:41 Dose: 40 meq Prednisone (Deltasone 10 Mg Tab) 10 mg PO QAM [facility] Last Admin: 11/20/19 08:35 Dose: 10 mg Senna (Senokot 8.6 Mg Tab*) 1 tab PO BID PRN PRN Reason: CONSTIPATION Tamsulosin HCl (Flomax Cap*) 0.4 mg PO BID [facility] Last Admin: 11/20/19 08:39 Dose: 0.4 mg Tolnaftate (Tinactin 1% Cream*) 1 applic TOPICAL BEDTIME [facility] Last Admin: 11/19/19 20:53 Dose: 1 applic Vital Signs - 8 hr 11/20/19 11/20/19 15:08 19:12 Temperature 97.6 F Pulse Rate 90 88 Respiratory 23 18 Rate Blood Pressure 109/69 (mmHg) O2 Sat by Pulse 98 98 Oximetry Oxygen Devices in Use Now: None Appearance: Elderly white male, sitting in chair, appearing comfortable and in NAD Eyes: No Scleral Icterus, - - PERRL Ears/Nose/Mouth/Throat: Mucous Membranes Moist Neck: Trachea Midline Respiratory: Symmetrical Chest Expansion and Respiratory Effort, Clear to Auscultation Cardiovascular: NL Sounds; No Murmurs; No JVD, RRR Abdominal: - - abd soft, nontender, nondistended Extremities: - - +1 pitting edema in bilateral LEs which ends fci up bilateral shins Skin: - - skin warm/dry/intact Neurological: Alert and Oriented x 3, NL Muscle Strength and Tone Result Diagrams: 11/20/19 15:29 11/20/19 15:29 Microbiology and Other Data: Microbiology 11/19/19 13:00 Nasal Screen MRSA (PCR) - Final Nasal Mrsa Not Detected Assess/Plan/Problems-Billing Assessment: 74 yo white male with PMHx DMT2, HTN, sarcoidosis, squamous CA of skin, B12 deficiency, AYUSH, anxiety/depression, and BPH presents with fatigue and malaise, found to have hyperglycemia. - Patient Problems (1) Hyperglycemia Current Visit: No Status: Acute Code(s): R73.9 - HYPERGLYCEMIA, UNSPECIFIED SNOMED Code(s): 52875527 Comment: -presented with malaise and fatigue and found to have BG in 600s -does not meet criteria for HHS -BG 150s-280s today -has stopped insulin in the last year but per documentation I can see he was, at the earliest, last taking insulin glargine 8 U daily in February 2019. Further mgmt below (2) Diabetes mellitus type 2 in nonobese Current Visit: Yes Status: Acute Code(s): E11.9 - TYPE 2 DIABETES MELLITUS WITHOUT COMPLICATIONS SNOMED Code(s): 399101317 Comment: -HA1c 9.7% -has been taken off insulin and other therapies for DM outpatient -increase insulin glargine 8U daily and lispro -[facility] diabetic nurse educator involved (3) Elevated lactic acid level Current Visit: Yes Status: Acute Code(s): R79.89 - OTHER SPECIFIED ABNORMAL FINDINGS OF BLOOD CHEMISTRY SNOMED Code(s): 8125384 Comment: -initially 4.9 at admission, has since improved with fluids but worsening again -VBG with normal pH at admission and bicarb wnl -likely 2/2 dehyration as patient did also present with TEO, however worsening despite significant fluid resuscitation -using LR due to hypokalemia yesterday, LR is not supposed to affect serum lactate however perhaps this is contributing -d/c IVF -not on metformin; not related to sepsis as not meeting SIRS criteria and I have no suspicion for infection, CXR and UA without evidence of infection (4) TEO (acute kidney injury) Current Visit: Yes Status: Acute Code(s): N17.9 - ACUTE KIDNEY FAILURE, UNSPECIFIED SNOMED Code(s): 66952045 Comment: -likely prerenal in setting of dehydration -resolved with IVF (5) BPH (benign prostatic hyperplasia) Current Visit: No Status: Acute Code(s): N40.0 - BENIGN PROSTATIC HYPERPLASIA WITHOUT LOWER URINRY TRACT SYMP SNOMED Code(s): 703347165 Comment: - Continue tamsulosin (6) Diastolic CHF Current Visit: No Status: Acute Code(s): I50.30 - UNSPECIFIED DIASTOLIC ( CONGESTIVE) HEART FAILURE SNOMED Code(s): 498289897 Comment: - Currently with LE edema which is chronic - Holding bumex due to likely dehydration at admission (7) HTN (hypertension) Current Visit: No Status: Acute Code(s): I10 - ESSENTIAL (PRIMARY) HYPERTENSION SNOMED Code(s): 45086202 Comment: - Normotensive - Continue carvedilol and amlodipine (8) Sarcoidosis Current Visit: No Status: Acute Code(s): D86.9 - SARCOIDOSIS, UNSPECIFIED SNOMED Code(s): 53643469 Comment: - On chronic Steroids, Continue 10mg Daily - Unclear why patient is on steroid inhaler at home (9) Hypokalemia Current Visit: Yes Status: Acute Code(s): E87.6 - HYPOKALEMIA SNOMED Code( s): 85331069 Comment: -likely initially related to dehydration -resolved with replacement (10) Chronic pain Current Visit: Yes Status: Acute Code(s): G89.29 - OTHER CHRONIC PAIN SNOMED Code(s): 40845368 Comment: -continue home gabapentin and prn oxycodone (11) AYUSH (obstructive sleep apnea) Current Visit: Yes Status: Acute Code(s): G47.33 - OBSTRUCTIVE SLEEP APNEA ( ADULT) (PEDIATRIC) SNOMED Code(s): 23036209 Comment: -hospital CPAP (12) DVT prophylaxis Current Visit: No Status: Acute Code(s): LCX1806 - SNOMED Code(s): 595998481 Comment: - lovenox (13) Full code status Current Visit: No Status: Acute Code(s): Z78.9 - OTHER SPECIFIED HEALTH STATUS SNOMED Code(s): 422060882 Status and Disposition: anticipate d/c to home pending downtrending of lactic acid
[2019-11-20] MEDS: amLODIPine TAB* 5 MG PO SCH (20:22)
[2019-11-20] MEDS: Gabapentin CAP(*) 100 MG PO SCH (20:23)
[2019-11-20] MEDS: Tolnaftate 1% CREAM* 15 GM TOPICAL SCH (20:24)
[2019-11-20] MEDS ORDERED: Insulin GLARGINE(*) 1 UNITS UNIT SUBCUT SCH (21:00)
[2019-11-21 05:27] LABS: Hematocrit 32 % (42-52); Mean Corpuscular HGB Conc 35 g/dL (31-36); Mean Corpuscular Hemoglobin 35 pg (27-31); Mean Corpuscular Volume 99 fL (80-94); Mean Platelet Volume 7.3 fL (7.4-10.4); Platelet Count 130 10^3/uL (150-450); Red Blood Count 3.18 10^6 /uL (4.18-5.48); Red Cell Distribution Width 17 % (10-15); White Blood Count 7.4 10^3/uL (3.5-10.8)
[2019-11-21 05:44] LABS: BUN/Creatinine Ratio 11.3 (8-20); Calcium 8.4 mg/dL (8.6-10.3); EGFR African American 113.7 (>60); Potassium 3.7 mmol/L (3.5-5.0)
[2019-11-21 06:10] LABS: ABS Eosinophils 0.1 10^3/ul (0-0.6); ABS Lymphocytes 0.4 10^3/ul (1.0-4.8); ABS Monocytes 0.5 10^3/ul (0-0.8); ABS Neutrophils 6.4 10^3/ul (1.5-7.7); Eosinophil % 1.4 %; Lymphocyte % 5.6 %; Nucleated Red Blood Cells % 0.1
[2019-11-21] MEDS: CYANOCOBALAMIN PO SCH (08:59)
[2019-11-21] MEDS: INTRINSIC FACTOR PO SCH (08:59)
[2019-11-21] MEDS: FERROUS FUMARATE PO SCH (08:59)
[2019-11-21] MEDS: FOLIC ACID PO SCH (08:59)
[2019-11-21] MEDS: ASCORBIC ACID PO SCH (08:59)
[2019-11-21] MEDS: Insulin LISPRO* 1 UNITS UNIT SUBCUT SCH ×2 (09:00→11:57)
[2019-11-21] MEDS: Potassium Chlor TAB* 20 MEQ TAB.ER PO SCH (09:01)
[2019-11-21] MEDS: Lactobacillus Acidophilus* 1 TAB PO SCH (09:02)
[2019-11-21] MEDS: Pantoprazole TAB * 40 MG TAB PO SCH (09:02)
[2019-11-21] MEDS: Tamsulosin CAP* 0.4 MG PO SCH (09:02)
[2019-11-21] MEDS: Cholecalciferol TAB* 1000 UNITS PO SCH (09:02)
[2019-11-21] MEDS: Carvedilol TAB* 3.125 MG PO SCH (09:02)
[2019-11-21] MEDS: Magnesium Oxide TAB* 400 MG PO SCH (09:02)
[2019-11-21 09:30] VITALS: BP 151/80
--- NOTE | 2019-11-21 20:08 | DS ---
CC: Dr. Helen Styles * DISCHARGE SUMMARY: DATE OF ADMISSION: 11/18/19 DATE OF DISCHARGE: 11/21/19 PROVIDER: DINA Moore ATTENDING PHYSICIAN WHILE IN THE HOSPITAL: Dr. Bladimir Rodriguez * (dictated by DINA Moore). PRIMARY CARE PROVIDER: Dr. Helen Styles. PRIMARY DIAGNOSES: 1. Symptomatic hyperglycemia. 2. Elevated lactic acid, improved, of unclear etiology. 3. Acute kidney injury, resolved. SECONDARY DIAGNOSES: 1. Diabetes mellitus type 2. 2. Previous history of methicillin-sensitive Staphylococcus aureus, lumbar diskitis in 2018. 3. Hypertension. 4. Sarcoidosis. 5. Benign prostatic hyperplasia. 6. Nephrolithiasis. 7. Vitamin B12 deficiency. 8. Squamous cell cancer of the skin. 9. Obstructive sleep apnea. 10. Sciatica. 11. Anxiety and depression. PERTINENT STUDIES/LAB DATA: Chest x-ray on 11/18/19, impression: No evidence for acute cardiopulmonary disease. Creatinine 1.32 on date of admission, 0.8 on day of discharge. Hemoglobin A1c 9.7. B hydroxybutyrate 0.3. HISTORY OF PRESENT ILLNESS/HOSPITAL COURSE: Milton Kemp is a 74-year-old white male with past medical history significant for diabetes mellitus type 2, sarcoidosis, hypertension, squamous cell cancer of the skin, vitamin B12 deficiency, who presented to the emergency department on 11/18/19 due to ongoing fatigue and malaise. In the emergency department, he was found to have an elevated blood glucose of 622 and he was admitted to the hospital. Please see admitting history and physical written by Dr. Ana Paula Pulido on 11/18/19 for further details. The patient was previously on insulin and was discontinued sometime within the last 6 months off of this regimen by his primary care provider. It is evident that he has had poor control of his glucose since that time. He reportedly had been on metformin, but was having GI symptoms and has therefore not been using any medication to treat his diabetes in several months. He has been having intermittent nausea for days leading up to this hospitalization and he is likely having significant hyperglycemia during the ___ ___ at that time. Given his hyperglycemia presentation, he was started on insulin 5 units at night and he is still having poor control and therefore has been previously on 8 units at night. He did have an elevated lactic acid at the time of admission, though this is without any changes in bicarb, this is thought to likely be due to dehydration given that his creatinine was increased to 1.32. His kidney injury did later improve with regards to hydration and his lactic acid did come down, but then did slowly rise again. During this time, he was given lactated Ringer's for his presumed dehydration especially in the setting of him having hypokalemia that resolved as well. Besides malignancy, all other sources of lactic acidosis have been ruled out other than the fact that the patient has been receiving high volume of lactated Ringer's. In theory , the lactated Ringer's is not supposed to cause any changes in lactic acid and the serum; however, there is not much data on this. Of note, the patient does not have history of alcohol use. He is not positive for HIV. He does not have short-gut syndrome and he had no evidence of this lactic acid being related to sepsis as he had no other signs of infection. His chest x- ray was normal. His urinalysis was without evidence of infection and he did not have tachypnea, tachycardia or fever during the entirety of his hospital stay. The patient had a benign abdominal exam during the entirety of his hospital stay. By day of discharge, the patient's lactic acid did downtrend to 2.2 and he was educated regarding restarting his blood glucose and checks in his insulin and he was ready for discharge back to this facility if anything persists. The day prior to discharge, the patient had one episode of scant amount of blood in the stool, observed by nursing staff. The patient's H and H was stable and this did not continue. Of note, the patient did have diarrhea several days leading up to this episode and it is possible that he may have had a viral gastroenteritis and his blood could be senior outside sales representative of some postinfectious mucosal changes. DISCHARGE PLAN: Diet: Low carb diet. Activity: The patient may return to normal activity as tolerated. The patient is advised to check his blood glucose before breakfast and before dinner and to record these readings for the next 2 weeks. He was advised to follow up with his primary care provider, Dr. Styles in the next 10 to 14 days and to discuss these readings at that time and to determine if any further changes needs to be made to his insulin regimen. At this time, repeat BMP, CBC and lactic acid is recommended. I additionally recommended the patient if the patient's lactic acid still remains elevated to pursue a workup to find if there is any malignancy that is possibly causing this. The patient does have a history of squamous cell cancer, which has low likelihood of metastasis, though it is not unheard of and he did have one small episode of bright red blood in stool. The patient did mention to me, however, that he would not be interested in a colonoscopy as he tells me that he had a poor reaction to anesthesia last year. The patient is advised to return to the emergency department if he is experiencing dizziness, lightheadedness, blood glucose less than 60, is not improving with juice or other carbohydrates, visual changes or blood glucose over 500. DISCHARGE MEDICATIONS: New medications: 1. Insulin glargine 8 units subcu bedtime. Continued home medications: 1. Bumex 2 mg p.o. daily. 2. Gabapentin 100 mg p.o. at bedtime. 3. Multivitamin 1 tab p.o. daily. 4. Magnesium oxide 400 mg p.o. daily. 5. Oxycodone 5 mg p.o. at bedtime p.r.n. pain. 6. Topinate 1% cream 1 application topically at bedtime. 7. Carvedilol 3.125 mg p.o. b.i.d. 8. Vitamin D3 2000 units p.o. daily. 9. Lactobacillus acidophilus 1 tab p.o. b.i.d. 10. Tylenol 1000 mg p.o. b.i.d. 11. Omeprazole 40 mg p.o. daily. 12. Tamsulosin 0.4 mg p.o. b.i.d. 13. Amlodipine 5 mg p.o. at bedtime. 14. Loperamide 2 mg p.o. q.4 hours p.r.n. diarrhea. 15. Potassium chloride 40 mEq p.o. daily. 16. Budesonide inhaler 2 puff inhaled q.2 hours p.r.n. shortness of breath/ wheezing. 17. Prednisone 9 mg p.o. daily. CONDITION ON DISCHARGE: Stable. DISPOSITION: Home to [facility]. TIME SPENT ON THIS DISCHARGE: Approximately 35 minutes was spent on this discharge, approximately half of that time was spent at bedside evaluating the patient, discussing the plan of care. WINDY HOOD, DINA [id number]/[facility] #: [id number] [facility]
== END 2019-11-21 12:10 | disposition home or self-care (01) ==
LOC: ED 19:26 → MED 22:13
PROVIDERS: ADMIT Internal Medicine; ATTEND Internal Medicine
DX: E11.65 Type 2 diabetes mellitus with hyperglycemia (principal); I10 Essential (primary) hypertension; D86.9 Sarcoidosis, unspecified; N17.9 Acute kidney failure, unspecified; G89.29 Other chronic pain; N40.0 Benign prostatic hyperplasia without lower urinary tract symptoms; I50.30 Unspecified diastolic (congestive) heart failure; G47.33 Obstructive sleep apnea (adult) (pediatric); R79.89 Other specified abnormal findings of blood chemistry; M54.30 Sciatica, unspecified side; E87.6 Hypokalemia; F41.9 Anxiety disorder, unspecified; F32.9 Major depressive disorder, single episode, unspecified; Z86.14 Personal history of Methicillin resistant Staphylococcus aureus infection; Z79.899 Other long term (current) drug therapy; Z87.442 Personal history of urinary calculi
CPT/HCPCS: 36415; 71046; 80048; 80053; 80076; 81003; 82010; 82550; 82803; 82947; 83036; 83605; 83615; 83690; 83735; 83880; 84100; 84439; 84443; 84484; 84550; 85014; 85018; 85025; 85610; 85730; 87641; 93005; 94640; 94660; 99284; A9270-GY; G0378; J1644; J1650; J3480; J7512

== ENCOUNTER 2019-11-29 13:54 | Inpatient (IN) | payer OTHER ==
[2019-11-29] MEDS ORDERED: NS 0.9% 1000 ML** 1,000 ML IV ONE ×2 (14:09→16:38)
--- NOTE | 2019-11-29 14:09 | ED ---
Complex/Multi-Sys Presentation - HPI Summary HPI Summary: Patient is an 79 y/o M presenting to the ED for a chief complaint of fatigue and confusion. Patient is present with his daughter. About 1 weeks ago, patient was seen and admitted to [facility] for an elevated lactic level for which the patient was given IV fluids. Since his discharge one week ago, patient has had increased fatigue and confusion. He notes dysuria and urinary burning. Patient denies headache, chest pain, shortness of breath, abdominal pain, or changes in appetite. His daughter states the patient has had recurrent UTI for the last 6 months. His daughter denies the patient uses oxygen at home. PMHx is significant for DM and CHF, but thyroid problems are denied. Patient takes oxycodone nightly for chronic back pain. He is able to ambulate with a walker. - History Of Current Complaint Time Seen by Provider: 11/29/19 13:59 Hx Obtained From: Patient, Family/Behavioral Therapy Coordinator - Daughter Onset/Duration: Sudden Onset, Still Present Timing: Constant Severity Currently: Moderate Severity Initially: Moderate Associated Signs And Symptoms: Positive: Confusion, Dysuria. Negative: SOB, Chest Pain, Abdominal Pain - Allergies/Home Medications Allergies/Adverse Reactions: Allergies Allergy/AdvReac Type Severity Reaction Status Date / Time loratadine [From Claritin] Allergy Unknown Verified 11/18/19 19:34 Reaction Details silver Allergy Unknown Verified 11/18/19 19:34 [From Tegaderm AG Mesh] Reaction Details PMH/Surg Hx/FS Hx/Imm Hx Previously Healthy: Yes Endocrine/Hematology History: Reports: Hx Diabetes, Hx Thyroid Disease - nodes, Other Endocrine/Hematological Disorders - Sarcoidosis, since resolved, according to Pt Cardiovascular History: Reports: Hx Hypertension Denies: Hx Pacemaker/ICD Respiratory History: Reports: Hx Asthma - childhood only, Hx Chronic Obstructive Pulmonary Disease (COPD), Hx Sleep Apnea - CPAP, Other Respiratory Problems/Disorders - Sarcoidosis History: Reports: Hx Benign Prostatic Hyperplasia Denies: Hx Renal Disease Musculoskeletal History: Reports: Hx Arthritis, Hx Back Problems - 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, s/p 3 drug treatment;sepsis 10/21/18,, Other Musculoskeletal History - LEFT WRIST FX;concern for osteomyelitis/diskitis 10/21 - w/MSSA sepsis Denies: Hx Osteoporosis Sensory History: Reports: Hx Contacts or Glasses Denies: Hx Cataracts, Hx Legally Blind, Hx Deafness, Hx Hearing Aid, Hx Hearing Problem, Other Sensory Impairments Opthamlomology History: Reports: Hx Contacts or Glasses Denies: Hx Cataracts, Hx Legally Blind, Other Sensory Impairments EENT History: Denies: Hx Deafness Neurological History: Reports: Other Neuro Impairments/Disorders - L4/L5 ostemyelitis/diskitis; sarcoidosis Psychiatric History: Reports: Hx Anxiety, Hx Depression Denies: Hx Panic Disorder - Cancer History Cancer Type, 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 Negative: Other - Negative changes in appetite Negative: Chest Pain Negative: Shortness Of Breath Negative: Abdominal Pain Positive: burning - Urinary, dysuria Neurological: Other - Positive confusion Negative: Headache All Other Systems Reviewed And Are Negative: Yes Physical Exam - Summary Physical Exam Summary: Constitutional: Well-developed, Well-nourished, Alert. (-) Distressed. Weakness. Skin: Warm, Dry HENT: Normocephalic; Atraumatic Eyes: Conjunctiva normal Neck: Musculoskeletal ROM normal neck. (-) JVD, (-) Stridor, (-) Tracheal deviation Cardio: Rhythm regular, rate normal, Heart sounds normal; Intact distal pulses; The pedal pulses are 2+ and symmetric. Radial pulses are 2+ and symmetric. (-) Murmur Pulmonary/Chest wall: Effort normal. (-) Respiratory distress, (-) Wheezes, (-) Rales Abd: Soft, (-) tenderness, (-) Distension, (-) Guarding, (-) Rebound Musculoskeletal: (-) Edema Lymph: (-) Cervical adenopathy Neuro: Alert, Oriented x3, no focal deficits. Psych: Mood and affect Normal Triage Information Reviewed: Yes Vital Signs Reviewed: Yes Procedures - Sedation Patient Received Moderate/Deep Sedation with Procedure: No Diagnostics - Laboratory Result Diagrams: 11/29/19 14:42 11/29/19 14:42 Lab Statement: Any lab studies that have been ordered have been reviewed, and results considered in the medical decision making process. - Radiology Chest X-ray Radiology Interpretation Completed By: Radiologist Summary of Radiographic Findings: Chest X-ray IMPRESSION: NO ACTIVE CARDIOPULMONARY DISEASE. Reviewed by Dr. Dunn. - EKG 17:44 Cardiac Rate: NL - 87 BPM EKG Rhythm: Sinus Rhythm ST Segment: Normal Ectopy: None Summary of EKG Findings: EKG at 17:44 shows normal sinus rhythm with 87 BPM, no ischemic changes, QTc 598. Dr. Dunn has reviewed and interpreted this EKG. Complex Multi-Symp Course/Dx Course Of Treatment: Patient is an 79 y/o M presenting to the ED for a chief complaint of fatigue and confusion. Patient is present with his daughter. About 1 weeks ago, patient was seen and admitted to [facility] for an elevated lactic level for which the patient was given IV fluids. Since his discharge one week ago, patient has had increased fatigue and confusion. He notes dysuria and urinary burning. Patient denies headache, chest pain, shortness of breath, abdominal pain, or changes in appetite. His daughter states the patient has had recurrent UTI for the last 6 months. His daughter denies the patient uses oxygen at home. PMHx is significant for DM and CHF, but thyroid problems are denied. Patient takes oxycodone nightly for chronic back pain. He is able to ambulate with a walker. On exam, weakness, no focal deficits. In the ED course , patient was given potassium chloride 40 meq PO, insulin 6 units SUBCUT, calcium gluconate 1 gm IVPB, and IV fluids. Laboratory abnormal findings: RBC 3.4, Hgb 11.8, Hct 34, MCV 101, MCH 35, RDW 16, MPV 7.1, absolute neuts 9.4, absolute lymphs 0.2, immature gran % 11, band neutrophils % 11, potassium 3.3, glucose 301, calcium 8, total protein 5, albumin 2.9, urine glucose 3+. EKG at 17:44 shows normal sinus rhythm with 87 BPM, no ischemic changes, QTc 598. Chest X-ray IMPRESSION: NO ACTIVE CARDIOPULMONARY DISEASE. At 17:56, Dr. Debbie Lucero reviewed the patients case and agrees to admit the patient to [facility]. Patient will be admitted to [facility] with a diagnosis of weakness, hypokalemia , hypocalcemia, hyperglycemia, and prolonged QTc. - Diagnoses Provider Diagnoses: Hyperglycemia, Hypokalemia, Hypocalcemia, Weakness - Physician Notifications Discussed Care Of Patient With: Debbie Lucero - At 17:56, Dr. Debbie Lucero reviewed the patients case and agrees to admit the patient to [facility]. Time Discussed With Above Provider: 17:56 Instructed by Provider To: Admit As Inpatient Discharge ED - Sign-Out/Discharge Documenting (check all that apply): Patient Departure - Admit - Discharge Plan Condition: Stable Disposition: ADMITTED TO [facility] - Billing Disposition and Condition Condition: STABLE Disposition: Admitted to [facility] - Attestation Statements Document Initiated by Julito: Yes Documenting Scribe: Marylou Caba Provider For Whom Scribe is Documenting (Include Credential): Severo Dunn DO Scribe Attestation: Marylou Canseco scribed for Severo Dunn DO on 11/29/19 at 2036. Scribe Documentation Reviewed: Yes Provider Attestation: The documentation as recorded by the Marylou lópez accurately reflects the service I personally performed and the decisions made by Severo whitley DO Status of Scribalycia Document: Viewed
[2019-11-29 14:49] LABS: ABS Lymphocytes 0.2 10^3/ul (1.0-4.8); ABS Monocytes 0.7 10^3/ul (0-0.8); ABS Neutrophils 9.4 10^3/ul (1.5-7.7); Eosinophil % 0.3 %; Hematocrit 34 % (42-52); Hemoglobin 11.8 g/dL (14.0-18.0); Lymphocyte % 2.4 %; Mean Corpuscular HGB Conc 34 g/dL (31-36); Mean Corpuscular Hemoglobin 35 pg (27-31); Mean Corpuscular Volume 101 fL (80-94); Mean Platelet Volume 7.1 fL (7.4-10.4); Platelet Count 194 10^3/uL (150-450); Red Cell Distribution Width 16 % (10-15); White Blood Count 10.4 10^3/uL (3.5-10.8)
[2019-11-29 15:07] LABS: Albumin 2.9 g/dL (3.2-5.2); Albumin/Globulin Ratio 1.4 (1-3); BUN/Creatinine Ratio 14.7 (8-20); EGFR African American 79.6 (>60); EGFR Non-African American 65.8 (>60); Globulin 2.1 g/dL (2-4); Potassium 3.3 mmol/L (3.5-5.0); Total Bilirubin 0.6 mg/dL (0.2-1.0)
[2019-11-29 15:08] LABS: Troponin I 0.01 ng/mL (<0.03)
[2019-11-29 15:13] LABS: Urine Appearance Clear; Urine Bilirubin Negative (Negative); Urine Blood Negative (Negative); Urine Color Straw; Urine Glucose 3+(>=500 mg/dL) (Negative); Urine Ketones Negative (Negative); Urine Nitrite Negative (Negative); Urine Protein Negative (Negative); Urine Specific Gravity 1.011 (1.010-1.030); Urine Urobilinogen Negative (Negative)
[2019-11-29 15:35] LABS: TSH (Thyroid Stimulating Horm) 0.93 mcIU/mL (0.34-5.60)
[2019-11-29] MEDS ORDERED: Potassium Chlor TAB* 20 MEQ TAB.ER PO ONE (16:28)
[2019-11-29] MEDS ORDERED: Insulin REGULAR(*) 1 UNITS UNIT SUBCUT ONE (16:38)
[2019-11-29] MEDS ORDERED: Calcium Gluconate INJ* 1 GM in NS 0.9% 100 ML* 100 ML IVPB ONE (17:43)
[2019-11-29 18:18] LABS: Magnesium 1.9 mg/dL (1.9-2.7)
[2019-11-29 18:35] LABS: C Reactive Protein 86.17 mg/L (<8.01)
[2019-11-29] MEDS ORDERED: Vancomycin(*) 1,000 MG in NS 0.9% 250 ML* 250 ML IVPB ONE (18:56)
[2019-11-29] MEDS ORDERED: Dextrose 50% Syringe 50 ML* 25 GM/50 ML SYRINGE IV PUSH PRN (18:59)
[2019-11-29] MEDS ORDERED: Vancomycin per Pharmacy* NOTE FOLLOW UP SCH (19:00)
[2019-11-29] MEDS ORDERED: NS 0.9% 1000 ML** 1,000 ML IV SCH (19:15)
[2019-11-29] MEDS: Tamsulosin CAP* 0.4 MG PO SCH (21:28)
[2019-11-29] MEDS: oxyCODONE TAB* 5 MG TAB PO PRN (21:28)
[2019-11-29] MEDS: amLODIPine TAB* 5 MG PO SCH (21:29)
[2019-11-29] MEDS: Lactobacillus Acidophilus* 1 TAB PO SCH (21:29)
[2019-11-29] MEDS: Carvedilol TAB* 3.125 MG PO SCH (21:29)
[2019-11-29] MEDS: Gabapentin CAP(*) 100 MG PO SCH (21:30)
[2019-11-29] MEDS: Acetaminophen TAB* 325 MG PO SCH (21:30)
[2019-11-29] MEDS: Heparin VIAL(*) 5000 UNITS/ML VIAL (FIVE THOUSAND) SUBCUT SCH (21:31)
--- NOTE | 2019-11-29 21:38 | HP ---
HOSPITAL MEDICINE HISTORY AND PHYSICAL: DATE OF ADMISSION: 11/29/19 PRIMARY CARE PHYSICIAN: Dr. Styles. ATTENDING PHYSICIAN: Debbie Garza MD * (dictation provided by Alisson Becerra NP ) CHIEF COMPLAINT: Lethargy. HISTORY OF PRESENT ILLNESS: Mr. Kemp is a 74-year-old male with a past medical history of diabetes, lumbar spine osteomyelitis/diskitis with MSSA bacteremia 2017 as well as a 2011 diskitis with mycobacterium, history of spinal surgery 2018, who presents to the hospital with concern for lethargy. Mr. Kemp was just admitted to our hospital from 11/18/19 through 11/21/19 for hyperglycemia. At that point, his medications for diabetes were added and was discharged back to [facility]. The patient's family states that over the past week and half or so, he has been more lethargic. Today, he was not able to get up and fell asleep during breakfast and this was unusual for him. He was therefore brought to the hospital for evaluation. Mr. Kemp denies any other complaint. He confirms that he is very tired and not quite himself. He denies back pain. He denies chest pain. He denies shortness of breath. He denies nausea, vomiting. He has had diarrhea, but this has been an ongoing complaint and does not seem to be worse. In the emergency room, Mr. Kemp had labs which showed no leukocytosis, but he does have a bandemia with a band count of 11%. His lactic acid is normal. His CRP is elevated at 86.17. His urine shows no evidence of infection. His vital signs were stable. He is not febrile. He has had a chest x-ray which shows no acute process. His EKG shows no evidence of ischemia. PAST MEDICAL HISTORY: 1. History of MSSA osteomyelitis/diskitis 2017. 3. History of mycobacterium. 4. Osteomyelitis/diskitis 2011. 5. History of recent surgery to the lumbar spine to help relieve pain from history of osteomyelitis with Dr. Elder in [place]. 6. Type 2 diabetes, non-insulin dependent. 7. Hypertension. 8. Sarcoidosis. 9. BPH. 10. Nephrolithiasis. 11. B12 deficiency. 12. History of squamous cell cancer of the skin. 13. Obstructive sleep apnea. 14. Sciatica. 15. Anxiety and depression. 16. Tonsillectomy. 17. Bilateral cataract extractions. MEDICATIONS: 1. Jardiance 10 mg p.o. daily. 2. Tylenol 1000 mg p.o. b.i.d. 3. Bumex 2 mg p.o. q.a.m. 4. Pulmicort inhaler 2 puffs inhaled q.12 hours p.r.n. 5. Imodium p.r.n. 6. Lactobacillus 1 tab p.o. b.i.d. 7. Gabapentin 100 mg p.o. at bedtime. 8. Tricon capsule 1 each p.o. daily. 9. Cholecalciferol 2000 units p.o. daily. 10. Carvedilol 3.125 mg p.o. b.i.d. 11. Tolnaftate cream 1 application topically at bedtime. 12. Tamsulosin 0.4 mg p.o. b.i.d. 13. Potassium chloride 40 mEq p.o. daily. 14. Omeprazole 40 mg p.o. daily. 15. Magnesium oxide 400 mg p.o. daily. 16. Prednisone 10 mg p.o. daily. 17. Oxycodone 5 mg p.o. at bedtime p.r.n. 18. Amlodipine 5 mg p.o. at bedtime. ALLERGIES: LORATADINE and SILVER. FAMILY HISTORY: The patient's mother had Alzheimer's and father had hypertension. 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 He lives at [facility]. There is no report of alcohol, tobacco, or drug use. His surrogate is his , June. REVIEW OF SYSTEMS: A 14-point review of systems was completed with Mr. Kemp and all those not mentioned above were negative. PHYSICAL EXAMINATION GENERAL: Mr. Kemp is lying in bed. He appears tired, but awakens appropriately and interacts appropriately. VITAL SIGNS: Temperature 98.1, pulse rate 102, respiratory rate 16, O2 saturation 98% on room air, blood pressure 143/79. LUNGS: Clear to auscultation bilaterally with no accessory muscle use and good aeration. HEART: S1, S2. No murmur, rub, or gallop and regular. ABDOMEN: Soft, nontender with bowel sounds positive x4. EXTREMITIES: Positive for 1 to 2+ edema bilaterally. There is no skin breakdown. NEURO: He is alert, he is oriented x3. He moves all extremities equally, but weakly. There is no facial asymmetry or focal weakness. Extraocular movements are intact. SKIN: Intact. DIAGNOSTIC STUDIES/LAB DATA: WBC 10.4, hemoglobin 11.8, hematocrit 34, platelet count 194, bands 11%. Sodium 137, potassium 3.3, chloride 101, serum bicarbonate 28, BUN 16, creatinine 1.09, glucose 301. Lactic acid 1.5, CRP 86.17, troponin 0.01. Urine shows no evidence of infection. Chest x-ray shows no evidence of infection or other abnormality. EKG showed sinus rhythm with no evidence of ischemia. ASSESSMENT: Mr. Kemp is a 74-year-old male with a past medical history of diabetes, history of methicillin-sensitive Staphylococcus aureus bacteremia and osteomyelitis/diskitis 2017, history of mycobacterium osteomyelitis/ diskitis 2011, history of spinal fusion 2018, who presents today to hospital with concern for lethargy with concern for potential infection. Our plans are for observation in the hospital for the followin. Lethargy: The patient's workup thus far has only showed that he has a bandemia and elevated CRP. However, given his very strong history for spine infections, he deserves observation overnight with plan for MRI of the lumbar spine with and without contrast tomorrow for further evaluation. Blood cultures have been sent. His vitals are stable. He does not show evidence of sepsis. Plan to hold bumex tonight based on likelihood that he will have poor oral intake but will monitor closely and resume as needed. Plan to start vancomycin and cefepime, awaiting cultures, given his high risk for spinal infection. 2. Type 2 diabetes: Plan to hold his home medications, have blood glucose q.a.c. with lispro sliding scale. 3. Hypertension: Continue amlodipine. I am going to hold Bumex. This can be reconsidered tomorrow based on clinical course. 4. History of congestive heart failure: Plan to hold Bumex given the patient will likely have poor oral intake given his lethargy. 5. Polymyalgia rheumatica: Continue his prednisone. 6. Obstructive sleep apnea: Continue CPAP as the patient is able to tolerate. 7. Diarrhea: Stool culture has been placed. It appears that this has been going on for some time, unlikely to be cdiff based on patient's description. If diarrhea is observed to be more significant with multiple watery stools, cdiff testing can be added. We will continue with Imodium p.r.n. 8. Code status is DNR. MOLST form was completed. 9. Disposition will be to medical floor. TIME SPENT: Approximately 60 minutes was spent on the admission of this patient , more than half the time was spent with the patient at the bedside reviewing the events leading up to this hospitalization, performing the physical examination, and reviewing my plan of care. ALISSON BECERRA NP [id number]/CPS #: [id number] EMILIANO
[2019-11-29] MEDS: Cefepime 1 GM in Dextrose(*) 1 GM/50 ML BAG IV SCH (23:23)
[2019-11-30] MEDS: Tolnaftate 1% CREAM* 15 GM TOPICAL SCH ×2 (00:19→20:59)
[2019-11-30] MEDS: Heparin VIAL(*) 5000 UNITS/ML VIAL (FIVE THOUSAND) SUBCUT SCH (05:47)
[2019-11-30 07:50] LABS: Hematocrit 32 % (42-52); Hemoglobin 11.1 g/dL (14.0-18.0); Mean Corpuscular HGB Conc 35 g/dL (31-36); Mean Corpuscular Hemoglobin 35 pg (27-31); Mean Corpuscular Volume 100 fL (80-94); Mean Platelet Volume 6.8 fL (7.4-10.4); Platelet Count 179 10^3/uL (150-450); Red Cell Distribution Width 16 % (10-15); White Blood Count 7.9 10^3/uL (3.5-10.8)
[2019-11-30 08:07] LABS: BUN/Creatinine Ratio 13.8 (8-20); Calcium 7.9 mg/dL (8.6-10.3); EGFR African American 103.2 (>60); EGFR Non-African American 85.3 (>60); Potassium 3.2 mmol/L (3.5-5.0)
[2019-11-30] MEDS ORDERED: Potassium Chloride* LIQUID 20 MEQ/15 ML UDC PO ONE (08:21)
[2019-11-30 08:26] LABS: ABS Eosinophils 0.1 10^3/ul (0-0.6); ABS Lymphocytes 0.3 10^3/ul (1.0-4.8); ABS Monocytes 0.6 10^3/ul (0-0.8); ABS Neutrophils 6.9 10^3/ul (1.5-7.7); Eosinophil % 1.3 %
[2019-11-30 08:50] LABS: Magnesium 1.9 mg/dL (1.9-2.7)
[2019-11-30] MEDS ORDERED: Bumetanide TAB* 2 MG PO SCH (09:00)
[2019-11-30] MEDS: Loperamide CAP* 2 MG PO PRN ×2 (09:27→19:26)
[2019-11-30] MEDS: Acetaminophen TAB* 325 MG PO SCH ×2 (09:28→20:58)
[2019-11-30] MEDS: Magnesium Oxide TAB* 400 MG PO SCH (09:29)
[2019-11-30] MEDS: Lactobacillus Acidophilus* 1 TAB PO SCH ×2 (09:32→20:58)
[2019-11-30] MEDS: Cholecalciferol TAB* 1000 UNITS PO SCH (09:32)
[2019-11-30] MEDS: Carvedilol TAB* 3.125 MG PO SCH ×2 (09:32→20:58)
[2019-11-30] MEDS: Insulin LISPRO* 1 UNITS UNIT SUBCUT SCH ×3 (09:33→17:42)
[2019-11-30] MEDS: Potassium Chlor TAB* 20 MEQ TAB.ER PO SCH (09:33)
[2019-11-30] MEDS: Tamsulosin CAP* 0.4 MG PO SCH ×2 (09:33→20:57)
[2019-11-30] MEDS: Cefepime 1 GM in Dextrose(*) 1 GM/50 ML BAG IV SCH ×2 (10:25→22:06)
[2019-11-30] MEDS: Vancomycin(*) 1,000 MG in NS 0.9% 250 ML* 250 ML IV SCH ×2 (12:08→23:52)
[2019-11-30] MEDS: KCL 20 MEQ/100 ML IVPREMIX* 20 MEQ/100 ML BAG IV SCH ×2 (15:31→17:42)
--- NOTE | 2019-11-30 15:35 | PN ---
Subjective Date of Service: 11/30/19 Interval History: Patient appears to long longer have the lethargy that was his presenting complaint. Patient denies F/C, N/V, abdominal pain, SOB, CP, Dizziness, or other pain. Patient is having 1-2 BMs daily which are loose and has no abdominal pain or cramping. Family History: Unchanged from Admission Social History: Unchanged from Admission Past Medical History: Unchanged from Admission Objective Active Medications: Acetaminophen (Tylenol Tab*) 975 mg PO BID [facility] Last Admin: 11/30/19 09:28 Dose: 975 mg Amlodipine Besylate (Norvasc Tab*) 5 mg PO BEDTIME [facility] Last Admin: 11/29/19 21:29 Dose: 5 mg Carvedilol (Coreg Tab*) 3.125 mg PO BID [facility] Last Admin: 11/30/19 09:32 Dose: 3.125 mg Cholecalciferol (Vitamin D Tab*) 2,000 units PO DAILY [facility] Last Admin: 11/30/19 09:32 Dose: 2,000 units Dextrose (D50w Syringe 50 Ml*) 12.5 gm IV PUSH .FOR FS < 60 - SS PRN PRN Reason: FS < 60 Gabapentin (Neurontin Cap(*)) 100 mg PO BEDTIME [facility] Last Admin: 11/29/19 21:30 Dose: 100 mg Cefepime HCl (Maxipime 1 Gm In Dextrose Duplex (*)) 1 gm in 50 mls @ 100 mls/ hr IV Q12H [facility] Last Admin: 11/30/19 10:25 Dose: 100 mls/hr Vancomycin HCl 1,000 mg/ (Sodium Chloride) 250 mls @ 166.667 mls/hr IV Q12H [facility] Last Admin: 11/30/19 12:08 Dose: 166.667 mls/hr Insulin Human Lispro (Humalog*) 0 units SUBCUT AC [facility]; Protocol Last Admin: 11/30/19 12:48 Dose: 2 units Lactobacillus Rhamnosus (Lactobacillus Acidophilus*) 1 tab PO BID [facility] Last Admin: 11/30/19 09:32 Dose: 1 tab Loperamide HCl (Imodium Cap*) 2 mg PO Q4H PRN PRN Reason: DIARRHEA Last Admin: 11/30/19 09:27 Dose: 2 mg Magnesium Oxide (Magox 400 Tab*) 400 mg PO DAILY [facility] Last Admin: 11/30/19 09:29 Dose: 400 mg Oxycodone HCl (Roxycodone Tab*) 5 mg PO BEDTIME PRN PRN Reason: PAIN Last Admin: 11/29/19 21:28 Dose: 5 mg Pharmacy Consult (Vancomycin Per Pharmacy*) 1 note FOLLOW UP .VANC PER PHARMACY [facility]; Protocol Pharmacy Profile Note (Vancomycin Trough Check) 1 note FOLLOW UP 0900 ONE Stop: 12/01/19 09:01 Potassium Chloride (Klor Con Er Tab*) 40 meq PO DAILY [facility] Last Admin: 11/30/19 09:33 Dose: 40 meq Prednisone (Deltasone 10 Mg Tab) 10 mg PO DAILY [facility] Last Admin: 11/30/19 09:31 Dose: 10 mg Tamsulosin HCl (Flomax Cap*) 0.4 mg PO BID [facility] Last Admin: 11/30/19 09:33 Dose: 0.4 mg Tolnaftate (Tinactin 1% Cream*) 1 applic TOPICAL BEDTIME [facility] Last Admin: 11/30/19 00:19 Dose: 1 applic Vital Signs - 8 hr 11/30/19 11/30/19 11/30/19 07:34 09:27 11:15 Temperature 97.8 F 97.0 F Pulse Rate 80 83 Respiratory 19 18 15 Rate Blood Pressure 134/78 104/54 (mmHg) O2 Sat by Pulse 97 97 Oximetry 11/30/19 12:15 Temperature Pulse Rate Respiratory 18 Rate Blood Pressure (mmHg) O2 Sat by Pulse Oximetry Oxygen Devices in Use Now: None Appearance: Patient is a 74yo male who appears stated age and is sitting in the bed in [facility]. Eyes: No Scleral Icterus, PERRLA Ears/Nose/Mouth/Throat: NL Teeth, Lips, Gums, Clear Oropharnyx, Mucous Membranes Moist Neck: NL Appearance and Movements; NL JVP, Trachea Midline Respiratory: Symmetrical Chest Expansion and Respiratory Effort, Clear to Auscultation Cardiovascular: NL Sounds; No Murmurs; No JVD, RRR, No Edema Abdominal: NL Sounds; No Tenderness; No Distention, No Hepatosplenomegaly Lymphatic: No Cervical Adenopathy Extremities: No Edema, No Clubbing, Cyanosis Skin: No Rash or Ulcers, No Nodules or Sclerosis Neurological: Alert and Oriented x 3, NL Sensation, NL Muscle Strength and Tone , - - CN II-XII intact. Result Diagrams: 11/30/19 07:40 11/30/19 07:40 Assess/Plan/Problems-Billing Assessment: Patient is a 74yo male with a PMH for multiple spinal infections, DMII, PMR, here with lethargy for 1 week which appears to be improved with antibiotics. Patient is awaiting culture data and MRI of the spine before narrowing antibiotics and discharge. - Patient Problems (1) Lethargy Current Visit: Yes Status: Acute Code(s): R53.83 - OTHER FATIGUE SNOMED Code(s): 843455907 Comment: - Unclear cause, with associated bandemia and CRP elevation - Improved with antibiotics Vanco (11/29-?) and Cefepime (11/29-?) - No source for possible infection - No other obvious causes of encephalopathy - MRI to R/O possible recurrent spinal infection - Blood Cultures pending - No rashes and negative CXR - Diarrhea not likely due to C. diff (2) Bandemia Current Visit: Yes Status: Acute Code(s): D72.825 - BANDEMIA SNOMED Code(s ): 311492454 Comment: - Without associated leukocytosis - Improved today with antibiotics - Continue to look for source for possible infection (3) PMR (polymyalgia rheumatica) Current Visit: Yes Status: Acute Code(s): M35.3 - POLYMYALGIA RHEUMATICA SNOMED Code(s): 42589540 Comment: - On chronic steroids. (4) Diabetes Current Visit: No Status: Acute Code(s): E11.9 - TYPE 2 DIABETES MELLITUS WITHOUT COMPLICATIONS SNOMED Code(s): 64223738 Comment: - A1c 9.7% 1 month ago - SSI in the hospital - Resume home meds on D/C (5) Diarrhea Current Visit: No Status: Acute Code(s): R19.7 - DIARRHEA, UNSPECIFIED SNOMED Code(s): 13345890 Comment: - Chronic, now concern at this time for C. diff (6) Diastolic CHF Current Visit: No Status: Acute Code(s): I50.30 - UNSPECIFIED DIASTOLIC ( CONGESTIVE) HEART FAILURE SNOMED Code(s): 543101326 Comment: - Currently with LE edema which is chronic - Resume Bumex tomorrow (7) AYUSH (obstructive sleep apnea) Current Visit: No Status: Acute Code(s): G47.33 - OBSTRUCTIVE SLEEP APNEA ( ADULT) (PEDIATRIC) SNOMED Code(s): 82848905 Comment: - CPAP at Night (8) Sarcoidosis Current Visit: No Status: Acute Code(s): D86.9 - SARCOIDOSIS, UNSPECIFIED SNOMED Code(s): 30165334 Comment: - On chronic Steroids, Continue 10mg Daily - No respiratory symptoms (9) DVT prophylaxis Current Visit: No Status: Acute Code(s): CZW1576 - SNOMED Code(s): 458569709 Comment: - lovenox Status and Disposition: Observation for evaluation of Lethargy
[2019-11-30] MEDS: Enoxaparin(*) 40 MG/0.4 ML SYR SUBCUT SCH (17:41)
[2019-11-30] MEDS ORDERED: Gadoteridol* (CONTRAST) 279.3 MG/ML 10 ML IV ONE (19:15)
[2019-11-30] MEDS: Gabapentin CAP(*) 100 MG PO SCH (20:58)
[2019-11-30] MEDS: amLODIPine TAB* 5 MG PO SCH (20:58)
[2019-12-01 05:51] LABS: Hematocrit 31 % (42-52); Hemoglobin 10.7 g/dL (14.0-18.0); Mean Corpuscular HGB Conc 34 g/dL (31-36); Mean Corpuscular Hemoglobin 34 pg (27-31); Mean Corpuscular Volume 100 fL (80-94); Mean Platelet Volume 6.6 fL (7.4-10.4); Platelet Count 176 10^3/uL (150-450); Red Blood Count 3.14 10^6 /uL (4.18-5.48); Red Cell Distribution Width 16 % (10-15); White Blood Count 7.4 10^3/uL (3.5-10.8)
[2019-12-01 06:07] LABS: BUN/Creatinine Ratio 16.3 (8-20); C Reactive Protein 68.75 mg/L (<8.01); Calcium 7.8 mg/dL (8.6-10.3); EGFR African American 104.6 (>60); EGFR Non-African American 86.5 (>60); Potassium 3.8 mmol/L (3.5-5.0)
[2019-12-01 06:51] LABS: ABS Eosinophils 0.1 10^3/ul (0-0.6); ABS Lymphocytes 0.4 10^3/ul (1.0-4.8); ABS Monocytes 0.5 10^3/ul (0-0.8); ABS Neutrophils 6.3 10^3/ul (1.5-7.7); Eosinophil % 1.6 %; Lymphocyte % 5.1 %; Nucleated Red Blood Cells % 0.2
[2019-12-01] MEDS: Cholecalciferol TAB* 1000 UNITS PO SCH (08:24)
[2019-12-01] MEDS: Lactobacillus Acidophilus* 1 TAB PO SCH ×2 (08:24→20:25)
[2019-12-01] MEDS: Acetaminophen TAB* 325 MG PO SCH ×2 (08:24→20:25)
[2019-12-01] MEDS: Bumetanide TAB* 1 MG PO SCH (08:25)
[2019-12-01] MEDS: Magnesium Oxide TAB* 400 MG PO SCH (08:25)
[2019-12-01] MEDS: Tamsulosin CAP* 0.4 MG PO SCH ×2 (08:25→20:25)
[2019-12-01] MEDS: Potassium Chlor TAB* 20 MEQ TAB.ER PO SCH (08:25)
[2019-12-01] MEDS: Carvedilol TAB* 3.125 MG PO SCH ×2 (08:25→20:26)
[2019-12-01] MEDS: Cefepime 1 GM in Dextrose(*) 1 GM/50 ML BAG IV SCH ×2 (08:26→20:26)
[2019-12-01] MEDS: Insulin LISPRO* 1 UNITS UNIT SUBCUT SCH ×3 (08:26→17:28)
[2019-12-01] MEDS ORDERED: Vancomycin Trough Check NOTE FOLLOW UP ONE (09:00)
[2019-12-01] MEDS ORDERED: Bumetanide TAB* 2 MG PO SCH (09:00)
[2019-12-01] MEDS: Vancomycin(*) 1,000 MG in NS 0.9% 250 ML* 250 ML IV SCH (10:44)
[2019-12-01 11:42] LABS: Folate > 20.00 ng/mL (>3.99)
[2019-12-01 11:45] LABS: LDH 139 U/L (140-271)
[2019-12-01] MEDS: Enoxaparin(*) 40 MG/0.4 ML SYR SUBCUT SCH (16:51)
--- NOTE | 2019-12-01 17:07 | PN ---
Subjective Date of Service: 12/01/19 Interval History: More alert during interview.Per fam was falling asleep and lethargic before and doing better on the antibiotics. Family History: Unchanged from Admission Social History: Unchanged from Admission Past Medical History: Unchanged from Admission Objective Active Medications: Acetaminophen (Tylenol Tab*) 975 mg PO BID [facility] Last Admin: 12/01/19 08:24 Dose: 975 mg Amlodipine Besylate (Norvasc Tab*) 5 mg PO BEDTIME [facility] Last Admin: 11/30/19 20:58 Dose: 5 mg Bumetanide (Bumex Tab*) 1 mg PO DAILY [facility] Last Admin: 12/01/19 08:25 Dose: 1 mg Carvedilol (Coreg Tab*) 3.125 mg PO BID [facility] Last Admin: 12/01/19 08:25 Dose: 3.125 mg Cholecalciferol (Vitamin D Tab*) 2,000 units PO DAILY [facility] Last Admin: 12/01/19 08:24 Dose: 2,000 units Dextrose (D50w Syringe 50 Ml*) 12.5 gm IV PUSH .FOR FS < 60 - SS PRN PRN Reason: FS < 60 Enoxaparin Sodium (Lovenox(*)) 40 mg SUBCUT Q24H [facility] Last Admin: 12/01/19 16:51 Dose: 40 mg Gabapentin (Neurontin Cap(*)) 100 mg PO BEDTIME [facility] Last Admin: 11/30/19 20:58 Dose: 100 mg Cefepime HCl (Maxipime 1 Gm In Dextrose Duplex (*)) 1 gm in 50 mls @ 100 mls/ hr IV Q12H [facility] Last Admin: 12/01/19 08:26 Dose: 100 mls/hr Vancomycin HCl 1,250 mg/ (Sodium Chloride) 250 mls @ 166.667 mls/hr IV 0900, 2100 [facility] Insulin Human Lispro (Humalog*) 0 units SUBCUT AC [facility]; Protocol Last Admin: 12/01/19 12:39 Dose: 4 units Lactobacillus Rhamnosus (Lactobacillus Acidophilus*) 1 tab PO BID [facility] Last Admin: 12/01/19 08:24 Dose: 1 tab Magnesium Oxide (Magox 400 Tab*) 400 mg PO DAILY [facility] Last Admin: 12/01/19 08:25 Dose: 400 mg Oxycodone HCl (Roxycodone Tab*) 5 mg PO BEDTIME PRN PRN Reason: PAIN Last Admin: 11/29/19 21:28 Dose: 5 mg Pharmacy Consult (Vancomycin Per Pharmacy*) 1 note FOLLOW UP .VANC PER PHARMACY [facility]; Protocol Pharmacy Profile Note (Vancomycin Trough Check) 1 note FOLLOW UP 0900 ONE Stop: 12/03/19 09:01 Potassium Chloride (Klor Con Er Tab*) 40 meq PO DAILY [facility] Last Admin: 12/01/19 08:25 Dose: 40 meq Prednisone (Deltasone 10 Mg Tab) 10 mg PO DAILY [facility] Last Admin: 12/01/19 08:24 Dose: 10 mg Tamsulosin HCl (Flomax Cap*) 0.4 mg PO BID [facility] Last Admin: 12/01/19 08:25 Dose: 0.4 mg Tolnaftate (Tinactin 1% Cream*) 1 applic TOPICAL BEDTIME [facility] Last Admin: 11/30/19 20:59 Dose: 1 applic Vital Signs - 8 hr 12/01/19 11:15 Temperature 97.3 F Pulse Rate 80 Respiratory 19 Rate Blood Pressure 133/69 (mmHg) O2 Sat by Pulse 100 Oximetry Oxygen Devices in Use Now: None Eyes: No Scleral Icterus Ears/Nose/Mouth/Throat: NL Teeth, Lips, Gums Neck: NL Appearance and Movements; NL JVP Respiratory: Symmetrical Chest Expansion and Respiratory Effort, Clear to Auscultation Cardiovascular: NL Sounds; No Murmurs; No JVD Abdominal: NL Sounds; No Tenderness; No Distention Extremities: No Edema Neurological: Alert and Oriented x 3 Result Diagrams: 12/01/19 05:39 12/01/19 05:39 Microbiology and Other Data: Microbiology 11/30/19 09:30 Stool Gross Appearance - Final Stool Shiga Toxin I & II - Final Negative Shiga Toxin 1 & 2 11/30/19 09:59 Stool Occult Blood (WAYNE) - Final Stool 11/29/19 18:13 Aerobic Blood Culture - Preliminary Blood Line No Growth Day 1 Anaerobic Blood Culture - Preliminary No Growth Day 1 11/29/19 17:05 Aerobic Blood Culture - Preliminary Blood Line No Growth Day 1 Anaerobic Blood Culture - Preliminary No Growth Day 1 Assess/Plan/Problems-Billing Assessment: Patient is a 74yo male with a PMH for multiple spinal infections, DMII, PMR, here with lethargy for 1 week which appears to be improved with antibiotics. Patient is awaiting culture data and MRI of the spine before narrowing antibiotics and discharge. - Patient Problems (1) Leukocytosis, unspecified Current Visit: Yes Status: Acute Code(s): D72.829 - ELEVATED WHITE BLOOD CELL COUNT, UNSPECIFIED SNOMED Code(s): 159046776 Comment: Myelocytes on Differential Unclear cause of lactate elevation Has been long standing 2 hospitalizations this month Also has anemia Macrocytic Will req consult with Oncology/Hematology to r/o underlying CML,MDS or other pathology Has B symptoms Adding LDH Lactate SPEP,B12 H/o Sarcoid on chronic steroids, PMR Poss Bone Marrow Biopsy in am Appreciate Heme/onc input (2) Lethargy Current Visit: Yes Status: Acute Code(s): R53.83 - OTHER FATIGUE SNOMED Code(s): 944860462 Comment: - Unclear cause, with associated bandemia and CRP elevation - Improved with antibiotics Vanco (11/29-?) and Cefepime (11/29-?) - No source for possible infection - No other obvious causes of encephalopathy - MRI to R/O possible recurrent spinal infection: does not show abscess or osteomyelitis - Blood Cultures pending - No rashes and negative CXR - Diarrhea with c diff exposure, check C diff -Improving with antibiotics -will also consider further malignancy w/u as above (3) Bandemia Current Visit: Yes Status: Acute Code(s): D72.825 - BANDEMIA SNOMED Code(s ): 671388899 Comment: - Without associated leukocytosis - Improved today with antibiotics - Continue to look for source for possible infection (4) PMR (polymyalgia rheumatica) Current Visit: Yes Status: Acute Code(s): M35.3 - POLYMYALGIA RHEUMATICA SNOMED Code(s): 69572911 Comment: - On chronic steroids. (5) TEO (acute kidney injury) Current Visit: No Status: Acute Code(s): N17.9 - ACUTE KIDNEY FAILURE, UNSPECIFIED SNOMED Code(s): 29381402 Comment: -likely prerenal in setting of dehydration -resolved with IVF (6) Anemia Current Visit: No Status: Acute Code(s): D64.9 - ANEMIA, UNSPECIFIED SNOMED Code(s): 755221385 Comment: - H/H stable. (7) BPH (benign prostatic hyperplasia) Current Visit: No Status: Acute Code(s): N40.0 - BENIGN PROSTATIC HYPERPLASIA WITHOUT LOWER URINRY TRACT SYMP SNOMED Code(s): 897225362 Comment: - Continue tamsulosin (8) Diabetes Current Visit: No Status: Acute Code(s): E11.9 - TYPE 2 DIABETES MELLITUS WITHOUT COMPLICATIONS SNOMED Code(s): 04791121 Comment: - A1c 9.7% 1 month ago - SSI in the hospital - Resume home meds on D/C
[2019-12-01] MEDS: Gabapentin CAP(*) 100 MG PO SCH (20:25)
[2019-12-01] MEDS: amLODIPine TAB* 5 MG PO SCH (20:25)
[2019-12-01] MEDS: Tolnaftate 1% CREAM* 15 GM TOPICAL SCH (20:26)
[2019-12-01] MEDS ORDERED: Vancomycin(*) 1,250 MG in NS 0.9% 250 ML* 250 ML IVPB SCH (21:00)
[2019-12-01] MEDS: Vancomycin(*) 1,250 MG in NS 0.9% 250 ML* 250 ML IV SCH (21:22)
[2019-12-02] MEDS: Vancomycin CAP* 125 MG CAP PO SCH ×5 (02:50→21:13)
[2019-12-02 07:02] LABS: Hematocrit 30 % (42-52); Hemoglobin 10.4 g/dL (14.0-18.0); Mean Corpuscular HGB Conc 35 g/dL (31-36); Mean Corpuscular Hemoglobin 35 pg (27-31); Mean Corpuscular Volume 100 fL (80-94); Platelet Count 175 10^3/uL (150-450); Red Blood Count 2.97 10^6 /uL (4.18-5.48); Red Cell Distribution Width 16 % (10-15); White Blood Count 7.5 10^3/uL (3.5-10.8)
[2019-12-02 07:13] LABS: BUN/Creatinine Ratio 17.1 (8-20); Calcium 7.9 mg/dL (8.6-10.3); EGFR African American 120.7 (>60); EGFR Non-African American 99.7 (>60); Potassium 3.6 mmol/L (3.5-5.0)
[2019-12-02 07:37] LABS: ABS Basophils 0.1 10^3/ul (0-0.2); ABS Eosinophils 0.1 10^3/ul (0-0.6); ABS Lymphocytes 0.4 10^3/ul (1.0-4.8); ABS Monocytes 0.5 10^3/ul (0-0.8); ABS Neutrophils 6.3 10^3/ul (1.5-7.7); Eosinophil % 1.7 %; Lymphocyte % 5.9 %
[2019-12-02] MEDS: Insulin LISPRO* 1 UNITS UNIT SUBCUT SCH ×3 (10:46→17:47)
[2019-12-02] MEDS: Acetaminophen TAB* 325 MG PO SCH ×2 (10:47→21:13)
[2019-12-02] MEDS: Cholecalciferol TAB* 1000 UNITS PO SCH (10:48)
[2019-12-02] MEDS: Potassium Chlor TAB* 20 MEQ TAB.ER PO SCH (10:48)
[2019-12-02] MEDS: Magnesium Oxide TAB* 400 MG PO SCH (10:49)
[2019-12-02] MEDS: Bumetanide TAB* 1 MG PO SCH (10:49)
[2019-12-02] MEDS: Lactobacillus Acidophilus* 1 TAB PO SCH ×2 (10:49→21:13)
[2019-12-02] MEDS: Carvedilol TAB* 3.125 MG PO SCH ×2 (10:49→21:14)
[2019-12-02] MEDS: Tamsulosin CAP* 0.4 MG PO SCH ×2 (10:49→21:14)
[2019-12-02] MEDS: Cefepime 1 GM in Dextrose(*) 1 GM/50 ML BAG IV SCH (10:50)
[2019-12-02] MEDS: Vancomycin(*) 1,250 MG in NS 0.9% 250 ML* 250 ML IV SCH ×2 (14:36→21:12)
--- NOTE | 2019-12-02 16:57 | PN ---
Subjective Date of Service: 12/02/19 Interval History: Resting in bed on assessment. Continues to have diarrhea. Denies other complaints including fever, chills, chest pain, back pain, nausea, vomiting. Family History: Unchanged from Admission Social History: Unchanged from Admission Past Medical History: Unchanged from Admission Objective Active Medications: Acetaminophen (Tylenol Tab*) 975 mg PO BID [facility] Last Admin: 12/02/19 10:47 Dose: 975 mg Amlodipine Besylate (Norvasc Tab*) 5 mg PO BEDTIME [facility] Last Admin: 12/01/19 20:25 Dose: 5 mg Bumetanide (Bumex Tab*) 1 mg PO DAILY [facility] Last Admin: 12/02/19 10:49 Dose: 1 mg Carvedilol (Coreg Tab*) 3.125 mg PO BID [facility] Last Admin: 12/02/19 10:49 Dose: 3.125 mg Cholecalciferol (Vitamin D Tab*) 2,000 units PO DAILY [facility] Last Admin: 12/02/19 10:48 Dose: 2,000 units Dextrose (D50w Syringe 50 Ml*) 12.5 gm IV PUSH .FOR FS < 60 - SS PRN PRN Reason: FS < 60 Enoxaparin Sodium (Lovenox(*)) 40 mg SUBCUT Q24H [facility] Last Admin: 12/01/19 16:51 Dose: 40 mg Gabapentin (Neurontin Cap(*)) 100 mg PO BEDTIME [facility] Last Admin: 12/01/19 20:25 Dose: 100 mg Cefepime HCl (Maxipime 1 Gm In Dextrose Duplex (*)) 1 gm in 50 mls @ 100 mls/ hr IV Q12H [facility] Last Admin: 12/02/19 10:50 Dose: 100 mls/hr Vancomycin HCl 1,250 mg/ (Sodium Chloride) 250 mls @ 166.667 mls/hr IV 0900, 2100 [facility] Last Admin: 12/02/19 14:36 Dose: 166.667 mls/hr Insulin Human Lispro (Humalog*) 0 units SUBCUT AC [facility]; Protocol Last Admin: 12/02/19 12:10 Dose: 4 units Lactobacillus Rhamnosus (Lactobacillus Acidophilus*) 1 tab PO BID [facility] Last Admin: 12/02/19 10:49 Dose: 1 tab Magnesium Oxide (Magox 400 Tab*) 400 mg PO DAILY [facility] Last Admin: 12/02/19 10:49 Dose: 400 mg Oxycodone HCl (Roxycodone Tab*) 5 mg PO BEDTIME PRN PRN Reason: PAIN Last Admin: 11/29/19 21:28 Dose: 5 mg Pharmacy Consult (Vancomycin Per Pharmacy*) 1 note FOLLOW UP .VANC PER PHARMACY [facility]; Protocol Pharmacy Profile Note (Vancomycin Trough Check) 1 note FOLLOW UP 0900 ONE Stop: 12/03/19 09:01 Potassium Chloride (Klor Con Er Tab*) 40 meq PO DAILY [facility] Last Admin: 12/02/19 10:48 Dose: 40 meq Prednisone (Deltasone 10 Mg Tab) 10 mg PO DAILY [facility] Last Admin: 12/02/19 10:48 Dose: 10 mg Tamsulosin HCl (Flomax Cap*) 0.4 mg PO BID [facility] Last Admin: 12/02/19 10:49 Dose: 0.4 mg Tolnaftate (Tinactin 1% Cream*) 1 applic TOPICAL BEDTIME [facility] Last Admin: 12/01/19 20:26 Dose: 1 applic Vancomycin HCl (Vancomycin Cap*) 125 mg PO QID [facility] Last Admin: 12/02/19 14:36 Dose: 125 mg Vital Signs - 8 hr 12/02/19 11:15 Temperature 97.9 F Pulse Rate 83 Respiratory 20 Rate Blood Pressure 124/70 (mmHg) O2 Sat by Pulse 96 Oximetry Oxygen Devices in Use Now: None Appearance: Comfortable, NAD Eyes: No Scleral Icterus Ears/Nose/Mouth/Throat: Clear Oropharnyx, Mucous Membranes Moist Neck: NL Appearance and Movements; NL JVP Respiratory: Symmetrical Chest Expansion and Respiratory Effort, Clear to Auscultation Cardiovascular: NL Sounds; No Murmurs; No JVD, RRR, No Edema Abdominal: NL Sounds; No Tenderness; No Distention Lymphatic: No Cervical Adenopathy Extremities: No Edema Skin: No Rash or Ulcers Neurological: Alert and Oriented x 3 Nutrition: Taking PO's Result Diagrams: 12/02/19 06:51 12/02/19 06:51 Additional Lab and Data: Laboratory Results - last 24 hr 12/01/19 12/02/19 12/02/19 16:52 06:51 06:51 WBC 7.5 RBC 2.97 L Hgb 10.4 L Hct 30 L MCV 100 H MCH 35 H MCHC 35 RDW 16 H Plt Count 175 MPV 7.0 L Neut % (Auto) 85.0 Lymph % (Auto) 5.9 [place] % (Auto) 6.6 Eos % (Auto) 1.7 Baso % (Auto) 0.8 Absolute Neuts (auto) 6.3 Absolute Lymphs (auto) 0.4 L Absolute Monos (auto) 0.5 Absolute Eos (auto) 0.1 Absolute Basos (auto) 0.1 Absolute Nucleated RBC 0.0 Immature Gran % 7.0 Neutrophils % 76.0 Band Neutrophils % 2.0 Lymphocytes % 14.0 Monocytes % 3.0 Metamyelocytes % 2.0 Myelocytes % 2.0 H Promyelocytes % 1.0 Nucleated RBC % 0.0 Normal RBC Morphology Normal Sodium 138 Potassium 3.6 Chloride 109 Carbon Dioxide 24 Anion Gap 5 BUN 13 Creatinine 0.76 Est GFR ( Amer) 120.7 Est GFR (Non-Af Amer) 99.7 BUN/Creatinine Ratio 17.1 Glucose 121 H POC Glucose (mg/dL) 212 H Lactic Acid Calcium 7.9 L 12/02/19 12/02/19 06:51 07:42 WBC RBC Hgb Hct MCV MCH MCHC RDW Plt Count MPV Neut % (Auto) Lymph % (Auto) [place] % (Auto) Eos % (Auto) Baso % (Auto) Absolute Neuts (auto) Absolute Lymphs (auto) Absolute Monos (auto) Absolute Eos (auto) Absolute Basos (auto) Absolute Nucleated RBC Immature Gran % Neutrophils % Band Neutrophils % Lymphocytes % Monocytes % Metamyelocytes % Myelocytes % Promyelocytes % Nucleated RBC % Normal RBC Morphology Sodium Potassium Chloride Carbon Dioxide Anion Gap BUN Creatinine Est GFR ( Amer) Est GFR (Non-Af Amer) BUN/Creatinine Ratio Glucose POC Glucose (mg/dL) 131 H Lactic Acid 1.1 Calcium Microbiology and Other Data: Microbiology 11/30/19 09:30 Stool Stool Culture - Final 11/30/19 09:30 Stool Stool Gross Appearance - Final 11/30/19 09:30 Stool Shiga Toxin I & II - Final Negative Shiga Toxin 1 & 2 12/01/19 22:15 Stool Stool Gross Appearance - Final 12/01/19 22:15 Stool C. difficile DNA Amplification - Final 027 Presumptive NEGATIVE Toxigenic C.diff POSITIVE 11/29/19 18:13 Blood Line Aerobic Blood Culture - Preliminary No Growth Day 2 11/29/19 18:13 Blood Line Anaerobic Blood Culture - Preliminary No Growth Day 2 11/29/19 17:05 Blood Line Aerobic Blood Culture - Preliminary No Growth Day 2 11/29/19 17:05 Blood Line Anaerobic Blood Culture - Preliminary No Growth Day 2 11/30/19 09:59 Stool Stool Occult Blood ([facility]NE) - Final Assess/Plan/Problems-Billing Assessment: Patient is a 74yo male with a PMH for multiple spinal infections, DMII, PMR, here with lethargy for 1 week which appears to be improved with antibiotics. - Patient Problems (1) Bandemia Comment: - Resolved - Without associated leukocytosis - Likely secondary to C Diff infection (2) Lethargy Comment: - Improving. - Cdiff - MRI to R/O possible recurrent spinal infection: does not show abscess or osteomyelitis - Blood Cultures negative - No rashes and negative CXR (3) Leukocytosis, unspecified Comment: - No leukocytosis during admission - Elevated lactate has resolved - Dr Cervantes consulted by previous provider. Will f/u with him tomorrow (4) Clostridium difficile infection Comment: - Cont PO Vanco - Stop Cefepime (5) PMR (polymyalgia rheumatica) Comment: - On chronic steroids. (6) TEO (acute kidney injury) Comment: - Resolved with IVF (7) Anemia Comment: - H/H stable. (8) BPH (benign prostatic hyperplasia) Comment: - Continue tamsulosin (9) Diabetes Comment: - A1c 9.7% 1 month ago - SSI in the hospital - Resume home meds on D/C (10) DVT prophylaxis Comment: - lovenox Status and Disposition: Discharge when medically stable
[2019-12-02] MEDS: Enoxaparin(*) 40 MG/0.4 ML SYR SUBCUT SCH (17:46)
[2019-12-02] MEDS: amLODIPine TAB* 5 MG PO SCH (21:13)
[2019-12-02] MEDS: oxyCODONE TAB* 5 MG TAB PO PRN (21:13)
[2019-12-02] MEDS: Tolnaftate 1% CREAM* 15 GM TOPICAL SCH (21:13)
[2019-12-02] MEDS: Gabapentin CAP(*) 100 MG PO SCH (21:14)
[2019-12-03 05:46] LABS: Hematocrit 30 % (42-52); Hemoglobin 10.2 g/dL (14.0-18.0); Mean Corpuscular HGB Conc 35 g/dL (31-36); Mean Corpuscular Hemoglobin 35 pg (27-31); Mean Corpuscular Volume 100 fL (80-94); Platelet Count 176 10^3/uL (150-450); Red Blood Count 2.95 10^6 /uL (4.18-5.48); Red Cell Distribution Width 16 % (10-15)
[2019-12-03 06:07] LABS: BUN/Creatinine Ratio 13.1 (8-20); EGFR African American 107.5 (>60); EGFR Non-African American 88.8 (>60); Magnesium 2.1 mg/dL (1.9-2.7); Potassium 3.8 mmol/L (3.5-5.0)
[2019-12-03 06:22] LABS: ABS Eosinophils 0.1 10^3/ul (0-0.6); ABS Lymphocytes 0.4 10^3/ul (1.0-4.8); ABS Monocytes 0.5 10^3/ul (0-0.8); ABS Neutrophils 7.8 10^3/ul (1.5-7.7); Eosinophil % 1.4 %; Nucleated Red Blood Cells % 0.2
[2019-12-03] MEDS: Insulin LISPRO* 1 UNITS UNIT SUBCUT SCH ×3 (08:07→18:22)
[2019-12-03] MEDS ORDERED: Vancomycin Trough Check NOTE FOLLOW UP ONE (09:00)
[2019-12-03] MEDS ORDERED: Lidocaine 2% PF * 5 ML VIAL INJ ONE (09:06)
[2019-12-03] MEDS: Vancomycin(*) 1,250 MG in NS 0.9% 250 ML* 250 ML IV SCH ×2 (09:31→19:23)
[2019-12-03] MEDS: Cholecalciferol TAB* 1000 UNITS PO SCH (09:32)
[2019-12-03] MEDS: Magnesium Oxide TAB* 400 MG PO SCH (09:32)
[2019-12-03] MEDS: Acetaminophen TAB* 325 MG PO SCH ×2 (09:32→19:23)
[2019-12-03] MEDS: Bumetanide TAB* 1 MG PO SCH (09:32)
[2019-12-03] MEDS: Potassium Chlor TAB* 20 MEQ TAB.ER PO SCH (09:34)
[2019-12-03] MEDS: Carvedilol TAB* 3.125 MG PO SCH ×2 (09:34→19:24)
[2019-12-03] MEDS: Lactobacillus Acidophilus* 1 TAB PO SCH ×2 (09:34→19:23)
[2019-12-03] MEDS: Tamsulosin CAP* 0.4 MG PO SCH ×2 (09:35→19:24)
[2019-12-03] MEDS: Vancomycin CAP* 125 MG CAP PO SCH ×4 (09:35→19:24)
--- NOTE | 2019-12-03 10:33 | BRIEFOPN ---
Brief Operative/Procedure Note - Operation Details Pre-Op Diagnosis: Anemia Post-Op Diagnosis: Anemia Procedures: Bone marrow biopsy and aspirate Surgeon(s)/Proceduralists: MARCY Bridges Anesthesia: 2% lidocaine, approx. 5 mLs local anesthesia, good effect Estimated Blood Loss: minimal Findings: good spicules, soft core Specimen(s)/Culture(s) Description: Left iliac crest bone marrow biopsy and aspirate Complications: No obvious complications. Pt. tolerated well.
[2019-12-03 12:41] LABS: Albumin/Globulin Ratio 0.95; Gamma Globulin 0.5 g/dL (0.6-1.6); Total Protein(PEP) 4.2 g/dL (6.3 - 7.9)
--- NOTE | 2019-12-03 14:50 | PN ---
Subjective Date of Service: 12/03/19 Interval History: Patient sitting in chair on assessment. Reports he has not had any diarrhea today. Reports he feels well and is looking forward to being discharged. Denies cp, sob, fever, chills, nausea, vomiting, abd pain. Family History: Unchanged from Admission Social History: Unchanged from Admission Past Medical History: Unchanged from Admission Objective Active Medications: Acetaminophen (Tylenol Tab*) 975 mg PO BID [facility] Last Admin: 12/03/19 09:32 Dose: 975 mg Amlodipine Besylate (Norvasc Tab*) 5 mg PO BEDTIME [facility] Last Admin: 12/02/19 21:13 Dose: 5 mg Bumetanide (Bumex Tab*) 1 mg PO DAILY [facility] Last Admin: 12/03/19 09:32 Dose: 1 mg Carvedilol (Coreg Tab*) 3.125 mg PO BID [facility] Last Admin: 12/03/19 09:34 Dose: 3.125 mg Cholecalciferol (Vitamin D Tab*) 2,000 units PO DAILY [facility] Last Admin: 12/03/19 09:32 Dose: 2,000 units Dextrose (D50w Syringe 50 Ml*) 12.5 gm IV PUSH .FOR FS < 60 - SS PRN PRN Reason: FS < 60 Enoxaparin Sodium (Lovenox(*)) 40 mg SUBCUT Q24H [facility] Last Admin: 12/02/19 17:46 Dose: 40 mg Gabapentin (Neurontin Cap(*)) 100 mg PO BEDTIME [facility] Last Admin: 12/02/19 21:14 Dose: 100 mg Vancomycin HCl 1,250 mg/ (Sodium Chloride) 250 mls @ 166.667 mls/hr IV 0900, 2100 [facility] Last Admin: 12/03/19 09:31 Dose: 166.667 mls/hr Insulin Human Lispro (Humalog*) 0 units SUBCUT AC [facility]; Protocol Last Admin: 12/03/19 12:55 Dose: 2 units Lactobacillus Rhamnosus (Lactobacillus Acidophilus*) 1 tab PO BID [facility] Last Admin: 12/03/19 09:34 Dose: 1 tab Magnesium Oxide (Magox 400 Tab*) 400 mg PO DAILY [facility] Last Admin: 12/03/19 09:32 Dose: 400 mg Oxycodone HCl (Roxycodone Tab*) 5 mg PO BEDTIME PRN PRN Reason: PAIN Last Admin: 12/02/19 21:13 Dose: 5 mg Pharmacy Consult (Vancomycin Per Pharmacy*) 1 note FOLLOW UP .VANC PER PHARMACY [facility]; Protocol Potassium Chloride (Klor Con Er Tab*) 40 meq PO DAILY [facility] Last Admin: 12/03/19 09:34 Dose: 40 meq Prednisone (Deltasone 10 Mg Tab) 10 mg PO DAILY [facility] Last Admin: 12/03/19 09:32 Dose: 10 mg Tamsulosin HCl (Flomax Cap*) 0.4 mg PO BID [facility] Last Admin: 12/03/19 09:35 Dose: 0.4 mg Tolnaftate (Tinactin 1% Cream*) 1 applic TOPICAL BEDTIME [facility] Last Admin: 12/02/19 21:13 Dose: 1 applic Vancomycin HCl (Vancomycin Cap*) 125 mg PO QID [facility] Last Admin: 12/03/19 12:55 Dose: 125 mg Vital Signs - 8 hr 12/03/19 12/03/19 12/03/19 07:15 08:00 11:15 Temperature 97.9 F 98.5 F Pulse Rate 77 78 Respiratory 18 16 17 Rate Blood Pressure 115/66 121/64 (mmHg) O2 Sat by Pulse 96 97 Oximetry Oxygen Devices in Use Now: None Appearance: Comfortable, NAD Eyes: No Scleral Icterus Ears/Nose/Mouth/Throat: Clear Oropharnyx, Mucous Membranes Moist Neck: NL Appearance and Movements; NL JVP Respiratory: Symmetrical Chest Expansion and Respiratory Effort, Clear to Auscultation Cardiovascular: NL Sounds; No Murmurs; No JVD, RRR, No Edema Abdominal: NL Sounds; No Tenderness; No Distention Lymphatic: No Cervical Adenopathy Extremities: No Edema Skin: No Rash or Ulcers Neurological: Alert and Oriented x 3, NL Muscle Strength and Tone Nutrition: Taking PO's Result Diagrams: 12/03/19 05:07 12/03/19 05:07 Additional Lab and Data: Laboratory Results - last 24 hr 12/01/19 12/02/19 12/02/19 10:35 11:58 16:45 WBC RBC Hgb Hct MCV MCH MCHC RDW Plt Count MPV Neut % (Auto) Lymph % (Auto) Delta % (Auto) Eos % (Auto) Baso % (Auto) Absolute Neuts (auto) Absolute Lymphs (auto) Absolute Monos (auto) Absolute Eos (auto) Absolute Basos (auto) Absolute Nucleated RBC Immature Gran % Neutrophils % Band Neutrophils % Lymphocytes % Reactive Lymphs % Monocytes % Eosinophils % Metamyelocytes % Myelocytes % Nucleated RBC % Normal RBC Morphology Sodium Potassium Chloride Carbon Dioxide Anion Gap BUN Creatinine Est GFR ( Amer) Est GFR (Non-Af Amer) BUN/Creatinine Ratio Glucose POC Glucose (mg/dL) 226 H 254 H Calcium Magnesium Total Protein (PEP) 4.2 L Albumin (PEP) 2.0 L Albumin/Globulin (PEP) 0.95 Nqusa-0-Bivmqdrts 0.2 Byljz-8-Qsesbpjhs 0.8 Jafx-7-Jytwftxe 0.6 L Gamma Globulins 0.5 L PEP Impression See comment Vancomycin Trough 12/03/19 12/03/19 12/03/19 05:07 05:07 07:46 WBC 9.0 RBC 2.95 L Hgb 10.2 L Hct 30 L MCV 100 H MCH 35 H MCHC 35 RDW 16 H Plt Count 176 MPV 7.0 L Neut % (Auto) 87.3 Lymph % (Auto) 5.0 Delta % (Auto) 6.0 Eos % (Auto) 1.4 Baso % (Auto) 0.3 Absolute Neuts (auto) 7.8 H Absolute Lymphs (auto) 0.4 L Absolute Monos (auto) 0.5 Absolute Eos (auto) 0.1 Absolute Basos (auto) 0.0 Absolute Nucleated RBC 0.0 Immature Gran % 12.0 H Neutrophils % 74.0 Band Neutrophils % 5.0 Lymphocytes % 4.0 Reactive Lymphs % 4.0 Monocytes % 5.0 Eosinophils % 1.0 Metamyelocytes % 4.0 H Myelocytes % 3.0 H Nucleated RBC % 0.2 Normal RBC Morphology Normal Sodium 139 Potassium 3.8 Chloride 108 Carbon Dioxide 25 Anion Gap 6 BUN 11 Creatinine 0.84 Est GFR ( Amer) 107.5 Est GFR (Non-Af Amer) 88.8 BUN/Creatinine Ratio 13.1 Glucose 116 H POC Glucose (mg/dL) 120 H Calcium 8.0 L Magnesium 2.1 Total Protein (PEP) Albumin (PEP) Albumin/Globulin (PEP) Keewz-3-Jmdilxtrg Ezshl-3-Zqloyubug Ucue-6-Bstijkam Gamma Globulins PEP Impression Vancomycin Trough 12/03/19 12/03/19 08:37 11:55 WBC RBC Hgb Hct MCV MCH MCHC RDW Plt Count MPV Neut % (Auto) Lymph % (Auto) Delta % (Auto) Eos % (Auto) Baso % (Auto) Absolute Neuts (auto) Absolute Lymphs (auto) Absolute Monos (auto) Absolute Eos (auto) Absolute Basos (auto) Absolute Nucleated RBC Immature Gran % Neutrophils % Band Neutrophils % Lymphocytes % Reactive Lymphs % Monocytes % Eosinophils % Metamyelocytes % Myelocytes % Nucleated RBC % Normal RBC Morphology Sodium Potassium Chloride Carbon Dioxide Anion Gap BUN Creatinine Est GFR ( Amer) Est GFR (Non-Af Amer) BUN/Creatinine Ratio Glucose POC Glucose (mg/dL) 175 H Calcium Magnesium Total Protein (PEP) Albumin (PEP) Albumin/Globulin (PEP) Yraxy-4-Zkkqtlshv Dysvu-3-Monskojcm Znpa-6-Trlpvxyc Gamma Globulins PEP Impression Vancomycin Trough 19.2 Microbiology and Other Data: Microbiology 11/30/19 09:30 Stool Stool Culture - Final 11/30/19 09:30 Stool Stool Gross Appearance - Final 11/30/19 09:30 Stool Shiga Toxin I & II - Final Negative Shiga Toxin 1 & 2 12/01/19 22:15 Stool Stool Gross Appearance - Final 12/01/19 22:15 Stool C. difficile DNA Amplification - Final 027 Presumptive NEGATIVE Toxigenic C.diff POSITIVE 11/29/19 18:13 Blood Line Aerobic Blood Culture - Preliminary No Growth Day 2 11/29/19 18:13 Blood Line Anaerobic Blood Culture - Preliminary No Growth Day 2 11/29/19 17:05 Blood Line Aerobic Blood Culture - Preliminary No Growth Day 2 11/29/19 17:05 Blood Line Anaerobic Blood Culture - Preliminary No Growth Day 2 11/30/19 09:59 Stool Stool Occult Blood ([facility]) - Final Assess/Plan/Problems-Billing Assessment: Patient is a 74yo male with a PMH for multiple spinal infections, DMII, PMR, here with lethargy for 1 week which appears to be improved with antibiotics. - Patient Problems (1) Bandemia Comment: - Resolved - Without associated leukocytosis (2) Lethargy Comment: - Improving. - Likely related to infecion of Cdiff - MRI to R/O possible recurrent spinal infection: does not show abscess or osteomyelitis - Blood Cultures negative - No rashes and negative CXR (3) Leukocytosis, unspecified Comment: - No leukocytosis during admission - Elevated lactate has resolved - Dr Cervantes consulted and bone marrow biopsy perfromed today. (4) Clostridium difficile infection Comment: - Cont PO Vanco - Stop Cefepime (5) PMR (polymyalgia rheumatica) Comment: - On chronic steroids. (6) TEO (acute kidney injury) Comment: - Resolved with IVF (7) Anemia Comment: - Bone marrow biopsy perfromed by Onc PA today due to patients Hem/Onc hx. Per DINA Waterman patient is okay from discharge from Hem/Onc stand point and an appointment with them should be made for follow up when he is discharged. - H/H stable. (8) BPH (benign prostatic hyperplasia) Comment: - Continue tamsulosin (9) Diabetes Comment: - A1c 9.7% 1 month ago - SSI in the hospital - Resume home meds on D/C (10) DVT prophylaxis Comment: - lovenox Status and Disposition: Discharge when medically stable Attending: Pasha Santos
[2019-12-03] MEDS: Enoxaparin(*) 40 MG/0.4 ML SYR SUBCUT SCH (18:23)
[2019-12-03] MEDS: Gabapentin CAP(*) 100 MG PO SCH (19:23)
[2019-12-03] MEDS: amLODIPine TAB* 5 MG PO SCH (19:24)
[2019-12-03] MEDS: Tolnaftate 1% CREAM* 15 GM TOPICAL SCH (19:24)
[2019-12-04] MEDS: Insulin LISPRO* 1 UNITS UNIT SUBCUT SCH (07:38)
[2019-12-04] MEDS: Magnesium Oxide TAB* 400 MG PO SCH (08:58)
[2019-12-04] MEDS: Tamsulosin CAP* 0.4 MG PO SCH (08:59)
[2019-12-04] MEDS: Cholecalciferol TAB* 1000 UNITS PO SCH (08:59)
[2019-12-04] MEDS: Vancomycin CAP* 125 MG CAP PO SCH (08:59)
[2019-12-04] MEDS: Bumetanide TAB* 1 MG PO SCH (08:59)
[2019-12-04] MEDS: Potassium Chlor TAB* 20 MEQ TAB.ER PO SCH (08:59)
[2019-12-04] MEDS: Lactobacillus Acidophilus* 1 TAB PO SCH (08:59)
[2019-12-04] MEDS: Acetaminophen TAB* 325 MG PO SCH (08:59)
[2019-12-04] MEDS: Carvedilol TAB* 3.125 MG PO SCH (08:59)
[2019-12-04] MEDS: Vancomycin(*) 1,250 MG in NS 0.9% 250 ML* 250 ML IV SCH (09:02)
--- NOTE | 2019-12-04 11:17 | DS ---
CC: Dr. Styles * DISCHARGE SUMMARY: DATE OF ADMISSION: 11/29/19 DATE OF DISCHARGE: 12/04/19 PRIMARY CARE PROVIDER: Dr. Styles. ATTENDING PHYSICIAN: Dr. Pasha Santos * (dictated by Antonio Quinetros NP.) PRIMARY DIAGNOSES: 1. Clostridium difficile. 2. Bandemia. 3. Lethargy. 4. Polymyalgia rheumatica. 5. Acute kidney injury. 6. Anemia. 7. BPH. 8. Diabetes. CONSULTATIONS WHILE IN THE HOSPITAL: Oncology Dr. Cervantes. PROCEDURES WHILE IN THE HOSPITAL: Bone marrow biopsy. STUDIES WHILE IN THE HOSPITAL: 1. Chest x-ray: Impression: No active cardiopulmonary disease. 2. EKG: Impression: Sinus rhythm. 3. Lumbar spine x-ray: Impression: Osteopenia, sclerosis, status post spinal fusion, degenerative disk disease, and osteoarthritis. 4. Lumbar spine MRI: Impression: The patient has known diskitis at L5-S1 since prior MRI study of 02/10/19 there has been a posterior laminectomy placement, a vertebral spacer at L4-L5. A pedicular screw plate and screw device has been placed from L3-S1. The vertebral spacer at L5-S1 disrupts the local regional anatomy. No paravertebral soft tissue mass was observed. No abnormal enhancement. Suggested continued monitoring. Multilevel degenerative disk disease and facet disease. Moderate central canal stenosis at L1-L3 and L3 -L4. Variable degrees of neuroforaminal narrowing secondary to degenerative changes in the facet joints, disks, substances, and end plates. DISCHARGE HOME MEDICATIONS: New home medications: 1. Vancomycin 125 mg p.o. 4 times a day for a total of 10 days. Continued home medications: 1. Jardiance 10 mg p.o. daily. 2. Acetaminophen 1000 mg p.o. b.i.d. 3. Pulmicort 90 mcg 2 puff inhalation q.12 hours p.r.n. 4. Imodium 2 caps p.o. q.4 hours p.r.n. 5. Acidophilus 1 tab p.o. b.i.d. 6. Gabapentin 100 mg p.o. at bedtime. 7. Tri-Con capsule 1 each p.o. daily. 8. Vitamin D3 of 2000 units p.o. daily. 9. Coreg 3.125 mg p.o. b.i.d. 10. Tinactin 1 application topical at bedtime. 11. Flomax 0.4 mg p.o. b.i.d. 12. Potassium 40 mEq p.o. daily. 13. Omeprazole 40 mg p.o. daily. 14. Magnesium oxide 400 mg p.o. daily. 15. Prednisone 10 mg p.o. daily. 16. Oxycodone 5 mg p.o. at bedtime p.r.n. 17. Amlodipine 5 mg p.o. at bedtime. Changed home medications: 1. Bumex has been reduced from 2 mg p.o. daily to 1 mg p.o. daily. Discontinued home medications: No home medications were discontinued. HISTORY OF PRESENT ILLNESS/HOSPITAL COURSE: Mr. Kemp is a 74-year-old male with the past medical history significant for MSSA, osteomyelitis/diskitis 2017, mycobacterium, osteomyelitis/diskitis 2011, history of lumbar spine surgery, type 2 diabetes, hypertension, sarcoidosis, BPH, nephrolithiasis, B12 deficiency, squamous cell cancer, AYUSH, sciatica, anxiety, depression, tonsillectomy, bilateral cataract extraction; who presented to the emergency department on 11/29/19 with complaints of lethargy. Please see history and physical dictated by Alisson Becerra NP for complete summary of the events leading up to hospitalization, but in short the patient was not able to get up and fell asleep during breakfast; therefore staff at his residence brought him to the emergency room. While in the emergency room, he was noted to have bandemia with a white count at 11% and a CRP was elevated at 86.17. Given his history, the hospitalists were asked to consult for admission. While in the hospital, the patient underwent evaluation for a possible source of infection including a chest x-ray, lumbar spine imaging, repeat labs, francis cultures. The patient's culture of the stool revealed positive C. difficile. The patient was initially placed on IV antibiotics in the form of cefepime but this was stopped once source of C. difficile was identified and the patient was placed on p.o. vancomycin. The patient has improved with treatment and is no longer experiencing diarrhea at this time. The patient's bandemia also resolved. The patient's hospitalization was complicated by the fact that he was noted to be macrocytic anemic. Given the patient's history, Dr. Cervantes was consulted and the patient underwent a bone-marrow biopsy. The patient is stable for discharge back to [facility] where he resides. Vital Signs: Temp 98.2, HR 84, RR 12, O2 saturation 97% on room air, BP 144/79. REVIEW OF SYSTEMS: A 14-point review of systems was completed and all were negative. The patient states that he is in his normal state of health today. The patient also denies diarrhea. PHYSICAL EXAMINATION: General: Mr. Kemp is a 74-year-old male who was sitting in bed. Appears to be in no acute distress. Appears stated age. HEENT : PERRLA. Sclerae are icterus. Oral mucosa is moist without lesion. Posterior pharynx is clear. Neck: Full range of motion. No lymphadenopathy. Respiratory: Symmetrical chest expansion. No accessory muscle use. Lungs are clear to auscultation. CV: Regular rate and rhythm. S1, S2 present. No murmurs, rubs, or gallops. Extremities: Skin is warm and smooth bilaterally. Trace edema. Pedal pulses 2+ bilaterally. Musculoskeletal: No pain or deformities. Abdomen: Soft and nontender. Bowel sounds normoactive. Neuro: Awake, alert, and oriented. Muscle strength is 5/5. Skin: Grossly intact. DIAGNOSTIC STUDIES/LABORATORY DATA: Sodium 139, potassium 3.8, chloride 108, carbon dioxide 25, BUN 11, creatinine 0.84, glucose 116, calcium 8.0, magnesium 2.1. WBC 9.0, RBC 2.95, hemoglobin 10.2, hematocrit 30, MCV 100, MCH 30, platelet 176. DISCHARGE PLAN/FOLLOWUP: 1. Clostridium difficile infection: The patient should continue p.o. vancomycin for a total of 10 days. The patient has received 2 complete days here. Today is day 3. The vancomycin 125 mg p.o. 4 times a day. 2. Bandemia: This has resolved and was without leukocytosis. The patient should follow up with hematology/oncology for results of bone marrow biopsy. 3. Lethargy: We suspect this is secondary to the patient's C. difficile infection. The patient had a thorough infection workup which revealed C. difficile. The patient reports lethargy has improved and he is at his normal state of health. 4. Polymyalgia rheumatica: The patient should continue his steroids. 5. Acute kidney injury: The patient has slight increase in creatinine peaking at 1.09 but has resolved with IV fluids. 6. Anemia: A bone marrow biopsy was performed by Hematology/Oncology [facility]. The patient should follow up with Hematology/Oncology Dr. Cervantes in 1 week for results. 7. BPH. The patient should continue his tamsulosin. 8. Diabetes: The patient should continue his home meds upon discharge. 9. Followup: The patient should follow up with his primary care in 1 to 3 days. 10. Education: The patient was educated on signs and symptoms of new or worsening condition, when to return to the emergency department. The patient stated understanding. This is a summarized report of a complex medical history and hospital stay, for further details please see the entire medical record. TIME SPENT: Approximately 45 minutes were spent on discharge, greater than half this time was spent [id number] with the patient discussing discharge plans and instructions. This plan was also discussed with my attending Dr. Pasha Santos who is in agreement with the plan of care. ANTONIO QUINTEROS, MARCY [id number]/CPS #: [id number] EMILIANO
[2019-12-04 14:23] VITALS: BP 96/53
[2019-12-08 16:58] LABS: FMDS Result Summary Normal
== END 2019-12-04 11:50 | disposition home or self-care (01) | DRG 372 ==
LOC: ED 13:54 → MED 18:45 → OBSVTOIN 12-01 10:20
PROVIDERS: ADMIT Internal Medicine; ATTEND Internal Medicine
PROC: 07DR3ZX Extraction of Iliac Bone Marrow, Percutaneous Approach, Diagnostic (ICD-10-PCS; principal; 2019-12-03)
DX: A04.72 Enterocolitis due to Clostridium difficile, not specified as recurrent (principal); N17.9 Acute kidney failure, unspecified; I50.32 Chronic diastolic (congestive) heart failure; E11.65 Type 2 diabetes mellitus with hyperglycemia; D86.9 Sarcoidosis, unspecified; N40.0 Benign prostatic hyperplasia without lower urinary tract symptoms; G47.33 Obstructive sleep apnea (adult) (pediatric); M54.30 Sciatica, unspecified side; F41.9 Anxiety disorder, unspecified; F32.9 Major depressive disorder, single episode, unspecified; I11.0 Hypertensive heart disease with heart failure; Z66 Do not resuscitate; D53.9 Nutritional anemia, unspecified; M35.3 Polymyalgia rheumatica; J44.9 Chronic obstructive pulmonary disease, unspecified; M19.90 Unspecified osteoarthritis, unspecified site; D72.825 Bandemia; B96.89 Other specified bacterial agents as the cause of diseases classified elsewhere; D72.829 Elevated white blood cell count, unspecified; Z79.51 Long term (current) use of inhaled steroids; Z87.442 Personal history of urinary calculi; Z85.828 Personal history of other malignant neoplasm of skin; Z79.899 Other long term (current) drug therapy; Z88.8 Allergy status to other drugs, medicaments and biological substances; Z86.11 Personal history of tuberculosis
CPT/HCPCS: 36415; 38222; 71045; 72100; 72158; 80048; 80053; 80202; 81003; 81479; 82272; 82607; 82746; 82803; 83605; 83615; 83735; 84155; 84165; 84443; 84484; 85025; 85060; 85097; 86140; 87040; 87045; 87046; 87493; 87899; 88184; 88187; 88188; 88189; 88237; 88271; 88305; 88311; 88313; 88341; 88342; 93005; 94660; 99283; A9270-GY; A9579; J0610; J0692; J1644; J1650; J3370; J3480; J7512